=== PATIENT | male | born 1960 ===

== ENCOUNTER 2020-07-31 12:26 | Outpatient (REF) | payer OTHER, SELFPAY | END 2020-07-31 12:27 | disposition home or self-care (01) | LOC: HO.LAB 12:26 | PROVIDERS: PCP Internal Medicine Medical Oncology; Visit Provider Internal Medicine | DX: Z20.822 Contact with and (suspected) exposure to COVID-19 (principal) | CPT/HCPCS: 36415; C9803; U0003; U0005 ==

== ENCOUNTER 2020-08-27 09:26 | Outpatient (REF) | payer OTHER, SELFPAY | END 2020-08-27 09:27 | disposition home or self-care (01) | LOC: HO.LAB 09:26 | PROVIDERS: Visit Provider Internal Medicine | DX: Z20.822 Contact with and (suspected) exposure to COVID-19 (principal) | CPT/HCPCS: 36415; C9803; U0003; U0005 ==

== ENCOUNTER → 2021-04-02 12:52 | Outpatient (BNVA) | payer OTHER, SELFPAY | PROVIDERS: PCP Internal Medicine Medical Oncology; Visit Provider Hospitalist ==

== ENCOUNTER → 2021-07-03 10:39 | Outpatient (BNVA) | payer OTHER, SELFPAY | PROVIDERS: PCP Internal Medicine Medical Oncology; Visit Provider Hospitalist ==

== ENCOUNTER 2021-08-21 15:09 | Outpatient (REF) | payer OTHER, SELFPAY ==
--- NOTE | ~2021-08-21 | XR_ITS ---
EXAMINATION: XR CHEST XR RIBS, LEFT CLINICAL INFORMATION: Back pain. Acute pain. COMPARISON: 08/25/2014 TECHNIQUE: PA and lateral views of the chest. 3 views of the left ribs. FINDINGS: The lungs are well expanded. There is minimal opacity at the periphery of the left lower lung. This is not seen on prior. No pleural effusion or pneumothorax. The cardiomediastinal silhouette is within normal limits. Targeted left rib radiographs show no fracture or cortical disruption. Appropriate alignment. XR/XR ribs LT 2V IMPRESSION: No focal rib abnormality identified. There is minimal left peripheral lower lung opacity which is nonspecific. This could represent atelectasis or pneumonia. Suggest follow-up to resolution.
--- NOTE | ~2021-08-21 | XR_ITS ---
EXAMINATION: XR CHEST XR RIBS, LEFT CLINICAL INFORMATION: Back pain. Acute pain. COMPARISON: 08/25/2014 TECHNIQUE: PA and lateral views of the chest. 3 views of the left ribs. FINDINGS: The lungs are well expanded. There is minimal opacity at the periphery of the left lower lung. This is not seen on prior. No pleural effusion or pneumothorax. The cardiomediastinal silhouette is within normal limits. Targeted left rib radiographs show no fracture or cortical disruption. Appropriate alignment. XR/XR chest 2V IMPRESSION: No focal rib abnormality identified. There is minimal left peripheral lower lung opacity which is nonspecific. This could represent atelectasis or pneumonia. Suggest follow-up to resolution.
== END 2021-08-21 15:10 | disposition home or self-care (01) ==
LOC: HO.XRAY 15:09
PROVIDERS: Absent Provider Hospitalist; PCP Internal Medicine Medical Oncology; Visit Provider Internal Medicine Medical Oncology
DX: M54.9 Dorsalgia, unspecified (principal)
CPT/HCPCS: 71046; 71100

== ENCOUNTER → 2021-08-28 09:54 | Outpatient (BNVA) | payer OTHER, SELFPAY | PROVIDERS: PCP Internal Medicine Medical Oncology; Visit Provider Hospitalist | DX: I26.99 Other pulmonary embolism without acute cor pulmonale (principal); G47.33 Obstructive sleep apnea (adult) (pediatric); Z99.89 Dependence on other enabling machines and devices; Z87.891 Personal history of nicotine dependence | CPT/HCPCS: 99212 ==

== ENCOUNTER 2021-09-10 09:36 | Outpatient (REF) | payer OTHER, SELFPAY ==
[2021-09-10 10:38] LABS: INTERNATIONAL NORM RATIO 1.3 (0.9-1.1); Prothrombin Time 14.8 SEC (9.9-13.0)
[2021-09-10 10:40] LABS: Partial Thromboplastin Time 39.3 SEC (24.1-38.0)
[2021-09-11 14:31] LABS: PTT (LAC) Screen 32 sec (< OR = 40)
[2021-09-13 16:37] LABS: Homocysteine 9.8 umol/L (<11.4)
[2021-09-13 18:32] LABS: Anti-Thrombin III Antigen 88 % (80-120)
[2021-09-13 21:37] LABS: Protein C Activity 172 % (70-180); Protein S Activity rflx Tot&Fr 83 % (70-150)
[2021-09-15 21:36] LABS: Prothrombin 20210A NEGATIVE
[2021-09-16 20:10] LABS: Factor V Leiden NEGATIVE
== END 2021-09-10 09:37 | disposition home or self-care (01) ==
LOC: HO.LAB 09:36
PROVIDERS: PCP Internal Medicine Medical Oncology; Visit Provider Internal Medicine Medical Oncology
DX: I26.99 Other pulmonary embolism without acute cor pulmonale (principal)
CPT/HCPCS: 36415; 81240; 81241; 83090; 85301; 85302; 85303; 85305; 85306; 85597; 85610; 85613; 85730

== ENCOUNTER → 2021-10-23 10:00 | Outpatient (BNVA) | payer OTHER, SELFPAY | PROVIDERS: PCP Internal Medicine Medical Oncology; Visit Provider Hospitalist | DX: R06.00 Dyspnea, unspecified (principal) ==

== ENCOUNTER 2022-01-28 12:13 | Outpatient (REF) | payer MEDICAID, SELFPAY ==
[2022-01-29 04:49] LABS: HBc Num1 0.15 S/CO (0.00-0.79); Hepatitis B Core Antibody Nonreactive (Nonreactive)
[2022-01-30 01:07] LABS: Mumps Virus IgG Antibody >300.00 AU/mL; Rubella IgG Antibody 5.98 Index; Rubeola IgG (Measles) >300.00 AU/mL
[2022-01-30 16:01] LABS: TS Negative Control Passed; TS Panel A 0; TS Panel B 1; TS Positive Control Passed; TSpotTB Negative (Negative)
== END 2022-01-28 12:14 | disposition home or self-care (01) ==
LOC: HO.10HDL 12:13
PROVIDERS: Visit Provider Internal Medicine Medical Oncology
DX: Z92.29 Personal history of other drug therapy (principal); Z78.9 Other specified health status; Z11.1 Encounter for screening for respiratory tuberculosis; Z20.820 Contact with and (suspected) exposure to varicella
CPT/HCPCS: 36415; 86481; 86704; 86735; 86762; 86765; 86787

== ENCOUNTER 2022-02-10 09:37 | Outpatient (REF) | payer MEDICAID, SELFPAY ==
--- NOTE | ~2022-02-10 | FL_ITS ---
EXAMINATION: FL BARIUM SWALLOW CLINICAL INFORMATION: Esophageal dysphagia. COMPARISON: None TECHNIQUE: Barium swallow examination is performed using fluoroscopic evaluation in addition to multiple fluoroscopic spot views. The patient is imaged both upright and prone and using both thick and thin sulfate along with effervescent granules. Barium tablet was also administered. Fluoroscopy Time: 1.9 minutes. DAP: 18 Gycm2. Images: 77. FINDINGS: The swallowing mechanism is normal. No aspiration or penetration is seen. There is question of a filling defect or mass effect on the proximal cervical esophagus. There is mucosal irregularity of the esophagus suggestive of esophagitis. No mass, stricture, hernia or reflux is seen. Barium tablet passed freely into the stomach. FL/FL barium swallow IMPRESSION: Esophagitis. Question filling defect or mass effect on the proximal cervical esophagus.
== END 2022-02-10 09:38 | disposition home or self-care (01) ==
LOC: HO.XRAY 09:37
PROVIDERS: PCP Internal Medicine Medical Oncology; Visit Provider Internal Medicine Medical Oncology
DX: R13.19 Other dysphagia (principal)
CPT/HCPCS: 74220

== ENCOUNTER → 2022-04-24 10:32 | Outpatient (BNVA) | payer MEDICAID, SELFPAY | PROVIDERS: PCP Internal Medicine Medical Oncology; Visit Provider Nurse Practitioner Family | DX: R13.19 Other dysphagia (principal); K21.9 Gastro-esophageal reflux disease without esophagitis | CPT/HCPCS: 99202 ==

== ENCOUNTER 2022-04-24 16:07 | Outpatient (REF) | payer MEDICAID, SELFPAY ==
[2022-04-26 11:11] LABS: H Pylori Breath Test Negative (Negative)
== END 2022-04-24 16:08 | disposition home or self-care (01) ==
LOC: HO.LNP 16:07
PROVIDERS: Visit Provider Nurse Practitioner Family
DX: K20.90 Esophagitis, unspecified without bleeding (principal); Z11.2 Encounter for screening for other bacterial diseases
CPT/HCPCS: 83013; 99202

== ENCOUNTER 2022-05-20 12:43 | Day surgery (SDC) | payer MEDICAID, SELFPAY ==
[2022-05-15 11:50] VITALS: BMI 40.4
[2022-05-15 13:37] VITALS: BMI 40.4
--- NOTE | 2022-05-19 13:20 | HO.ANESPROP2 ---
Documented by User: Alycia Jim NP 05/19/22 13:21 HPI - Anesthesia Eval Consult details Narrative: 61yo M for Upper Endoscopy hx PE 08/2021 - no longer on eliquis [facility] Active Problems Active Problems: All Active Problems (Updated 05/15/22 @ 13:42 by Gabriella Olivares, LILIA) Dyspnea (Acute) MARLEE on CPAP (Acute) Past Medical History Medical History (Updated 05/15/22 @ 13:42 by Gabriella Olivares RN) Arthritis Dysphagia Dyspnea Esophagitis Hyperlipidemia Low back pain MARLEE on CPAP Pulmonary embolism and infarction Surgical History Surgical History (Updated 05/15/22 @ 13:37 by Gabriella Olivares RN) History of esophagogastroduodenoscopy (EGD) Hx of cystoscopy Social History Social History (Updated 05/15/22 @ 13:36 by Gabriella Olivares RN) Are you a primary district manager primary care sales to a significant other at home: No Do you presently have visiting nurse or other home services: No Patient Tobacco Use Status: Former Tobacco user Quit Date: years ago Tobacco use type: Cigarette Years Smoked: 30 Years Use of substances other than those prescribed or required for medical reasons: No Have you been hit, kicked, punched, or otherwise hurt by someone within the past year? If so, by whom?: No Are you DNR?: No Advance Directives: No Advance Directives Information Provided: Yes Advance Directives on File: No Recently lost weight without trying: No Nutrition Risks: Difficulty chewing and Difficulty swallowing Poor oral hygiene: Yes (many missing teeth) Meds Allergies Allergy/AdvReac Type Severity Reaction Status Date / Time No Known Allergies Allergy Verified 05/15/22 13:36 Home Medications Medication Instructions Recorded Confirmed Last Taken Type meloxicam 15 mg tablet 15 mg PO DAILY 05/15/22 05/15/22 Unknown History Exam Exam Date and Time: May 19, 2022 1320 Height,Weight and Vital Signs: Height 6 ft 2 in Weight 142.882 kg Assessment and Plan Assessment Anesthesia Assessment: Chart Reviewed Documented by User: Liane Muñiz MD 05/20/22 15:08 HPI - Anesthesia Eval Consult details Narrative: 61yo M for Upper Endoscopy hx PE 08/2021 - no longer on eliquis. Eliquis for 3 months [facility] Active Problems Active Problems: All Active Problems (Updated 05/15/22 @ 13:42 by Gabriella Olivares, RN) Dyspnea (Acute) MARLEE on CPAP (Acute) Increased BMI Past Medical History Medical History (Updated 05/15/22 @ 13:42 by Gabriella Olivares, RN) Arthritis Dysphagia Dyspnea Esophagitis Hyperlipidemia Low back pain MARLEE on CPAP Pulmonary embolism and infarction Family History Family history of problems with anesthesia: No Surgical History Surgical History (Updated 05/15/22 @ 13:37 by Gabriella Olivares RN) History of esophagogastroduodenoscopy (EGD) Hx of cystoscopy History of Problems with Anesthesia: No Social History Social History (Updated 05/15/22 @ 13:36 by Gabriella Olivares RN) Are you a primary district manager primary care sales to a significant other at home: No Do you presently have visiting nurse or other home services: No Patient Tobacco Use Status: Former Tobacco user Quit Date: years ago Tobacco use type: Cigarette Years Smoked: 30 Years Use of substances other than those prescribed or required for medical reasons: No Have you been hit, kicked, punched, or otherwise hurt by someone within the past year? If so, by whom?: No Are you DNR?: No Advance Directives: No Advance Directives Information Provided: Yes Advance Directives on File: No Recently lost weight without trying: No Nutrition Risks: Difficulty chewing and Difficulty swallowing Poor oral hygiene: Yes (many missing teeth) Meds Allergies Allergy/AdvReac Type Severity Reaction Status Date / Time No Known Allergies Allergy Verified 05/15/22 13:36 Home Medications Medication Instructions Recorded Confirmed Last Taken Type meloxicam 15 mg tablet 15 mg PO DAILY 05/15/22 05/15/22 Unknown History Exam Height,Weight and Vital Signs: Height 6 ft 2 in Weight 142.882 kg Vital Signs Temp Pulse Resp BP Pulse Ox O2 Del Method 05/20/22 13:25 97.6 F 63 16 136/80 98 Room Air Airway Mallampati Class: III TM Dist: >3cm Neck ROM: Full Loose/Missing/Broken Teeth: No (Denies broken or loose teeth ) Heart: RRR Lungs: CTAB Assessment and Plan Assessment Anesthesia Assessment: Anesthesia Plan Discussed Final Anesthetic Review Family History of Problems with Anesthesia: No History of Problems with Anesthesia: No NPO: Yes ASA Class: III Final Preanesthetic Review: No Changes in Pt Med Stat, Meds/Allgs Chart Reviewed, Consent Obtained/Reviewed and Anes Risks/Benef Reviewed Patient Risk: Intermediate Procedure Risk: Low Assessment/Block/Sedation in SS: Assess/Block/Sedation-SS Anesthetic Plan Anesthetic Plan: MAC: Disposition: Standard PACU
[2022-05-20 13:25] VITALS: BP 136/80; PULSE 63; RESP 16; TEMP 36.4; O2SAT 98
[2022-05-20] MEDS: Lactated Ringers 1,000 ML 100 ML IVCONT (13:27)
--- NOTE | 2022-05-20 14:05 | MHC.SHP ---
Pre-Procedural Eval Section A Date of Service: 05/20/22 Section B Chief Complaint: Esophagitis, unspecified without bleeding Details of Present Illness: dysphagia Relevant Family History (Specify if Yes): No Relevant Social History: None Present Medications: see Short Stay Collaborative assessment Medical History: Significant History (Arthritis Dysphagia Dyspnea Esophagitis Hyperlipidemia Low back pain MARLEE on CPAP Pulmonary embolism and infarction) History of Previous Operations: Relevant previous surgery/procedure and date(s) (egd, cystoscopy) Allergies: Allergies Allergy/AdvReac Type Severity Reaction Status Date / Time No Known Allergies Allergy Verified 05/15/22 13:36 Review of Systems Sugical H&P ROS: Negative: Constitution, Cardiovascular, Respiratory, Neurological, Psychiatric, Hem-Onc, Allergic/Immunologic, Gastrointestinal, Genitourinary, Musculoskeletal, Integumentary, Endocrine and Eyes/Ears/Nose/Throat Exam Surgical H&P Exam: Normal: HEENT, Normal: Heart, Normal: Lungs, Normal: Extremities, Normal: Abdomen, Normal: Skin and Normal: Neurological Plan Diagnosis/Plan: Unchanged I have reviewed the history and physical and performed a pertinent physical examination on my patient. No changes have occurred unless specified.
--- NOTE | 2022-05-20 14:06 | W.PM.OPN ---
Operative Note Operative Note Date of Service: 05/20/22 Narrative: Procedure Description: EGD Indication: dysphagia Anesthesia: MAC FLEXIBLE TRANSORAL UPPER GASTROINTESTINAL ENDOSCOPY UPPER ENDOSCOPY Consent: Indications for the procedure and potential complications of bleeding, perforation, reaction to medications and missed diagnosis were discussed with the patient and informed consent was obtained. Instrument: Olympus GIF H 190 J mid size upper endoscope Monitoring: Vital signs and clinical assessment, continuous EKG monitoring, Pulse oximetry, Carbon Dioxide monitoring and blood pressure monitoring were done throughout the procedure. Procedure: The patient was placed in the left lateral decubitis position and pre-procedure medications were administered and a bite block was placed. The endoscope was inserted into the mouth and advanced under direct vision to the third part of duodenum. A careful inspection was made as the upper endoscope was withdrawn including a retroflexed examination of the proximal stomach; Findings and interventions are described below. Findings: Larynx:normal Esophagus: GE junction at 45 cm, diaphragm hiatus at 45 cm, bogginess and erythema at GEJ consistent with esophagitis. 18 mm balloon dilation done with small tear noted at LES and 18 mm at UES with small tear noted. Bx taken from distal and proximal esophagus due to ridged mucosa. Stomach: Patchy gastric erythema. Biopsies were obtained. Grade 2 flap valve on retroflexed examination of the cardia. Duodenum: Normal bulb and descending duodenum, bx taken. Intervention: Biopsies as noted above Impression/Findings: gastritis esophagitis esophageal stricture PLAN: await bx results, if h pylori pos then treat check compliance with PPI and if taking correctly
[2022-05-20 15:38] VITALS: BP 121/82; PULSE 66; RESP 16; TEMP 36.2; O2SAT 95
[2022-05-20 15:53] VITALS: BP 118/78; PULSE 62; RESP 18; O2SAT 98
[2022-05-20 16:08] VITALS: BP 118/78; PULSE 62; RESP 18; TEMP 36.2; O2SAT 98
[2022-05-20] MEDS: Mag&Al/Sim/Diphenhyd/Lidocaine 10 ML ORAL.SUSP PO (16:32)
== END 2022-05-20 16:30 | disposition home or self-care (01) ==
PROVIDERS: PCP Internal Medicine Medical Oncology; Visit Provider Internal Medicine Gastroenterology
PROC: 0DJ08ZZ Inspection of Upper Intestinal Tract, Via Natural or Artificial Opening Endoscopic (ICD-10-PCS; CPT 43235; principal; 2022-05-20 14:10)
DX: K22.2 Esophageal obstruction (principal); K21.00 Gastro-esophageal reflux disease with esophagitis, without bleeding; K29.70 Gastritis, unspecified, without bleeding; K29.80 Duodenitis without bleeding; G47.33 Obstructive sleep apnea (adult) (pediatric); Z86.711 Personal history of pulmonary embolism; Z99.89 Dependence on other enabling machines and devices
CPT/HCPCS: 43249; 43239; 88305; 88342; C1726; J2250

== ENCOUNTER → 2022-06-06 08:21 | Outpatient (BNVA) | payer MEDICAID, SELFPAY | PROVIDERS: PCP Internal Medicine Medical Oncology; Visit Provider Nurse Practitioner Family | DX: Z13.89 Encounter for screening for other disorder (principal) ==

== ENCOUNTER → 2022-07-02 10:00 | Outpatient (BNVA) | payer MEDICAID, SELFPAY | PROVIDERS: PCP Internal Medicine Medical Oncology; Visit Provider Hospitalist | DX: G47.33 Obstructive sleep apnea (adult) (pediatric) (principal); R06.00 Dyspnea, unspecified; R41.3 Other amnesia; Z86.711 Personal history of pulmonary embolism; Z99.89 Dependence on other enabling machines and devices | CPT/HCPCS: 99212 ==

== ENCOUNTER → 2022-08-21 09:00 | Outpatient (BNVA) | payer MEDICAID, SELFPAY | PROVIDERS: PCP Internal Medicine Medical Oncology; Visit Provider Nurse Practitioner Family | DX: R13.10 Dysphagia, unspecified (principal); K21.00 Gastro-esophageal reflux disease with esophagitis, without bleeding | CPT/HCPCS: 99212 ==

== ENCOUNTER 2022-09-12 08:15 | Outpatient (REF) | payer MEDICAID, SELFPAY ==
[2022-09-12 09:15] LABS: Appearance Urine Clear; Color Urine Yellow; Glucose Urine UA Negative (Negative); Leukocyte Esterase Urine Negative (Negative); Nitrite Urine Negative (Negative); Specific Gravity - Urine 1.015 (1.005-1.025); Urine Blood Negative (Negative); Urine Ketones Negative (Negative); Urine Protein Negative (Neg-Trace)
== END 2022-09-12 08:16 | disposition home or self-care (01) ==
LOC: HO.LAB 08:15
PROVIDERS: PCP Internal Medicine Medical Oncology; Visit Provider Internal Medicine Medical Oncology
DX: R30.0 Dysuria (principal)
CPT/HCPCS: 81003

== ENCOUNTER → 2022-10-23 12:57 | Outpatient (BNVA) | payer MEDICAID, SELFPAY | PROVIDERS: PCP Internal Medicine Medical Oncology; Visit Provider Nurse Practitioner Family | DX: R30.0 Dysuria (principal); N40.0 Benign prostatic hyperplasia without lower urinary tract symptoms | CPT/HCPCS: 51798; 99202 ==

== ENCOUNTER 2022-10-29 09:18 | Outpatient (REF) | payer MEDICAID, SELFPAY ==
[2022-10-29 09:32] LABS: MANUAL DIFF FLAG NO
[2022-10-29 10:20] LABS: Basophils Percent Auto 0.7 % (0-2); Eosinophils Absolute Auto 0.2 X10*3/uL (0.0-0.4); Eosinophils Percent Auto 4.2 % (0-4); Hematocrit 42.2 % (42.0-52.0); Hemoglobin 14.3 g/dl (14.0-18.0); Imm Gran Abs Auto 0.02 X10*3/uL (0.00-0.03); Imm Gran Pct Auto 0.4 % (0.0-0.4); Lymphocytes Absolute Auto 2.4 X10*3/uL (1.2-4.9); Lymphocytes Percent Auto 43.1 % (20-40); Mean Corpuscular HGB Conc 33.9 g/dl (31.0-36.0); Mean Corpuscular Hemoglobin 28.1 pg (27.0-33.0); Mean Corpuscular Volume 83.1 fL (80.0-98.0); Mean Platelet Volume 8.9 fL (9.4-12.4); Monocytes Absolute Auto 0.4 X10*3/uL (0.1-1.2); Monocytes Percent Auto 7.8 % (2-11); Neutrophils Absolute Auto 2.5 x10*3/uL (2.0-8.3); Neutrophils Percent Auto 43.8 % (45-73); Platelet Count 184 X10*3/uL (160-400); Red Blood Count 5.08 X10*6/uL (4.60-5.80); Red Cell Distribution Width 14.3 % (11.0-16.0); White Blood Count 5.7 X10*3/uL (4.8-10.8)
[2022-10-29 11:40] LABS: Prostate Specific Antigen 0.19 ng/mL (<0.05-4.0)
[2022-10-29 11:49] LABS: Alanine Aminotransferase 26 U/L (0-40); Albumin Level 4.2 g/dL (3.5-5.0); Alkaline Phosphatase 78 U/L (39-117); Anion Gap 12 (12-20); Aspartate Amino Transferase 24 U/L (5-37); Blood Urea Nitrogen 16 mg/dL (9-16); Calcium 9.4 mg/dL (8.4-10.2); Carbon Dioxide 25 mmol/L (22-29); Chloride 107 mmol/L (96-108); Cholesterol 193 mg/dL; Estimated Glomerular Filt Rate > 60; Glucose Fasting 101 mg/dL (60-99); HDL Cholesterol 44 mg/dL; LDL Cholesterol Calculated 130 mg/dl; Potassium 4.1 mmol/L (3.3-5.1); Rheumatoid Factor < 13.0 IU/mL (<15.0); Sodium 140 mmol/L (135-145); Total Protein 7.4 g/dL (6.5-8.0); Triglycerides 95 mg/dL
== END 2022-10-29 09:19 | disposition home or self-care (01) ==
LOC: HO.LAB 09:18
PROVIDERS: Nurse Practitioner Family; PCP Internal Medicine Medical Oncology; Visit Provider Internal Medicine Medical Oncology
DX: Z00.00 Encounter for general adult medical examination without abnormal findings (principal); Z12.5 Encounter for screening for malignant neoplasm of prostate; N40.0 Benign prostatic hyperplasia without lower urinary tract symptoms; N52.9 Male erectile dysfunction, unspecified; E78.5 Hyperlipidemia, unspecified; I10 Essential (primary) hypertension; E66.9 Obesity, unspecified
CPT/HCPCS: 36415; 80053; 80061; 84153; 85025; 86431

== ENCOUNTER → 2022-11-20 08:35 | Outpatient (BNVA) | payer MEDICAID, SELFPAY | PROVIDERS: PCP Internal Medicine Medical Oncology; Visit Provider Nurse Practitioner Family | DX: R30.0 Dysuria (principal) | CPT/HCPCS: 99212 ==

== ENCOUNTER 2022-12-23 07:16 | Outpatient (AMB) | payer MEDICAID, SELFPAY ==
--- NOTE | 2022-12-23 07:38 | MHC.OFFVIS ---
Intake Vital Signs 12/23/22 07:40 Height 6 ft 2 in Weight 308 lb BMI 39.5 BP 130/70 Blood Pressure Location Rt brachial Position Sitting Pulse 68 Pulse Source Pulse Oximeter Pulse Oximetry (%) 96 Oxygen Delivery Method Room Air Intake Visit Reasons: [id number] Intake Note: NPV for Amnesia, states keeps a headache Allergies No Known Allergies Allergy (Verified 12/23/22 07:39) Medication List - Last Reconciled 12/23/22 by Pam Forrest MD CPAP (CPAP Machine/Device) As directed gabapentin 300 mg PO BEDTIME meloxicam 15 mg PO DAILY pantoprazole 40 mg PO DAILY HPI HPI Comments History of Present Illness Details 62y/o male comes for evaluation of memory issues for about 2 years. He frequently misplaces things, forgets conversations, has short term memory issues, needs reminders to take medications etc. He says his memory issue fluctuates. No issues with executive function. He is independent in all his ADLs. He has sleep apnea and is on CPAP f/u by Dr. Flowers. He also has frequent headaches for past 2 years. The headaches are occipital pressure. No nausea .No photophobia, no phonophobia and he usually wakes up with headache. He also has neck pain. His says he c/o headaches everyday . He treats with aleve or advil. He has trouble falling asleep and staying asleep and wakes up tired.He reports leg cramps at night. [facility] Medical History (Updated 12/23/22 @ 08:20 by Pam Forrest MD) Arthritis Chronic headaches Dysphagia Dyspnea Esophagitis Hyperlipidemia Low back pain Memory deficit Nocturnal leg cramps MARLEE on CPAP Pulmonary embolism and infarction Surgical History History of esophagogastroduodenoscopy (EGD) Hx of cystoscopy Social History Are you a primary skin care consultant to a significant other at home: No Do you presently have visiting nurse or other home services: No Alcohol intake: never Patient Tobacco Use Status: Former Tobacco user Quit Date: years ago Tobacco use type: Cigarette Years Smoked: 30 Years Review of Systems Const All systems reviewed & are unremarkable except as noted in HPI and below Reports as per HPI Eyes Reports no additional complaints ENT Reports no additional complaints Card Reports no additional complaints Resp Reports as per HPI GI Reports no additional complaints Reports as per HPI Musc Reports no additional complaints Neuro Reports no additional complaints Psych Reports as per HPI Endo Reports no additional complaints Physical Exam Vital Signs: Last Vital Signs Pulse 68 12/23/22 07:40 BP 130/70 12/23/22 07:40 Pulse Ox 96 12/23/22 07:40 Oxygen Delivery Method Room Air 12/23/22 07:40 BMI result Body Mass Index 39.5 Const Orientation/consciousness: patient oriented x3 Eyes Pupils: Equal, round and reactive pupils present Neuro General: patient oriented x3 Cranial nerves: Yes Facial sensation intact/muscles of mastication intact, Yes Equal, round and reactive pupils present, Yes Nystagmus not present, Yes Normal facial strength present and Yes Midline tongue present Cognition (Neuro): abnormal cognition Motor exam (neuro): 5/5 motor strength present throughout and Normal motor muscle tone present throughout Deep tendon reflexes (DTR's): Right triceps reflex intensity grade: 1+, Left triceps reflex intensity grade: 1+, Rt Biceps (C5, C6): 1+, Left biceps reflex intensity grade: 1+, Right brachioradialis reflex intensity grade: 1+, Left brachioradialis reflex intensity grade: 1+, Right patellar reflex intensity grade: 1+ and Left patellar reflex intensity grade: 1+ Coordination: [id number] test normal Orientation What is the (year) (season) (date) (day) (month)?: year, season, day and month Where are we (state) (county) (town or city) (hospital) (floor)?: state, town or city, hospital/clinic and floor Registration Name of 3 unrelated objects clearly and slowly, then ask patient to repeat all 3 of them. (1st repeat determines score. Make sure they can repeat all three): object 1, object 2 and object 3 Attention & Calculation (CHOOSE ONE) Spell WORLD backwards (DLROW): 5 letters Recall Ask patient to repeat the 3 items from question #3.: object 1 and object 2 Language Show patient a wristwatch & ask what it is. Repeat for pencil.: watch and pencil Ask the patient to repeat the phrase 'No ifs, ands, or buts' after you.: correct Ask the patient to 'take a piece of paper with their right hand' 'fold paper in half' 'place paper on floor': take paper in right hand, fold paper in half and place paper on floor Print the sentence 'CLOSE YOUR EYES' on a piece. If patient actually closes eyes then score.: followed written direction Ask patient to copy figure of intersecting pentagons exactly. Score if all 10 angles & 2 intersects are included.: all 10 angles present & 2 are intersected Score Score: 26 Assessment & Plan Assessment & Plan (1) Memory deficit: Code(s): R41.3 - Other amnesia (2) MARLEE on CPAP: Comment: with residual insomnia, hypersomnia Code(s): G47.33 - Obstructive sleep apnea (adult) (pediatric); Z99.89 - Dependence on other enabling machines and devices (3) Chronic headaches: Comment: cervicogenic Code(s): R51.9 - Headache, unspecified; G89.29 - Other chronic pain Plan Repeat sleep study for reevaluation. I will trial him on gabapentin 300mg qhs for leg cramps and insomnia MRI brain Orders: Orders Ferritin 12/23/22 G89.29 - Other chronic pain, R41.3 - Other amnesia, R51.9 - Headache, unspecified MR head/brain wo con 12/23/22 G89.29 - Other chronic pain, R41.3 - Other amnesia, R51.9 - Headache, unspecified RT PSG in-lab sleep study 12/23/22 G47.33 - Obstructive sleep apnea (adult) (pediatric), G47.62 - Sleep related leg cramps, Z99.89 - Dependence on other enabling machines and devices Medications: New gabapentin 300 mg PO BEDTIME 30 caps 6RF lorazepam (Ativan) 1 tab 30 prior to MRI repeat in 30 minutes orally daily; 2 tabs 0RF anxiety Coding Level of Care Code New Pt Level 4 (71660) Diagnoses Memory deficit R41.3 MARLEE on CPAP G47.33; Z99.89 Chronic headaches R51.9; G89.29
[2022-12-23 07:40] VITALS: BP 130/70; PULSE 68; O2SAT 96; BMI 39.5
== END 2022-12-23 08:24 | disposition home or self-care (01) ==
LOC: HO.HSMS 07:16
PROVIDERS: PCP Internal Medicine Medical Oncology; Visit Provider Psychiatry & Neurology Neurology
DX: R41.3 Other amnesia (principal); G47.33 Obstructive sleep apnea (adult) (pediatric); Z99.89 Dependence on other enabling machines and devices; R51.9 Headache, unspecified; G89.29 Other chronic pain
CPT/HCPCS: 99204

== ENCOUNTER → 2022-12-23 07:16 | Outpatient (BNVA) | payer MEDICAID, SELFPAY | PROVIDERS: PCP Internal Medicine Medical Oncology; Visit Provider Psychiatry & Neurology Neurology | DX: R41.3 Other amnesia (principal); R51.9 Headache, unspecified; G89.29 Other chronic pain; G47.33 Obstructive sleep apnea (adult) (pediatric); G47.62 Sleep related leg cramps; Z99.89 Dependence on other enabling machines and devices | CPT/HCPCS: 99202 ==

== ENCOUNTER → 2023-01-25 19:30 | Outpatient (BNV) | payer MEDICAID, SELFPAY | PROVIDERS: PCP Internal Medicine Medical Oncology; Visit Provider Psychiatry & Neurology Neurology | DX: G47.33 Obstructive sleep apnea (adult) (pediatric) (principal) | CPT/HCPCS: 95810 ==

== ENCOUNTER → 2023-01-25 19:30 | Outpatient (REF) | payer MEDICAID, SELFPAY | LOC: HO.SL 19:30 | PROVIDERS: PCP Internal Medicine Medical Oncology; Visit Provider Psychiatry & Neurology Neurology | DX: G47.33 Obstructive sleep apnea (adult) (pediatric) (principal); G47.62 Sleep related leg cramps; Z99.89 Dependence on other enabling machines and devices | CPT/HCPCS: 95810 ==

== ENCOUNTER 2023-03-06 09:38 | Outpatient (REF) | payer MEDICAID, SELFPAY ==
--- NOTE | ~2023-03-06 | XR_ITS ---
EXAMINATION: XR FOOT, RIGHT CLINICAL INFORMATION: Pain COMPARISON: None TECHNIQUE: 3 views of the foot FINDINGS: No acute fracture or dislocation. Abnormal morphology of the fifth distal phalanx and interphalangeal joint which may reflect a combination of congenital variant anatomy, prior trauma and degenerative change. Hallux valgus deformity with moderate degenerative changes of the first metatarsophalangeal joint with degenerative spurring and loss of joint space. Degenerative spurring of the dorsal midfoot. Plantar calcaneal spurring. Achilles tendon enthesopathy. No joint effusion. Atherosclerotic vascular calcification. XR/XR foot RT 2V IMPRESSION: 1. Abnormal morphology of the fifth distal phalanx and interphalangeal joint which may reflect a combination of congenital variant anatomy, prior trauma and degenerative change. 2. Hallux valgus deformity with moderate degenerative changes of the first metatarsophalangeal joint and degenerative changes of the foot as detailed above.
== END 2023-03-06 09:39 | disposition home or self-care (01) ==
LOC: HO.XRAY 09:38
PROVIDERS: PCP Internal Medicine Medical Oncology; Visit Provider Internal Medicine Medical Oncology
DX: M79.671 Pain in right foot (principal)
CPT/HCPCS: 73620

== ENCOUNTER 2023-03-11 07:45 | Outpatient (AMB) | payer OTHER, MEDICAID, SELFPAY ==
--- NOTE | 2023-03-11 07:50 | A.OFFVIS_ITS ---
Intake Vital Signs 03/11/23 07:51 Height 6 ft 2 in Weight 321 lb 8 oz BMI 41.3 BP 128/78 Blood Pressure Location Rt brachial Position Sitting Pulse 106 H Pulse Source Pulse Oximeter Pulse Oximetry (%) 96 Oxygen Delivery Method Room Air Intake Visit Reasons: 2m follow up Amnesia-confirmed Intake Note: Pt presents to the office today for a 2 month follow up for amnesia. Pt states he uses his CPAP every night. Pt states he thinks the CPAP might be helping because he isn't sure because he is still not getting a lot of sleep at night. Pt states he has issues with the CPAP being hot at night so its even harder for him to sleep. Pt states not getting enough sleep is his main concern. Allergies No Known Allergies Allergy (Verified 03/11/23 07:55) Medication List - Last Reconciled 03/11/23 by Pam Forrest MD CPAP (CPAP Machine/Device) As directed pantoprazole 40 mg PO DAILY HPI HPI Comments History of Present Illness Details 62y/o male comes for evaluation follow u p. He had a repeat sleep study c/w sleep apnea . He is on AUto CPAP 8-16 cm of water His compliance is 100% Usage hrs - 6 hrs Median pressure used 10 AHI 2 He denies leg cramps now He reports difficulty sleeping He says his headache shave decreased - 1/week He had a booster shot yesterday and has headaches now and did not respond to tylenol He frequently misplaces things, forgets conversations, has short term memory issues, needs reminders to take medications etc. He says his memory issue fluctuates. No issues with executive function. He is independent in all his ADLs. [facility] Medical History Nocturnal leg cramps Chronic headaches Memory deficit Arthritis Low back pain Esophagitis Dysphagia Hyperlipidemia Pulmonary embolism and infarction Dyspnea MARLEE on CPAP Surgical History Hx of cystoscopy History of esophagogastroduodenoscopy (EGD) Social History Are you a primary care transition mgr to a significant other at home: No Do you presently have visiting nurse or other home services: No Alcohol intake: never Patient Tobacco Use Status: Former Tobacco user Quit Date: years ago Tobacco use type: Cigarette Years Smoked: 30 Years Physical Exam Vital Signs: Last Vital Signs Pulse 106 H 03/11/23 07:51 BP 128/78 03/11/23 07:51 Pulse Ox 96 03/11/23 07:51 Oxygen Delivery Method Room Air 03/11/23 07:51 BMI result Body Mass Index 41.3 Const Orientation/consciousness: patient oriented x3 Eyes Pupils: Equal, round and reactive pupils present Neuro General: patient oriented x3 Cranial nerves: Yes Facial sensation intact/muscles of mastication intact, Yes Equal, round and reactive pupils present, Yes Nystagmus not present, Yes Normal facial strength present and Yes Midline tongue present Cognition (Neuro): abnormal cognition Motor exam (neuro): 5/5 motor strength present throughout and Normal motor muscle tone present throughout Deep tendon reflexes (DTR's): Right triceps reflex intensity grade: 1+, Left triceps reflex intensity grade: 1+, Rt Biceps (C5, C6): 1+, Left biceps reflex intensity grade: 1+, Right brachioradialis reflex intensity grade: 1+, Left brachioradialis reflex intensity grade: 1+, Right patellar reflex intensity grade: 1+ and Left patellar reflex intensity grade: 1+ Coordination: [id number] test normal Assessment & Plan Assessment & Plan (1) Memory deficit: Code(s): R41.3 - Other amnesia (2) MARLEE on CPAP: Comment: with residual insomnia, hypersomnia Code(s): G47.33 - Obstructive sleep apnea (adult) (pediatric); Z99.89 - Dependence on other enabling machines and devices (3) Chronic headaches: Comment: cervicogenic Code(s): R51.9 - Headache, unspecified; G89.29 - Other chronic pain Plan Decrease humidifier settings to 2 Change CPAP pressure to 8-11 I will trial him on gabapentin 300mg qhs insomnia MRI brain Coding Level of Care Code Est Pt Level 4 (39276) Diagnoses Memory deficit R41.3 MARLEE on CPAP G47.33; Z99.89 Chronic headaches R51.9; G89.29
[2023-03-11 07:51] VITALS: BP 128/78; PULSE 106; O2SAT 96; BMI 41.3
== END 2023-03-11 08:26 | disposition home or self-care (01) ==
PROVIDERS: PCP Internal Medicine Medical Oncology; Visit Provider Psychiatry & Neurology Neurology
DX: R41.3 Other amnesia (principal); G47.33 Obstructive sleep apnea (adult) (pediatric); Z99.89 Dependence on other enabling machines and devices; R51.9 Headache, unspecified; G89.29 Other chronic pain
CPT/HCPCS: 99214

== ENCOUNTER → 2023-03-11 07:45 | Outpatient (BNVA) | payer MEDICAID, SELFPAY | PROVIDERS: PCP Internal Medicine Medical Oncology; Visit Provider Psychiatry & Neurology Neurology | DX: R41.3 Other amnesia (principal); R51.9 Headache, unspecified; G47.33 Obstructive sleep apnea (adult) (pediatric); G89.29 Other chronic pain; Z99.89 Dependence on other enabling machines and devices | CPT/HCPCS: 99212 ==

== ENCOUNTER 2023-04-17 10:20 | Outpatient (REF) | payer OTHER, SELFPAY ==
[2023-04-17 10:35] LABS: MANUAL DIFF FLAG NO
[2023-04-17 10:53] LABS: Basophils Percent Auto 0.5 % (0-2); Eosinophils Absolute Auto 0.1 X10*3/uL (0.0-0.4); Hematocrit 44.8 % (42.0-52.0); Hemoglobin 14.8 g/dl (14.0-18.0); Imm Gran Abs Auto 0.06 X10*3/uL (0.00-0.03); Lymphocytes Absolute Auto 2.4 X10*3/uL (1.2-4.9); Lymphocytes Percent Auto 38.8 % (20-40); Mean Corpuscular Hemoglobin 27.7 pg (27.0-33.0); Mean Corpuscular Volume 83.7 fL (80.0-98.0); Mean Platelet Volume 8.4 fL (9.4-12.4); Monocytes Absolute Auto 0.4 X10*3/uL (0.1-1.2); Monocytes Percent Auto 6.8 % (2-11); Neutrophils Absolute Auto 3.2 x10*3/uL (2.0-8.3); Neutrophils Percent Auto 51.9 % (45-73); Platelet Count 198 X10*3/uL (160-400); Red Blood Count 5.35 X10*6/uL (4.60-5.80); Red Cell Distribution Width 14.6 % (11.0-16.0); White Blood Count 6.2 X10*3/uL (4.8-10.8)
[2023-04-17 11:24] LABS: Alanine Aminotransferase 23 U/L (0-40); Albumin Level 4.3 g/dL (3.5-5.0); Alkaline Phosphatase 75 U/L (39-117); Anion Gap 9 (12-20); Aspartate Amino Transferase 21 U/L (5-37); Bilirubin Total 0.6 mg/dL (0.0-1.0); Blood Urea Nitrogen 11 mg/dL (9-16); Calcium 9.4 mg/dL (8.4-10.2); Carbon Dioxide 27 mmol/L (22-29); Chloride 108 mmol/L (96-108); Estimated Glomerular Filt Rate > 60; Glucose Random 115 mg/dL (60-115); Potassium 4.1 mmol/L (3.3-5.1); Sodium 140 mmol/L (135-145); Total Protein 7.9 g/dL (6.5-8.0)
[2023-04-17 11:45] LABS: Prostate Specific Antigen 0.13 ng/mL (<0.05-4.0)
== END 2023-04-17 10:21 | disposition home or self-care (01) ==
LOC: HO.LAB 10:20
PROVIDERS: PCP Internal Medicine Medical Oncology; Visit Provider Internal Medicine Medical Oncology
DX: Z12.5 Encounter for screening for malignant neoplasm of prostate (principal); N40.0 Benign prostatic hyperplasia without lower urinary tract symptoms; E78.5 Hyperlipidemia, unspecified; E66.9 Obesity, unspecified
CPT/HCPCS: 36415; 80053; 84153; 85025

== ENCOUNTER 2023-04-29 08:43 | Outpatient (AMB) | payer OTHER, MEDICAID, SELFPAY ==
--- NOTE | 2023-04-29 09:05 | A.OFFVIS_ITS ---
Intake Vital Signs 04/29/23 09:07 Height 6 ft 2 in Weight 300 lb BMI 38.5 BP 128/70 Blood Pressure Location Lt brachial Position Sitting Pulse 64 Pulse Source Pulse Oximeter Pulse Oximetry (%) 96 Oxygen Delivery Method Room Air Intake Visit Reasons: sleep apnea Learning Strategist Required: No Allergies No Known Allergies Allergy (Verified 04/29/23 09:09) HPI HPI Comments History of Present Illness Details The patient is a 62-year-old gentleman with a known history of obstructive sleep apnea. the patient was having significant daytime drowsiness and snoring. He did have a sleep study and have been placed on CPAP. [facility] D[facility] is [facility] although he did have a CPAP prior with a different DME company. He currently has an AirSense 10 APAP which is set up 8-12 cm. Has a ramp of 4 cm. He has a fullface mask. The patient has been struggling with the pressures feels like there are too low. When he puts it on he does not feel like it is getting enough support. He is also concern if the pressures are too high that he may not be able to tolerate the therapy. He did bring his machine I was able to download the data. It appears that his AHI was down to 2.9 under current settings. His average pressure was 12 cm suggesting that he was in a maximum part of his range. Therefore, will got rid of the ramp as he does not needed. Patient was started with a pressure of 8 and will have a maximum pressure of 18 cm. In the meantime he is wondering about a different mask. I did recommend that he stay with a fullface mask based on the fact that he would have to make sure to keep his mouth closed to maintain the adequate mean airway pressure. I will request additional supplies from his DME company. However, it is not clear if he is still active with this current DME company. If the patient is not active will have to request a repeat sleep study in order to confirm the diagnosis of sleep apnea in get him reactivated with his DME company, [facility]. 07/03/2021 the patient is here for a pulmonary follow-up visit. He continues to have significant daytime drowsiness. He describes sometimes he falls asleep when he is waiting on a stoplight while driving. This is very concerning. His Thibodaux score is elevated 14/24. He states that he had been using CPAP. Although when I reviewed the data is only using it around 30-40% of the time. Explained to him that in order for him to see benefits from the CPAP he needs to use it most of the time. In a least every night for more than 4 hours. He will start using it regularly. I did download his data and his AHI is close to 2 when he uses it. Therefore we do not have to make any further arrangements were adjustments. He is tolerating his mask and he is not having any significant air leakage. The patient would like to start feeling better. I did encourage him to again uses machine. However, if he is not better by the next visit will consider stimulant therapy for refractory daytime drowsiness after effective t herapy with CPAP. In the meantime the patient describes episodes of shortness of breath. Sometimes it can happen suddenly and sometimes related to extraneous activity. He also has felt some chest pressure sensation. Usually gets better after he rest and drink school water. I will have him get a chest x-ray an EKG at this time in view of his concerns. 07/02/2022 the [facility]. Overall the patient is doing very well with CPAP. He is using the CPAP for about 6 hours a night. I did look at his download. His AHI is down to 2 and he seems to be doing very well with current mask. Therefore he is already noticing improvement on the machine. However, he still has daytime drowsiness. His Thibodaux score is elevated 8/24. We did talk about stimulant therapy such as using Provigil new visual but the patient would like to hold off at this time he is working a new job and is going to see how he does while he is working make sure that he has daytime drowsiness is not interfering with his ability to function. However, in addition to all this the patient has been noticing some memory lapse. Initially he was fired from his job previously because he was forgetful. Recently, he had an episode where he was in an office setting any forgot how he got there. His is also concerned about his memory. Therefore a neurology consultation will be important to further address the question of any neurological impairments and possibly to consider a multi latency sleep study. 04/29/2023 the patient is here for a [facility] follow-[facility]. He still struggling with daytime drowsiness. His Thibodaux score still elevated 9/24. He is using his CPAP more. We did look at the download. He is averaging 6-1/2 hours a night. His AHI is down to 2.4. Therefore the therapy is adequate and yet he continues to have persistent daytime drowsiness. Therefore, it is reasonable to treat him with stimulants at this time. We did talk about using no visual as a good option for his persistent symptoms. The patient is willing to try the small dose increase it accordingly titrating it to symptom relief. He understands he needs to continue using the CPAP the way he is using at this time. Respiratory villa the patient is doing well. Denies any wheezing shortness of breath or cough. The patient was start the new visual or will follow-up in a couple months. If he has any questions or concerns he can always call for an earlier assessment. Also to note, the patient did have an in lab study. The patient unfortunately could not sleep most of the night. When he finally slept he did have significant sleep apnea with an elevated AHI of 32. the patient needs to continue to use CPAP therapy Specially with the abnormal sleep study. [facility] Medical History Nocturnal leg cramps Chronic headaches Memory deficit Arthritis Low back pain Esophagitis Dysphagia Hyperlipidemia Pulmonary embolism and infarction Dyspnea MARLEE on CPAP Surgical History Hx of cystoscopy History of esophagogastroduodenoscopy (EGD) Social History Are you a primary care program resident to a significant other at home: No Do you presently have visiting nurse or other home services: No Alcohol intake: never Patient Tobacco Use Status: Former Tobacco user Quit Date: years ago Tobacco use type: Cigarette Years Smoked: 30 Years Review of Systems Const Reports daytime sleepiness, Reports headache(s), Denies night sweats, Reports snoring and Reports stops breathing during sleep ENT Denies change in voice, Reports headache(s), Denies lip swelling, Denies mouth pain, Reports nasal congestion, Reports nasal discharge and Denies tongue swelling Card Denies chest pain, Denies dyspnea and Reports dyspnea on exertion Resp Denies dyspnea, Reports dyspnea on exertion and Reports snoring GI Denies abdominal pain Musc Reports back pain Neuro Denies Neuro-related abnormal movements, Reports headache(s) and Reports memory loss Psych Denies no additional complaints and Reports memory loss Niles/Lymph Denies easy bleeding and Denies lymphadenopathy Aller/Immun Denies lip swelling and Denies tongue swelling Physical Exam Vital Signs: Last Vital Signs Pulse 64 04/29/23 09:07 BP 128/70 04/29/23 09:07 Pulse Ox 96 04/29/23 09:07 Oxygen Delivery Method Room Air 04/29/23 09:07 BMI result Body Mass Index 38.5 Const General: alert Neck Neck: Yes normal visual inspection, Yes full ROM and Yes no lymphadenopathy Chest Chest palpation & inspection: normal inspection of the chest Resp Auscultation: diminished lung sounds Cardio Rate: regular rate Rhythm: regular rhythm Heart sounds: S1 normal heart sound present and S2 normal heart sound present GI Palpation (GI): Soft to palpation and nontender Auscultation: normal bowel sounds Skin General skin exam: rashes and/or lesions noted Assessment & Plan Assessment & Plan (1) MARLEE on CPAP: Comment: with residual hypersomnia Code(s): G47.33 - Obstructive sleep apnea (adult) (pediatric); Z99.89 - Dependence on other enabling machines and devices (2) Chronic headaches: Code(s): R51.9 - Headache, unspecified; G89.29 - Other chronic pain Qualifiers: Headache type: unspecified Intractability: not intractable Qualified Code(s): R51.9 - Headache, unspecified; G89.29 - Other chronic pain (3) Pulmonary embolism and infarction: Comment: 08/2021, was on Eliquis-no longer taking Code(s): I26.99 - Other pulmonary embolism without acute cor pulmonale (4) Memory deficit: Code(s): R41.3 - Other amnesia Plan Continue APAP Start Nuvigil 100mg daily F/U 3 months Medications: New armodafinil (Nuvigil) 100 mg (2 x 50 mg) PO QAM 30 days 60 tabs 5RF Coding Level of Care Code Est Pt Level 4 (75766) Diagnoses MARLEE on CPAP G47.33; Z99.89 Chronic nonintractable headache, unspecified headache type R51.9; G89.29 Headache type: unspecified Intractability: not intractable Pulmonary embolism and infarction I26.99 Memory deficit R41.3 Time Spent (min) 16
[2023-04-29 09:07] VITALS: BP 128/70; PULSE 64; O2SAT 96; BMI 38.5
== END 2023-04-29 09:22 | disposition home or self-care (01) ==
PROVIDERS: PCP Internal Medicine Medical Oncology; Visit Provider Hospitalist
DX: G47.33 Obstructive sleep apnea (adult) (pediatric) (principal); Z99.89 Dependence on other enabling machines and devices; R51.9 Headache, unspecified; G89.29 Other chronic pain; I26.99 Other pulmonary embolism without acute cor pulmonale; R41.3 Other amnesia
CPT/HCPCS: 99214

== ENCOUNTER → 2023-04-29 08:43 | Outpatient (BNVA) | payer MEDICAID, SELFPAY | PROVIDERS: PCP Internal Medicine Medical Oncology; Visit Provider Hospitalist ==

== ENCOUNTER 2023-07-07 07:59 | Outpatient (AMB) | payer OTHER, SELFPAY ==
--- NOTE | 2023-07-07 08:21 | A.OFFVIS_ITS ---
Intake Vital Signs 07/07/23 08:22 Height 6 ft 2 in Weight 313 lb 4 oz BMI 40.2 BP 160/90 H Blood Pressure Location Rt brachial Position Sitting Respiration 16 Pulse 62 Pulse Source Pulse Oximeter Pulse Oximetry (%) 95 Oxygen Delivery Method Room Air Intake Visit Reasons: 3 mo f/u for Amnesia - LVM Intake Note: Pt presents to the office for a 3 month follow up for memory issues. 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 He had a repeat sleep study c/w sleep apnea . He is on AUto CPAP 8-16 cm of water His compliance is 100% Usage hrs - 6 hrs Median pressure used 10 AHI 2 He goes to bed at 1- 2am . He gets out of work and home at 12 midnight and take fausto some times to wind down .He wakes up at 9 am . He still is very tired and sleepy . He drinks 2 cups of coffee. No daytime naps. He denies leg cramps now He says his headaches have decreased - 1-2/month He frequently misplaces things, forgets conversations, has short term memory issues, needs reminders to take medications etc. He says his memory issue fluctuates. No issues with executive function. He is independent in all his ADLs. [facility] Medical History Nocturnal leg cramps Chronic headaches Memory deficit Arthritis Low back pain Esophagitis Dysphagia Hyperlipidemia Pulmonary embolism and infarction Dyspnea MARLEE on CPAP Surgical History Hx of cystoscopy History of esophagogastroduodenoscopy (EGD) Social History Are you a primary progressive care manager to a significant other at home: No Do you presently have visiting nurse or other home services: No Alcohol intake: never Patient Tobacco Use Status: Former Tobacco user Quit Date: years ago Tobacco use type: Cigarette Years Smoked: 30 Years Questionnaire Merino Sleepiness Scale Questions Sitting and reading: moderate chance of dozing Watching TV: high chance of dozing Sitting inactive in a theater, movie etc.: moderate chance of dozing As a passenger in a car for an hour without break: would never doze Lying down in the afternoon when circumstances permit: high chance of dozing Sitting and talking to someone: would never doze Sitting quietly after lunch without alcohol: moderate chance of dozing In a car, while stopped for a few minutes in the traffic: would never doze ESS < 10: normal, ESS > 12: pathologic: 12 Physical Exam Vital Signs: Last Vital Signs Pulse 62 07/07/23 08:22 Resp 16 07/07/23 08:22 BP 160/90 H 07/07/23 08:22 Pulse Ox 95 07/07/23 08:22 Oxygen Delivery Method Room Air 07/07/23 08:22 BMI result Body Mass Index 40.2 Const Orientation/consciousness: patient oriented x3 Eyes Pupils: Equal, round and reactive pupils present Neuro General: patient oriented x3 Cranial nerves: Yes Facial sensation intact/muscles of mastication intact, Yes Equal, round and reactive pupils present, Yes Nystagmus not present, Yes Normal facial strength present and Yes Midline tongue present Cognition (Neuro): abnormal cognition Motor exam (neuro): 5/5 motor strength present throughout and Normal motor muscle tone present throughout Coordination: [id number] test normal Assessment & Plan Assessment & Plan (1) Memory deficit: Code(s): R41.3 - Other amnesia (2) MARLEE on CPAP: Comment: with residual hypersomnia Code(s): G47.33 - Obstructive sleep apnea (adult) (pediatric); Z99.89 - Dependence on other enabling machines and devices (3) Chronic headaches: Code(s): R51.9 - Headache, unspecified; G89.29 - Other chronic pain Qualifiers: Headache type: unspecified Intractability: not intractable Qualified Code(s): R51.9 - Headache, unspecified; G89.29 - Other chronic pain Plan Change CPAP pressure to 8-11 MRI brain showed mild atrophy and white matter changes Trial nuvigil 250mg qam Medications: New armodafinil (Nuvigil) 250 mg PO QAM 30 tabs 5RF Coding Level of Care Code Est Pt Level 4 (33259) Diagnoses Memory deficit R41.3 MARLEE on CPAP G47.33; Z99.89 Chronic nonintractable headache, unspecified headache type R51.9; G89.29 Headache type: unspecified Intractability: not intractable
[2023-07-07 08:22] VITALS: BP 160/90; PULSE 62; RESP 16; O2SAT 95; BMI 40.2
== END 2023-07-07 09:03 | disposition home or self-care (01) ==
PROVIDERS: PCP Internal Medicine Medical Oncology; Visit Provider Psychiatry & Neurology Neurology
DX: R41.3 Other amnesia (principal); G47.33 Obstructive sleep apnea (adult) (pediatric); Z99.89 Dependence on other enabling machines and devices; R51.9 Headache, unspecified; G89.29 Other chronic pain
CPT/HCPCS: 99214

== ENCOUNTER → 2023-07-07 07:59 | Outpatient (BNVA) | payer OTHER, SELFPAY | PROVIDERS: PCP Internal Medicine Medical Oncology; Visit Provider Psychiatry & Neurology Neurology ==

== ENCOUNTER 2023-07-08 08:36 | Outpatient (AMB) | payer OTHER, MEDICAID, SELFPAY ==
--- NOTE | 2023-07-08 08:42 | A.OFFVIS_ITS ---
Intake Vital Signs 07/08/23 08:43 Height 6 ft 2 in Weight 300 lb BMI 38.5 Pulse 67 Pulse Source Pulse Oximeter Pulse Oximetry (%) 96 Oxygen Delivery Method Room Air Intake Visit Reasons: sleep apnea Sports Intern Required: No Allergies No Known Allergies Allergy (Verified 07/08/23 08:44) HPI HPI Comments History of Present Illness Details The patient is a 62-year-old gentleman with a known history of obstructive sleep apnea. the patient was having significant daytime drowsiness and snoring. He did have a sleep study and have been placed on CPAP. [facility] is [facility] although he did have a CPAP prior with a different DME company. He currently has an AirSense 10 APAP which is set up 8-12 cm. Has a ramp of 4 cm. He has a fullface mask. The patient has been struggling with the pressures feels like there are too low. When he puts it on he does not feel like it is getting enough support. He is also concern if the pressures are too high that he may not be able to tolerate the therapy. He did bring his machine I was able to download the data. It appears that his AHI was down to 2.9 under current settings. His average pressure was 12 cm suggesting that he was in a maximum part of his range. Therefore, will got rid of the ramp as he does not needed. Patient was started with a pressure of 8 and will have a maximum pressure of 18 cm. In the meantime he is wondering about a different mask. I did recommend that he stay with a fullface mask based on the fact that he would have to make sure to keep his mouth closed to maintain the adequate mean airway pressure. I will request additional supplies from his DME company. However, it is not clear if he is still active with this current DME company. If the patient is not active will have to request a repeat sleep study in order to confirm the diagnosis of sleep apnea in get him reactivated with his DME company, [facility]. 07/03/2021 the patient is here for a pulmonary follow-up visit. He continues to have significant daytime drowsiness. He describes sometimes he falls asleep when he is waiting on a stoplight while driving. This is very concerning. His Milbridge score is elevated 14/24. He states that he had been using CPAP. Although when I reviewed the data is only using it around 30-40% of the time. Explained to him that in order for him to see benefits from the CPAP he needs to use it most of the time. In a least every night for more than 4 hours. He will start using it regularly. I did download his data and his AHI is close to 2 when he uses it. Therefore we do not have to make any further arrangements were adjustments. He is tolerating his mask and he is not having any significant air leakage. The patient would like to start feeling better. I did encourage him to again uses machine. However, if he is not better by the next visit will consider stimulant therapy for refractory daytime drowsiness after effective therapy with CPAP. In the meantime the patient describes episodes of shortness of breath. Sometimes it can happen suddenly and sometimes related to extraneous activity. He also has felt some chest pressure sensation. Usually gets better after he rest and drink school water. I will have him get a chest x-ray an EKG at this time in view of his concerns. 07/02/2022 the patient is here for a [facility] follow-up visit. Overall the patient is doing very well with CPAP. He is using the CPAP for about 6 hours a night. I did look at his download. His AHI is down to 2 and he seems to be doing very well with current mask. Therefore he is already noticing improvement on the machine. However, he still has daytime drowsiness. His Milbridge score is elevated 8/24. We did talk about stimulant therapy such as using Provigil new visual but the patient would like to hold off at this time he is working a new job and is going to see how he does while he is working make sure that he has daytime drowsiness is not interfering with his ability to function. However, in addition to all this the patient has been noticing some memory lapse. Initially he was fired from his job previously because he was forgetful. Recently, he had an episode where he was in an office setting any forgot how he got there. His is also concerned about his memory. Therefore a neurology consultation will be important to further address the question of any neurological impairments and possibly to consider a multi latency sleep study. 04/29/2023 the patient is here for a pul [facility] follow-up visit. He still struggling with daytime drowsiness. His Milbridge score still elevated 9/24. He is using his CPAP more. We did look at the download. He is averaging 6-1/2 hours a night. His AHI is down to 2.4. Therefore the therapy is adequate and yet he continues to have persistent daytime drowsiness. Therefore, it is reasonable to treat him with stimulants at this time. We did talk about using no visual as a good option for his persistent symptoms. The patient is willing to try the small dose increase it accordingly titrating it to symptom relief. He understands he needs to continue using the CPAP the way he is using at this time. Respiratory villa the patient is doing well. Denies any wheezing shortness of breath or cough. The patient was start the new visual or will follow-up in a couple months. If he has any questions or concerns he can always call for an earlier assessment. Also to note, the patient did have an in lab study. The patient unfortunately could not sleep most of the night. When he finally slept he did have significant sleep apnea with an elevated AHI of 32. the patient needs to continue to use CPAP therapy Specially with the abnormal sleep study. 07/08/2023 the patient is here for a [facility]m [facility] follow-up visit. He continues to have significant daytime drowsiness. His Milbridge score is elevated 10/24. The patient did start individual. He started a small dose and did not see any significant improvement. He has been using CPAP every night. Averaging around 6-1/2 hours is AHI continues to be slightly elevated at 3.3. His average pressure is 11 and his maximum pressure is 11 so therefore I will increase his maximum pressure to 12. He recently had the machine pressures down so we do not want to go up too high. The patient will continue to use it. He also has an issue with memory. He is concerned that he is forgetful. We talked about memory exercises. He is also working closely with Neurology. His Nuvigil dose was increased to 250 mg. Hopefully that that works better for him for the persistent daytime drowsiness even after effective CPAP use. He will continue working closely with neurologist will follow-up less frequent. [facility] Medical History Nocturnal leg cramps Chronic headaches Memory deficit Arthritis Low back pain Esophagitis Dysphagia Hyperlipidemia Pulmonary embolism and infarction Dyspnea MARLEE on CPAP Surgical History Hx of cystoscopy History of esophagogastroduodenoscopy (EGD) Social History Are you a primary intensive care nurse to a significant other at home: No Do you presently have visiting nurse or other home services: No Alcohol intake: never Patient Tobacco Use Status: Former Tobacco user Quit Date: years ago Tobacco use type: Cigarette Years Smoked: 30 Years Review of Systems Const Reports daytime sleepiness, Reports headache(s), Denies night sweats, Reports snoring and Reports stops breathing during sleep ENT Denies change in voice, Reports headache(s), Denies lip swelling, Denies mouth pain, Reports nasal congestion, Reports nasal discharge and Denies tongue swelling Card Denies chest pain, Denies dyspnea and Reports dyspnea on exertion Resp Denies dyspnea, Reports dyspnea on exertion and Reports snoring GI Denies abdominal pain Musc Reports back pain Neuro Denies Neuro-related abnormal movements, Reports headache(s) and Reports memory loss Psych Denies no additional complaints and Reports memory loss Niles/Lymph Denies easy bleeding and Denies lymphadenopathy Aller/Immun Denies lip swelling and Denies tongue swelling Physical Exam Vital Signs: Last Vital Signs Pulse 67 07/08/23 08:43 Pulse Ox 96 07/08/23 08:43 Oxygen Delivery Method Room Air 07/08/23 08:43 BMI result Body Mass Index 38.5 Const General: alert Neck Neck: Yes normal visual inspection, Yes full ROM and Yes no lymphadenopathy Chest Chest palpation & inspection: normal inspection of the chest Resp Auscultation: diminished lung sounds Cardio Rate: regular rate Rhythm: regular rhythm Heart sounds: S1 normal heart sound present and S2 normal heart sound present GI Palpation (GI): Soft to palpation and nontender Auscultation: normal bowel sounds Skin General skin exam: rashes and/or lesions noted Assessment & Plan Assessment & Plan (1) MARLEE on CPAP: Comment: with residual hypersomnia Code(s): G47.33 - Obstructive sleep apnea (adult) (pediatric); Z99.89 - Dependence on other enabling machines and devices (2) Chronic headaches: Code(s): R51.9 - Headache, unspecified; G89.29 - Other chronic pain Qualifiers: Headache type: unspecified Intractability: not intractable Qualified Code(s): R51.9 - Headache, unspecified; G89.29 - Other chronic pain (3) Pulmonary embolism and infarction: Comment: 08/2021, was on Eliquis-no longer taking Code(s): I26.99 - Other pulmonary embolism without acute cor pulmonale (4) Memory deficit: Code(s): R41.3 - Other amnesia Plan Continue APAP, Adjusted 8-12 Increasing Nuvigil 100mg->250 daily F/U 4 months Coding Level of Care Code Est Pt Level 4 (46231) Diagnoses MARLEE on CPAP G47.33; Z99.89 Chronic nonintractable headache, unspecified headache type R51.9; G89.29 Headache type: unspecified Intractability: not intractable Pulmonary embolism and infarction I26.99 Memory deficit R41.3 Time Spent (min) 16
[2023-07-08 08:43] VITALS: PULSE 67; O2SAT 96; BMI 38.5
== END 2023-07-08 09:03 | disposition home or self-care (01) ==
PROVIDERS: PCP Internal Medicine Medical Oncology; Visit Provider Hospitalist
DX: G47.33 Obstructive sleep apnea (adult) (pediatric) (principal); Z99.89 Dependence on other enabling machines and devices; R51.9 Headache, unspecified; G89.29 Other chronic pain; I26.99 Other pulmonary embolism without acute cor pulmonale; R41.3 Other amnesia
CPT/HCPCS: 99214

== ENCOUNTER → 2023-07-08 08:36 | Outpatient (BNVA) | payer MEDICAID, SELFPAY | PROVIDERS: PCP Internal Medicine Medical Oncology; Visit Provider Hospitalist ==

== ENCOUNTER 2023-07-30 08:58 | Outpatient (REF) | payer OTHER, MEDICAID, SELFPAY ==
[2023-07-30 09:16] LABS: MANUAL DIFF FLAG NO
[2023-07-30 09:38] LABS: Basophils Percent Auto 0.5 % (0-2); Eosinophils Absolute Auto 0.2 X10*3/uL (0.0-0.4); Eosinophils Percent Auto 3.3 % (0-4); Hematocrit 43.8 % (42.0-52.0); Hemoglobin 14.9 g/dl (14.0-18.0); Imm Gran Abs Auto 0.03 X10*3/uL (0.00-0.03); Imm Gran Pct Auto 0.5 % (0.0-0.4); Lymphocytes Absolute Auto 2.2 X10*3/uL (1.2-4.9); Lymphocytes Percent Auto 40.4 % (20-40); Mean Corpuscular Hemoglobin 28.3 pg (27.0-33.0); Mean Corpuscular Volume 83.3 fL (80.0-98.0); Mean Platelet Volume 8.5 fL (9.4-12.4); Monocytes Absolute Auto 0.5 X10*3/uL (0.1-1.2); Monocytes Percent Auto 8.5 % (2-11); Neutrophils Absolute Auto 2.6 x10*3/uL (2.0-8.3); Neutrophils Percent Auto 46.8 % (45-73); Platelet Count 172 X10*3/uL (160-400); Red Blood Count 5.26 X10*6/uL (4.60-5.80); Red Cell Distribution Width 14.5 % (11.0-16.0); White Blood Count 5.5 X10*3/uL (4.8-10.8)
[2023-07-30 10:07] LABS: Alanine Aminotransferase 38 U/L (0-40); Albumin Level 4.4 g/dL (3.5-5.0); Alkaline Phosphatase 59 U/L (39-117); Anion Gap 12 (12-20); Aspartate Amino Transferase 43 U/L (5-37); Bilirubin Total 0.9 mg/dL (0.0-1.0); Blood Urea Nitrogen 13 mg/dL (9-16); Calcium 9.7 mg/dL (8.4-10.2); Carbon Dioxide 26 mmol/L (22-29); Chloride 106 mmol/L (96-108); Cholesterol 209 mg/dL (<200); Estimated Glomerular Filt Rate > 60; Glucose Fasting 104 mg/dL (60-99); HDL Cholesterol 49 mg/dL (>40); LDL Cholesterol Calculated 147 mg/dL (<100); Potassium 3.9 mmol/L (3.3-5.1); Sodium 140 mmol/L (135-145); Total Protein 7.8 g/dL (6.5-8.0); Triglycerides 66 mg/dL (<150)
[2023-08-03 13:23] LABS: Testosterone, Total 176 ng/dL (250-1100)
== END 2023-07-30 08:59 | disposition home or self-care (01) ==
LOC: HO.LAB 08:58
PROVIDERS: PCP Internal Medicine Medical Oncology; Visit Provider Internal Medicine Medical Oncology
DX: N40.0 Benign prostatic hyperplasia without lower urinary tract symptoms (principal); N52.9 Male erectile dysfunction, unspecified; E78.5 Hyperlipidemia, unspecified; E66.9 Obesity, unspecified
CPT/HCPCS: 36415; 80053; 80061; 84403; 85025

== ENCOUNTER 2023-08-04 09:48 | Outpatient (AMB) | payer OTHER, SELFPAY ==
--- NOTE | 2023-08-04 09:56 | A.OFFVIS_ITS ---
Intake Vital Signs 08/04/23 10:01 Height 6 ft 2 in Weight 311 lb 8 oz BMI 40.0 BP 142/90 H Blood Pressure Location Rt brachial Position Sitting Pulse 61 Pulse Source Pulse Oximeter Pulse Oximetry (%) 96 Oxygen Delivery Method Room Air Intake Visit Reasons: 1 mo f/u-lvm Intake Note: Patient presents for 1 month f/u. Allergies No Known Allergies Allergy (Verified 08/04/23 09:59) HPI HPI Comments History of Present Illness Details 62 y/o male comes for follow up of MARLEE o n CPAP. Pt had a repeat sleep study c/w sleep apnea. He is on Auto CPAP 8-12 cm of water. His compliance is 100% Usage hrs - 6 hrs 45 min. Median pressure used 9.6 and the AHI was 2.7/hr. Pt reports he has difficulty staying sleep, wakes up couple of times at night. He goes to bed at 1- 2am. He gets out of work and home at 12 midnight and takes him some times to wind down. He wakes up at 9 am, still tired and uses Nuvigil 250 mg qAM for daytime sleepiness. He says his headaches have decreased - 1-2/month He frequently misplaces things, forgets conversations, has short term memory issues, needs reminders to take medications etc. He says his memory issue fluctuates. No issues with executive function. He is independent in all his ADLs. [facility] Medical History Nocturnal leg cramps Chronic headaches Memory deficit Arthritis Low back pain Esophagitis Dysphagia Hyperlipidemia Pulmonary embolism and infarction Dyspnea MARLEE on CPAP Surgical History Hx of cystoscopy History of esophagogastroduodenoscopy (EGD) Social History Are you a primary field care manager to a significant other at home: No Do you presently have visiting nurse or other home services: No Alcohol intake: never Patient Tobacco Use Status: Former Tobacco user Quit Date: years ago Tobacco use type: Cigarette Years Smoked: 30 Years Review of Systems Const All systems reviewed & are unremarkable except as noted in HPI and below Physical Exam Vital Signs: Last Vital Signs Pulse 61 08/04/23 10:01 BP 142/90 H 08/04/23 10:01 Pulse Ox 96 08/04/23 10:01 Oxygen Delivery Method Room Air 08/04/23 10:01 BMI result Body Mass Index 40.0 Const Orientation/consciousness: patient oriented x3 Eyes Pupils: Equal, round and reactive pupils present Neuro General: patient oriented x3 Cranial nerves: Yes Facial sensation intact/muscles of mastication intact, Yes Equal, round and reactive pupils present, Yes Nystagmus not present, Yes Normal facial strength present and Yes Midline tongue present Cognition (Neuro): abnormal cognition Motor exam (neuro): 5/5 motor strength present throughout and Normal motor muscle tone present throughout Coordination: [id number] test normal Assessment & Plan Assessment & Plan (1) Memory deficit: Code(s): R41.3 - Other amnesia (2) MARLEE on CPAP: Comment: with residual hypersomnia Code(s): G47.33 - Obstructive sleep apnea (adult) (pediatric); Z99.89 - Dependence on other enabling machines and devices (3) Chronic headaches: Code(s): R51.9 - Headache, unspecified; G89.29 - Other chronic pain Qualifiers: Headache type: unspecified Intractability: not intractable Qualified Code(s): R51.9 - Headache, unspecified; G89.29 - Other chronic pain Plan Continue to use APAP pressure to [id number]. Stressed CPAP compliance, use nightly. Continue to take nuvigil 250mg qam. Sleep hygiene education provided, advised patient to do daily exercise, cognitive and social activities. Coding Level of Care Code Est Pt Level 4 (85641) Diagnoses Memory deficit R41.3 MARLEE on CPAP G47.33; Z99.89 Chronic nonintractable headache, unspecified headache type R51.9; G89.29 Headache type: unspecified Intractability: not intractable
[2023-08-04 10:01] VITALS: BP 142/90; PULSE 61; O2SAT 96; BMI 40.0
== END 2023-08-04 10:28 | disposition home or self-care (01) ==
PROVIDERS: PCP Internal Medicine Medical Oncology; Visit Provider Nurse Practitioner Family
DX: R41.3 Other amnesia (principal); G47.33 Obstructive sleep apnea (adult) (pediatric); Z99.89 Dependence on other enabling machines and devices; R51.9 Headache, unspecified; G89.29 Other chronic pain
CPT/HCPCS: 99214

== ENCOUNTER → 2023-08-04 09:48 | Outpatient (BNVA) | payer OTHER, SELFPAY | PROVIDERS: PCP Internal Medicine Medical Oncology; Visit Provider Nurse Practitioner Family ==

== ENCOUNTER 2023-08-21 08:28 | Outpatient (AMB) | payer OTHER, MEDICAID, SELFPAY ==
[2023-08-21 08:29] VITALS: BP 157/63; PULSE 70; BMI 39.5
--- NOTE | 2023-08-21 08:29 | A.OFFVIS_ITS ---
Intake Vital Signs 08/21/23 08:29 Height 6 ft 2 in Weight 307 lb 12.245 oz BMI 39.5 BP 157/63 H Blood Pressure Location Lt brachial Position Sitting Pulse 70 Pulse Source Pulse Oximeter Intake Visit Reasons: 1 year fu Intake Note: Patient here for 1 yr f/u GERD. Taking pantoprazole. Pt states he is feeling well and states his GERD is much better with the medication. He has no other concerns at this time. Allergies No Known Allergies Allergy (Verified 08/21/23 08:32) HPI 1 year fu HPI Details LAST VISIT GERD (gastroesophageal reflux disease) Continue pantoprazole daily. Discussed with patient the importance of avoiding dietary triggers in late night snacking. Staying upright for minimum 3 hours after meals discussed with patient. Patient was also encouraged to lose weight. I will see him in 1 year, sooner on as needed basis. Patient is agreeable to this plan and verbalizes understanding of instructions. He was given the opportunity to ask questions and all questions answered. ? Thank you for allowing me to participate in his care Plan Medications Refilled pantoprazole take one tablet half an hour before breakfast 40 mg PO DAILY 90 tabs 2RF K21.9 TODAY'S VISIT: Patient is here today for follow-up. Patient reports that since he started taking pantoprazole he has been feeling better. Patient reports that he takes pantoprazole every day. Patient reports that occasionally he takes naproxen for back pain, however he reports that he usually takes it with. Patient denies any dyspepsia, dysphagia or odynophagia. Patient denies any melena, hematochezia, unintentional weight loss or ribbon like stools. Patient reports that he had colonoscopy last year at [facility]. And was told to return in 10 years. Patient reports that he is doing well. After reviewing his blood work AST slightly elevated. Patient admits to be drinking beer occasionally. [facility] Medical History Nocturnal leg cramps Chronic headaches Memory deficit Arthritis Low back pain Esophagitis Dysphagia Hyperlipidemia Pulmonary embolism and infarction Dyspnea MARLEE on CPAP Surgical History Hx of cystoscopy History of esophagogastroduodenoscopy (EGD) Social History Are you a primary chronic care nurse to a significant other at home: No Do you presently have visiting nurse or other home services: No Alcohol intake: never Patient Tobacco Use Status: Former Tobacco user Quit Date: years ago Tobacco use type: Cigarette Years Smoked: 30 Years Review of Systems Const Denies weight gain and Denies weight loss ENT Reports no additional complaints, Denies dysphagia and Denies odynophagia Card Reports no additional complaints Resp Reports no additional complaints GI Denies abdominal pain, Denies belching, Denies melena, Denies bloating, Denies change in bowel habits, Denies dysphagia, Denies excessive flatus, Denies dyspepsia, Denies heartburn, Denies diarrhea, Denies loose stools, Denies nausea, Denies odynophagia and Denies vomiting Reports no additional complaints Musc Reports no additional complaints Neuro Reports no additional complaints Psych Reports no additional complaints Endo Reports no additional complaints Physical Exam Vital Signs: Last Vital Signs Pulse 70 08/21/23 08:29 BP 157/63 H 08/21/23 08:29 BMI result Body Mass Index 39.5 Const General: healthy appearing, no acute distress and well developed Nutritional Appearance: obese Orientation/consciousness: patient oriented x3 Resp Effort & Inspection: normal respiratory effort, able to speak in complete sentences, no tracheal deviation and symmetric chest movement Auscultation: clear to auscultation bilaterally Cardio Rate: regular rate GI Inspection: Yes normal to inspection, No distended and Yes obesity Palpation (GI): Soft to palpation, not firm, nontender and No hepatosplenomegaly present Auscultation: normal bowel sounds General: Yes no CVA tenderness Back/Spine/Pelvis Back: no CVA tenderness Skin General skin exam: elasticity normal, turgor normal and dry skin Neuro General: patient oriented x3 Psych Appearance: grossly normal Mental Status: mental status grossly normal Assessment & Plan Assessment & Plan (1) GERD (gastroesophageal reflux disease): Code(s): K21.9 - Gastro-esophageal reflux disease without esophagitis Qualifiers: Esophagitis presence: esophagitis presence not specified Qualified Code(s): K21.9 - Gastro-esophageal reflux disease without esophagitis (2) Transaminitis: Code(s): R74.01 - Elevation of levels of liver transaminase levels Plan Continue pantoprazole daily. Avoid dietary triggers and late night snacking. Staying upright for minimum 3 hours after meals discussed with patient. Patient will follow-up in our office on as needed basis. Will repeat blood work in 6 months. If patient will continue have elevated liver enzymes will need to do further workup. Patient is agreeable to this plan and verbalizes understanding of instructions. He was given the opportunity to ask questions and all questions answered. Thank you for allowing me to participate in his care Orders: Orders Liver Panel 6 Months R74.01 - Elevation of levels of liver transaminase levels Medications: Refilled pantoprazole take one tablet half an hour before breakfast 40 mg PO DAILY 90 tabs 3RF K21.9 - Gastro-esophageal reflux disease without esophagitis Coding Level of Care Code Est Pt Level 3 (38055) Diagnoses Gastroesophageal reflux disease, unspecified whether esophagitis present K21.9 Esophagitis presence: esophagitis presence not specified Transaminitis R74.01 Time Spent (min) 25 Comment 15 minutes spent with patient and additional 10 minutes spent reviewing his records
== END 2023-08-21 08:59 | disposition home or self-care (01) ==
PROVIDERS: PCP Internal Medicine Medical Oncology; Visit Provider Nurse Practitioner Family
DX: K21.9 Gastro-esophageal reflux disease without esophagitis (principal); R74.01 Elevation of levels of liver transaminase levels
CPT/HCPCS: 99213

== ENCOUNTER → 2023-08-21 08:28 | Outpatient (BNVA) | payer OTHER, SELFPAY | PROVIDERS: PCP Internal Medicine Medical Oncology; Visit Provider Nurse Practitioner Family ==

== ENCOUNTER 2023-11-04 08:01 | Outpatient (AMB) | payer OTHER, MEDICAID, SELFPAY ==
--- NOTE | 2023-11-04 08:21 | A.OFFVIS_ITS ---
Vital Signs 11/04/23 08:22 Height 6 ft 2 in Weight 306 lb 7.08 oz BMI 39.3 Pulse 57 Pulse Source Pulse Oximeter Pulse Oximetry (%) 96 Oxygen Delivery Method Room Air Intake Visit Reasons: sleep apnea [place] [employer] Professor Required: No Allergies No Known Allergies Allergy (Verified 11/04/23 08:23) HPI Comments Details: The patient is a 63-year-old gentleman with a known history of obstructive sleep apnea. the patient was having significant daytime drowsiness and snoring. He did have a sleep study and have been placed on CPAP. His current DME is [facility] although he did have a CPAP prior with a different DME company. He currently has an AirSense 10 APAP which is set up 8-12 cm. Has a ramp of 4 cm. He has a fullface mask. The patient has been struggling with the pressures f eels like there are too low. When he puts it on he does not feel like it is getting enough support. He is also concern if the pressures are too high that he may not be able to tolerate the therapy. He did bring his machine I was able to download the data. It appears that his AHI was down to 2.9 under current settings. His average pressure was 12 cm suggesting that he was in a maximum part of his range. Therefore, will got rid of the ramp as he does not needed. Patient was started with a pressure of 8 and will have a maximum pressure of 18 cm. In the meantime he is wondering about a different mask. I did recommend that he stay with a fullface mask based on the fact that he would have to make sure to keep his mouth closed to maintain the adequate mean airway pressure. I will request additional supplies from his DME company. However, it is not clear if he is still active with this current DME company. If the patient is not active will have to request a repeat sleep study in order to confirm the diagnosis of sleep apnea in get him reactivated with his DME company, [facility]. 07/08/2023 the patient is here for a pulmonary follow-up visit. He continues to have significant daytime drowsiness. His [place] score is elevated 10/24. The patient did start individual. He started a small dose and did not see any significant improvement. He has been using CPAP every night. Averaging around 6-1/2 hours is AHI continues to be slightly elevated at 3.3. His average pressure is 11 and his maximum pressure is 11 so therefore I will increase his maximum pressure to 12. He recently had the machine pressures down so we do not want to go up too high. The patient will continue to use it. He also has an issue with memory. He is concerned that he is forgetful. We talked about memory exercises. He is also working closely with Neurology. His Nuvigil dose was increased to 250 mg. Hopefully that that works better for him for the persistent daytime drowsiness even after effective CPAP use. He will continue working closely with neurologist will follow-up less frequent. 11/04/2023 the patient is here for a pulmonary follow-up visit. Overall he has doing a little better. The individual has been helping him at the higher dose. He is averaging around 6 hours a night with CPAP which is very reassuring. The CPAP therapy has been affecting beneficial. His AHI continues via 3.5. Will go ahead and increase his APAP slightly. He has had difficulties tolerating higher pressures before. Currently on APAP 8-12. Will increase to 9-13. He is going to also try a new mask because he has been getting some nasal bridge breakdown irritation. I did provide him with a medium F30 mask. He tried a in felt well and comfortable. He is going to try. Will go ahead and switch it at his [employer] company. The patient denies any respiratory complaints at this time. He will continue with the current therapy. I did encourage him to continue the Nuvigil as it is affecting beneficial for him. [facility] Medical History Nocturnal leg cramps Chronic headaches Memory deficit Arthritis Low back pain Esophagitis Dysphagia Hyperlipidemia Pulmonary embolism and infarction Dyspnea MARLEE on CPAP Surgical History Hx of cystoscopy History of esophagogastroduodenoscopy (EGD) Social History Are you a primary healthcare liaison to a significant other at home: No Do you presently have visiting nurse or other home services: No Alcohol intake: never Patient Tobacco Use Status: Former Tobacco user Quit Date: years ago Tobacco use type: Cigarette Years Smoked: 30 Years Review of Systems Const Denies daytime sleepiness, Denies headache(s), Denies night sweats, Denies snoring and Denies stops breathing during sleep ENT Denies change in voice, Denies headache(s), Denies lip swelling, Denies mouth pain, Reports nasal congestion, Reports nasal discharge and Denies tongue swelling Card Denies chest pain, Denies dyspnea and Reports dyspnea on exertion Resp Denies dyspnea, Reports dyspnea on exertion and Denies snoring GI Denies abdominal pain Musc Reports back pain Neuro Denies Neuro-related abnormal movements, Denies headache(s) and Reports memory loss Psych Denies no additional complaints and Reports memory loss [place]/Lymph Denies easy bleeding and Denies lymphadenopathy Aller/Immun Denies lip swelling and Denies tongue swelling Physical Exam Vital Signs: Last Vital Signs Pulse 57 11/04/23 08:22 Pulse Ox 96 11/04/23 08:22 Oxygen Delivery Method Room Air 11/04/23 08:22 BMI result Body Mass Index 39.3 Const General: alert Neck Neck: Yes normal visual inspection, Yes full ROM and Yes no lymphadenopathy Chest Chest palpation & inspection: normal inspection of the chest Resp Auscultation: diminished lung sounds Cardio Rate: regular rate Rhythm: regular rhythm Heart sounds: S1 normal heart sound present and S2 normal heart sound present GI Palpation (GI): Soft to palpation and nontender Auscultation: normal bowel sounds Skin General skin exam: rashes and/or lesions noted Assessment & Plan Assessment & Plan (1) MARLEE on CPAP: Comment: with residual hypersomnia on Nuvigil Code(s): G47.33 - Obstructive sleep apnea (adult) (pediatric); Z99.89 - Dependence on other enabling machines and devices Category: Medical (2) Chronic headaches: Code(s): R51.9 - Headache, unspecified; G89.29 - Other chronic pain Category: Medical Qualifiers: Headache type: unspecified Intractability: not intractable Qualified Code(s): R51.9 - Headache, unspecified; G89.29 - Other chronic pain (3) Pulmonary embolism and infarction: Comment: 08/2021, was on Eliquis-no longer taking Code(s): I26.99 - Other pulmonary embolism without acute cor pulmonale Category: Medical (4) Memory deficit: Code(s): R41.3 - Other amnesia Category: Medical Plan Continue APAP, Adjusted 01-24->13.Trial F30 Med mask continue Nuvigil 250 daily F/U 6 months Coding Level of Care Code Est Pt Level 4 (97652) Diagnoses MARLEE on CPAP G47.33; Z99.89 Chronic nonintractable headache, unspecified headache type R51.9; G89.29 Headache type: unspecified Intractability: not intractable Pulmonary embolism and infarction I26.99 Memory deficit R41.3 Time Spent (min) 17
[2023-11-04 08:22] VITALS: PULSE 57; O2SAT 96; BMI 39.3
== END 2023-11-04 08:43 | disposition home or self-care (01) ==
PROVIDERS: PCP Internal Medicine Medical Oncology; Visit Provider Hospitalist
DX: G47.33 Obstructive sleep apnea (adult) (pediatric) (principal); Z99.89 Dependence on other enabling machines and devices; R51.9 Headache, unspecified; G89.29 Other chronic pain; I26.99 Other pulmonary embolism without acute cor pulmonale; R41.3 Other amnesia
CPT/HCPCS: 99214

== ENCOUNTER → 2023-11-04 08:01 | Outpatient (BNVA) | payer OTHER, MEDICAID, SELFPAY | PROVIDERS: PCP Internal Medicine Medical Oncology; Visit Provider Hospitalist ==

== ENCOUNTER 2023-11-20 08:32 | Outpatient (REF) | payer OTHER, MEDICAID, SELFPAY ==
[2023-11-20 10:05] LABS: Prostate Specific Antigen < 0.10 ng/mL (<0.05-4.0)
== END 2023-11-20 08:33 | disposition home or self-care (01) ==
LOC: HO.LAB 08:32
PROVIDERS: PCP Internal Medicine Medical Oncology; Visit Provider Nurse Practitioner Family
DX: N40.0 Benign prostatic hyperplasia without lower urinary tract symptoms (principal); Z12.5 Encounter for screening for malignant neoplasm of prostate
CPT/HCPCS: 36415; 84153

== ENCOUNTER 2023-11-23 08:15 | Outpatient (AMB) | payer OTHER, MEDICAID, SELFPAY ==
--- NOTE | 2023-11-23 08:28 | A.OFFVIS_ITS ---
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 Mccabe. He has a past medical history of nocturnal leg cramps, memory deficit, arthritis of the right knee, low-back pain, hyperlipidemia, pulmonary embolism and infarction, and obstructive sleep apnea on CPAP. He presents to the office today for follow-up of his dysuria. In discussion with the patient today he reports to be doing and feeling well. He reports since his office visit here approximately one year ago he has not had any bothersome urinary issues or concerns. He discusses at length his frustration with his insurance plan and his high deductibles. He otherwise denies urinary urgency, urinary frequency, incontinence, nocturia, hematuria, dysuria, foul smelling urine, changes to urinary stream, flank pain, fever, and or chills. He is happy with his current voiding parameters. Unable to obtain urine for urinalysis however PVR 0 mL. PSAs are as follows: PSAs: 11/04 0.2, 12/06 <0.10 Testosterone: 08/08 176 Discussed hypogonadism given recent testosterone results. Discussed further workup to include hypogonadal labs as well as further treatment options such as low-dose Cialis verses testosterone replacement. Patient currently does not feel he has any bothersome issues and does not wish to undergo further investigation of hypogonadism at this time. He otherwise offers no other issues or concerns. [facility] Medical History Nocturnal leg cramps Chronic headaches Memory deficit Arthritis Low back pain Esophagitis Dysphagia Hyperlipidemia Pulmonary embolism and infarction Dyspnea MARLEE on CPAP Surgical History Hx of cystoscopy History of esophagogastroduodenoscopy (EGD) Social History Are you a primary healthcare representative to a significant other at home: No Do you presently have visiting nurse or other home services: No Alcohol intake: never Patient Tobacco Use Status: Former Tobacco user Tobacco use type: Cigarette Years Smoked: 30 Years Review of Systems Const All systems reviewed & are unremarkable except as noted in HPI and below Reports as per HPI Eyes Reports no additional complaints ENT Reports no additional complaints Card Reports no additional complaints Resp Reports as per HPI GI Reports no additional complaints Reports as per HPI Musc Reports no additional complaints Neuro Reports no additional complaints Psych Reports as per HPI Endo Reports no additional complaints Physical Exam Const General: cooperative, healthy appearing, comfortable, no acute distress, well developed, alert and awake Orientation/consciousness: patient oriented x3 Limitations: no limitations HEENT Head: Yes normal to inspection, Yes normocephalic and Yes atraumatic Ears: hearing grossly normal bilaterally Eyes General: appearance normal, both eyes and all related structures Neck Neck: Yes normal visual inspection and Yes trachea midline Chest Chest palpation & inspection: normal inspection of the chest Resp Effort & Inspection: normal respiratory effort and able to speak in complete sentences Cardio Rate: regular rate GI Inspection: Yes normal to inspection Rectal Exam - Male: Yes deferred General: Yes no CVA tenderness Back/Spine/Pelvis Back: no CVA tenderness Skin General skin exam: no rashes or lesions noted Neuro General: patient oriented x3 Extrem General: Yes normal to inspection Psych Appearance: grossly normal and well kempt Mental Status: mental status grossly normal Speech and movement: Normal speech and movement present and Clear speech present Affect: normal affect Attitude: cooperative Thought process: Normal thought process present Thought content: Normal thought content present Insight: Fair insight present (Psych) Judgement: Fair judgement present (Psych) Assessment & Plan Assessment & Plan (1) Dysuria: Code(s): R30.0 - Dysuria Category: Medical (2) Hypogonadism in male: Code(s): E29.1 - Testicular hypofunction Category: Medical Plan Unable to provide urine for urinalysis however PVR 0 mL. Patient currently denies any bothersome urinary issues or concerns. Recent PSA results reviewed with the patient today; as noted above. Discussed further treatment option and workup for hypogonadism; patient declines at this time. Patient reports be happy with current voiding parameters. Follow-up in 1 year with labs to be completed prior; or sooner with any issues, concerns, and or questions. Orders: Orders AMB Urinalysis Automated Today Z13.9 - Encounter for screening, unspecified Prostate Specific Antigen 1 Year N40.0 - Benign prostatic hyperplasia without lower urinary tract symptoms Testosterone, Free/Total 1 Year E29.1 - Testicular hypofunction Patient Instructions: The patient had an opportunity to ask questions regarding the treatment plan. All questions were answered. Physical exam, labs, and imaging were discussed and reviewed in detail. As well as risks, benefits, and discussion of treatment choices. No major barriers to understanding were identified. The patient expressed understanding and agreement with the above treatment plan. The patient was made aware they should contact our office by phone for worsening of their current condition, the appearance of new symptoms, or with any questions or concerns. Compliance is encouraged with any medications and follow up testing that is ordered. It is a privilege to be allowed the opportunity to participate in? your urological care.? Again, if you have any questions or concerns If you have any questions or concerns please do not hesitate to contact me. The office is [phone]. This note is constructed using voice recognition software. While every effort has been made to ensure accuracy motel operator errors may have been included. Yours sincerely, JUAQUIN Pedraza Coding Level of Care Code Est Pt Level 3 (66948) Diagnoses Dysuria R30.0 Hypogonadism in male E29.1
== END 2023-11-23 09:04 | disposition home or self-care (01) ==
PROVIDERS: PCP Internal Medicine Medical Oncology; Visit Provider Nurse Practitioner Family
DX: R30.0 Dysuria (principal); E29.1 Testicular hypofunction
CPT/HCPCS: 99213

== ENCOUNTER → 2023-11-23 08:15 | Outpatient (BNVA) | payer OTHER, MEDICAID, SELFPAY | PROVIDERS: PCP Internal Medicine Medical Oncology; Visit Provider Nurse Practitioner Family ==

== ENCOUNTER → 2024-05-10 13:41 | Outpatient (REF) | payer OTHER, MEDICAID, SELFPAY ==
--- NOTE | 2024-05-10 | ECG_ITS ---
Test Reason : preop Blood Pressure : / mmHG Vent. Rate : 060 BPM Atrial Rate : 060 BPM P-R Int : 178 ms QRS Dur : 098 ms QT Int : 398 ms P-R-T Axes : 068 016 037 degrees QTc Int : 398 ms Normal sinus rhythm Normal ECG No previous ECGs available Referred By: Genaro Mccabe Electronically Signed By:JEFFERSON ARCE
[2024-05-10 14:16] LABS: MANUAL DIFF FLAG NO
[2024-05-10 15:14] LABS: Basophils Percent Auto 0.4 % (0-2); Eosinophils Absolute Auto 0.1 X10*3/uL (0.0-0.4); Hematocrit 42.3 % (42.0-52.0); Hemoglobin 14.3 g/dl (14.0-18.0); Imm Gran Abs Auto 0.01 X10*3/uL (0.00-0.03); Imm Gran Pct Auto 0.2 % (0.0-0.4); Lymphocytes Absolute Auto 2.1 X10*3/uL (1.2-4.9); Lymphocytes Percent Auto 40.6 % (20-40); Mean Corpuscular HGB Conc 33.8 g/dl (31.0-36.0); Mean Corpuscular Hemoglobin 28.4 pg (27.0-33.0); Mean Corpuscular Volume 83.9 fL (80.0-98.0); Mean Platelet Volume 8.9 fL (9.4-12.4); Monocytes Absolute Auto 0.4 X10*3/uL (0.1-1.2); Neutrophils Absolute Auto 2.6 x10*3/uL (2.0-8.3); Neutrophils Percent Auto 49.8 % (45-73); Platelet Count 171 X10*3/uL (160-400); Red Blood Count 5.04 X10*6/uL (4.60-5.80); Red Cell Distribution Width 13.8 % (11.0-16.0); White Blood Count 5.1 X10*3/uL (4.8-10.8)
[2024-05-10 15:48] LABS: Alanine Aminotransferase 32 U/L (0-40); Albumin Level 4.1 g/dL (3.5-5.0); Alkaline Phosphatase 72 U/L (39-117); Anion Gap 10 (12-20); Aspartate Amino Transferase 25 U/L (5-37); Bilirubin Total 0.4 mg/dL (0.0-1.0); Blood Urea Nitrogen 10 mg/dL (9-16); Carbon Dioxide 25 mmol/L (22-29); Chloride 107 mmol/L (96-108); Estimated Glomerular Filt Rate > 60; Glucose Random 98 mg/dL (60-115); Potassium 3.7 mmol/L (3.3-5.1); Sodium 138 mmol/L (135-145); Total Protein 7.2 g/dL (6.5-8.0)
== END ==
LOC: HO.CARD 13:41
PROVIDERS: PCP Internal Medicine Medical Oncology; Visit Provider Internal Medicine Medical Oncology
DX: Z01.818 Encounter for other preprocedural examination (principal)
CPT/HCPCS: 36415; 80053; 85025; 93005

== ENCOUNTER → 2024-05-10 13:41 | Outpatient (BNV) | payer OTHER, MEDICAID, SELFPAY | PROVIDERS: PCP Internal Medicine Medical Oncology; Visit Provider Internal Medicine | DX: R06.09 Other forms of dyspnea (principal) | CPT/HCPCS: 93010 ==

== ENCOUNTER 2024-06-28 08:19 | Outpatient (AMB) | payer OTHER, MEDICAID, SELFPAY ==
--- NOTE | 2024-06-28 08:23 | MHC.OFFVIS ---
Vital Signs 06/28/24 08:24 Height 6 ft 2 in Weight 302 lb 0.533 oz BMI 38.8 BP 170/98 H Blood Pressure Location Rt brachial Position Sitting Pulse 75 Pulse Source Pulse Oximeter Pulse Oximetry (%) 97 Oxygen Delivery Method Room Air Intake Visit Reasons: Sleep apnea Allergies No Known Allergies Allergy (Verified 06/28/24 08:31) HPI Comments Details: The patient is a 63-year-old gentleman with a known history of obstructive sleep apnea. the patient was having significant daytime drowsiness and snoring. He did have a sleep study and have been placed on CPAP. His current DME is [facility] although he did have a CPAP prior with a different DME company. He currently has an AirSense 10 APAP which is set up 8-12 cm. Has a ramp of 4 cm. He has a fullface mask. The patient has been struggling with the pressures feels like there are too low. When he puts it on he does not feel like it is getting enough support. He is also concern if the pressures are too high that he may not be able to tolerate the therapy. He did bring his machine I was able to download the data. It appears that his AHI was down to 2.9 under current settings. His average pressure was 12 cm suggesting that he was in a maximum part of his range. Therefore, will got rid of the ramp as he does not needed. Patient was started with a pressure of 8 and will have a maximum pressure of 18 cm. In the meantime he is wondering about a different mask. I did recommend that he stay with a fullface mask based on the fact that he would have to make sure to keep his mouth closed to maintain the adequate mean airway pressure. I will request additional supplies from his DME company. However, it is not clear if he is still active with this current DME company. If the patient is not active will have to request a repeat sleep study in order to confirm the diagnosis of sleep apnea in get him reactivated with his DME company, [facility]. 07/08/2023 the patient is here for a pulmonary follow-up visit. He continues to have significant daytime drowsiness. His Holcomb score is elevated /24. The patient did start individual. He started a small dose and did not see any significant improvement. He has been using CPAP every night. Averaging around 6-1/2 hours is AHI continues to be slightly elevated at 3.3. His average pressure is 11 and his maximum pressure is 11 so therefore I will increase his maximum pressure to 12. He recently had the machine pressures down so we do not want to go up too high. The patient will continue to use it. He also has an issue with memory. He is concerned that he is forgetful. We talked about memory exercises. He is also working closely with Neurology. His Nuvigil dose was increased to 250 mg. Hopefully that that works better for him for the persistent daytime drowsiness even after effective CPAP use. He will continue working closely with neurologist will follow-up less frequent. 11/04/2023 the patient is here for a pulmonary follow-up visit. Overall he has doing a little better. The individual has been helping him at the higher dose. He is averaging around 6 hours a night with CPAP which is very reassuring. The CPAP therapy has been affecting beneficial. His AHI continues via 3.5. Will go ahead and increase his APAP slightly. He has had difficulties tolerating higher pressures before. Currently on APAP 8-12. Will increase to 9-13. He is going to also try a new mask because he has been getting some nasal bridge breakdown irritation. I did provide him with a medium F30 mask. He tried a in felt well and comfortable. He is going to try. Will go ahead and switch it at his [facility]. The patient denies any respiratory complaints at this time. He will continue with the current therapy. I did encourage him to continue the Nuvigil as it is affecting beneficial for him. 06/28/2024 the patient is here for pulmonary follow-up visit. He has been having difficulty sleeping. [id number] severity. He has been staying up watching TV. He does uses CPAP at nighttime the CPAP therapy has been affecting beneficial and he does use it for more than 4 hours a night. Still that would benefit from additional sleep. Therefore he can start melatonin again. He did tolerating past. He continues on the individual this has been very effective for him. I did download the CPAP and it looks like his AHI is 3.3 and his average pressure is 10 in his maximum pressure is 13 which is the maximum machine. Therefore I adjust the machine to 9-15. If he has any issues he can call. His blood pressure was elevated initially 177/98. However, I did recheck after the end of the visit on his left arm impression did decrease down to 155 over 88. The patient had a significant amount of salty food last night. To start making some dietary indiscretions maintain a low-sodium diet. [facility] Medical History Nocturnal leg cramps Chronic headaches Memory deficit Arthritis Low back pain Esophagitis Dysphagia Hyperlipidemia Pulmonary embolism and infarction Dyspnea MARLEE on CPAP Surgical History Hx of cystoscopy History of esophagogastroduodenoscopy (EGD) Social History (Reviewed 06/28/24 @ 08:31 by Zoie Clark [facility]) Are you a primary care advocate to a significant other at home: No Do you presently have visiting nurse or other home services: No Alcohol intake: never Patient Tobacco Use Status: Former Tobacco user Tobacco use type: Cigarette Years Smoked: 30 Years Review of Systems Const Denies daytime sleepiness, Denies headache(s), Denies night sweats, Denies snoring and Denies stops breathing during sleep ENT Denies change in voice, Denies headache(s), Denies lip swelling, Denies mouth pain, Reports nasal congestion, Reports nasal discharge and Denies tongue swelling Card Denies chest pain, Denies dyspnea and Reports dyspnea on exertion Resp Denies dyspnea, Reports dyspnea on exertion and Denies snoring GI Denies abdominal pain Musc Reports back pain Neuro Denies Neuro-related abnormal movements, Denies headache(s) and Reports memory loss Psych Denies no additional complaints and Reports memory loss Niles/Lymph Denies easy bleeding and Denies lymphadenopathy Aller/Immun Denies lip swelling and Denies tongue swelling Physical Exam Vital Signs: Last Vital Signs Pulse 75 06/28/24 08:24 BP 170/98 H 06/28/24 08:24 Pulse Ox 97 06/28/24 08:24 Oxygen Delivery Method Room Air 06/28/24 08:24 BMI result Body Mass Index 38.8 Const General: alert Neck Neck: Yes normal visual inspection, Yes full ROM and Yes no lymphadenopathy Chest Chest palpation & inspection: normal inspection of the chest Resp Auscultation: diminished lung sounds Cardio Rate: regular rate Rhythm: regular rhythm Heart sounds: S1 normal heart sound present and S2 normal heart sound present GI Palpation (GI): Soft to palpation and nontender Auscultation: normal bowel sounds Skin General skin exam: rashes and/or lesions noted Assessment & Plan Assessment & Plan (1) MARLEE on CPAP: Comment: with residual hypersomnia on Nuvigil Code(s): G47.33 - Obstructive sleep apnea (adult) (pediatric); Z99.89 - Dependence on other enabling machines and devices Category: Medical (2) Chronic headaches: Code(s): R51.9 - Headache, unspecified; G89.29 - Other chronic pain Category: Medical Qualifiers: Headache type: unspecified Intractability: not intractable Qualified Code(s): R51.9 - Headache, unspecified; G89.29 - Other chronic pain (3) Memory deficit: Code(s): R41.3 - Other amnesia Category: Medical Plan Continue APAP, Adjusted 01-24->02-25 ->02-27 Trial F30 Med mask continue Nuvigil 250 daily start Melatonin F/U 6 months Medications: New melatonin 5 mg PO BEDTIME PRN 30 tabs 6RF sleep 30 days Coding Level of Care Code Est Pt Level 4 (96535) Diagnoses MARLEE on CPAP G47.33; Z99.89 Chronic nonintractable headache, unspecified headache type R51.9; G89.29 Headache type: unspecified Intractability: not intractable Memory deficit R41.3 Time Spent (min) 16
[2024-06-28 08:24] VITALS: BP 170/98; PULSE 75; O2SAT 97; BMI 38.8
== END 2024-06-28 08:50 | disposition home or self-care (01) ==
PROVIDERS: PCP Internal Medicine Medical Oncology; Visit Provider Hospitalist
DX: G47.33 Obstructive sleep apnea (adult) (pediatric) (principal); Z99.89 Dependence on other enabling machines and devices; R51.9 Headache, unspecified; G89.29 Other chronic pain; R41.3 Other amnesia
CPT/HCPCS: 99214

== ENCOUNTER → 2024-06-28 08:19 | Outpatient (BNVA) | payer OTHER, MEDICAID, SELFPAY | PROVIDERS: PCP Internal Medicine Medical Oncology; Visit Provider Hospitalist ==

== ENCOUNTER 2024-08-03 09:21 | Outpatient (AMB) | payer OTHER, SELFPAY ==
[2024-08-03 09:23] VITALS: PULSE 78; O2SAT 98; BMI 38.5
--- NOTE | 2024-08-03 09:23 | MHC.OFFVIS ---
Vital Signs 08/03/24 09:23 Height 6 ft 2 in Weight 300 lb BMI 38.5 Pulse 78 Pulse Source Pulse Oximeter Pulse Oximetry (%) 98 Oxygen Delivery Method Room Air Intake Visit Reasons: 1yr follow up Intake Note: Patient presents follow up memory/MARLEE. Compliance in chart. Allergies No Known Allergies Allergy (Verified 08/03/24 09:27) Medication List - Last Reconciled 08/03/24 by ROCKY Eason armodafinil (Nuvigil) 250 mg PO QAM 30 days CPAP (CPAP Machine/Device) As directed melatonin 5 mg PO BEDTIME PRN 30 days pantoprazole 40 mg PO DAILY HPI Comments Details: 63-yr-old male presents for f/u visit for MARLEE w/ residual daytime sleepiness, Headaches and cognitive difficulties. Patient was last seen 1 year ago by our former colleague, Conchita Thomas NP. Pt recently underwent right foot bunion repair, which is healing well. Pt states that pulmonology is now managing his CPAP. Recent CPAP compliance shows overall good compliance, average usage on days used these just over 5 hours, and residual AHI is 3.1. However, despite using his CPAP, he does continue to have residual daytime tiredness and decreased energy. He feels the armodafinil 250 mg daily is helpful for this. Though, he is not taking it right now, as he is on postsurgical medical leave. He does have occasional leg cramps, which he treats by rubbing rubbing alcohol on his leg. He is no longer taking gabapentin. He states he can have some difficulty sleeping related to ruminating thoughts, especially about his financial status, and that he works 2nd shift. Review of labs show- low testosterone level, he is scheduled to repeat prior to seeing Urology in November. He states that the headaches he was having have resolved. He can still be forgetful. Forgets where he puts something. States he could not use a computer, states he never learned how to use it. He does not use applications on his phone. Has difficulty with the user names and passwords. Notes, that this is challenging, as at his workplace at [employer], all of his employer information and even new job post things are online. [facility] Medical History Nocturnal leg cramps Chronic headaches Memory deficit Arthritis Low back pain Esophagitis Dysphagia Hyperlipidemia Pulmonary embolism and infarction Dyspnea MARLEE on CPAP Surgical History S/P foot surgery, right Hx of cystoscopy History of esophagogastroduodenoscopy (EGD) Social History Are you a primary aged or disabled carer to a significant other at home: No Do you presently have visiting nurse or other home services: No Alcohol intake: never Patient Tobacco Use Status: Former Tobacco user Tobacco use type: Cigarette Years Smoked: 30 Years Physical Exam Vital Signs: Last Vital Signs Pulse 78 08/03/24 09:23 Pulse Ox 98 08/03/24 09:23 Oxygen Delivery Method Room Air 08/03/24 09:23 BMI result Body Mass Index 38.5 Const General: cooperative and no acute distress Orientation/consciousness: patient oriented x3 Resp Effort & Inspection: normal respiratory effort and able to speak in complete sentences Neuro Other: Right walking boot in place General: patient oriented x3 Cranial nerves: Yes CN's II-XII intact bilaterally Cognition (Neuro): normal cognition Psych Appearance: grossly normal Mental Status: mental status grossly normal Speech and movement: Normal speech and movement present Affect: normal affect Attitude: cooperative Assessment & Plan Assessment & Plan (1) Memory deficit: Code(s): R41.3 - Other amnesia Category: Medical (2) MARLEE on CPAP: Comment: with residual hypersomnia on Nuvigil Code(s): G47.33 - Obstructive sleep apnea (adult) (pediatric); Z99.89 - Dependence on other enabling machines and devices Category: Medical Plan For MARLEE with residual hypersomnia: Dr Flowers is currently managing his CPAP settings. Patient may continue armodafinil 250 mg p.o. daily in a.m. Check labs for common etiologies Information shared with patient on resources to optimize sleep hygiene. For cognitive difficulties: 01/21/2023 brain MRI w/o: Mild generalized cerebral volume loss and mild chronic white matter microangiopathy. Check labs for common etiologies. When able, increase regular physical activity. Encouraged patient to engage in regular cognitive and social stimulating activities. For headaches: Patient states these have resolved. Will follow-up upon review of above and patient to follow-up in clinic in 12 months or sooner prn. Orders: Orders TSH reflex Free T4 Today E66.9 - Obesity, unspecified, E78.5 - Hyperlipidemia, unspecified, K20.90 - Esophagitis, unspecified without bleeding, R41.3 - Other amnesia Vitamin B12 and Folate Today E66.9 - Obesity, unspecified, E78.5 - Hyperlipidemia, unspecified, K20.90 - Esophagitis, unspecified without bleeding, R41.3 - Other amnesia Comprehensive Met. Panel Today E66.9 - Obesity, unspecified, E78.5 - Hyperlipidemia, unspecified, K20.90 - Esophagitis, unspecified without bleeding, R41.3 - Other amnesia Complete Blood Count Auto Diff Today E66.9 - Obesity, unspecified, E78.5 - Hyperlipidemia, unspecified, K20.90 - Esophagitis, unspecified without bleeding, R41.3 - Other amnesia Hemoglobin A1c Today E66.9 - Obesity, unspecified, E78.5 - Hyperlipidemia, unspecified, K20.90 - Esophagitis, unspecified without bleeding, R41.3 - Other amnesia Erythrocyte Sedimentation Rate Today E66.9 - Obesity, unspecified, E78.5 - Hyperlipidemia, unspecified, K20.90 - Esophagitis, unspecified without bleeding, R41.3 - Other amnesia Syphilis Screen Today E66.9 - Obesity, unspecified, E78.5 - Hyperlipidemia, unspecified, K20.90 - Esophagitis, unspecified without bleeding, R41.3 - Other amnesia HIV Ab/Ag Today E66.9 - Obesity, unspecified, E78.5 - Hyperlipidemia, unspecified, K20.90 - Esophagitis, unspecified without bleeding, R41.3 - Other amnesia Vitamin D 25-OH (D2 and D3) Today E66.9 - Obesity, unspecified, E78.5 - Hyperlipidemia, unspecified, K20.90 - Esophagitis, unspecified without bleeding, R41.3 - Other amnesia CRP High Sensitivity Today E66.9 - Obesity, unspecified, E78.5 - Hyperlipidemia, unspecified, K20.90 - Esophagitis, unspecified without bleeding, R41.3 - Other amnesia Vitamin B1 Today R41.3 - Other amnesia Coding Level of Care Code Est Pt Level 4 (62976) Diagnoses Memory deficit R41.3 MARLEE on CPAP G47.33; Z99.89
--- OUTSIDE RECORDS SUMMARY | 2024-08-03 09:35 | XMS_ITS ---
Author Organization Genaro Mccabe III, MD Address [address] [place] [address] [place] [address] Care Team Providers Care Head Of History Name Role Phone Genaro Mccabe Primary Care Provider [phone] REASON FOR VISIT Follow Up Social History Sex Assigned At : Social History Observation Description Sex Assigned At Male Encounters Encounter Location Date Provider Diagnosis Genaro Mccabe III, MD [address] [place] [address] [place] [address] 06/02/2024 Genaro Mccabe Plan Of Treatment Next Appt Details Provider Name:Genaro Mccabe, 08/04/2024 10:15:00 AM, [address] [place] [address] [place], [address], Provider Name:Genaro Mccabe, 10/28/2024 11:00:00 AM, [address] [place] [address] [place], [address], Progress Notes * Genaro MAYNARD EDOB:1960 (63 yo M)Acc No.[id number]:06/02/2024 Progress Notes Patient:?Genaro MAYNARD Provider:?Genaro Mccabe MD :1960???Age:63 Y???Sex:Male Emmanuel e:06/02/2024 [address] Subjective: * Chief Complaints: * ???1. Follow Up. * Medical History:? Objective: * Vitals:? Assessment: Plan: * Treatment: * Images: * The named appointment provid er may or may not be the originator of this progress note, and it is not deemed complete until electronically signed by the appointment provider. Sign off status: Pending * Provider:?Genaro Mccabe MD Date:?05/15 Generated for Laura aldana/Cayetano/eTransmitting on:?08/03/2024 09:35 AM EST
--- OUTSIDE RECORDS SUMMARY | 2024-08-03 09:35 | XMS_ITS ---
Author Organization Genaro Mccabe III, MD Address [address] [place] [address] [place] [address] Care Team Providers Care Job Forwarder Name Role Phone Genaro Mccabe Primary Care Provider [phone] REASON FOR VISIT Follow Up Social History Sex Assigned At : Social History Observation Description Sex Assigned At Male Encounters Encounter Location Date Provider Diagnosis Genaro Mccabe III, MD [address] [place] [address] [place] [address] 08/03/2024 Genaro Mccabe Plan Of Treatment Next Appt Details Provider Name:Genaro Mccabe, 08/04/2024 10:15:00 AM, [address] [place] [address] [place], [address], Provider Name:Genaro Mccabe, 10/28/2024 11:00:00 AM, [address] [place] [address] [place], [address], Progress Notes * Genaro MAYNARD EDOB:1960 (63 yo M)Acc No.[id number]:08/03/2024 Progress Notes Patient:?Genaro MAYNARD Provider:?Genaro Mccabe MD :1960???Age:63 Y???Sex:Male Emmanuel e:08/03/2024 Address[facility] [id number] Subjective: * Chief Complaints: * ???1. Follow Up. * Medical History:? Objective: * Vitals:? Assessment: Plan: * Treatment: * Images: * The named appointment provid er may or may not be the originator of this progress note, and it is not deemed complete until electronically signed by the appointment provider. Sign off status: Pending * Provider:?Genaro Mccabe MD Date:?07/16 Generated for Laura aldana/Cayetano/eTransmitting on:?08/03/2024 09:35 AM EST
--- OUTSIDE RECORDS SUMMARY | 2024-08-03 09:35 | XMS_ITS | Encounter Summary ---
Author Organization [facility] Address [address] [place] [address] Care Team Providers Care Jet Dyeing Machine Operator Name Role Phone Genaro Mccabe MD Primary Care Provider [phone] Encounter Details Date Type Department Care Team (Late st Contact Info) Description 07/18/2024 Telephone Orthopedic Surgery - [place] [address] [place] [address] Triny Amor Social History Tobacco Use Types Packs/Day Years Used Date Smoking Tobacco: Former Cigarettes Q uit: 2004 Passive Smoke Exposure: Past Smokeless Tobacco: Never Alcohol Use Standard Drinks/Week Comments Never 0 (1 standard drink = 0.6 oz pur e alcohol) Interpersonal Safety Answer Date Record ed Physical Abuse 05/27/2024 Verbal Abuse 05/27/2024 Sex and Gender Information Value Date Recorded Sex Assigned at Male 05/27/2024 7:37 AM EST Legal Sex Male 11:44 AM EST Gender Identity Male 05/27/2024 7:37 AM EST Sexual Orientation Straight 05/27/2024 7: 37 AM EST documented as of this encounter Progress Notes * Triny Amor - 07/25/2024 10:07 AM EST 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 The order for the boot is still pending. Dr. Redding would you be willing to sign. -Triny * Nguyen Rivas - 07/21/2024 10:27 AM EST Pt calling again on status of RTW note He is going to lose his job w/out the note * Farzana Genna - 07/20/2024 10:38 AM EST Patient is calling inquiring on status of his return to work Letter. He states he needs GREGORIO, or heis going to lose his job. Please advise. Please call him back @ [phone] . Thanks. * Triny Amor - 07/18/2024 2:37 PM EST Patient stopped by the office this afternoon as he was in the area. 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 When speaking with the patient this morning, I was under the impression that he was just in need ofhis office note. The patient stated that there is a form that was left with Dr. Redding to outline hiswork restrictions. I did explain to the patient that this has not yet been completed. I will follow-up with the patient tomorrow. * Triny Amor - 07/18/2024 11:[address] EST [address]. Redding, Patient called the office this morning stating that in order for him to be cleared to return to work, his employer requires him to have a boot with an enclosed toe. I did explain to the patient that we do not carry those boots here in our office. However, I could request that you put in an order for that specific type of boot and he could take the order to a local medical supply store to have that order fulfilled. Patient would like to do that, can you please sign the pended order should you be in agreement withthis plan. documented in this encounter Plan of Treatment Upcoming Encounters Date Type Department Care Team (Late st Contact Info) Description 08/17/2024 9:30 AM EST Office Visit Orthopedic Surgery - [place] [address] [facility] [address] [place] [id number] Ashutosh Redding, DPM [address] [facility] [address] [place] [address] documented as of this encounter Visit Diagnoses Diagnosis Post-operative state- Primary Other postprocedural status Acquired hallux valgus of right foot documented in this encounter Care Teams Jet Dyeing Machine Operator Relationship Specialty Start Date End Date Genaro Mccabe MD [address] [address] PCP - General 09/18/20 documented as of this encounter
--- OUTSIDE RECORDS SUMMARY | 2024-08-03 09:35 | XMS_ITS ---
Author Organization Genaro Mccabe III, MD Address [address] [place] [address] DR SCHAEFFER Arabella [facility] [place] [address] Care Team Providers Care Director Strategic Account Management Name Role Phone Genaro Mccabe Primary Care Provider [phone] Allergies Allergen (clinical drug ingredient) Drug/Non Drug Allergy documented on EMR Reaction Allergy Type Onset Date Status No Known Drug Allergy Unknown Drug Allergy Active REASON FOR VISIT Clearance for right great toe surgery on 05/27/2024 by Ashutosh Hernandez, DPM, ACFAS, Needs EKG, CBC, Profile, 05/27 hernandez surg [place] Medications Medication SIG (Take, Route, Frequency, Duration) Notes Start Date End Date Status Meloxicam 15 MG 1 tablet Orally Once a day Active Acetaminophen 325 MG 1 tablet as needed Orally every 4 hrs as needed Active Naproxen 500 MG one tablet Orally every 12 hrs prn pain 06/29/2023 Active Pantoprazole Sodium 40 MG Oral Active Armodafinil 250 MG Oral A ctive Social History Sex Assigned At : Social History Observation Description Sex Assigned At Male Vital Signs Temperature 98.6 degrees Fahrenheit 05/10/20 24 Blood pressure systolic 120 mm Hg 05/10/20 24 Blood pressure diastolic 80 mm Hg 024 Heart Rate 62 /min 05/10/2024 Height 74 in 05/10/2024 Weight 288 lbs 05/10/2024 BMI 36.97 kg/m2 05/10/2024 Encounters Encounter Location Date Provider Diagnosis Genaro Mccabe III, MD [address] [place] [address] LA[address] Arabella [place], [place] [address] 05/10/2024 Genaro Mccabe Pre-op exam Z01.818 ; Cardiomyopathy I42.9 ; Benign prostatic hyperplasia, unspecified whether lower urinary tract symptoms present N40.0 ; Obesity (BMI 30-39.9) E66.9 ; Former smoker Z87.891 ; Sleep apnea G47.30 ; Primary osteoarthritis of left knee M17.12 ; Hypogonadism in male E29.1 ; HTN (hypertension) I10 and History of pulmonary embolism Z86.711 Assessments Encounter Date Diagnosis (ICD Code) Assessment Notes T reatment Notes Treatment Clinical Notes 05/10/2024 Pre-op exam (ICD-10 - Z01.818) His blood work is stable and within normal limits. His EKG is unremarkable. No contraindication to surgery is present. He is given medical clearance for corrective surgery on his right first toe. 05/10/2024 Cardiomyopathy (ICD-10 - I42.9) His recent echocardiogram is normal. The cardiomyopathy has resolved and this problem will be removed from the problem list. Because of his dyspnea is likely pulmonary.There was no sign of congestive heart failure or fluid overload on today's examination. 05/10/2024 Benign prostatic hyperplasia, unspecified whether lower urinary tract symptoms present (ICD-10 - N40.0) He has been rising from sleep once or twice a night to urinate. He does not wish to take more medication. We discussed modifications in his lifestyle that would reduce nocturia. 05/10/2024 Obesity (BMI 30-39.9) (ICD-10 - E66.9) He has lost 1 pound. His body mass index is 36.97. We reviewed his weight loss strategy. We made a plan to lose weight at a rate of one half of a pound per week through a diet restricted in fat calories and sodium. 05/10/2024 Former smoker (ICD-10 - Z87.891) We discussed a plan to prevent relapse by controlling behavior during illness and periods of stress. 05/10/2024 Sleep apnea (ICD-10 - G47.30) He has been compliant with his pulmonary visits. His CPAP was adjusted recently and is now more comfortable. He is using it every night. He reports his daytime somnolence has improved. 05/10/2024 Primary osteoarthritis of left knee (ICD-10 - M17.12) The right knee pain has improved and left knee pain is worse. He is going to return to the orthopedic surgeon for further injections. I urged him to discuss all of the options. 05/10/2024 Hypogonadism in male (ICD-10 - E29.1) He is under the care of a urologist for this and has medication. 05/10/2024 HTN (hypertension) (ICD-10 - I10) His blood pressure today is stable at 120/80. No change in his regimen was made. 05/10/2024 History of pulmonary embolism (ICD-10 - Z86.711) He is no longer anticoagulated and has no pulmonary symptoms or chest pain. He was instructed to notify me immediately if any symptoms related to blood clots occur. Plan Of Treatment Medication Medication Name Sig Start Date Stop Date Notes Meloxicam 15 MG 1 tablet Orally Once a day Acetaminophen 325 MG 1 tablet as needed Orally every 4 hrs as needed Naproxen 500 MG one tablet Orally ev karl 12 hrs prn pain 06/29/2023 Pantoprazole Sodium 40 MG Oral Armodafinil 250 MG Oral Pending Test Test Name Order Date ECG 12 lead EKG 05/10/2024 Next Appt Details Follow Up: Mid-July, [place] son: Post-surgery check-up Provider Name:Genaro Mccabe, 08/04/2024 10:15:00 AM, [address] [place] [address] [address] [place], [place], [address], Provider Name:Genaor Mccabe, 10/28/2024 11:00:00 AM, [address] [place] [address] [place], [place], [address], Progress Notes * Genaro MAYNARD EDOB:1960 (63 yo M)Acc No.[id number]:05/10/2024 Patient:?ALEYDAGenaro MORALES Provider:?Genaro Mccabe MD :1960???Age:63 Y???Sex:Male Emmanuel e:05/10/2024 Address:[address] [place] [address], [id number] Subjective: * Chief Complaints: * ???Clearance for right great toe surgery on 05/27/2024 by Ashutosh Hernandez, DPMilton, ACFASNeeds EKG, CBC, Tmasqss66/13 hernandez surg [place] * HPI: ???COVID-19 Screening:?Questions?Have you experienced fever, chills, cough, sore throat, shortness of breath, difficulty breathing, muscle aches, loss of taste or smell??No ?Have you been exposed to the virus within the last 10 days??No ?Have you travelled internationally in the last 10 days??No ?Have you been exposed to COVID-19 in the past??Yes ???:?The patient, Genaro, a 63-year-old male, presented with a history of a foot problem that is causing him significant discomfort. He reported feeling a lot of aching pains in his legs. He also mentioned that he has been feeling tired a lot recently. The patient is scheduled for surgery on May 27 at . This will be done by Dr. Boykin for [facility].The patient also reported a minor burn on his finger.He is here for medical clearance.? His EKG is unremarkable.? His blood work is available and was reviewed wwith him. * ROS:?General/Constitutional:?pain?Feet and shoulders.?Chills?denies.?Fatigue?admits.?Fever?denies.?ENT:?Decreased hearing?denies.?Respiratory:?Cough?denies.?Cardiovascular:?Chest pain with exertion?denies.?Dyspnea on exertion?denies.?Shortness of breath?denies.?Gastrointestinal:?Constipation?occasional.?Decreased appetite?denies.?Diarrhea?denies.?Heartburn?denies.?Nausea?denies.?Rectal bleeding?denies.?Vomiting?denies.?Hematology:?bruising?denies.?petechiae?denies.?Swollen glands?none have been noted.?Genitourinary:?Frequent urination?once a night.?Musculoskeletal:?Muscle aches?denies.?Painful joints?denies.?Sciatica?denies.?Weakness?denies.?Skin:?Itching?denies.?Rash?denies.?Skin lesion(s)?denies.?Neurologic:?Difficulty speaking?denies.?Dizziness?denies.?Headache?denies.?Low back pain?denies.?Psychiatric:?Depressed mood?denies.? * Medical History:? * Surgical History:?No history * Hospitalization/Major Diagno stic Procedure:?No history * Family History:?Father: dece ased, unknown.?Mother: alive 70 yrs, hypertension, hyperlipidemia, diabetes mellitus, arthritis, diagnosed with HTN, DM.?3 brother(s) , 5 sister(s) - healthy. .? He has no children and is unmarried. He is not aware of any family history of mental illness or addiction or substance abuse. * Social History:?He is working a [employer] company and is engaged to be . He was born in [place]. Smoking: No. Physical Activity: Walks at work. * Medications:?TakingMeloxicam 15 MG Tablet 1 tablet Orally Once a day Acetaminophen 325 MG Tablet 1 tablet as needed Orally every 4 hrs , Notes to Pharmacist: as neededPantoprazole Sodium 40 MG Tablet Delayed Release Oral Armodafinil 250 MG Tablet Oral Taking Meloxicam 15 MG Tablet 1 tablet Orally Once a day Taking Acetaminophen 325 MG Tablet 1 tablet as needed Orally every 4 hrs , Notes to Pharmacist: as neededTaking Pantoprazole Sodium 40 MG Tablet Delayed Release Oral Taking Armodafinil 250 MG Tablet Oral Not-Taking/PRNNaproxen 500 MG Tablet one tablet Orally every 12 hrs prn pain Not-Taking/PRN Naproxen 500 MG Tablet one tablet Orally every 12 hrs prn pain DiscontinuedAzithromycin 250 MG Tablet as directed Orally 2 Tablets on the first day, one tablet the rest of the days Medication List reviewed and reconciled with the patientDiscontinued Azithromycin 250 MG Tablet as directed Orally 2 Tablets on the first day, one tablet the rest of the days Medication List reviewed and reconciled with the patient * Allergies:?No Known Drug All ergyno[Allergies Verified] Objective: * Vitals:?Ht: 74, Wt: 288, BMI :36.97, BP: 120/80, HR: 62, Temp: 98.6, Wt-k.63. * ???Past Orders: Lab:Comprehensive Met. Panel * Collection Date 05/10/2024 04/17/2023 Collection Time 02:14 PM 10:33 AM Order Date 05/10/2024 04/17/2023 Sodium 138 (Ref Range: 135-145 mmol/L) 140 (Ref Range: 135-145 mmol/L) Bilirubin Total 0.4 (Ref Range: 0.0-1.0 mg/dL) 0.6 (Ref Range: 0.0-1.0 mg/dL) Aspartate Amino Transferase 25 (Ref Range: 5-37 U/L) 21 (Ref Range: 5-37 U/L) Alanine Aminotransferase 32 (Ref Range: 0-40 U/L) 23 (Ref Range: 0-40 U/L) Total Protein 7.2 (Ref Range: 6.5-8.0 g/dL) 7.9 (Ref Range: 6.5-8.0 g/dL) Albumin Level 4.1 (Ref Range: 3.5-5.0 g/dL) 4.3 (Ref Range: 3.5-5.0 g/dL) Alkaline Phosphatase 72 (Ref Range: 39-117 U/L) 75 (Ref Range: 39-117 U/L) Potassium 3.7 (Ref Range: 3.3-5.1 mmol/L) 4.1 (Ref Range: 3.3-5.1 mmol/L) Chloride 107 (Ref Range: 96-108 mmol/L) 108 (Ref Range: 96-108 mmol/L) Carbon Dioxide 25 (Ref Range: 22-29 mmol/L) 27 (Ref Range: 22-29 mmol/L) Anion Gap 10?L (Ref Range: 12-20) 9?L (Ref Range: 12-20) Blood Urea Nitrogen 10 (Ref Range: 9-16 mg/dL) 11 (Ref Range: 9-16 mg/dL) Creatinine 1.00 (Ref Range: 0.5-1.4 mg/dL) 1.02 (Ref Range: 0.5-1.4 mg/dL) Estimated Glomerular Filt Rate > 60 > 60 Glucose Random 98 (Ref Range: 60-115 mg/dL) 115 (Ref Range: 60-115 mg/dL) Calcium 9.0 (Ref Range: 8.4-10.2 mg/dL) 9.4 (Ref Range: 8.4-10.2 mg/dL) * Lab:Complete Blood Count Aut o Diff * Collection Date 05/10/2024 07/30/2023 04/17/2023 Collection Time 02:14 PM 09:14 AM 10:33 AM Order Date 05/10/2024 07/30/2023 04/17/2023 White Blood Count 5.1 (Ref Range: 4.8-10.8 X10*3/uL) 5.5 (Ref Range: 4.8-10.8 X10*3/uL) 6.2 (Ref Range: 4.8-10.8 X10*3/uL) Red Blood Count 5.04 (Ref Range: 4.60-5.80 X10*6/uL) 5.26 (Ref Range: 4.60-5.80 X10*6/uL) 5.35 (Ref Range: 4.60-5.80 X10*6/uL) Hemoglobin 14.3 (Ref Range: 14.0-18.0 g/dl) 14.9 (Ref Range: 14.0-18.0 g/dl) 14.8 (Ref Range: 14.0-18.0 g/dl) Hematocrit 42.3 (Ref Range: 42.0-52.0 %) 43.8 (Ref Range: 42.0-52.0 %) 44.8 (Ref Range: 42.0-52.0 %) Mean Corpuscular Volume 83.9 (Ref Range: 80.0-98.0 fL) 83.3 (Ref Range: 80.0-98.0 fL) 83.7 (Ref Range: 80.0-98.0 fL) Mean Corpuscular Hemoglobin 28.4 (Ref Range: 27.0-33.0 pg) 28.3 (Ref Range: 27.0-33.0 pg) 27.7 (Ref Range: 27.0-33.0 pg) Mean Corpuscular HGB Conc 33.8 (Ref Range: 31.0-36.0 g/dl) 34.0 (Ref Range: 31.0-36.0 g/dl) 33.0 (Ref Range: 31.0-36.0 g/dl) Red Cell Distribution Width 13.8 (Ref Range: 11.0-16.0 %) 14.5 (Ref Range: 11.0-16.0 %) 14.6 (Ref Range: 11.0-16.0 %) Platelet Count 171 (Ref Range: 160-400 X10*3/uL) 172 (Ref Range: 160-400 X10*3/uL) 198 (Ref Range: 160-400 X10*3/uL) Mean Platelet Volume 8.9?L (Ref Range: 9.4-12.4 fL) 8.5?L (Ref Range: 9.4-12.4 fL) 8.4?L (Ref Range: 9.4-12.4 fL) Neutrophils Percent Auto 49.8 (Ref Range: 45-73 %) 46.8 (Ref Range: 45-73 %) 51.9 (Ref Range: 45-73 %) Imm Gran Pct Auto 0.2 (Ref Range: 0.0-0.4 %) 0.5?H (Ref Range: 0.0-0.4 %) 1.0?H (Ref Range: 0.0-0.4 %) Lymphocytes Percent Auto 40.6?H (Ref Range: 20-40 %) 40.4?H (Ref Range: 20-40 %) 38.8 (Ref Range: 20-40 %) Monocytes Percent Auto 7.0 (Ref Range: 2-11 %) 8.5 (Ref Range: 2-11 %) 6.8 (Ref Range: 2-11 %) Eosinophils Percent Auto 2.0 (Ref Range: 0-4 %) 3.3 (Ref Range: 0-4 %) 1.0 (Ref Range: 0-4 %) Basophils Percent Auto 0.4 (Ref Range: 0-2 %) 0.5 (Ref Range: 0-2 %) 0.5 (Ref Range: 0-2 %) NRBC Pct Auto 0.0 (Ref Range: 0.0-0.2 /100WBC) 0.0 (Ref Range: 0.0-0.2 /100WBC) 0.0 (Ref Range: 0.0-0.2 /100WBC) Neutrophils Absolute Auto 2.6 (Ref Range: 2.0-8.3 x10*3/uL) 2.6 (Ref Range: 2.0-8.3 x10*3/uL) 3.2 (Ref Range: 2.0-8.3 x10*3/uL) Imm Gran Abs Auto 0.01 (Ref Range: 0.00-0.03 X10*3/uL) 0.03 (Ref Range: 0.00-0.03 X10*3/uL) 0.06?H (Ref Range: 0.00-0.03 X10*3/uL) Lymphocytes Absolute Auto 2.1 (Ref Range: 1.2-4.9 X10*3/uL) 2.2 (Ref Range: 1.2-4.9 X10*3/uL) 2.4 (Ref Range: 1.2-4.9 X10*3/uL) Monocytes Absolute Auto 0.4 (Ref Range: 0.1-1.2 X10*3/uL) 0.5 (Ref Range: 0.1-1.2 X10*3/uL) 0.4 (Ref Range: 0.1-1.2 X10*3/uL) Eosinophils Absolute Auto 0.1 (Ref Range: 0.0-0.4 X10*3/uL) 0.2 (Ref Range: 0.0-0.4 X10*3/uL) 0.1 (Ref Range: 0.0-0.4 X10*3/uL) Basophils Absolute Auto 0.0 (Ref Range: 0.0-0.2 X10*3/uL) 0.0 (Ref Range: 0.0-0.2 X10*3/uL) 0.0 (Ref Range: 0.0-0.2 X10*3/uL) NRBC Abs Auto 0.000 (Ref Range: 0.0-0.012 X10*3/uL) 0.000 (Ref Range: 0.0-0.012 X10*3/uL) 0.000 (Ref Range: 0.0-0.012 X10*3/uL) * Examination: ???General Examination: ?GENERAL APPEARANCE:?pleasant, well nourished, well developed, in no acute distress, calm and relaxed, obese, man.?HEAD:?atraumatic, normocephalic.?EYES:?eomi, perrla, anicteric, conjugate.?EARS:?normal.?NOSE:?septum intact.?ORAL CAVITY:?normal, unremarkable.?NECK/THYROID:?no jugular venous distention, no carotid bruit, thyroid normal.?LYMPH NODES:?no enlarged lymph nodes,spleen normal.?SKIN:?no suspicious lesions, anicteric.?HEART:?no clicks, gallops, murmurs, or rubs, regular rhythm, S1, S2 normal, no s3, or vascular bruits.?LUNGS:?clear to auscultation .?BREASTS:??no masses palpable bilaterally.?ABDOMEN:?bowel sounds normal, no ascites, no organomegaly, no mass, centripital obesity.?RECTAL EXAM:?not examined.?MUSCULOSKELETAL:?Large bunion right first toe, no clubbing, cyanosis or edema.?PERIPHERAL PULSES:?normal.?NEUROLOGIC:?alert and oriented, cranial nerves 2-12 grossly intact, deep tendon reflexes 2+ symmetrical, motor strength normal upper and lower extremities, sensory exam intact.?PSYCH:?alert, oriented.? : ???Blood Pressure Check - 120/80, Weight Check - Patient lost a pound. ??? Assessment: * Assessment: 1.?Cardiomyopathy - I42.9 (P rimary)???Notes :His recent echocardiogram is normal. The cardiomyopathy has resolved and this problem will be removed from the problem list. Because of his dyspnea is likely pulmonary.There was no sign of congestive heart failure or fluid overload on today's examination.???2.?Pre-op exam - Z01.818???Notes :His blood work is stable and within normal limits.? His EKG is unremarkable.? No contraindication to surgery is present.? He is given medical clearance for corrective surgery on his right first toe.???3.?Benign prostatic hyperplasia, unspecified whether lower urinary tract symptoms present - N40.0???Notes :He has been rising from sleep once or twice a night to urinate. He does not wish to take more medication. We discussed modifications in his lifestyle that would reduce nocturia.???4.?Obesity (BMI 30-39.9) - E66.9???Notes :He has lost 1 pound.? His body mass index is 36.97.? We reviewed his weight loss strategy.? We made a plan to lose weight at a rate of one half of a pound per week through a diet restricted in fat calories and sodium.???5.?Former smoker - Z87.891???Notes :We discussed a plan to prevent relapse by controlling behavior during illness and periods of stress.???6.?Sleep apnea - G47.30???Notes :He has been compliant with his pulmonary visits. His CPAP was adjusted recently and is now more comfortable. He is using it every night. He reports his daytime somnolence has improved.???7.?Primary osteoarthritis of left knee - M17.12???Notes :The right knee pain has improved and left knee pain is worse. He is going to return to the orthopedic surgeon for further injections. I urged him to discuss all of the options.???8.?Hypogonadism in male - E29.1???Notes :He is under the care of a urologist for this and has medication.???9.?HTN (hypertension) - I10???Notes :His blood pressure today is stable at 120/80.? No change in his regimen was made.???10.?History of pulmonary embolism - Z86.711???Notes :He is no longer anticoagulated and has no pulmonary symptoms or chest pain. He was instructed to notify me immediately if any symptoms related to blood clots occur.??? Plan: * Treatment: 2.?Benign prostatic hyperpla andra, unspecified whether lower urinary tract symptoms present? Continue Meloxicam Tablet, 15 MG, 1 tablet, Orally, Once a day;?Continue Acetaminophen Tablet, 325 MG, 1 tablet as needed, Orally, every 4 hrs, Notes to Pharmacist: as needed;?Continue Pantoprazole Sodium Tablet Delayed Release, 40 MG, Oral;?Continue Armodafinil Tablet, 250 MG, Oral.?? * Procedure Codes:? * Preventive Medicine:? ??Counseling:?Care goal follow-up plan:?Counseling for abnormal BMI given?Yes ?Above Normal BMI Follow-up?Dietary management education, guidance, and counseling, Dietary needs education, Exercise promotion: strength training, Exercise promotion: stretching, Feeding regime, Giving encouragement to exercise, Lifestyle education regarding diet, Nutrition / feeding management, Nutrition therapy, Prescribed activity/exercise education, Prescribed diet education, Prescribed dietary intake, Special diet education, Weight monitoring , Intervention, Order not done: Medical or Other reason not done * Follow Up:?Mid-July ([place] son: Post-surgery check-up) * Images: * Sign off status: Completed true * Provider:?Genaro Mccabe MD Date:?04/16 Generated for Laura aldana/Cayetano/Danieitting on:?08/03/2024 09:35 AM EST History and Physical Notes * HPI (History of Present Illness) Category Sub-Category Detail Notes COVID-19 Screening Questions Have you had any new onset fever, chills, cough, congestion, sore throat, shortness of breath, muscle aches?: No Have you been exposed to the virus with n the last 10 days?: No Have you travelled internationally in [facility] last 10 days?: No Have you been exposed to COVID-19 in the past?: Yes Examination Category Sub-Category Detail Notes General Examination GENERAL APPEARANCE: pleasant , well nourished, well developed, in no acute distress, calm and relaxed, obese, man HEAD: atraumatic, normocep halic EYES: eomi, perrla, anicte lui, conjugate EARS: normal NOSE: septum intact NECK/THYROID: no jugular venous di stention, no carotid bruit, thyroid normal HEART: no clicks, gallops, murmurs, or rubs, regular rhythm, S1, S2 normal, no s3, or vascular bruits LUNGS: clear to auscultatio n ABDOMEN: bowel sounds normal, no ascites, no organomegaly, no mass, centripital obesity NEUROLOGIC: alert and oriented, cranial nerves 2-12 grossly intact, deep tendon reflexes 2+ symmetrical, motor strength normal upper and lower extremities, sensory exam intact SKIN: no suspicious lesion s, anicteric PERIPHERAL PULSES: normal BREASTS: no masses palpable b ilaterally MUSCULOSKELETAL: Large bunion right f irst toe, no clubbing, cyanosis or edema LYMPH NODES: no enlarged lymph no isacc,spleen normal RECTAL EXAM: not examined PSYCH: alert, oriented ORAL CAVITY: normal, unremarkable
--- OUTSIDE RECORDS SUMMARY | 2024-08-03 09:35 | XMS_ITS | Encounter Summary ---
Author Organization [facility] Address [id number] [place] [id number] Care Team Providers Care Landscape Designer Name Role Phone Genaro Mccabe MD Primary Care Provider [phone] Reason for Visit * Reason Onset Date Comments Med Refill 07/05/2024 Encounter Details Date Type Department Care Team ([facility] st Contact Info) Description 07/05/2024 Telephone Orthopedic Surgery - [place] [address] [address] Ashutosh Redding, DPM [address] [address] Med Refill Social History Tobacco Use Types Packs/Day Years [...] AM EST documented as of this encounter Ordered Prescriptions Prescription Sig Dispense Quantity Refills Last Filled Start Date End Date ibuprofen (ADVIL,MOTRIN) 800 mg tablet Take 1 tablet (800 mg total) by mouth 3 (three) times a day. 90 each 07/07/2024 08/06/2024 ibuprofen (ADVIL,MOTRIN) 800 mg tablet Take 1 tablet (800 mg total) by mouth 3 (three) times a day. 90 each 07/05/2024 08/04/2024 documented in this encounter Progress Notes * Ashutosh Redding DPM - 07/07/2024 2:14 PM ESTAddended by: ASHUTOSH REDDING on: 07/07/2024 02:14 PM Modules accepted: Orders * Farzana Vail - 07/05/2024 2:58 PM EST Patient is calling requesting a refill on his script for the Ibuprofen 800 mg, take 1 tab PO, TID prn disp 90, His Surgery was on 05/27/24. His Pharmacy is [facility] . His next PO is on 07/14 Please advise. Thanks. documented in this encounter Plan of Treatment Upcoming Encounters Date Type Department Care Team (Late st Contact Info) Description 08/17/2024 9:30 AM EST Office Visit Orthopedic Surgery - [facility] [address] [phone] Ashutosh Redding DPM [address] [address] documented as of this encounter Visit Diagnoses Not on filedocumented in this encounter Care Teams Landscape Designer Relationship Specialty Start Date End Date Genaro Mccabe MD [address] [address] PCP - General 09/18/20 documented as of this encounter
--- OUTSIDE RECORDS SUMMARY | 2024-08-03 09:35 | XMS_ITS | Clinical Summary ---
Author Organization [facility] Address [address] [place] [address] Phone Care Team Providers Care Wrister Name Role Phone Genaro Mccabe MD Primary Care Provider [phone] Allergies No known active allergies Medications armodafiniL (NUVIGIL) 250 mg tablet Take 1 tablet (250 mg total) by mouth 1 (one) time each day. Active pantoprazole (PROTONIX) 40 mg EC tablet Take 1 tablet (40 mg total) by mouth 1 (one) time each day before breakfast. Do not crush, chew, or split. Active ibuprofen (ADVIL,MOTRIN) 800 mg tablet Take 1 tablet (800 mg total) by mouth 3 (three) times a day. 90 each 07/05/2024 5 Active ibuprofen (ADVIL,MOTRIN) 800 mg tablet Take 1 tablet (800 mg total) by mouth 3 (three) times a day. 90 each 07/07/2024 5 Active Active Problems Problem Noted Date Diagnosed Date Acquired hallux valgus of right foot 05/09/2024 BPH (benign prostatic hyperplasia) 10/20/2019 Hypertension 10/20/2019 Osteoarthritis of left knee 10/20/2019 Sleep apnea 10/20/2019 Overview (03/28/2024): Home sleep study by [facility] Sleep medicine on 03/10/2019 Indications: Snoring, Witnessed apnea, exessive daytimesleepiess. Interpretation: The oxygen saturations appear to be 94%. Similar breathing. During the periods of stable breathing, it was at times as low as 90 to 91% with snoring and flow limitations. There was a couple lung.'s with significant and recurrent apneas and hypopneas occurred with SPO2 dips commonly to mid 80s and as low as 80%. Overall AHI was 26.9e/h. The oxygen signal felt for a time in the middle of the study limiting scoring apneas, so overall HINA is likely to be underestimated, some of this time had most stable airflow and mid flow limitation and snoring but other. Had frequency for changes. Limited channel studies none monitor sleep staging or arousals, so the degree of sleep disordered breathing may be underestimated. Recommendation patient should be started on auto CPAP 8 to 20 cm of H2O with compliance data followed. Encounters Date Type Department Care Team Description 07/18/2024 Telephone Orthopedic Surgery [address] [phone] Triny Amor 07/14/2024 10:00 AM EST Office Visit Orthopedic [address] [phone] Ashutosh Redding DPM Post-operative state (Primary Dx) 07/05/2024 Telephone Orthopedic [place] [address] [phone] Ashutosh Redding DPM Med Refill 06/16/2024 Telephone Orthopedic [address] [phone] Ashutosh Redding DPM has question 06/13/2024 9:00 AM EST Office Visit Orthopedic [place] [address] [phone] Ashutosh Redding DPM Acquired hallux valgus of right foot (Primary Dx); Post-operative state 05/27/2024 9:30 AM EST Anesthesia Event [facility] [place] [address] [place] [phone] Mark Arthur DO Dasilva, John E, MD 05/27/2024 9:30 AM EST - 05/27/2024 10:[address] [facility] OR [address] [place] [phone] Ashutosh Redding DPM BUNIONECTOMY BILATERAL [[id number] (CPT??)] 05/27/2024 7:39 AM EST - 05/27/2024 12:20 PM EST Hospital Encounter [facility] Main OR [address] [place] [address] Ashutosh Redding DPM Discharge Disposition: Home or Self Care 05/24/2024 8:00 AM EST Consult Orthopedic Surgery [place] [address] [phone] Ashutosh Redding DPM Acquired hallux valgus of right foot (Primary Dx); Right foot pain 05/09/2024 9:15 AM EST Office Visit Orthopedic [place] [address] [phone] Ashutosh Redding DPM Acquired hallux valgus of right foot (Primary Dx) from Last 3 Months Surgical History Surgery Date Site/Laterality Comments OTHER SURGICAL HISTORY Medical History Medical History Date Comments Gynecomastia DX:Gynecomastia Hypogonadism male DX:Hypogonadis m male Erectile dysfunction DX:Erectile dysfunction Chronic right shoulder pain DX:C hronic right shoulder pain Chronic back pain DX:Chronic carlene k pain Sleep apnea 03/10/2019 DX:Sleep apnea; COMMENT: Home sleep study([facility]) GERD (gastroesophageal reflux disease) Arthritis Joint pain Family History Medical History Relation Name Comments No Known Problems Brother 1 No Known Problems Brother 2 No Known Problems Brother 3 Arthritis Mother Diabetes Mother Hyperlipidemia Mother Hypertension Mother No Known Problems Sister 1 No Known Problems Sister 2 No Known Problems Sister 3 No Known Problems Sister 4 No Known Problems Sister 5 Relation Name Status Comments Brother 1 Alive Brother 2 Alive Brother 3 Alive Father Maternal Grandfather Maternal Grandmother Mother Alive Paternal Grandfather Paternal Grandmother Sister 1 Alive Sister 2 Alive Sister 3 Alive Sister 4 Alive Sister 5 Alive Social History Tobacco Use Types Packs/Day Years [...] Orientation Straight 05/27/2024 7: 37 AM EST Obstetrics History Last Filed Vital Signs Vital Sign Reading Time Taken Comments Blood Pressure 119/84 05/27/2024 11:24 AM EST Pulse 56 05/27/2024 11:24 AM EST Temperature 36.4 ??C (97.5 ??F) 05/27/2024 11:[address] Respiratory Rate 14 05/27/2024 11:09 AM EST Oxygen Saturation 97% 05/27/2024 11:24 AM EST Inhaled Oxygen Concentration - - Weight 136 kg (300 lb) 07/14/2024 9:49 AM EST Height 188 cm (6' 2.02 ) 07/14/2024 9:49 AM EST Body Mass Index 38.5 07/14/2024 9:49 AM EST Plan of Treatment Upcoming Encounters Date Type Department Care Team (Late st Contact Info) Description 08/17/2024 9:30 AM EST Office Visit Orthopedic Surgery - [place] [address] [phone] Ashutosh Redding, DPM [address] [phone] Health Maintenance Due Date Last Done Comments Pneumococcal Vaccine: 50+ Years (2 of 2 - PCV) 04/18/2017 04/18/2016 Zoster Vaccines (2 of 2) 03/30/2022 02/02/2022 Cholesterol Screening (Lipid Panel) 05/13/2022 Colorectal Cancer Screening: Colonoscopy 05/13/2022 Depression Screening 05/13/2022 HIV Screening 05/13/2022 Hepatitis C Screening 05/13/2022 Social Influencers of Health Screening 05/13/2022 Hypertension/CHF/CAD Annual BMP Blood Test 05/21/2022 COVID-19 Vaccine ( season) 2024 03/10/2023, 04/16/2022, 05/15/2021, Additional history exists DTaP,Tdap,and Td Vaccines (3 - Td or Tdap) 02/04/2032 02/03/2022, 12/14/2019 RSV Immunization Patients 60+ Years Old (1 - 1-dose 75+ series) 2036 Pneumococcal Vaccine: Pediatrics (0 to 5 Years) and At-Risk Patients (6 to 64 Years) Aged Out 04/18/2016 No longer eligible based on patient's age to complete this topic MMR Vaccines Aged Out 02/13/2022 No longer eligi ble based on patient's age to complete this topic Hepatitis B Vaccines Completed 04/02/2022, 02/01/20 Influenza Vaccine Completed 03/18/2024, , 03/27/2022 HIB Vaccines Aged Out No longer eligi ble based on patient's age to complete this topic HPV Vaccines Aged Out No longer eligi ble based on patient's age to complete this topic Hepatitis A Vaccines Aged Out No long er eligible based on patient's age to complete this topic IPV Vaccines Aged Out No longer eligi ble based on patient's age to complete this topic Meningococcal ACWY Vaccine Aged Out N o longer eligible based on patient's age to complete this topic Meningococcal B Vacine Aged Out No lo nger eligible based on patient's age to complete this topic RSV Immunization Patients Under 20 months Aged Out No longer eligible based on patient's age to complete this topic Varicella Vaccines Aged Out No longer eligible based on patient's age to complete this topic Medical Devices Implanted Type Area Boiling Off Winder Device Identifier Shelf Expiration Date Model / Serial / Lot [employer] Shrtthrfiorella 3.0x18mm Mini-Mnstr [facility] - [id number] Implanted:Qty: 2 on 05/27/2024 by Ashutosh Redding DPM at [facility] Internal and External Fixation Right: First Toe [employer] [id number] / NA / NA [employer] Shrtthrd 3.0x36mm Mini-[facility] - [id number] Implanted:Qty: 1 on 05/27/2024 by Ashutosh Redding DPM at [facility] Internal and External Fixation Right: First Toe [employer] [id number] / NA / NA Procedures Procedure Name Priority Date/Time Associated Diagnosis Comments XR FOOT 3+ VIEWS RIGHT Routine 07/14/2024 10:03 AM EST Post-operative state XR FOOT 3+ VIEWS RIGHT Routine 06/13/2024 8:47 AM EST Post-operative state XR FOOT 3+ VIEWS RIGHT Routine 05/27/2024 12:11 PM EST SD CORRECTION HALLUX VALGUS W SESAMOIDECTOMY W DOUBLE OSTEOTOMY 05/27/2024 9:35 AM EST Hallux valgus (acquired), right foot Case Notes MINI C-ARM, PARAGON 28 3-0 HEADLESS SCREWS,3 GM ANCEF Special Needs MINI C-ARM XR FOOT 3+ VIEWS RIGHT Routine 05/24/2024 7:59 AM EST Right foot pain from Last 3 Months Results * XR Foot 3+ Views Right (07/14/2024 10:03 AM EST) Only the most recent of4 resultswithin the time period is included. Anatomical Region Laterality Modality Lower Extremities, Foot Right Computed Radiography Narrative 07/14/2024 12:13 PM EST Right foot 3 views Reduction of deformity maintained Hardware migration of the capital fragment with hard callus formation consistent with noncompliance us Ashutosh Redding DPMilton IMG XR PROCEDURES Final R esult from Last 3 Months Insurance [facility] [employer] [employer]AGE [address] [place] [address] Care Teams Wrister Relationship Specialty Start Date End Date Genaro Mccabe MD [address] [place] [address] PCP - General 09/18/20
--- OUTSIDE RECORDS SUMMARY | 2024-08-03 09:35 | XMS_ITS | Encounter Summary ---
Author Organization Address [address] [place] [address] Care Team Providers Care Associate Store Manager Name Role Phone Genaro Mccabe MD Primary Care Provider [phone] Reason for Visit * Reason Comments Post-op 2nd post op right gr eat toe Encounter Details Date Type Department Care Team ([facility] st Contact Info) Description 07/14/2024 10:00 AM EST Office Visit Orthopedic Surgery - [place] [address] [phone] Ashutosh Redding, DPM [address] [address] Post-operative state (Primary Dx) Social History Tobacco Use Types Packs/Day Years [...] AM EST documented as of this encounter Last Filed Vital Signs Vital Sign Reading Time Taken Comments Blood Pressure - - Pulse - - Temperature - - Respiratory Rate - - Oxygen Saturation - - Inhaled Oxygen Concentration - - Weight 136 kg (300 lb) 07/14/2024 9:49 AM EST Height 188 cm (6' 2.02 ) 07/14/2024 9:49 AM EST Body Mass Index 38.5 07/14/2024 9:49 AM EST documented in this encounter Progress Notes * Ashutosh Redding DPM - 07/14/2024 10:00 AM EST S Patient status post surgery on 05/27/2024 patient reports and to continue to be heavily active AGAINST MEDICAL ADVICE states he has been walking around his apartment at home without his protective boot he states he knows is not supposed to but he does not really like wearing it around the house andhad continues to be active AGAINST MEDICAL ADVICE at home does note that his had some increased swelling of his right foot he states he is wondering what is causing that he states he did have some numbness that has come down he states that he noticed it when he got more active and he had swelling he did call our office which was told that he is increasing his activity past what is recommended andhe needs to wear his fracture boot at all times patient does acknowledge that he was told this but continues to be active and states he has not would like staying off his foot ROS: GENERAL: Pt denies nausea, fever, vomiting, chills, or shortness of breath. Pt in NAD. CARDIOLOGY: pt denies chest pain, palpitations LUNGS: pt denies shortness of breath MUSCULOSKELETAL: See HPI, otherwise no joint pain or swelling, back pain, or muscle pain. SKIN: see HPI, otherwise no lesions, rash or itching NEURO: No persistent headache, weakness or numbness The remainder of the review of systems is noncontributory PAST MEDICAL HISTORY: Patient Active Problem List Diagnosis BPH (benign prostatic hyperplasia) Hypertension Osteoarthritis of left knee Sleep apnea Acquired hallux valgus of right foot SOCIAL HISTORY: Social History Tobacco Use Smoking status: Former Current packs/day: 0.00 Types: Cigarettes Quit date: 2003 Years since quittin.0 Passive exposure: Past Smokeless tobacco: Never Substance Use Topics Alcohol use: Never ACTIVE MEDICATIONS: Outpatient Medications Marked as Taking for the 07/14/24 encounter (Office Visit) with Ashutosh Isaacs DPM Medication Sig Dispense Refill armodafiniL (NUVIGIL) 250 mg tablet Take 1 tablet (250 mg total) by mouth 1 (one) time each day. ibuprofen (ADVIL,MOTRIN) 800 mg tablet Take 1 tablet (800 mg total) by mouth 3 (three) times a day.90 each 0 ibuprofen (ADVIL,MOTRIN) 800 mg tablet Take 1 tablet (800 mg total) by mouth 3 (three) times a day.90 each 0 pantoprazole (PROTONIX) 40 mg EC tablet Take 1 tablet (40 mg total) by mouth 1 (one) time each day before breakfast. Do not crush, chew, or split. ALLERGIES: No Known Allergies PHYSICAL EXAM: Visit Vitals Ht 1.88 m (74.02 ) Wt 136 kg (300 lb) BMI 38.50 kg/m?? Smoking Status Former BSA 2.58 m?? PODIATRIC EXAMINATION: GENERAL: Patient appears well nourished, with NAD. VASCULAR: Dorsalis pedis pulses are 2/4 bilaterally and Posterior tibial pulses are 2/4 bilaterally. Capillary filling time within normal limits the digits. No pallor on elevation or rubor on dependency. Positive hair growth. No varicosities. Denies rest pain or claudication pain. NEUROLOGICAL: Sharp/dull sensation intact, protective sensation intact 10/10 with 5.07 semmes jaya bilaterally, vibratory sensation with tuning fork intact to the tibial tuberosity. ORTHOPEDIC: Good muscle strength 5/5 of all flexors and extensors. Dorsi flexion of ankle ,5 degrees, plantar flexion WNL. No muscle atrophy. DERMATOLOGICAL: Scab tissue noted of the incision point without open wound swelling noted to the forefoot BIOMECHANICS: STJ ROM wnl, MTJ ROM wnl, 1st MPJ ROM due to deformity maintained noted IMAGING: Radiographs reviewed reduction deformity is maintained with appropriate alignment and correction significant hard callus formation noted hardware is displaced with some migration of both screws secondary to heavy activity and noncompliance IMPRESSION: 1. Post-operative state PLAN: Pt was seen and examined, history reviewed. Strongly recommend patient is not fracture boot at all times even at home I reinforced this patientthe importance of wearing the boot at all times how he is a big man and at this point his bone is not strong enough to maintain its own position without being compliant with the postoperative protocols patient states he would like to go to work I did discussed with patient that as long as in his fracture boot at all times that is my major restriction for him if he has to go back to work from an income standpoint and is can be adherent to the fracture boot protocol we can accommodate this request Documentation filled per patient's request to return to work with the understanding that he has to wear the fracture boot to his right foot at all times Continue to keep skin dry and clean with scab tissue formation unfortunately secondary to extensiveswelling due to heavy activity and noncompliance and bony ingrowth and callus formation hard callusbone Follow-up in 1 month Ashutosh Redding DPM documented in this encounter Plan of Treatment Upcoming Encounters Date Type Department Care Team (Late st Contact Info) Description 08/17/2024 9:30 AM EST Office Visit Orthopedic Surgery - [place] [address] [phone] Ashutosh Redding DPM [address] [phone] documented as of this encounter Results * XR Foot 3+ Views Right (07/14/2024 10:03 AM EST) Anatomical Region Laterality Modality Lower Extremities, Foot Right Computed Radiography Narrative 07/14/2024 12:13 PM EST Right foot 3 views Reduction of deformity maintained Hardware migration of the capital fragment with hard callus formation consistent with noncompliance us Ashutosh Redding DPM IMG XR PROCEDURES Final R esult documented in this encounter Visit Diagnoses Diagnosis Post-operative state- Primary Other postprocedural status documented in this encounter Care Teams Associate Store Manager Relationship Specialty Start Date End Date Genaro Mccabe MD [address] [facility] [address] [place] [address] PCP - General 09/18/20 documented as of this encounter
== END 2024-08-03 10:19 | disposition home or self-care (01) ==
PROVIDERS: PCP Internal Medicine Medical Oncology; Visit Provider Nurse Practitioner Family
DX: R41.3 Other amnesia (principal); G47.33 Obstructive sleep apnea (adult) (pediatric); Z99.89 Dependence on other enabling machines and devices
CPT/HCPCS: 99214

== ENCOUNTER → 2024-08-03 09:21 | Outpatient (BNVA) | payer OTHER, SELFPAY | PROVIDERS: PCP Internal Medicine Medical Oncology; Visit Provider Nurse Practitioner Family ==

== ENCOUNTER 2024-08-04 11:11 | Outpatient (REF) | payer OTHER, SELFPAY ==
[2024-08-04 11:41] LABS: MANUAL DIFF FLAG NO
[2024-08-04 12:30] LABS: Basophils Percent Auto 0.4 % (0-2); Eosinophils Absolute Auto 0.1 X10*3/uL (0.0-0.4); Eosinophils Percent Auto 1.8 % (0-4); Estimated Average Glucose 111 mg/dL; Hematocrit 41.1 % (42.0-52.0); Hemoglobin A1C 133.6977 umol/L; Hemoglobin A1c % 5.5 % (<6.0); Imm Gran Abs Auto 0.03 X10*3/uL (0.00-0.03); Imm Gran Pct Auto 0.6 % (0.0-0.4); Lymphocytes Percent Auto 38.3 % (20-40); Mean Corpuscular HGB Conc 34.1 g/dl (31.0-36.0); Mean Corpuscular Hemoglobin 28.4 pg (27.0-33.0); Mean Corpuscular Volume 83.4 fL (80.0-98.0); Mean Platelet Volume 8.6 fL (9.4-12.4); Monocytes Absolute Auto 0.4 X10*3/uL (0.1-1.2); Monocytes Percent Auto 7.7 % (2-11); Neutrophils Absolute Auto 2.6 x10*3/uL (2.0-8.3); Neutrophils Percent Auto 51.2 % (45-73); Platelet Count 179 X10*3/uL (160-400); Red Blood Count 4.93 X10*6/uL (4.60-5.80); Red Cell Distribution Width 14.5 % (11.0-16.0); Total Hemoglobin (HGBA1C) 3691.6295 umol/L; White Blood Count 5.1 X10*3/uL (4.8-10.8)
--- OUTSIDE RECORDS SUMMARY | 2024-08-04 12:34 | XMS_ITS ---
Author Organization Genaro Mccabe III, MD Address [address] [place] [address] [place] [address] Care Team Providers Care Lead Generation Representative Name Role Phone Genaro Mccabe Primary Care Provider Allergies Allergen (clinical drug ingredient) Drug/Non Drug Allergy documented on EMR Reaction Allergy Type Onset Date Status No Known Drug Allergy Unknown Drug Allergy Active REASON FOR VISIT Follow Up HTN, r shoulder pain, confused between rodriguezed and athreya Medications Medication SIG (Take, Route, Frequency, Duration) [...] Sex Assigned At Male Vital Signs Temperature 99.0 degrees Fahrenheit 08/04/19 25 Blood pressure systolic 133 mm Hg 08/04/19 25 Blood pressure diastolic 80 mm Hg 025 Heart Rate 68 /min 08/04/2024 Height 74 in 08/04/2024 Weight 300 lbs 08/04/2024 BMI 38.51 kg/m2 08/04/2024 Encounters Encounter Location Date Provider Diagnosis Genaro Mccabe III, MD [address] [place] [address] [place] [address] 08/04/2024 Genaro Mccabe Benign prostatic hyperplasia, unspecified whether lower urinary tract symptoms present N40.0 and Pre-op exam Z01.818 Assessments Encounter Date Diagnosis (ICD Code) Assessment Notes Treatment Notes Treatment Clinical Notes 08/04/2024 Benign prostatic hyperplasia, unspecified whether lower urinary tract symptoms present (ICD-10 - N40.0) He has been rising from sleep once or twice a night to urinate. He does not wish to take more medication. We discussed modifications in his lifestyle that would reduce nocturia. 08/04/2024 Pre-op exam (ICD-10 - Z01.818) His blood work is stable and within normal limits. His EKG is unremarkable. No contraindication to surgery is present. He is given medical clearance for corrective surgery on his right first toe. Plan Of Treatment Medication Medication Name Sig Start Date Stop Date Notes Meloxicam 15 MG 1 tablet Orally Once a day Acetaminophen 325 MG 1 tablet as needed Orally every 4 hrs as needed Naproxen 500 MG one tablet Orally ev karl 12 hrs prn pain 06/29/2023 Pantoprazole Sodium 40 MG Oral Armodafinil 250 MG Oral Next Appt Details Provider Name:Genaro Manjarrezne, 10/28/2024 11:00:00 AM, [address] [place] [address] [address], [place], [address], Progress Notes * ALEYDAGenaro EDOB:1960 (63 yo M)Acc No.[id number]:08/04/2024 Progress Notes Patient:?Genaro MAYNARD Provider:?Genaro Mccabe MD :1960???Age:63 Y???Sex:Male Emmanuel e:08/04/2024 Address:[address] [place] [phone] Subjective: * Chief Complaints: * ???1. Follow Up HTN. 2. R sh oulder pain. 3. Confused between rodriguezed and athreya. * HPI: ???COVID-19 Screening:? agrawhalo. ?Questions?Have you had any new onset fever, chills, cough, congestion, sore throat, shortness of breath, muscle aches??No * ROS:?General/Constitutional:?pain?only normal aches and pains.?Chills?denies.?Fatigue?admits.?Fever?denies.?ENT:?Decreased hearing?denies.?Respiratory:?Cough?denies.?Cardiovascular:?Chest pain with exertion?denies.?Dyspnea on exertion?denies.?Shortness of breath?denies.?Gastrointestinal:?Constipation?denies.?Decreased appetite?denies.?Diarrhea?denies.?Heartburn?denies.?Nausea?denies.?Rectal bleeding?denies.?Vomiting?denies.?Hematology:?bruising?denies.?petechiae?denies.?Swollen glands?none have been noted.?Genitourinary:?Frequent urination?denies.?Musculoskeletal:?Muscle aches?denies.?Painful joints?denies.?Sciatica?denies.?Weakness?denies.?Skin:?Itching?denies.?Rash?denies.?Skin lesion(s)?denies.?Neurologic:?Difficulty speaking?denies.?Dizziness?denies.?Headache?denies.?Low back pain?denies.?Psychiatric:?Depressed mood?denies.? * Medical History:?Right shoul adam pain, Laceration right bicep (childhood), Hyperlipidemia, Chronic intermitten lower back pain, Sprain left ankle, Sleep apnea, Gynecomastia, Erectile dysfunction, Hypogonadism, Former smoker, Pulmonary embolism August 2021. * Surgical History:?No history . * Hospitalization/Major Diagno stic Procedure:?No history . * Family History:?Father: dece ased, unknown.?Mother: alive 70 yrs, hypertension, hyperlipidemia, diabetes mellitus, arthritis, diagnosed with DM, HTN.?3 brother(s) , 5 sister(s) - healthy. .? He has no children and is unmarried. He is not aware of any family history of mental illness or addiction or substance abuse. 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 He was born in [place]. Smoking: No. Physical Activity: Walks at work. * Medications:?Taking Meloxica m 15 MG Tablet 1 tablet Orally Once a day , Taking Acetaminophen 325 MG Tablet 1 tablet as needed Orally every 4 hrs , Notes to Pharmacist: as needed, Taking Pantoprazole Sodium 40 MG Tablet Delayed Release Oral , Taking Armodafinil 250 MG Tablet Oral , Taking Naproxen 500 MG Tablet one tablet Orally every 12 hrs prn pain , Medication List reviewed and reconciled with the patient * Allergies:?No Known Drug All ergy. Objective: * Vitals:?Ht: 74, Wt: 300, BMI :38.51, BP: 133/80, HR: 68, Temp: 99.0, Wt-k.08. * Examination: ???General Examination: ?GENERAL APPEARANCE:?pleasant, well nourished, well developed, in no acute distress, calm and relaxed.?HEAD:?atraumatic, normocephalic.?EYES:?eomi, perrla, anicteric, conjugate.?EARS:?normal.?NOSE:?septum intact.?ORAL CAVITY:?normal, unremarkable.?NECK/THYROID:?no jugular venous distention, no carotid bruit, thyroid normal.?LYMPH NODES:?no enlarged lymph nodes,spleen normal.?SKIN:?no suspicious lesions, anicteric.?HEART:?no clicks, gallops, murmurs, or rubs, regular rhythm, S1, S2 normal, no s3, or vascular bruits.?LUNGS:?clear to auscultation .?BREASTS:??no masses palpable bilaterally.?ABDOMEN:?bowel sounds normal, no ascites, no organomegaly, no mass.?RECTAL EXAM:?not examined.?MUSCULOSKELETAL:?extremities unremarkable, no clubbing, cyanosis or edema.?PERIPHERAL PULSES:?normal.?NEUROLOGIC:?alert and oriented, cranial nerves 2-12 grossly intact, deep tendon reflexes 2+ symmetrical, motor strength normal upper and lower extremities, sensory exam intact.?PSYCH:?alert, oriented.? Assessment: * Assessment: 1.?Benign prostatic hyperpla andra, unspecified whether lower urinary tract symptoms present - N40.0???Notes :He has been rising from sleep once or twice a night to urinate. He does not wish to take more medication. We discussed modifications in his lifestyle that would reduce nocturia.???2.?Pre-op exam - Z01.818???Notes :His blood work is stable and within normal limits. His EKG is unremarkable. No contraindication to surgery is present. He is given medical clearance for corrective surgery on his right first toe.??? Plan: * Treatment: 2.?Pre-op exam? Continue Naproxen Tablet, 500 MG, one tablet, Orally, every 12 hrs prn pain.?? * Preventive Medicine:? ??Counseling:?Care goal follow-up plan:?Counseling [...] Medical or Other reason not done * Images: * The named appointment provid er may or may not be the originator of this progress note, and it is not deemed complete until electronically signed by the appointment provider. Sign off status: Pending * Provider:?Genaro Mccabe MD Date:?07/17 Generated for Laura aldana/Cayetano/Yordan on:?08/04/2024 12:34 PM EST History and Physical Notes * HPI (History of Present Illness) Category Sub-Category Detail Notes COVID-19 Screening Questions Have you had any new onset fever, chills, cough, congestion, sore throat, shortness of breath, muscle aches?: No Examination Category Sub-Category Detail Notes General Examination GENERAL APPEARANCE: pleasant , well nourished, well developed, in no acute distress, calm and relaxed HEAD: atraumatic, normocep halic EYES: eomi, perrla, anicte lui, conjugate EARS: normal NOSE: septum intact NECK/THYROID: no jugular venous di stention, no carotid bruit, thyroid normal HEART: no clicks, gallops, murmurs, or rubs, regular rhythm, S1, S2 normal, no s3, or vascular bruits LUNGS: clear to auscultatio n ABDOMEN: bowel sounds normal, no ascites, no organomegaly, no mass NEUROLOGIC: alert and oriented, cranial nerves 2-12 grossly intact, deep tendon reflexes 2+ symmetrical, motor strength normal upper and lower extremities, sensory exam intact SKIN: no suspicious lesion s, anicteric PERIPHERAL PULSES: normal BREASTS: no masses palpable b ilaterally MUSCULOSKELETAL: extremities unremark able, no clubbing, cyanosis or edema LYMPH NODES: no enlarged lymph no isacc,spleen normal RECTAL EXAM: not examined PSYCH: alert, oriented ORAL CAVITY: normal, unremarkable
--- OUTSIDE RECORDS SUMMARY | 2024-08-04 12:34 | XMS_ITS | Encounter Summary ---
Author Organization [facility] Address [address] [place] [address] Care Team Providers Care Real Estate Paralegal Name Role Phone Genaro Mccabe MD Primary Care Provider [phone] Reason for Visit * Reason Onset Date Comments Med Refill 07/05/2024 Encounter Details Date Type Department Care Team ([facility] st Contact Info) Description 07/05/2024 Telephone Orthopedic Surgery - [place] [address] [address] Ashutosh Redding, DPM [address] [address] Med Refill Social History Tobacco Use Types [...] Surgery was on 05/27/24. His Pharmacy is [facility] . His next PO is on 07/14 Please advise. Thanks. documented in this encounter Plan of Treatment Upcoming Encounters Date Type Department Care Team (Late st Contact Info) Description 08/17/2024 9:30 AM EST Office Visit Orthopedic Surgery - [place] [address] [address] Ashutosh Redding DPM [address] [address] documented as of this encounter Visit Diagnoses Not on filedocumented in this encounter Care Teams Real Estate Paralegal Relationship Specialty Start Date End Date Genaro Mccabe MD [address] [address] PCP - General 09/18/20 documented as of this encounter
--- OUTSIDE RECORDS SUMMARY | 2024-08-04 12:34 | XMS_ITS | Encounter Summary ---
Author Organization [facility] Address [address] [place] [address] Care Team Providers Care Topographical Field Assistant Name Role Phone Genaro Mccabe MD Primary Care Provider [phone] Reason for Visit * Reason Comments Post-op 2nd post op right gr eat toe Encounter Details Date Type Department Care Team ([facility] st Contact Info) Description 07/14/2024 10:00 AM EST Office Visit Orthopedic Surgery - [place] [address] [phone] Ashutosh Redding, DPM [address] [address] Post-operative state (Primary Dx) Social History Tobacco [...] in this encounter Progress Notes * Ashutosh Redidng DPM - 07/14/2024 10:00 AM EST S [...] AM EST Office Visit Orthopedic Surgery - [place] [address] [phone] Ashutosh Redding DPM [address] [address] documented as of this encounter Results * [...] status documented in this encounter Care Teams Topographical Field Assistant Relationship Specialty Start Date End Date Genaro Mccabe MD 1221 [facility] [address] [place] [address] PCP - General 09/18/20 documented as of this encounter
--- OUTSIDE RECORDS SUMMARY | 2024-08-04 12:34 | XMS_ITS | Encounter Summary ---
Author Organization [facility] Address [address] [place] [address] Care Team Providers Care Grade Foreman Name Role Phone Genaro Mccabe MD Primary Care Provider [phone] Encounter Details Date Type Department Care Team (Late st Contact Info) Description 07/18/2024 Telephone Orthopedic Surgery - [place] [address] [facility] [place] [address] Triny Amor Social History Tobacco [...] EST Patient stopped by the office to bead picker the form that was needed for his [...] Please advise. Please call him back @ [phone] . Thanks. * Triny Amor - 07/18/2024 2:37 PM EST Patient stopped by the office this afternoon as he was in the area. He wanted to see if the letter was ready for bead picker. When speaking with the patient this morning, I was under the impression that he was just in need ofhis office note. The patient stated that there is a form that was left with Dr. Redidng to outline hiswork restrictions. I did explain [...] AM EST Office Visit Orthopedic Surgery - [place] 250 175 [facility] 250 [place] [phone] Ashutosh Redding, DPM 175 [facility] 250 [place] [address] documented as of this encounter Visit Diagnoses Diagnosis Post-operative state- Primary Other postprocedural status Acquired hallux valgus of right foot documented in this encounter Care Teams Grade Foreman Relationship Specialty Start Date End Date Genaro Mccabe MD [address] [address] PCP - General 09/18/20 documented as of this encounter
--- OUTSIDE RECORDS SUMMARY | 2024-08-04 12:34 | XMS_ITS | Clinical Summary ---
Author Organization [facility] Address [address] [place] [address] Phone Care Team Providers Care Pot Builder Name Role Phone Genaro Mccabe MD Primary Care Provider [phone] Allergies No known active allergies Medications armodafiniL [...] 10/20/2019 Overview (03/28/2024): Home sleep study by [facility] Sleep medicine on 03/10/2019 Indications: Snoring, [...] Care Team Description 07/18/2024 Telephone Orthopedic Surgery [address] [phone] Triny Amor 07/14/2024 10:00 AM EST Office Visit Orthopedic [address] [phone] Ashutosh Redding DPM Post-operative state (Primary Dx) 07/05/2024 Telephone Orthopedic [place] [address] [phone] Ashutosh Redding DPM Med Refill 06/16/[address] [address] Ashutosh Redding DPM has question 06/13/2024 9:00 AM EST Office Visit Orthopedic [place] [address] [phone] Ashutosh Redding DPM Acquired hallux valgus of right foot (Primary Dx); Post-operative state 05/27/2024 9:30 AM EST Anesthesia Event [facility] OR [address] [place] [phone] Mark Arthur DO Dasilva, John E, MD 05/27/2024 9:30 AM EST - 05/27/2024 10:45 AM EST Surgery [facility] OR [address] [place] [phone] Ashutosh Redding DPM BUNIONECTOMY BILATERAL [[id number] (CPT??)] 05/27/2024 7:39 AM EST - 05/27/2024 12:20 PM EST Hospital Encounter [facility] Main OR [address] [place] [address] Ashutosh Redding DPM Discharge Disposition: Home or Self Care 05/24/2024 8:00 AM EST Consult Orthopedic Surgery [place] [address] [address] Ashutosh Redding DPM Acquired hallux valgus of right foot (Primary Dx); Right foot pain 05/09/2024 9:15 AM EST Office Visit Orthopedic [place] [address] [phone] Ashutosh Redding DPM Acquired hallux valgus of [...] apnea 03/10/2019 DX:Sleep apnea; COMMENT: Home sleep study([facility]) GERD (gastroesophageal reflux disease) Arthritis Joint [...] AM EST Office Visit Orthopedic Surgery - [place] [address] [phone] Ashutosh Redding, DPM [address] [address] Health Maintenance Due Date Last Done Comments [...] this topic Medical Devices Implanted Type Area Manager Quality Systems Device Identifier Shelf Expiration Date Model / Serial / Lot Matthew [employer] Shrtthrfiorella 3.0x18mm Mini-Mnstr [facility] - [id number] Implanted:Qty: 2 on 05/27/2024 by Ashutosh Redding DPM at [facility] Internal and External Fixation Right: First Toe [employer] [id number] / NA / NA Matthew [employer] Shrtthrd 3.0x36mm Mini-[facility] - [id number] Implanted:Qty: 1 on 05/27/2024 by Ashutosh Redding DPM at [facility] Internal and External Fixation Right: First Toe [employer] [id number] / NA / NA Procedures Procedure Name Priority Date/Time Associated Diagnosis Comments XR FOOT 3+ VIEWS RIGHT Routine 07/14/2024 10:03 AM EST Post-operative state XR FOOT 3+ VIEWS RIGHT Routine 06/13/2024 8:47 AM EST Post-operative state XR FOOT 3+ VIEWS RIGHT Routine 05/27/2024 12:11 PM EST [place] CORRECTION HALLUX VALGUS W SESAMOIDECTOMY W DOUBLE [...] with hard callus formation consistent with noncompliance Ashutosh Redding DPMilton IMG XR PROCEDURES Final R esult from Last 3 Months Insurance [facility] MEDICAID ADVANTAGE [address] [place] [address] [facility] Care Teams Pot Builder Relationship Specialty Start Date End Date Genaro Mccabe MD [address] [address] PCP - General 09/18/20
--- OUTSIDE RECORDS SUMMARY | 2024-08-04 12:35 | XMS_ITS ---
Author Organization Genaro Mccabe III, MD Address [address] [place] [address] [place] [address] Care Team Providers Care Production Engineer Name Role Phone Genaro Mccabe Primary Care Provider [phone] REASON FOR VISIT Follow Up Social History Sex Assigned At : Social History Observation Description Sex Assigned At Male Encounters Encounter Location Date Provider Diagnosis Genaro Mccabe III, MD [address] [place] [address] [place] [address] 08/03/2024 Genaro Mccabe Plan Of Treatment Next Appt Details Provider Name:Genaro Mccabe, 10/28/2024 11:00:00 AM, [address] [place] [address] [place], [address], Progress Notes * Genaro MAYNARD EDOB:1960 (63 yo M)Acc No.[id number]:08/03/2024 Progress Notes Patient:?Genaro MAYNARD Provider:?Genaro Mccabe MD :1960???Age:63 Y???Sex:Male Emmanuel e:08/03/2024 Address:[address] [place], [place] [phone] Subjective: * Chief Complaints: * ???1. Follow Up. * Medical History:? Objective: * Vitals:? Assessment: Plan: * Treatment: * Images: * The named appointment provid er may or may not be the originator of this progress note, and it is not deemed complete until electronically signed by the appointment provider. Sign off status: Pending * Provider:?Genaro Mccabe MD Date:?07/16 Generated for Laura aldana/Cayetano/Yordan on:?08/04/2024 12:34 PM EST
--- OUTSIDE RECORDS SUMMARY | 2024-08-04 12:35 | XMS_ITS ---
Author Organization Genaro Mccabe III, MD Address [address] [place] [address] [place] [address] Care Team Providers Care Regional Sales Coordinator Name Role Phone Genaro Mccabe Primary Care Provider [phone] REASON FOR VISIT Follow Up Social History Sex Assigned At : Social History Observation Description Sex Assigned At Male Encounters Encounter Location Date Provider Diagnosis Genaro Mccabe III, MD [address] [place] [address] [place] [address] 06/02/2024 Genaro Mccabe Plan Of Treatment Next Appt Details Provider Name:Genaro Mccabe, 10/28/2024 11:00:00 AM, [address] [place] [address] [place], [phone], Progress Notes * Genaro MAYNARD EDOB:1960 (63 yo M)Acc No.[id number]:06/02/2024 Progress Notes Patient:?Genaro MAYNARD Provider:?Genaro Mccabe MD :1960???Age:63 Y???Sex:Male Emmanuel e:06/02/2024 Address:[address] [place], [place] [phone] Subjective: * Chief Complaints: * ???1. Follow Up. * Medical History:? Objective: * Vitals:? Assessment: Plan: * Treatment: * Images: * The named appointment provid er may or may not be the originator of this progress note, and it is not deemed complete until electronically signed by the appointment provider. Sign off status: Pending * Provider:?Genaro Mccabe MD Date:?05/15 Generated for Laura aldana/Cayetano/Yordan on:?08/04/2024 12:34 PM EST
[2024-08-04 12:55] LABS: Alanine Aminotransferase 39 U/L (0-40); Albumin Level 4.2 g/dL (3.5-5.0); Alkaline Phosphatase 73 U/L (39-117); Anion Gap 11 (12-20); Aspartate Amino Transferase 28 U/L (5-37); Bilirubin Total 0.7 mg/dL (0.0-1.0); Blood Urea Nitrogen 16 mg/dL (9-16); Calcium 9.5 mg/dL (8.4-10.2); Carbon Dioxide 25 mmol/L (22-29); Chloride 108 mmol/L (96-108); Estimated Glomerular Filt Rate > 60; Glucose Random 112 mg/dL (60-115); Potassium 3.9 mmol/L (3.3-5.1); Sodium 140 mmol/L (135-145); Total Protein 8.1 g/dL (6.5-8.0)
[2024-08-04 13:07] LABS: Syphilis Screen Nonreactive (Nonreactive)
[2024-08-04 13:08] LABS: HIV AB/AG Nonreactive (Nonreactive); HIV Num 1 0.07 S/CO (0.00-0.99)
[2024-08-04 13:10] LABS: Erythrocyte Sedimentation Rate 5 MM/HR (0-15)
[2024-08-04 13:11] LABS: TSH reflex Free T4 1.39 uIU/mL (0.32-4.0)
[2024-08-04 13:22] LABS: Folate 9.3 ng/mL (> or = 4.0); Vitamin B12 558 pg/mL (200-900)
[2024-08-08 07:08] LABS: CRP High Sensitivity 1.1 mg/L
[2024-08-08 13:34] LABS: Vitamin D 25-OH, D2 <4 ng/mL; Vitamin D 25-OH, D3 20 ng/mL; Vitamin D 25-OH, Total 20 ng/mL (30-100)
[2024-08-09 01:33] LABS: Vitamin B1 10 nmol/L (8-30)
== END 2024-08-04 11:12 | disposition home or self-care (01) ==
LOC: HO.LAB 11:11
PROVIDERS: PCP Internal Medicine Medical Oncology; Visit Provider Nurse Practitioner Family
DX: R41.3 Other amnesia (principal); E78.5 Hyperlipidemia, unspecified; K20.90 Esophagitis, unspecified without bleeding; E66.9 Obesity, unspecified; Z13.1 Encounter for screening for diabetes mellitus
CPT/HCPCS: 36415; 80053; 82306; 82607; 82746; 83036; 84425; 84443; 85025; 85652; 86141; 86780; 87389

== ENCOUNTER 2025-01-05 08:04 | Outpatient (REF) | payer OTHER, SELFPAY ==
--- OUTSIDE RECORDS SUMMARY | 2024-11-01 10:23 | XMS_ITS ---
Author Organization Genaro Mccabe III, MD Address [address] [place] [address] [place] [address] Care Team Providers Care Art Editor Name Role Phone Genaro Mccabe Primary Care Provider REASON FOR VISIT Rx [...] Date Provider Diagnosis Genaro Mccabe III, MD [address] [place] [address] [place] [address] 11/01/2024 Genaro Mccabe Benign prostatic hyperplasia, unspecified [...] 06/29/2023 10/27/2025 Next Appt Details Provider Name:Genaro Mccabe, 01/31/2025 10:00:00 AM, [address] [place] [address] [address], [place], [address], Provider Name:Genaro Mccabe, 10/31/2025 10:30:00 AM, [address] [place] [address] [address], [place], [address], Progress Notes * Genaro MAYNARD EDOB:1960 (64 yo M)Acc No.[id number]:11/01/2024 Patient: Genaro CELAYA :1960 A ge:64 Y S ex:Male Address:[address] [place] [address] * Refills Refill Naproxen Tablet, 500 MG, Orally, 60, 1 tablet with food or milk, every 12 hrs prn pain, 30 days, Refills=11 * true * Date: Generated for Laura aldana/Cayetano/eTermasmitting on: 0 01/05/2025 08:08 AM EDT
--- OUTSIDE RECORDS SUMMARY | 2025-01-05 08:09 | XMS_ITS | Clinical Summary ---
Author Organization [facility] Address [address] [place] [address] Phone Care Team Providers Care Blueprint Tracer Name Role Phone Louise Mccabe MD Primary Care Provider [phone] Allergies No known active allergies Medications armodafiniL (NUVIGIL) 250 mg tablet Take 1 tablet (250 mg total) by mouth 1 (one) time each day. Active pantoprazole (PROTONIX) 40 mg EC tablet Take 1 tablet (40 mg total) by mouth 1 (one) time each day before breakfast. Do not crush, chew, or split. Active Active Problems Problem Noted Date Diagnosed Date Acquired hallux valgus of right foot 05/09/2024 BPH (benign prostatic hyperplasia) 10/20/2019 Hypertension 10/20/2019 Osteoarthritis of left knee 10/20/2019 Sleep apnea 10/20/2019 Overview (03/28/2024): Home sleep study by [facility] Sleep medicine on 03/10/2019 Indications: Snoring, [...] Encounters Date Type Department Care Team Description 12/27/2024 8:30 AM EDT Office Visit Orthopedic Surgery [place] [id number] [address] Ashutosh Redding DPM Acquired hallux valgus of left foot (Primary Dx); Dermatophytosis of nail 10/28/2024 Telephone Orthopedic Surgery [place] [address] [address] Ashutosh Redding DPM 10/27/2024 8:30 AM EDT Office Visit Orthopedic Surgery [facility] [address] [address] Ashutosh Redding DPM Acquired hallux valgus of left foot (Primary Dx); Post-operative state; Acquired hallux valgus of right foot; Dermatophytosis of nail; Pain in toe of right foot; Pain in toe of left foot; Difficulty walking from Last 3 Months Surgical History Surgery Date Site/Laterality Comments OTHER SURGICAL HISTORY Medical History Medical History Date Comments Gynecomastia DX:Gynecomastia Hypogonadism male DX:Hypogonadis m male Erectile dysfunction DX:Erectile dysfunction Chronic right shoulder pain DX:C hronic right shoulder pain Chronic back pain DX:Chronic carlene k pain Sleep apnea 03/10/2019 DX:Sleep apnea; COMMENT: Home sleep study([facility]) GERD (gastroesophageal reflux disease) Arthritis Joint [...] 56 05/27/2024 11:24 AM EST Temperature 36.4 C (97.5 F) 05/27/2024 11:09 AM EST Respiratory Rate 14 05/27/2024 11:09 AM EST Oxygen Saturation 97% 05/27/2024 11:24 AM EST Inhaled Oxygen Concentration - - Weight 136 kg (300 lb) 10/27/2024 8:15 AM EDT Height 188 cm (6' 2.02 ) 10/27/2024 8:15 AM EDT Body Mass Index 38.5 10/27/2024 8:15 AM EDT Plan of Treatment Health Maintenance Due Date Last Done Comments Pneumococcal Vaccine: 50+ Years (2 of 2 - PCV) 04/18/2017 04/18/2016 Zoster Vaccines (2 of 2) 03/30/2022 02/02/2022 Cholesterol Screening (Lipid Panel) 05/13/2022 Colorectal Cancer Screening: Colonoscopy 05/13/2022 HIV Screening 05/13/2022 Hepatitis C Screening 05/13/2022 Social Influencers of Health Screening 05/13/2022 Hypertension/CHF/CAD Annual BMP Blood Test 05/21/2022 COVID-19 Vaccine ( season) 2024 03/10/2023, 04/16/2022, 05/15/2021, Additional history exists Depression Screening 06/15/2024 Influenza Vaccine (#1) 2025 , 03/17/2023, 03/27/2022 DTaP,Tdap,and Td Vaccines (3 - Td or Tdap) 02/04/2032 02/03/2022, 12/14/2019 RSV Immunization Adult Patients (1 - 1-dose 75+ series) 2036 MMR Vaccines Aged Out 02/13/2022 No longer eligi ble based on patient's age to complete this topic Hepatitis B Vaccines Completed 04/02/2022, 02/01/20 HIB Vaccines Aged Out No longer eligi [...] age to complete this topic Meningococcal B Vaccine Aged Out No l onger eligible based on patient's age to complete this topic RSV Immunization Patients Under 20 months Aged Out No longer eligible based on patient's age to complete this topic Varicella Vaccines Aged Out No longer eligible based on patient's age to complete this topic Medical Devices Implanted Type Area Chief Cardiopulmonary Technologist Device Identifier Shelf Expiration Date Model / Serial / Lot Screw German Shrtthrd 3.0x18mm [facility] [id number] Implanted:Qty: 2 on 05/27/2024 by Ashutosh Redding DPM at [facility] Internal and External Fixation Right: First Toe [employer] [id number] / NA / NA Screw German Shrtthrd 3.0x36mm Mini-[facility] - [id number] Implanted:Qty: 1 on 05/27/2024 by Ashutosh Redding DPM at [facility] Internal and External Fixation Right: First Toe [employer] [id number] / NA / NA Procedures Procedure Name Priority Date/Time Associated Diagnosis Comments XR FOOT 3+ VIEWS RIGHT Routine 10/27/2024 8:19 AM EDT Post-operative state from Last 3 Months Results * XR Foot 3+ Views Right (10/27/2024 8:19 AM EDT) Anatomical Region Laterality Modality Lower Extremities, Foot Right Computed Radiography Narrative 10/27/2024 5:52 PM EDT Right foot 3 views Healed bunion deformity right foot stable postoperative changes reduction fully maintained us Kelewa Rose Vahid DPM IMG XR PROCEDURES Final R esult from Last 3 Months Insurance [employer] [address] [place] [address] [facility] Care Teams Blueprint Tracer Relationship Specialty Start Date End Date Louise Mccabe MD [address] [facility] [address] [place] [address] PCP - General 09/18/20
[2025-01-05 08:22] LABS: MANUAL DIFF FLAG NO
[2025-01-05 09:01] LABS: Hematocrit 42.7 % (42.0-52.0); Hemoglobin 14.6 g/dl (14.0-18.0); Imm Gran Abs Auto 0.03 X10*3/uL (0.00-0.03); Imm Gran Pct Auto 0.4 % (0.0-0.4); Lymphocytes Absolute Auto 2.5 X10*3/uL (1.2-4.9); Mean Corpuscular HGB Conc 34.2 g/dl (31.0-36.0); Mean Corpuscular Hemoglobin 28.3 pg (27.0-33.0); Mean Corpuscular Volume 82.8 fL (80.0-98.0); NRBC Abs Auto 0.000 X10*3/uL (0.0-0.012); NRBC Pct Auto 0.0 /100WBC (0.0-0.2); Platelet Count 194 X10*3/uL (160-400); Red Blood Count 5.16 X10*6/uL (4.60-5.80); White Blood Count 6.7 X10*3/uL (4.8-10.8)
[2025-01-05 09:35] LABS: Alanine Aminotransferase 31 U/L (0-40); Albumin Level 4.6 g/dL (3.5-5.0); Alkaline Phosphatase 82 U/L (39-117); Anion Gap 9 (12-20); Aspartate Amino Transferase 32 U/L (5-37); Blood Urea Nitrogen 14 mg/dL (9-16); Calcium 9.3 mg/dL (8.4-10.2); Carbon Dioxide 27 mmol/L (22-29); Chloride 107 mmol/L (96-108); Cholesterol 205 mg/dL (<200); Estimated Glomerular Filt Rate > 60; HDL Cholesterol 54 mg/dL (>40); Potassium 3.9 mmol/L (3.3-5.1); Sodium 139 mmol/L (135-145); Total Protein 8.0 g/dL (6.5-8.0); Triglycerides 82 mg/dL (<150)
[2025-01-05 09:54] LABS: Prostate Specific Antigen < 0.10 ng/mL (<0.05-4.0)
== END 2025-01-05 08:05 | disposition home or self-care (01) ==
LOC: HO.LAB 08:04
PROVIDERS: Visit Provider Internal Medicine Medical Oncology
DX: N40.0 Benign prostatic hyperplasia without lower urinary tract symptoms (principal); E66.9 Obesity, unspecified; N52.9 Male erectile dysfunction, unspecified
CPT/HCPCS: 36415; 80053; 80061; 84153; 84403; 85025

== ENCOUNTER 2025-02-28 10:08 | Outpatient (REF) | payer OTHER, SELFPAY ==
--- OUTSIDE RECORDS SUMMARY | 2024-08-26 06:37 | XMS_ITS ---
Author Organization Genaro Mccabe III, MD Address [address] [place] [address] [place] [address] Care Team Providers Care Gelatin Plant Supervisor Name Role Phone Genaro Mccabe Primary Care Provider REASON FOR VISIT ? Rx Social History Sex Assigned At : Social History Observation Description Sex Assigned At Male Encounters Encounter Location Date Provider Diagnosis Genaro Mccabe III, MD [address] [place] [address] [place] [address] 08/26/2024 Genaro Mccabe Plan Of Treatment Next Appt Details Provider Name:Genaro Mccabe, 03/07/2025 09:15:00 AM, [address] [place] [address] [place], [address], Provider Name:Genaro Mccabe, 10/31/2025 10:30:00 AM, [address] [place] [address] [place], [address], Progress Notes * Genaro MAYNARD EDOB:1960 (63 yo M)Acc No.[id number]:08/26/2024 Patient: Jackie CARLOS ENRIQUECARMENGenaro :1960 A ge:63 Y S ex:Male Address:[address] [place] [address] * true * Date: Generated for Laura aldana/Cayetano/Yordan on: 0 02/28/2025 01:12 PM EDT
--- OUTSIDE RECORDS SUMMARY | 2024-10-28 07:00 | XMS_ITS ---
Author Organization Genaro Mccabe III, MD Address [address] [place] [address] [place] [address] Care Team Providers Care Baggage Smasher Name Role Phone Genaro Mccabe Primary Care Provider [phone] Allergies Allergen (clinical drug ingredient) Drug/Non Drug [...] Speciality Internal M edicine Referred Provider Leighton Morrison [facility] ([place]) Referred Provider Specialty Orthopedic S urgery General Notes Patsy Evans 11/02/2024 09:00:29 AM > Faxed referral with progress noteNathan Amber 11/14/2024 04:24:01 PM > called patient questioning if he was able to schedule an appointment with [facility]. Message left on [employer] Referral Priority Routine Referral Appointment Date 12/28/2024 [...] Date Provider Diagnosis Genaro Mccabe III, MD [address] [place] [address] [place] [address] 10/28/2024 Genaro Mccabe Benign prostatic hyperplasia, unspecified [...] as needed Pantoprazole Sodium 40 MG Oral Pending Test Test Name Order Date PROFILE, FASTING (COMPREHENSIVE METABOLI C) 10/28/2024 PSA, TOTAL 10/28/2024 CBC w DIFF 10/28/2024 Lipid Panel 10/28/2024 Testosterone, Total 10/28/2024 Referrals Referral Date Details 10/28/2024 10/28/2024, Evaluate and Treat Right Shoulder Pain, [facility] ([facility] Next Appt Details Follow Up: 3 Months, Reason: OV Provider Name:Genaro Mccabe, 03/07/2025 09:15:00 AM, [address] [place] [address] [address], [place], [address], Provider Name:Genaro Mccabe, 10/31/2025 10:30:00 AM, [address] [place] [address] [address], [place], [address], Progress Notes * Genaro MAYNARD EDOB:1960 (64 yo M)Acc No.[id number]:10/28/2024 Progress Notes Patient: Genaro CELAYA Provider: Roseanna Mccabe MD :1960 A ge:64 Y S ex:Male Date:10/28/2024 Address:[address] [place] [phone] Subjective: * Chief Complaints: * A nnual [...] was really needed? Check all that apply: Nathan gonzalez to answer * ROS: G eneral/Constitutional: pain [...] N egative H e is working a [employer] company and is engaged to be . He was born in [place]. Smoking: No. Physical Activity: Walks at work. [...] Date & Time - 08/04/2024 11:39AM)?ValueReference Range?Vitamin [id number] - pg/mL?Folate9.3> or = 4.0 - ng/mL [...] AM)?ValueReference Range?Hemoglobin A1c %5.5<6.0 - %?Estimated Average Sfqnaag463- mg/dL * Lab:URINE DIP STICK * Collection [...] 4. O thers Referral To:[facility] Orthopedic Surgery Reason:Evaluate and Treat Right Shoulder [...] Mccabe MD Date: 0 10/28/2024 Generated for Laura aldana/Cayetano/Danieitting on: 0 02/28/2025 01:13 PM EDT History and Physical Notes * HPI (History [...] Notes Referral Date Referring Provider Referred Provider Valentina pressley 10/28/2024 Genaro Mccabe Ort [facility] ([place]) Evaluate and Treat Right Shoulder Pain
--- OUTSIDE RECORDS SUMMARY | 2024-11-01 10:23 | XMS_ITS ---
Author Organization Genaro Mccabe III, MD Address [address] [place] [address] [place] [address] Care Team Providers Care Professor Of German Name Role Phone Genaro Mccabe Primary Care Provider [phone] REASON FOR VISIT Rx requst Medications Medication [...] Date Provider Diagnosis Genaro Mccabe III, MD [address] [place] [address] [place] [address] 11/01/2024 Genaro Mccabe Benign prostatic hyperplasia, unspecified [...] 10/27/2025 Next Appt Details Provider Name:Genaro Mccabe, 03/07/2025 09:15:00 AM, [address] [place] [address] [address], [place], [address], Provider Name:Genaro Mccabe, 10/31/2025 10:30:00 AM, [address] [place] [address] [address], [place], [address], Progress Notes * Genaro MAYNARD EDOB:1960 (64 yo M)Acc No.[id number]:11/01/2024 Patient: Genaro CELAYA :1960 A ge:64 Y S ex:Male Address:[address] [place] [address] * Refills Refill Naproxen Tablet, 500 MG, Orally, 60, 1 tablet with food or milk, every 12 hrs prn pain, 30 days, Refills=11 * true * Date: Generated for Laura aldana/Cayetano/eTransmitting on: 0 02/28/2025 01:12 PM EDT
--- OUTSIDE RECORDS SUMMARY | 2025-01-20 10:00 | XMS_ITS ---
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 The pain is likely musculature. He will use a heating pad and rest and follow-up. If it does not resolve an x-ray of the hip joint will be done. Vital Signs Temperature 98.1 degrees Fahrenheit 01/21/20 25 Blood pressure systolic 135 mm Hg 01/21/20 25 Blood pressure diastolic 80 mm Hg 025 Heart Rate 63 /min 01/20/2025 Height 74 in 01/20/2025 Weight 297 lbs 01/20/2025 BMI 38.13 kg/m2 01/20/2025 Encounters Encounter Location Date Provider Diagnosis Genaro Mccabe III, MD [address] [place] [address] [place] [address] 01/20/2025 Genaro Mccabe Benign prostatic hyperplasia, unspecified [...] Up: 2 Weeks, Reason: ov Provider Name:Genaro Mccabe, 03/07/2025 09:15:00 AM, [address] [place] [address] [address], [place], [address], Provider Name:Genaro Mccabe, 10/31/2025 10:30:00 AM, [address] [place] [address] [address], [place], [address], Progress Notes * Genaro MAYNARD EDOB:1960 (64 yo M)Acc No.[id number]:01/20/2025 Progress Notes Patient: Genaro CELAYA Provider: Roseanna Mccabe MD :1960 A ge:64 Y S ex:Male Date:01/20/2025 Address:[address] [place] [id number] Subjective: * Chief Complaints: * E rectile [...] x-cigarette smoker H e is working a [employer] company and is engaged to be . He was born in [place]. Smoking: No. Physical Activity: Walks at work. [...] mg/dL) 44 (Ref Range: mg/dL) * Lab:Comprehensive [place]. Pane l Fast * Collection Date 01/05/2025 [...] X10*3/uL) 0.000 (Ref Range: 0.0-0.012 X10*3/uL) * Lab:[facility], Total * Collection Date 01/05/2025 07/30/2023 Collection [...] Mccabe MD Date: 0 01/20/2025 Generated for Printi ng/Lacieg/eTransmitting on: 0 02/28/2025 01:12 PM EDT History and Physical Notes * [...]
--- OUTSIDE RECORDS SUMMARY | 2025-01-31 12:45 | XMS_ITS ---
Author Organization Genaro Mccabe III, MD Address [address] [place] [address] [place] [address] Care Team Providers Care Certified Juvenile Probation Officer Name Role Phone Genaro Mccabe Primary Care Provider [phone] REASON FOR VISIT Follow up Social History Sex Assigned At : Social History Observation Description Sex Assigned At Male Encounters Encounter Location Date Provider Diagnosis Genaro Mccabe III, MD [address] [place] [address] [place] [address] 01/31/2025 Genaro Mccabe Plan Of Treatment Next Appt Details Provider Name:Genaro Mccabe, 03/07/2025 09:15:00 AM, [address] [place] [address] [place], [address], Provider Name:Genaro Mccabe, 10/31/2025 10:30:00 AM, [address] [place] [address] [place], [address], Progress Notes * Genaro MAYNARD EDOB:1960 (64 yo M)Acc No.[id number]:01/31/2025 Progress Notes Patient: Jackie MCKINNEYGeanro Provider: Roseanna Mccabe MD :1960 A ge:64 Y S ex:Male Date:01/31/2025 Address:[address] [place], [place] [id number] Subjective: * Chief Complaints: * 1 . [...] 01/31/2025 Generated for Laura aldana/Cayetano/Osminsmitting on: 0 02/28/2025 01:12 PM EDT
[2025-02-28 11:58] LABS: Prostate Specific Antigen 0.16 ng/mL (<0.05-4.0)
--- OUTSIDE RECORDS SUMMARY | 2025-02-28 13:12 | XMS_ITS | Clinical Summary ---
Author Organization [facility] Address [address] [place] [address] Phone Care Team Providers Care Restaurant Bartender Name Role Phone Louise Mccabe MD Primary Care Provider Allergies No known active allergies Medications armodafiniL [...] 10/20/2019 Overview (03/28/2024): Home sleep study by [facility] Sleep medicine on 03/10/2019 Indications: Snoring, Witnessed [...] 8:30 AM EDT Office Visit Orthopedic Surgery - [address] [address] Ashutosh Redding, DPM Acquired hallux valgus of left foot (Primary Dx); Dermatophytosis of nail from Last 3 Months Surgical History Surgery Date Site/Laterality Comments OTHER SURGICAL HISTORY Medical History Medical History Date Comments Gynecomastia DX:Gynecomastia Hypogonadism male DX:Hypogonadis m male Erectile dysfunction DX:Erectile dysfunction Chronic right shoulder pain DX:C hronic right shoulder pain Chronic back pain DX:Chronic carlene k pain Sleep apnea 03/10/2019 DX:Sleep apnea; COMMENT: Home sleep study([facility]) GERD (gastroesophageal reflux disease) Arthritis Joint pain [...] 05/13/2022 Hypertension/CHF/CAD Annual BMP Blood Test 05/21/2022 Depression Screening 06/15/2024 COVID-19 Vaccine ( season) 2025 03/10/2023, 04/16/2022, 05/15/2021, Additional history exists Influenza Vaccine (#1) 2025 , 03/17/2023, 03/27/2022 [...] this topic Medical Devices Implanted Type Area Regional Training Manager Device Identifier Shelf Expiration Date Model / Serial / Lot Screw German Shrtthrd 3.0x18mm [facility] - [id number] Implanted:Qty: 2 on 05/27/2024 by Ashutosh Redding DPM at [facility] Internal and External Fixation Right: First Toe [employer] [id number] / NA / NA Screw German Shrtthrd 3.0x36mm Mini-Monster - Sna - [id number] Implanted:Qty: 1 on 05/27/2024 by Ashutosh Redding DPM at [facility] Internal and External Fixation Right: [employer] [id number] / NA / NA Insurance [employer] [place] [employer] [address] [place] [address] [facility] Care Teams Restaurant Bartender Relationship Specialty Start Date End Date Louise Mccabe MD [address] [address] PCP - General 09/18/20
--- OUTSIDE RECORDS SUMMARY | 2025-02-28 13:13 | XMS_ITS | Patient Health Record ---
Author Organization Genaro Mccabe III, MD Address [address] [place] [address] [place] [address] Care Team Providers Care Jack Frame Tender Name Role Phone Genaro Mccabe Primary Care Provider [phone] Allergies Allergen (clinical drug ingredient) Drug/Non Drug [...] 0.2 - 1.3 BLD Negative Negative - Complete Blood Count Auto Di ff Reviewed date:05/13/2024 08:08:59 PM Interpretation: Performing Lab:[facility], [address] [place] [phone] Notes/Report: White Blood Count 5.1 4.8-10.8 X10*3/uL Red Blood Count 5.04 4.60-5.80 X10*6/uL Hemoglobin 14.3 14.0-18.0 g/dl Hematocrit 42.3 42.0-52.0 % Mean Corpuscular Volume 83.9 80.0-98.0 fL Mean Corpuscular Hemoglobin 28.4 27.0-33.0 pg Mean Corpuscular HGB Conc 33.8 31.0-36.0 g/dl Red Cell Distribution Width 13.8 11.0-16.0 % Platelet Count 171 160-400 X10*3/uL Mean Platelet Volume 8.9 9.4-12.4 fL Neutrophils Percent Auto 49.8 45-73 % Imm Gran Pct Auto 0.2 0.0-0.4 % Lymphocytes Percent Auto 40.6 20-40 % Monocytes Percent Auto 7.0 2-11 % Eosinophils Percent Auto 2.0 0-4 % Basophils Percent Auto 0.4 0-2 % NRBC Pct Auto 0.0 0.0-0.2 /100WBC Neutrophils Absolute Auto 2.6 2.0-8.3 x10*3/u L Imm Gran Abs Auto 0.01 0.00-0.03 X10*3/uL Lymphocytes Absolute Auto 2.1 1.2-4.9 X10*3/u L Monocytes Absolute Auto 0.4 0.1-1.2 X10*3/uL Eosinophils Absolute Auto 0.1 0.0-0.4 X10*3/u L Basophils Absolute Auto 0.0 0.0-0.2 X10*3/uL NRBC Abs Auto 0.000 0.0-0.012 X10*3/uL Comprehensive Met. Panel Reviewed date:05/13/2024 08:08:59 PM Interpretation: Performing Lab:[facility], [address] [place] [phone] Notes/Report: Sodium 138 135-145 mmol/L Potassium 3.7 3.3-5.1 mmol/L Chloride 107 96-108 mmol/L Carbon Dioxide 25 22-29 mmol/L Anion Gap 10 12-20 Blood Urea Nitrogen 10 9-16 mg/dL Creatinine 1.00 0.5-1.4 mg/dL Estimated Glomerular Filt Rate > 60 Chronic Kidney Disease: Estimated GFR < 60 mL/min/1.73m2 Severe Kidney Disease: Estimated GFR < 15 mL/min/1.73m2 Glucose Random 98 60-115 mg/dL Calcium 9.0 8.4-10.2 mg/dL Bilirubin Total 0.4 0.0-1.0 mg/dL Aspartate Amino Transferase 25 5-37 U/L Alanine Aminotransferase 32 0-40 U/L Total Protein 7.2 6.5-8.0 g/dL Albumin Level 4.1 3.5-5.0 g/dL Alkaline Phosphatase 72 39-117 U/L Complete Blood Count Auto Di ff Reviewed date:08/07/2024 09:04:48 AM Interpretation: Performing Lab:[facility], [address] [place] [phone] Notes/Report: White Blood Count 5.1 4.8-10.8 X10*3/uL Red Blood Count 4.93 4.60-5.80 X10*6/uL Hemoglobin 14.0 14.0-18.0 g/dl Hematocrit 41.1 42.0-52.0 % Mean Corpuscular Volume 83.4 80.0-98.0 fL Mean Corpuscular Hemoglobin 28.4 27.0-33.0 pg Mean Corpuscular HGB Conc 34.1 31.0-36.0 g/dl Red Cell Distribution Width 14.5 11.0-16.0 % Platelet Count 179 160-400 X10*3/uL Mean Platelet Volume 8.6 9.4-12.4 fL Neutrophils Percent Auto 51.2 45-73 % Imm Gran Pct Auto 0.6 0.0-0.4 % Lymphocytes Percent Auto 38.3 20-40 % Monocytes Percent Auto 7.7 2-11 % Eosinophils Percent Auto 1.8 0-4 % Basophils Percent Auto 0.4 0-2 % NRBC Pct Auto 0.0 0.0-0.2 /100WBC Neutrophils Absolute Auto 2.6 2.0-8.3 x10*3/u L Imm Gran Abs Auto 0.03 0.00-0.03 X10*3/uL Lymphocytes Absolute Auto 2.0 1.2-4.9 X10*3/u L Monocytes Absolute Auto 0.4 0.1-1.2 X10*3/uL Eosinophils Absolute Auto 0.1 0.0-0.4 X10*3/u L Basophils Absolute Auto 0.0 0.0-0.2 X10*3/uL NRBC Abs Auto 0.000 0.0-0.012 X10*3/uL Erythrocyte Sedimentation Ra te Reviewed date:08/07/2024 09:04:49 AM Interpretation: Performing Lab:[address] [phone] Notes/Report: Erythrocyte Sedimentation Rate 5 0-15 MM/HR Patients with polycythemia and many hemoglobin abnormalities may have depressed sed rates whereas patients with anemia may have elevated sed rates. Comprehensive Met. Panel Reviewed date:08/07/2024 09:04:49 AM Interpretation: Performing Lab:[facility], [address] [place] [phone] Notes/Report: Sodium 140 135-145 mmol/L Potassium 3.9 3.3-5.1 mmol/L Chloride 108 96-108 mmol/L Carbon Dioxide 25 22-29 mmol/L Anion Gap 11 12-20 Blood Urea Nitrogen 16 9-16 mg/dL Creatinine 1.06 0.5-1.4 mg/dL Estimated Glomerular Filt Rate > 60 Chronic Kidney Disease: Estimated GFR < 60 mL/min/1.73m2 Severe Kidney Disease: Estimated GFR < 15 mL/min/1.73m2 Glucose Random 112 60-115 mg/dL Calcium 9.5 8.4-10.2 mg/dL Bilirubin Total 0.7 0.0-1.0 mg/dL Aspartate Amino Transferase 28 5-37 U/L Alanine Aminotransferase 39 0-40 U/L Total Protein 8.1 6.5-8.0 g/dL Albumin Level 4.2 3.5-5.0 g/dL Alkaline Phosphatase 73 39-117 U/L CRP High Sensitivity Reviewed date:11/13/2024 08:18:32 PM Interpretation: Performing Lab:[facility], [address] [place] [phone] Notes/Report: CRP High Sensitivity 1.1 Reference Range Optimal <1.0 Jelldeshawn PS et al. Endocr Pract.2017;23(Suppl 2):1-87. For ages >17 Years: hs-CRP mg/L Risk According to AHA/CDC Guidelines <1.0 Lower relative cardiovascular risk. 1.0-3.0 Average relative cardiovascular risk. 3.1-10.0 Higher relative cardiovascular risk. Consider retesting in 1 to 2 weeks to exclude a benign transient elevation in the baseline CRP value secondary to infection or inflammation. >10.0 Persistent elevation, upon retesting, may be associated with infection and inflammation. Raad TA, Juany GA, Lexx RW, et al. Markers of inflammation and cardiovascular disease: application to clinical and public health practice: A statement for healthcare professionals from the Centers for Disease Control and Prevention and the [place] [employer]. Circulation 2003; 107(3): 499-511. THIS TEST WAS PERFORMED AT: [facility] [address] [address] JIM HOWARD MD Vitamin B12 and Folate Reviewed date:08/07/2024 09:04:49 AM Interpretation: Performing Lab:[address] [address] Notes/Report: Vitamin B12 558 200-900 pg/mL NORMAL 200-900 PG/ML INDETERMINATE 160-199 PG/ML DEFICIENT < 160 PG/ML Folate 9.3 > or = 4.0 ng/mL Reference Values: > or = 4.0 ng/mL < 4.0 ng/mL suggests folate deficiency Methotrexate, aminopterin and folinic acid (leucovorin) are chemotherapeutic agents whose molecular structures are similar to folate; therefore, the [facility] [facility] folate assay cannot be used for patients using these drugs. Vitamin B1 Reviewed date:11/13/2024 08:18:31 PM Interpretation: Performing Lab:[address] [phone] Notes/Report: Vitamin B1 10 8-30 nmol/L Vitamin supplementation within 24 hours prior to blood draw may affect the accuracy of the results. This test was developed and its analytical performance characteristics have been determined by [facility] [place], [place]. It has not been cleared or approved by the U.S. Food and Drug Administration. This assay has been validated pursuant to the CLIA regulations and is used for clinical purposes. THIS TEST WAS PERFORMED AT: [facility]/[place] [address] [address] ARUN RAHMAN MD,PHD Vitamin D 25-OH (D2 and D3) Reviewed date:11/13/2024 08:18:32 PM Interpretation: Performing Lab:[address] [phone] Notes/Report: Vitamin D 25-OH, D2 <4 This test was developed and its analytical performance characteristics have been determined by [facility] [place], [place]. It has not been cleared or approved by the U.S. Food and Drug Administration. This assay has been validated pursuant to the CLIA regulations and is used for clinical purposes. THIS TEST WAS PERFORMED AT: [email or web address]/[address] ARUN RAHMAN MD,PHD Vitamin D 25-OH, D3 20 This test was developed and its analytical performance characteristics have been determined by [facility] [place], [place]. It has not been cleared or approved by the U.S. Food and Drug Administration. This assay has been validated pursuant to the CLIA regulations and is used for clinical purposes. Vitamin D 25-OH, Total 20 30-100 ng/mL Vitamin D, 25-Hydroxy reports concentrations of two common forms, 25-OHD2 and 25-OHD3. 25-OHD3 indicates both endogenous production and supplementation. 25-OHD2 is an indicator of exogenous sources such as diet or supplementation. Therapy is based on measurement of Total 25-OHD, with levels <20 ng/mL indicative of Vitamin D deficiency, while levels between 20 ng/mL and 30 ng/mL suggest insufficiency. Optimal levels are > or = 30 ng/mL. For additional information, please refer to http://education.Reframe It/faq/MVK400 (This link is being provided for informational/ educational purposes only.) TSH reflex Free T4 Reviewed date:08/07/2024 09:04:49 AM Interpretation: Performing Lab:[facility], [address] [place] [phone] Notes/Report: TSH reflex Free T4 1.39 0.32-4.0 uIU/mL Syphilis Screen Reviewed date:08/07/2024 09:04:49 AM Interpretation: Performing Lab:[address] [phone] Notes/Report: Syphilis Screen Nonreactive Nonreactive Hemoglobin A1c Reviewed date:08/07/2024 09:04:48 AM Interpretation: Performing Lab:[facility], [address] [place] [phone] Notes/Report: Hemoglobin A1c % 5.5 <6.0 % Hemoglobin A1C Reference Range Adults: 4.8 - 6.0 % Non diabetic: < 6.0 % Goal: < 7.0 % Additional Action Suggested: > 8.0 % Note: Hemoglobin A1c results are invalid for patients with abnormal amounts of HbF. Blood transfusions may impact the HbA1c concentration in the patient sample. Estimated Average Glucose 111 eAG = Estimated average glucose which is %A1C expressed as average glucose, using the formula of the [id number] Average Glucose study (ADAG), Diabetes Care, Vol.31,#8, Jan. 2007 HIV Ab/Ag Reviewed date:08/07/2024 09:04:49 AM Interpretation: Performing Lab:[address] [phone] Notes/Report: HIV AB/AG Nonreactive Nonreactive HIV-1 p24 Ag and/or HIV-1/HIV-2 Ab not detected. A test result that is nonreactive does not exclude the possibility of exposure to or infection with HIV-1 and/or HIV-2. Nonreactive results in this assay for individuals with prior exposure to HIV-1 and/or HIV-2 may be due to antigen and antibody levels that are below the limit of detection of this assay. The [employer] HIV Ag/Ab Combo assay result and supplemental assay results should be interpreted in conjunction with the patient's clinical presentation, history and other laboratory results. If the results are inconsistent with clinical evidence, additional testing is suggested to confirm the result. Complete Blood Count Auto Di ff Reviewed date:01/14/2025 07:13:47 PM Interpretation: Performing Lab:[address] [address] Notes/Report: White Blood Count 6.7 4.8-10.8 X10*3/uL Red Blood Count 5.16 4.60-5.80 X10*6/uL Hemoglobin 14.6 14.0-18.0 g/dl Hematocrit 42.7 42.0-52.0 % Mean Corpuscular Volume 82.8 80.0-98.0 fL Mean Corpuscular Hemoglobin 28.3 27.0-33.0 pg Mean Corpuscular HGB Conc 34.2 31.0-36.0 g/dl Red Cell Distribution Width 14.4 11.0-16.0 % Platelet Count 194 160-400 X10*3/uL Mean Platelet Volume 8.5 9.4-12.4 fL Neutrophils Percent Auto 53.4 45-73 % Imm Gran Pct Auto 0.4 0.0-0.4 % Lymphocytes Percent Auto 37.3 20-40 % Monocytes Percent Auto 7.0 2-11 % Eosinophils Percent Auto 1.6 0-4 % Basophils Percent Auto 0.3 0-2 % NRBC Pct Auto 0.0 0.0-0.2 /100WBC Neutrophils Absolute Auto 3.6 2.0-8.3 x10*3/u L Imm Gran Abs Auto 0.03 0.00-0.03 X10*3/uL Lymphocytes Absolute Auto 2.5 1.2-4.9 X10*3/u L Monocytes Absolute Auto 0.5 0.1-1.2 X10*3/uL Eosinophils Absolute Auto 0.1 0.0-0.4 X10*3/u L Basophils Absolute Auto 0.0 0.0-0.2 X10*3/uL NRBC Abs Auto 0.000 0.0-0.012 X10*3/uL Comprehensive [place]. Panel Fa st Reviewed date:01/14/2025 07:13:47 PM Interpretation: Performing Lab:[facility], [address] [place] [phone] Notes/Report: Sodium 139 135-145 mmol/L Potassium 3.9 3.3-5.1 mmol/L Chloride 107 96-108 mmol/L Carbon Dioxide 27 22-29 mmol/L Anion Gap 9 12-20 Blood Urea Nitrogen 14 9-16 mg/dL Creatinine 1.16 0.5-1.4 mg/dL Estimated Glomerular Filt Rate > 60 Chronic Kidney Disease: Estimated GFR < 60 mL/min/1.73m2 Severe Kidney Disease: Estimated GFR < 15 mL/min/1.73m2 Glucose Fasting 109 60-99 mg/dL A fasting glucose from 100-125 mg/dl is considered impaired (pre-diabetes). Calcium 9.3 8.4-10.2 mg/dL Bilirubin Total 0.8 0.0-1.0 mg/dL Aspartate Amino Transferase 32 5-37 U/L Alanine Aminotransferase 31 0-40 U/L Total Protein 8.0 6.5-8.0 g/dL Albumin Level 4.6 3.5-5.0 g/dL Alkaline Phosphatase 82 39-117 U/L Lipid Panel Reviewed date:01/14/2025 07:13:47 PM Interpretation: Performing Lab:[address] [phone] Notes/Report: Triglycerides 82 <150 mg/dL Desirable Triglyceride: less than 150 mg/dL Borderline High Triglyceride 150-199 mg/dL High Triglyceride: 200-499 mg/dL Very High Triglyceride: greater than or equal to 5OO mg/dL Cholesterol 205 <200 mg/dL Desirable Cholesterol: less than 200 mg/dL Borderline High Cholesterol: 200-239 mg/dL High Cholesterol: greater than 239 mg/dL LDL Cholesterol Calculated 135 <100 mg/dL Desirable LDL: less than 100 mg/dL Near Optimal/Above Optimal LDL: 110-129 mg/dL Borderline High LDL: 130-159 mg/dL High LDL: 160-189 mg/dL Very High LDL: greater than or equal to 190 mg/dL HDL Cholesterol 54 >40 mg/dL Desirable HDL: greater than 40 mg/dL Note: This HDL assay may give artificially low results in patients with liver disease. Prostate Specific Antigen Reviewed date:01/14/2025 07:13:47 PM Interpretation: Performing Lab:[address] [address] Notes/Report: Prostate Specific Antigen < 0.10 <0.05-4.0 ng/mL PSA methodology: Coon Alinity i Chemiluminescent Microparticle Immunoassay (CMIA) Testosterone, Total Reviewed date:01/14/2025 07:13:47 PM Interpretation: Performing Lab:[address] [phone] Notes/Report: Testosterone, Total 303 665-3104 ng/dL Men with clinically significant hypogonadal symptoms and testosterone values repeatedly in the range of the 200-300 ng/dL or less, may benefit from testosterone treatment after adequate risk and benefits counseling. For additional information, please refer to http://education.Think Global.LinkCloud/faq/ TotalTestosteroneLCMSMSFAQ1 65 (This link is being provided for informational/ educational purposes only.) This test was developed and its analytical performance characteristics have been determined by [facility] [place], [place]. It has not been cleared or approved by the U.S. Food and Drug Administration. This assay has been validated pursuant to the CLIA regulations and is used for clinical purposes. THIS TEST WAS PERFORMED AT: [facility]/[address] ARUN RAHMAN MD,PHD Prostate Specific Antigen (N ot yet reviewed by provider) Interpretation: Performing Lab:[facility], [address] [place] [phone] Notes/Report: Prostate Specific Antigen 0.16 <0.05-4.0 ng/mL PSA methodology: Coon Alinity i Chemiluminescent Microparticle Immunoassay (CMIA) Reason For Referral Reason Evaluate and Treat Right Shoulder Pain Diagnosis 1 Right shoulder pain (M25.511) Referral Organization Genaro Mccabe III, MD Referring Provider First Name Genaro Referring Provider Last Name Estelle Referring Provider Speciality Internal M edicine Referred Provider Leighton Morrison [facility], [facility] Referred Provider Specialty Orthopedic S urgery General Notes DPatsy 11/02/2024 09:00:29 AM > Faxed referral with progress note, DPatsy 11/14/2024 04:24:01 PM > called patient questioning if he was able to schedule an appointment with [facility]. Message left on [employer]. Referral Priority Routine Referral Appointment Date 12/28/2024 Medications Medication SIG (Take, Route, Frequency, Duration) Notes Start Date End Date Status Naproxen 500 MG 1 tablet with food o r milk Orally every 12 hrs prn pain 06/29/2023 Active Pantoprazole Sodium 40 MG Oral Active Acetaminophen 325 MG 1 tablet as needed Orally every 4 hrs as needed Active Sildenafil Citrate 50 MG 1 tablet as nee ded Orally Once a day 01/22/2025 Active Sildenafil Citrate 50 MG 1 tablet Orally if beeded for 6 days 01/20/2025 04/02/2025 Active Armodafinil 250 MG Oral A ctive Immunizations Vaccine Route Administration Date Status Comme nts Pneumococcal Unknown 04/18/2016 Administered COVID- 19 Vaccine Unknown 10/09/2020 Administered 2nd d ose Pfizer Tdap Unknown 12/14/2019 Administered COVID PFIZER Unknown 05/15/2021 Administered COVID PFIZER Unknown 09/18/2020 Administered SHINGRIX Unknown 02/02/2022 Administered Tdap Unknown 02/03/2022 Administered Hepatitis B Unknown 01/31/2022 Administered MMR Unknown 02/13/2022 Administered Influenza, quad Unknown 03/27/2022 Administered Hepatitis B Unknown 04/02/2022 Administered Influenza Vaccine Afluria IM Intramuscular 03/18/2024 Administered COVID PFIZER Unknown 10/09/2020 Administered Social History Tobacco Use: Social History Observation [...] ast year? No Points 0 Interpretation Negative Problems Problem Type SNOMED Code ICD Code Onset Dates Problem Status W/U Status Risk Notes Problem 4295152 Former smoker (Z87.891) Active confirmed We discussed a plan to prevent relapse by controlling behavior during illness and periods of stress. Problem Acquired hallux valgus (92877248) Hallux valgus (acquired), right foot (M20.11) Active confirmed He has an appointment with podiatry March 21, 2024. Problem Hypertension (91933930) HTN (hypertension) (I10) Active confirmed His blood pressure today is stable. No change in his regimen was made. Problem 333167901 Obesity (BMI 30-39.9) (E66.9) Active confirmed His body mass index is 39. We have discussed his diet and nutrition. We made a plan to lose weight at a rate of one half of a pound per week through a diet restricted in fat calories and sodium combined with regular physical activity. Problem Cardiomyopathy (56710669) Cardiomyopathy (I42.9) Active confirmed His recent echocardiogram is normal. The cardiomyopathy has resolved and this problem will be removed from the problem list. Because of his dyspnea is likely pulmonary.There was no sign of congestive heart failure or fluid overload on today's examination. Problem Sleep apnea (75343600) Sleep apnea (G47.30) Active confirmed He has been compliant with his pulmonary visits. His CPAP was adjusted recently and is now more comfortable. He is using it every night. He reports his daytime somnolence has improved. Problem 766320306 History of pulmonary embolism (Z86.711) Active confirmed He is no longer anticoagulated and has no pulmonary symptoms or chest pain. He was instructed to notify me immediately if any symptoms related to blood clots occur. Problem 0476693 Gynecomastia (N62) Active confirmed He no longer has any breast tenderness. He checks frequently and has had negative findings. Problem 72553303 Hyperlipidemia, unspecified hyperlipidemia type (E78.5) Active confirmed His lipids have been stable. No change in his regimmen was needed today. Problem 57238283 Hypogonadism in male (E29.1) Active confirmed He is under the care of a urologist for this and has medication. Problem [id number] Right groin pain (R10.31) Active confirmed Examination di d not give the diagnosis. The pain is likely musculature. He will use a heating pad and rest and follow-up. If it does not resolve an x-ray of the hip joint will be done. Problem Benign prostatic hypertrophy without outflow obstruction (748511954) Benign prostatic hyperplasia, unspecified whether lower urinary tract symptoms present (N40.0) Active confirmed He has been rising from sleep once or twice a night to urinate. He does not wish to take more medication. We discussed modifications in his lifestyle that would reduce nocturia. Problem 896651535 Back pain, unspecified back location, unspecified back pain laterality, unspecified chronicity (M54.9) Active confirmed The back pain is at baseline. It is mild and chronic. He is able to work and accomplish all of the activities of daily life. No change in his therapy was made. Problem 384814234 ED (erectile dysfunction) of organic origin (N52.9) Active confirmed This problem was successfully resolved with medication.A Viagra prescription was refilled Problem [id number] Primary osteoarthritis of left knee (M17.12) Active confirmed The right knee pain has improved and left knee pain is worse. He is going to return to the orthopedic surgeon for further injections. I urged him to discuss all of the options. Problem 720675314 Bunion, right foot (M21.611) Active confirmed Her wound is healing well and the pain is receding. The leg but is using only a cane. He will follow-up with a company secretary in the near future. Vital Signs Heart Rate 63 /min 01/20/2025 Temperature 98.1 degrees Fahrenheit 01/20/2025 Blood pressure diastolic 80 mm Hg 01/20/2025 Height 74 in 01/20/2025 Blood pressure systolic 135 mm Hg 01/20/2025 Weight 297 lbs 01/20/2025 BMI 38.13 kg/m2 01/20/2025 Encounters Encounter Location Date Provider Diagnosis Genaro Mccabe III, MD [address] [place] [address] [place] [address] 03/18/2024 Genaro Mccabe Benign prostatic hyperplasia, unspecified whether lower urinary tract symptoms present N40.0 ; Encounter for immunization Z23 ; Former smoker Z87.891 ; Sleep apnea G47.30 ; Primary osteoarthritis of left knee M17.12 ; Cardiomyopathy I42.9 ; Hypogonadism in male E29.1 ; Gynecomastia N62 ; History of pulmonary embolism Z86.711 ; Hyperlipidemia, unspecified hyperlipidemia type E78.5 ; Obesity (BMI 30-39.9) E66.9 ; Acute bronchitis due to other specified organisms J20.8 and HTN (hypertension) I10 Genaro Mccabe III, MD [address] [place] [address] [place] [address] 05/10/2024 Genaro Mccabe Pre-op exam Z01.818 ; Cardiomyopathy I42.9 ; Benign prostatic hyperplasia, unspecified whether lower urinary tract symptoms present N40.0 ; Obesity (BMI 30-39.9) E66.9 ; Former smoker Z87.891 ; Sleep apnea G47.30 ; Primary osteoarthritis of left knee M17.12 ; Hypogonadism in male E29.1 ; HTN (hypertension) I10 and History of pulmonary embolism Z86.711 Genaro Mccabe III, MD [address] [place] [address] [place] [address] 08/04/2024 Genaro Mccabe Benign prostatic hyperplasia, unspecified whether lower urinary tract symptoms present N40.0 ; Sleep apnea G47.30 ; Former smoker Z87.891 ; Primary osteoarthritis of left knee M17.12 ; Cardiomyopathy I42.9 ; History of pulmonary embolism Z86.711 ; Hyperlipidemia, unspecified hyperlipidemia type E78.5 and Bunion, right foot M21.611 Genaro Mccabe III, MD [address] [place] [address] [place] [address] 10/28/2024 Genaro Mccabe Benign prostatic hyperplasia, unspecified whether lower urinary tract symptoms present N40.0 ; Obesity (BMI 30-39.9) E66.9 ; ED (erectile dysfunction) of organic origin N52.9 ; Primary osteoarthritis of left knee M17.12 ; Cardiomyopathy I42.9 ; Former smoker Z87.891 ; Sleep apnea G47.30 and History of pulmonary embolism Z86.711 Genaro Mccabe III, MD [address] [place] [address] [place] [address] 01/20/2025 Genaro Mccabe Benign prostatic hyperplasia, unspecified whether lower urinary tract symptoms present N40.0 ; Right groin pain R10.31 ; Sleep apnea G47.30 ; Former smoker Z87.891 ; Cardiomyopathy I42.9 ; Primary osteoarthritis of left knee M17.12 ; Obesity (BMI 30-39.9) E66.9 ; Hyperlipidemia, unspecified hyperlipidemia type E78.5 ; HTN (hypertension) I10 and ED (erectile dysfunction) of organic origin N52.9 Genaro Mccabe III, MD [address] [place] [address] [place] [address] 08/26/2024 Genaro Mccabe III, MD [address] [place] [address] [place] [address] 11/01/2024 Genaro Mccabe Benign prostatic hyperplasia, unspecified whether lower urinary tract symptoms present N40.0 Assessments Encounter Date Diagnosis (ICD Code) Assessment Notes T reatment Notes Treatment Clinical Notes 03/18/2024 Encounter for immunization (ICD-10 - Z23) He received the influenza vaccine today without difficulty. 03/18/2024 Benign prostatic hyperplasia, unspecified whether lower urinary tract symptoms present (ICD-10 - N40.0) He has been rising from sleep once or twice a night to urinate. He does not wish to take more medication. We discussed modifications in his lifestyle that would reduce nocturia. 05/10/2024 Cardiomyopathy (ICD-10 - I42.9) His recent echocardiogram is normal. The cardiomyopathy has resolved and this problem will be removed from the problem list. Because of his dyspnea is likely pulmonary.There was no sign of congestive heart failure or fluid overload on today's examination. 05/10/2024 Pre-op exam (ICD-10 - Z01.818) His blood work is stable and within normal limits. His EKG is unremarkable. No contraindication to surgery is present. He is given medical clearance for corrective surgery on his right first toe. 08/04/2024 Sleep apnea (ICD-10 - G47.30) He has been compliant with his pulmonary visits. His CPAP was adjusted recently and is now more comfortable. He is using it every night. He reports his daytime somnolence has improved. 08/04/2024 Benign prostatic hyperplasia, unspecified whether lower [...] sodium combined with regular physical activity. 10/28/2024 Benign prostatic hyperplasia, unspecified whether lower [...] the hip joint will be done. 01/20/2025 Benign prostatic hyperplasia, unspecified whether lower urinary tract symptoms present (ICD-10 - N40.0) He has been rising from sleep once or twice a night to urinate. He does not wish to take more medication. We discussed modifications in his lifestyle that would reduce nocturia. 11/01/2024 Benign prostatic hyperplasia, unspecified whether lower urinary tract symptoms present (ICD-10 - N40.0) He has been rising from sleep once or twice a night to urinate. He does not wish to take more medication. We discussed modifications in his lifestyle that would reduce nocturia. 03/18/2024 Former smoker (ICD-10 - Z87.891) We discussed a plan to prevent relapse by controlling behavior during illness and periods of stress. 05/10/2024 Benign prostatic hyperplasia, unspecified whether lower urinary tract symptoms present (ICD-10 - N40.0) He has been rising from sleep once or twice a night to urinate. He does not wish to take more medication. We discussed modifications in his lifestyle that would reduce nocturia. 08/04/2024 Former smoker (ICD-10 - Z87.891) We discussed a plan to prevent relapse by controlling behavior during illness and periods of stress. 10/28/2024 ED (erectile dysfunction) of organic origin (ICD-10 - N52.9) This problem was successfully resolved with medication. 01/20/2025 Sleep apnea (ICD-10 - G47.30) He has been compliant with his pulmonary visits. His CPAP was adjusted recently and is now more comfortable. He is using it every night. He reports his daytime somnolence has improved. 03/18/2024 Sleep apnea (ICD-10 - G47.30) He has been compliant with his pulmonary visits. His CPAP was adjusted recently and is now more comfortable. He is using it every night. He reports his daytime somnolence has improved. 05/10/2024 Obesity (BMI 30-39.9) (ICD-10 - E66.9) He has lost 1 pound. His body mass index is 36.97. We reviewed his weight loss strategy. We made a plan to lose weight at a rate of one half of a pound per week through a diet restricted in fat calories and sodium. 08/04/2024 Primary osteoarthritis of left knee (ICD-10 - M17.12) The right knee pain has improved and left knee pain is worse. He is going to return to the orthopedic surgeon for further injections. I urged him to discuss all of the options. 10/28/2024 Primary osteoarthritis of left knee (ICD-10 - M17.12) The right knee pain has improved and left knee pain is worse. He is going to return to the orthopedic surgeon for further injections. I urged him to discuss all of the options. 01/20/2025 Former smoker (ICD-10 - Z87.891) We discussed a plan to prevent relapse by controlling behavior during illness and periods of stress. 03/18/2024 Primary osteoarthritis of left knee (ICD-10 - M17.12) The right knee pain has improved and left knee pain is worse. He is going to return to the orthopedic surgeon for further injections. I urged him to discuss all of the options. 05/10/2024 Former smoker (ICD-10 - Z87.891) We discussed a plan to prevent relapse by controlling behavior during illness and periods of stress. 08/04/2024 Cardiomyopathy (ICD-10 - I42.9) His recent echocardiogram is normal. The cardiomyopathy has resolved and this problem will be removed from the problem list. Because of his dyspnea is likely pulmonary.There was no sign of congestive heart failure or fluid overload on today's examination. 10/28/2024 Cardiomyopathy (ICD-10 - I42.9) His recent echocardiogram is normal. The cardiomyopathy has resolved and this problem will be removed from the problem list. Because of his dyspnea is likely pulmonary.There was no sign of congestive heart failure or fluid overload on today's examination. 01/20/2025 Cardiomyopathy (ICD-10 - I42.9) His recent echocardiogram is normal. The cardiomyopathy has resolved and this problem will be removed from the problem list. Because of his dyspnea is likely pulmonary.There was no sign of congestive heart failure or fluid overload on today's examination. 03/18/2024 Cardiomyopathy (ICD-10 - I42.9) His recent echocardiogram is normal. The cardiomyopathy has resolved and this problem will be removed from the problem list. Because of his dyspnea is likely pulmonary. 05/10/2024 Sleep apnea (ICD-10 - G47.30) He has been compliant with his pulmonary visits. His CPAP was adjusted recently and is now more comfortable. He is using it every night. He reports his daytime somnolence has improved. 08/04/2024 History of pulmonary embolism (ICD-10 - Z86.711) He is no longer anticoagulated and has no pulmonary symptoms or chest pain. He was instructed to notify me immediately if any symptoms related to blood clots occur. 10/28/2024 Former smoker (ICD-10 - Z87.891) We discussed a plan to prevent relapse by controlling behavior during illness and periods of stress. 01/20/2025 Primary osteoarthritis of left knee (ICD-10 - M17.12) The right knee pain has improved and left knee pain is worse. He is going to return to the orthopedic surgeon for further injections. I urged him to discuss all of the options. 03/18/2024 Hypogonadism in male (ICD-10 - E29.1) He is under the care of a urologist for this and has medication. 05/10/2024 Primary osteoarthritis of left knee (ICD-10 - M17.12) The right knee pain has improved and left knee pain is worse. He is going to return to the orthopedic surgeon for further injections. I urged him to discuss all of the options. 08/04/2024 Hyperlipidemia, unspecified hyperlipidemia type (ICD-10 - E78.5) His lipids have been stable. No change in his regimmen was needed today. 10/28/2024 Sleep apnea (ICD-10 - G47.30) He has been compliant with his pulmonary visits. His CPAP was adjusted recently and is now more comfortable. He is using it every night. He reports his daytime somnolence has improved. 01/20/2025 Obesity (BMI 30-39.9) (ICD-10 - E66.9) His body mass index is 39. We have discussed his diet and nutrition. We made a plan to lose weight at a rate of one half of a pound per week through a diet restricted in fat calories and sodium combined with regular physical activity. 03/18/2024 Gynecomastia (ICD-10 - N62) He no longer has any breast tenderness. He checks frequently and has had negative findings. 05/10/2024 Hypogonadism in male (ICD-10 - E29.1) He is under the care of a urologist for this and has medication. 08/04/2024 Bunion, right foot (ICD-10 - M21.611) Her wound is healing well and the pain is receding. The leg but is using only a cane. He will follow-up with a company secretary in the near future. 10/28/2024 History of pulmonary embolism (ICD-10 - Z86.711) He is no longer anticoagulated and has no pulmonary symptoms or chest pain. He was instructed to notify me immediately if any symptoms related to blood clots occur. 01/20/2025 Hyperlipidemia, unspecified hyperlipidemia type (ICD-10 - E78.5) His lipids have been stable. No change in his regimmen was needed today. 03/18/2024 History of pulmonary embolism (ICD-10 - Z86.711) He is no longer anticoagulated and has no pulmonary symptoms or chest pain. He was instructed to notify me immediately if any symptoms related to blood clots occur. 05/10/2024 HTN (hypertension) (ICD-10 - I10) His blood pressure today is stable at 120/80. No change in his regimen was made. 01/20/2025 HTN (hypertension) (ICD-10 - I10) His blood pressure today is stable. No change in his regimen was made. 03/18/2024 Hyperlipidemia, unspecified hyperlipidemia type (ICD-10 - E78.5) His lipids have been stable. No change in his regimmen was needed today. 05/10/2024 History of pulmonary embolism (ICD-10 - Z86.711) He is no longer anticoagulated and has no pulmonary symptoms or chest pain. He was instructed to notify me immediately if any symptoms related to blood clots occur. 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 We have discussed his weight loss strategy and reviewed his diet and nutrition. I reinforced his plan to lose weight at a rate of one half of a pound per week. 03/18/2024 Acute bronchitis due to other specified organisms (ICD-10 - J20.8) He was treated with azithromycin for 5 days out of work. Return to the office for reevaluation after the course of antibiotics. 03/18/2024 HTN (hypertension) (ICD-10 - I10) He was given an appointment to come to the office in the near future to check his vital signs. Plan Of Treatment Pending Test Test Name Order Date EKG 03/16/2012 PROFILE, FASTING (COMPREHENSIVE METABOLI C) 10/28/2024 PSA, TOTAL 10/28/2024 CBC w DIFF 10/28/2024 Lipid Panel 10/28/2024 Prostate Specific Antigen 02/28/2025 Testosterone, Total 10/28/2024 ECG 12 lead EKG 05/10/2024 Next Appt Details Provider Name:Genaro Manjarrezne, 03/07/2025 09:15:00 AM, [address] [facility] [address], [place], [address], Provider Name:Genaro Manjarrezne, 10/31/2025 10:30:00 AM, [address] [facility] [address], [place], [address], Insurance Providers Payer Name Payer Address Payer Phone Subscriber Number Group Number Insured Name Patient Relationship to Insured Coverage Start Date Coverage End Date [facility] [address] [facility] [address] [facility] [place] [phone] [id number] Genaro Mcfadden Self - patient is the insured Medical (General) History Medical History History ICD Code right shoulder pain laceration right bicep (childhood) hyperlipidemia chronic intermitten lower back pain sprain left ankle sleep apnea gynecomastia erectile dysfunction hypogonadism former smoker Pulmonary embolism August 2021 Surgical History Surgery Date(Month/Year) Foot surgery for bunion removal and a br oken big toe Hospitalization History Reason Date(Month/Year) No history
[2025-03-06 20:48] LABS: Vitamin D 25-OH, D2 <4 ng/mL; Vitamin D 25-OH, D3 30 ng/mL; Vitamin D 25-OH, Total 30 ng/mL (30-100)
[2025-03-06 23:48] LABS: Testosterone, Free 39.9 pg/mL (35.0-155.0)
== END 2025-02-28 10:09 | disposition home or self-care (01) ==
LOC: HO.LAB 10:08
PROVIDERS: Absent Provider Nurse Practitioner Family; PCP Internal Medicine Medical Oncology; Visit Provider Nurse Practitioner Family
DX: N40.0 Benign prostatic hyperplasia without lower urinary tract symptoms (principal); E29.1 Testicular hypofunction; E55.9 Vitamin D deficiency, unspecified; Z12.5 Encounter for screening for malignant neoplasm of prostate
CPT/HCPCS: 36415; 82306; 84153; 84402; 84403

== ENCOUNTER 2025-03-07 08:04 | Outpatient (AMB) | payer OTHER, SELFPAY ==
--- OUTSIDE RECORDS SUMMARY | 2024-10-28 07:00 | XMS_ITS ---
Author Organization Genaro Mccabe III, MD Address [address] [place] [address] [place] [address] Care Team Providers Care Colorer Machine Name Role Phone Dr. Genaro Mccabe III Primary Care Provider [phone] Allergies Allergen (clinical drug ingredient) Drug/Non Drug [...] Provider Leighton Morrison, [facility] ([place]) Referred Provider Specialty Orthopedic S urgery General Notes Patsy Evans 11/02/2024 09:00:29 AM > Faxed referral with progress Nathan sherwood Amber 11/14/2024 04:24:01 PM > called patient questioning if he was able to schedule an appointment with [facility]. Message left on [employer]. Referral Priority Routine Referral Appointment Date 12/28/2024 [...] Date Provider Diagnosis Genaro Mccabe III, MD [address] [place] [address] [place] [address] 10/28/2024 Genaro Mccabe Benign prostatic hyperplasia, unspecified [...] Treat Right Shoulder Pain, [facility] ([facility] Next Appt Details Follow Up: 3 Months, Reason: OV Provider Name:Genaro Mccabe , 03/08/2025 10:00:00 AM, [address] [facility] [address], [place], [address], Provider Name:Genaro Rowell Estelle , 10/31/2025 10:30:00 AM, [address] [facility] [place], [place], [address], Progress Notes * Genaro MAYNARD EDOB:1960 (64 yo M)Acc No.[id number]:10/28/2024 Progress Notes Patient: Genaro CELAYA Provider: Roseanna Mccabe MD :1960 A ge:64 Y S ex:Male Date:10/28/2024 Address:[address] [place] [phone] Subjective: * Chief Complaints: * A nnual [...] N egative H e is working a [employer] company and is engaged to be . He was born in [place]. Smoking: No. Physical Activity: Walks at work. [...] Date & Time - 08/04/2024 11:39AM)?ValueReference Range?Vitamin [id number] - pg/mL?Folate9.3> or = 4.0 - ng/mL [...] AM)?ValueReference Range?Hemoglobin A1c %5.5<6.0 - %?Estimated Average Lnqtjhv015- mg/dL * Lab:URINE DIP STICK * Collection [...] 4. O thers Referral To:[facility] Orthopedic Surgery Reason:Evaluate and Treat Right [...] MD Date: 0 10/28/2024 Generated for Laura aldana/Cayetano/eTransmitting on: 0 03/07/2025 08:48 AM EDT History and Physical Notes * HPI [...] Provider Not wendie 10/28/[address] [facility] ([place]) Evaluate and Treat Right Shoulder Pain
--- OUTSIDE RECORDS SUMMARY | 2024-11-01 10:23 | XMS_ITS ---
Author Organization Genaro Mccabe III, MD Address [address] [place] [address] [place] [address] Care Team Providers Care Group Managing Director Name Role Phone Dr. Genaro Mccabe III [...] Provider Diagnosis Genaro Mccabe III, MD [address] [place] [address] [place] [address] 11/01/2024 Genaro Mccabe Benign prostatic hyperplasia, unspecified [...] Next Appt Details Provider Name:Genaro Mccabe , 03/08/2025 10:00:00 AM, [address] [facility] [address], [place], [address], Provider Name:Genaro Mccabe , 10/31/2025 10:30:00 AM, [address] [facility] [address], [place], [address], Progress Notes * Genaro MAYNARD EDOB:1960 (64 yo M)Acc No.[id number]:11/01/2024 Patient: Genaro CELAYA Sorin :1960 A ge:64 Y S ex:Male Address:[address] [place] [address] * Refills Refill Naproxen Tablet, 500 MG, Orally, 60, 1 tablet with food or milk, every 12 hrs prn pain, 30 days, Refills=11 * true * Date: Generated for Laura aldana/Cayetano/Osminsmitting on: 0 03/07/2025 08:47 AM EDT
--- OUTSIDE RECORDS SUMMARY | 2025-01-20 10:00 | XMS_ITS ---
Author Organization Genaro Mccabe III, MD Address [address] [place] [address] [place] [address] Care Team Providers Care Network Firewall Engineer Name Role Phone Dr. Genaro Mccabe III Primary Care Provider [phone] Allergies Allergen (clinical drug ingredient) Drug/Non Drug [...] Problem Status W/U Status Risk Notes Problem [id number] Right groin pain (R10.31) Active confirmed Examination [...] Date Provider Diagnosis Genaro Mccabe III, MD [address] [place] [address] [place] [address] 01/20/2025 Genaro Mccabe Benign prostatic hyperplasia, unspecified [...] Weeks, Reason: ov Provider Name:Genaro Mccabe , 03/08/2025 10:00:00 AM, [address] [place] [address] [address], [place], [address], Provider Name:Genaro Mccabe , 10/31/2025 10:30:00 AM, [address] [place] [address] [address], [place], [address], Progress Notes * Genaro MAYNARD EDOB:1960 (64 yo M)Acc No.[id number]:01/20/2025 Progress Notes Patient: Genaro CELAYA Provider: Roseanna Mccabe MD :1960 A ge:64 Y S ex:Male Date:01/20/2025 Address:[address] [place] [id number] Subjective: * Chief Complaints: * E rectile [...] x-cigarette smoker H e is working a [employer] company and is engaged to be . He was born in [place]. Smoking: No. Physical Activity: Walks at work. [...] mg/dL) 44 (Ref Range: mg/dL) * Lab:[facility] Pane l Fast * Collection Date 01/05/2025 [...] X10*3/uL) 0.000 (Ref Range: 0.0-0.012 X10*3/uL) * Lab:[facility], Total * Collection Date 01/05/2025 07/30/2023 Collection [...] Mccabe MD Date: 0 01/20/2025 Generated for Nellyi ng/Lacieg/eTransmitting on: 0 03/07/2025 08:47 AM EDT History and Physical Notes * [...]
--- OUTSIDE RECORDS SUMMARY | 2025-01-31 12:45 | XMS_ITS ---
Author Organization Genaro Mccabe III, MD Address [address] [place] [address] [place] [address] Care Team Providers Care Book Cutter Name Role Phone Dr. Genaro Mccabe III Primary Care Provider [phone] REASON FOR VISIT Follow up Social History Sex Assigned At : Social History Observation Description Sex Assigned At Male Encounters Encounter Location Date Provider Diagnosis Genaro Mccabe III, MD [address] [place] [address] [place] [address] 01/31/2025 Genaro Mccabe Plan Of Treatment Next Appt Details Provider Name:Genaro Mccabe , 03/08/2025 10:00:00 AM, [address] [place] [address] [place], [address], Provider Name:Genaro Mccabe , 10/31/2025 10:30:00 AM, [address] [place] [address] [address] [facility] [place], [address], Progress Notes * Genaro MAYNARD EDOB:1960 (64 yo M)Acc No.[id number]:01/31/2025 Progress Notes Patient: Genaro CELAYA Sorin Provider: Roseanna Mccabe MD :1960 A ge:64 Y S ex:Male Date:01/31/2025 Address:[address] [place] [id number] Subjective: * Chief Complaints: * 1 . [...] 01/31/2025 Generated for Laura aldana/Cayetano/Osminsmitting on: 0 03/07/2025 08:47 AM EDT
--- NOTE | 2025-03-07 08:27 | MHC.OFFVIS ---
Intake Visit Reasons: 1Y/PSA Intake Note: Patient is present for 1Y/PSA Urology Medication:NONE Antibiotic Allergy:NONE Blood Thinner:NONE Hide Handler Required: No Allergies No Known Allergies Allergy (Verified 03/07/25 09:03) Medication List - Last Reconciled 03/07/25 by JUAQUIN Pedraza armodafinil (Nuvigil) 250 mg PO QAM 30 days CPAP (CPAP Machine/Device) As directed melatonin 5 mg PO BEDTIME PRN 30 days pantoprazole 40 mg PO QAM HPI Comments Details: Genaro is a 63-year-old male patient of Dr. Mccabe. He has a past medical history of nocturnal leg cramps, memory deficit, arthritis of the right knee, low-back pain, hyperlipidemia, pulmonary embolism and infarction, and obstructive sleep apnea on CPAP. He presents to the office today for follow-up of his dysuria. In discussion with the patient today reports to be doing and feeling well. He denies having had any bothersome urinary issues or concerns since his last office visit here. Recent PSA and testosterone results were reviewed with the patient today as noted and trended below. We did discuss increase in testosterone. He reports he has been following up with sleep medicine and feels compliance in CPAP has been helpful in his overall health and well-being. He reports he had been experiencing increase in headaches and feels this has also improved. In office urinalysis results reviewed with the patient today. When asked he denies urinary urgency, urinary frequency, incontinence, nocturia, hematuria, dysuria, foul smelling urine, changes to urinary stream, flank pain, fever, and or chills. He is happy with his current voiding parameters. Labs are as follows: PSAs: 11/04 0.2, 12/06 <0.10, 03/09 0.2 Testosterone: 08/08 176, 03/09 307 We did discuss trial of low-dose Cialis to increased borderline low testosterone levels versus surveillance monitoring. He would like to continue with surveillance monitoring at this time as he does feel his health is improving. All questions were answered. He otherwise offers no other issues or concerns. [facility] Medical History Nocturnal leg cramps Chronic headaches Memory deficit Arthritis Low back pain Esophagitis Dysphagia Hyperlipidemia Pulmonary embolism and infarction Dyspnea MARLEE on CPAP Surgical History S/P foot surgery, right Hx of cystoscopy History of esophagogastroduodenoscopy (EGD) Social History Are you a primary careers adviser to a significant other at home: No Do you presently have visiting nurse or other home services: No Alcohol intake: never Patient Tobacco Use Status: Former Tobacco user Tobacco use type: Cigarette Years Smoked: 30 Years Review of Systems Const All systems reviewed & are unremarkable except as noted in HPI and below Reports as per HPI Eyes Reports no additional complaints ENT Reports no additional complaints Card Reports no additional complaints Resp Reports as per HPI GI Reports no additional complaints Reports as per HPI Musc Reports no additional complaints Neuro Reports no additional complaints Psych Reports as per HPI Endo Reports no additional complaints Physical Exam Const General: cooperative, healthy appearing, comfortable, no acute distress, well developed, alert and awake Orientation/consciousness: patient oriented x3 Limitations: no limitations HEENT Head: Yes normal to inspection, Yes normocephalic and Yes atraumatic Ears: hearing grossly normal bilaterally Eyes General: appearance normal, both eyes and all related structures Neck Neck: Yes normal visual inspection and Yes trachea midline Chest Chest palpation & inspection: normal inspection of the chest Resp Effort & Inspection: normal respiratory effort and able to speak in complete sentences Cardio Rate: regular rate GI Inspection: Yes normal to inspection Rectal Exam - Male: Yes deferred General: Yes no CVA tenderness Back/Spine/Pelvis Back: no CVA tenderness Skin General skin exam: no rashes or lesions noted Neuro General: patient oriented x3 Extrem General: Yes normal to inspection Psych Appearance: grossly normal and well kempt Mental Status: mental status grossly normal Speech and movement: Normal speech and movement present and Clear speech present Affect: normal affect Attitude: cooperative Thought process: Normal thought process present Thought content: Normal thought content present Insight: Fair insight present (Psych) Judgement: Fair judgement present (Psych) Assessment & Plan Assessment & Plan (1) Hypogonadism in male: Code(s): E29.1 - Testicular hypofunction Category: Medical (2) Dysuria: Code(s): R30.0 - Dysuria Category: Medical Plan In office urinalysis results with the patient today; as noted above. Recent labs were reviewed with the patient today; as noted above. He currently denies any bothersome urinary issues or concerns. He reports be happy with current voiding parameters. We did discuss trial of low-dose Cialis. All questions were answered. Will continue with surveillance monitoring. Follow-up in 1 year with labs and PVR; or sooner with any issues, concerns, and or questions. Orders: Orders Prostate Specific Antigen 1 Year N40.0 - Benign prostatic hyperplasia without lower urinary tract symptoms Testosterone, Total 1 Year E29.1 - Testicular hypofunction Patient Instructions: The patient had an opportunity to ask questions regarding the treatment plan. All questions were answered. Physical exam, labs, and imaging were discussed and reviewed in detail. As well as risks, benefits, and discussion of treatment choices. No major barriers to understanding were identified. The patient expressed understanding and agreement with the above treatment plan. The patient was made aware they should contact our office by phone for worsening of their current condition, the appearance of new symptoms, or with any questions or concerns. Compliance is encouraged with any medications and follow up testing that is ordered. It is a privilege to be allowed the opportunity to participate in? your urological care.? Again, if you have any questions or concerns If you have any questions or concerns please do not hesitate to contact me. The office is [phone]. This note is constructed using voice recognition software. While every effort has been made to ensure accuracy screen printing machine operator helper errors may have been included. Yours sincerely, JUAQUIN Pedraza Coding Level of Care Code Est Pt Level 3 (83404) Complex EM visit Add On G2211 Diagnoses Hypogonadism in male E29.1 Dysuria R30.0
--- OUTSIDE RECORDS SUMMARY | 2025-03-07 08:47 | XMS_ITS | Clinical Summary ---
Author Organization [facility] Address [address] [place] [address] Phone Care Team Providers Care Budget Controller Name Role Phone Louise Mccabe MD Primary [...] 10/20/2019 Overview (03/28/2024): Home sleep study by [facility] Sleep medicine on 03/10/2019 Indications: Snoring, [...] AM EDT Office Visit Orthopedic Surgery - [address] [address] Ashutosh Redding, DPM Acquired hallux valgus of left foot (Primary Dx); Dermatophytosis of nail from Last 3 Months Surgical History Surgery Date Site/Laterality Comments OTHER SURGICAL HISTORY Medical History Medical History Date Comments Gynecomastia DX:Gynecomastia Hypogonadism male DX:Hypogonadis m male Erectile dysfunction DX:Erectile dysfunction Chronic right shoulder pain DX:C hronic right shoulder pain Chronic back pain DX:Chronic carelne k pain Sleep apnea 03/10/2019 DX:Sleep apnea; COMMENT: Home sleep study([facility]) GERD (gastroesophageal reflux disease) Arthritis Joint [...] this topic Medical Devices Implanted Type Area Machine Operator General Device Identifier Shelf Expiration Date Model / Serial / Lot Screw German Shrtthrd 3.0x18mm [facility] - [id number] Implanted:Qty: 2 on 05/27/2024 by Ashutosh Redding DPM at [facility] Internal and External Fixation Right: First Toe [employer] [id number] / NA / NA Screw German Shrtthrd 3.0x36mm Mini-Monster - Sna - [id number] Implanted:Qty: 1 on 05/27/2024 by Ashutosh Redding DPM at [facility] Internal and External Fixation Right: First Toe [employer] [id number] / NA / NA Insurance [employer] [employer] [address] [place] [address] [facility] Care Teams Budget Controller Relationship Specialty Start Date End Date Louise Mccabe MD [address] [address] PCP - General 09/18/20
--- OUTSIDE RECORDS SUMMARY | 2025-03-07 08:48 | XMS_ITS | Patient Health Record ---
Author Organization Genaro Mccabe III, MD Address [address] [place] [address] [place] [address] Care Team Providers Care Stone Grader Name Role Phone Dr. Genaro Mccabe III [...] ff Reviewed date:05/13/2024 08:08:59 PM Interpretation: Performing Lab:[facility], [address] [place] [address] Notes/Report: White Blood Count 5.1 4.8-10.8 X10*3/uL [...] Panel Reviewed date:05/13/2024 08:08:59 PM Interpretation: Performing Lab:[facility], [address] [place] [address] Notes/Report: Sodium 138 135-145 mmol/L Potassium 3.7 [...] ff Reviewed date:08/07/2024 09:04:48 AM Interpretation: Performing Lab:[facility], [address] [place] [address] Notes/Report: White Blood Count 5.1 4.8-10.8 X10*3/uL [...] te Reviewed date:08/07/2024 09:04:49 AM Interpretation: Performing Lab:[address] [address] Notes/Report: Erythrocyte Sedimentation Rate 5 0-15 MM/HR Patients with polycythemia and many hemoglobin abnormalities may have depressed sed rates whereas patients with anemia may have elevated sed rates. Comprehensive Met. Panel Reviewed date:08/07/2024 09:04:49 AM Interpretation: Performing Lab:[address] [address] Notes/Report: Sodium 140 135-145 mmol/L Potassium 3.9 [...] Sensitivity Reviewed date:11/13/2024 08:18:32 PM Interpretation: Performing Lab:[address] [address] Notes/Report: CRP High Sensitivity 1.1 Reference Range Optimal <1.0 Jemandy PS et al. Endocr Pract.2017;23(Suppl 2):1-87. For [...] may be associated with infection and inflammation. Shankar TA, Juany GA, Lexx RW, et al. Markers of inflammation and cardiovascular disease: application to clinical and public health practice: A statement for healthcare professionals from the Centers for Disease Control and Prevention and the [place] [employer]. Circulation 2003; 107(3): 499-511. THIS TEST WAS PERFORMED AT: [facility] [address] [place] [address] JIM HOWARD MD Vitamin B12 and Folate Reviewed date:08/07/2024 09:04:49 AM Interpretation: Performing Lab:[address] [address] Notes/Report: Vitamin B12 558 200-900 pg/mL NORMAL 200-900 PG/ML INDETERMINATE 160-199 PG/ML DEFICIENT < 160 PG/ML Folate 9.3 > or = 4.0 ng/mL Reference Values: > or = 4.0 ng/mL < 4.0 ng/mL suggests folate deficiency Methotrexate, aminopterin and folinic acid (leucovorin) are chemotherapeutic agents whose molecular structures are similar to folate; therefore, the Pilot Plant Supervisor folate assay cannot be used for patients using these drugs. Vitamin B1 Reviewed date:11/13/2024 08:18:31 PM Interpretation: Performing Lab:[address] [address] Notes/Report: Vitamin B1 10 8-30 nmol/L Vitamin supplementation within 24 hours prior to blood draw may affect the accuracy of the results. This test was developed and its analytical performance characteristics have been determined by [facility] [place] [place]. It has not been cleared or approved by the U.S. Food and Drug Administration. This assay has been validated pursuant to the CLIA regulations and is used for clinical purposes. THIS TEST WAS PERFORMED AT: [facility]/[address] ARUN RAHMAN MD,PHD Vitamin D 25-OH (D2 and D3) Reviewed date:11/13/2024 08:18:32 PM Interpretation: Performing Lab:[address] [address] Notes/Report: Vitamin D 25-OH, D2 <4 This test was developed and its analytical performance characteristics have been determined by [facility] [place] [place]. It has not been cleared or approved by the U.S. Food and Drug Administration. This assay has been validated pursuant to the CLIA regulations and is used for clinical purposes. THIS TEST WAS PERFORMED AT: [facility] ARUN RAHMAN MD,PHD Vitamin D 25-OH, D3 20 This test was developed and its analytical performance characteristics have been determined by [facility] [place] [place]. It has not been cleared or [...] ng/mL. For additional information, please refer to http://education.Prevedere/faq/DZI170 (This link is being provided for informational/ educational purposes only.) TSH reflex Free T4 Reviewed date:08/07/2024 09:04:49 AM Interpretation: Performing Lab:[facility], [address] [place] [phone] Notes/Report: TSH reflex Free T4 1.39 0.32-4.0 uIU/mL Syphilis Screen Reviewed date:08/07/2024 09:04:49 AM Interpretation: Performing Lab:[address] [address] Notes/Report: Syphilis Screen Nonreactive Nonreactive Hemoglobin A1c Reviewed date:08/07/2024 09:04:48 AM Interpretation: Performing Lab:[facility], [address] [place] [phone] Notes/Report: Hemoglobin A1c % 5.5 <6.0 % [...] average glucose, using the formula of the L8R-Gyvpbuv Average Glucose study (ADAG), Diabetes Care, Vol.31,#8, Jan. 2007 HIV Ab/Ag Reviewed date:08/07/2024 09:04:49 AM Interpretation: Performing Lab:[address] [address] Notes/Report: HIV AB/AG Nonreactive Nonreactive HIV-1 p24 [...] limit of detection of this assay. The logtrust HIV Ag/Ab Combo assay result and supplemental assay results should be interpreted in conjunction with the patient's clinical presentation, history and other laboratory results. If the results are inconsistent with clinical evidence, additional testing is suggested to confirm the result. Complete Blood Count Auto Di ff Reviewed date:01/14/2025 07:13:47 PM Interpretation: Performing Lab:[facility], [address] [place] [address] Notes/Report: White Blood Count 6.7 4.8-10.8 X10*3/uL [...] NRBC Abs Auto 0.000 0.0-0.012 X10*3/uL Comprehensive [place]. Panel Fa st Reviewed date:01/14/2025 07:13:47 PM Interpretation: Performing Lab:[facility], [address] [place] [phone] Notes/Report: Sodium 139 135-145 mmol/L Potassium 3.9 [...] Panel Reviewed date:01/14/2025 07:13:47 PM Interpretation: Performing Lab:[address] [address] Notes/Report: Triglycerides 82 <150 mg/dL Desirable Triglyceride: [...] Antigen Reviewed date:01/14/2025 07:13:47 PM Interpretation: Performing Lab:[address] [address] Notes/Report: Prostate Specific Antigen < 0.10 <0.05-4.0 ng/mL PSA methodology: Coon Alinity i Chemiluminescent Microparticle Immunoassay (CMIA) Testosterone, Total Reviewed date:01/14/2025 07:13:47 PM Interpretation: Performing Lab:[address] [address] Notes/Report: Testosterone, Total 349 156-6240 ng/dL Men with clinically significant hypogonadal symptoms and testosterone values repeatedly in the range of the 200-300 ng/dL or less, may benefit from testosterone treatment after adequate risk and benefits counseling. For additional information, please refer to http://education.[employer]af [employer].Allegorithmic/faq/ TotalTestosteroneLCMSMSFAQ1 65 (This link is being provided for informational/ educational purposes only.) This test was developed and its analytical performance characteristics have been determined by [facility] [place]. It has not been cleared or approved by the U.S. Food and Drug Administration. This assay has been validated pursuant to the CLIA regulations and is used for clinical purposes. THIS TEST WAS PERFORMED AT: [facility]/[address] ARUN RAHMAN MD,PHD Vitamin D 25-OH (D2 and D3) (Not yet reviewed by provider) Interpretation: Performing Lab:[address] [address] Notes/Report: Vitamin D 25-OH, D2 <4 This test was developed and its analytical performance characteristics have been determined by [facility] [place]. It has not been cleared or approved by the U.S. Food and Drug Administration. This assay has been validated pursuant to the CLIA regulations and is used for clinical purposes. THIS TEST WAS PERFORMED AT: [facility] [address] ARUN RAHMAN MD,PHD Vitamin D 25-OH, D3 30 This test was developed and its analytical performance characteristics have been determined by [facility] [place] [place]. It has not been cleared or approved by the U.S. Food and Drug Administration. This assay has been validated pursuant to the CLIA regulations and is used for clinical purposes. Vitamin D 25-OH, Total 30 30-100 ng/mL Vitamin D, 25-Hydroxy reports concentrations [...] ng/mL. For additional information, please refer to http://education.ETC Education.Allegorithmic/faq/MUF508 (This link is being provided for informational/ educational purposes only.) Testosterone, Free/Total (No t yet reviewed by provider) Interpretation: Performing Lab:[facility], [address] [place] [phone] Notes/Report: Testosterone, Total 709 394-0309 ng/dL Men with clinically significant hypogonadal symptoms and testosterone values repeatedly in the range of the 200-300 ng/dL or less, may benefit from testosterone treatment after adequate risk and benefits counseling. For additional information, please refer to http://education.Webymaster/faq/ TotalTestosteroneLCMSMSFAQ1 65 (This link is being provided for informational/ educational purposes only.) This test was developed and its analytical performance characteristics have been determined by [facility] [place]. It has not been cleared or approved by the U.S. Food and Drug Administration. This assay has been validated pursuant to the CLIA regulations and is used for clinical purposes. Testosterone, Free 39.9 35.0-155.0 pg/mL This test was developed and its analytical performance characteristics have been determined by [facility] [place] [place]. It has not been cleared or approved by the U.S. Food and Drug Administration. This assay has been validated pursuant to the CLIA regulations and is used for clinical purposes. THIS TEST WAS PERFORMED AT: [facility] [address] [address] ARUN RAHMAN MD,PHD Prostate Specific Antigen Reviewed date:03/06/2025 05:42:28 AM Interpretation: Performing Lab:[facility], [address] [place] [phone] Notes/Report: Prostate Specific Antigen 0.16 <0.05-4.0 ng/mL PSA methodology: Coon Alinity i Chemiluminescent Microparticle Immunoassay (CMIA) Reason For Referral Reason Evaluate and Treat Right Shoulder Pain Diagnosis 1 Right shoulder pain (M25.511) Referral Organization Genaro Mccabe III, MD Referring Provider First Name Genaro Referring Provider Last Name Estelle Referring Provider Speciality Internal M edicine Referred Provider Leighton Morrison, [facility] Referred Provider Specialty Orthopedic S urgery General Notes Patsy Evans 11/02/2024 09:00:29 AM > Faxed referral with progress noteNathan Amber 11/14/2024 04:24:01 PM > called patient questioning if he was able to schedule an appointment with [facility]. Message left on [employer]. Referral Priority Routine Referral Appointment Date 12/28/2024 [...] Problem Status W/U Status Risk Notes Problem 0172524 Former smoker (Z87.891) Active confirmed We discussed a plan to prevent relapse by controlling behavior during illness and periods of stress. Problem Acquired hallux valgus (26156747) Hallux valgus (acquired), right foot (M20.11) Active confirmed He has an appointment with podiatry March 21, 2024. Problem Hypertension (40184131) HTN (hypertension) (I10) Active confirmed His blood pressure today is stable. No change in his regimen was made. Problem 816127069 Obesity (BMI 30-39.9) (E66.9) Active confirmed His body mass index is 39. We have discussed his diet and nutrition. We made a plan to lose weight at a rate of one half of a pound per week through a diet restricted in fat calories and sodium combined with regular physical activity. Problem Cardiomyopathy (66478324) Cardiomyopathy (I42.9) Active confirmed His recent echocardiogram is normal. The cardiomyopathy has resolved and this problem will be removed from the problem list. Because of his dyspnea is likely pulmonary.There was no sign of congestive heart failure or fluid overload on today's examination. Problem Sleep apnea (38319566) Sleep apnea (G47.30) Active confirmed He has been compliant with his pulmonary visits. His CPAP was adjusted recently and is now more comfortable. He is using it every night. He reports his daytime somnolence has improved. Problem 294034215 History of pulmonary embolism (Z86.711) Active confirmed He is no longer anticoagulated and has no pulmonary symptoms or chest pain. He was instructed to notify me immediately if any symptoms related to blood clots occur. Problem 4624007 Gynecomastia (N62) Active confirmed He no longer has any breast tenderness. He checks frequently and has had negative findings. Problem 60682819 Hyperlipidemia, unspecified hyperlipidemia type (E78.5) Active confirmed His lipids have been stable. No change in his regimmen was needed today. Problem 51667591 Hypogonadism in male (E29.1) Active confirmed He is under the care of a urologist for this and has medication. Problem 14817358596843820 Right groin pain (R10.31) Active confirmed Examination di d not give the diagnosis. The pain is likely musculature. He will use a heating pad and rest and follow-up. If it does not resolve an x-ray of the hip joint will be done. Problem Benign prostatic hypertrophy without outflow obstruction (456886524) Benign prostatic hyperplasia, unspecified whether lower urinary tract symptoms present (N40.0) Active confirmed He has been rising from sleep once or twice a night to urinate. He does not wish to take more medication. We discussed modifications in his lifestyle that would reduce nocturia. Problem 652126119 Back pain, unspecified back location, unspecified back pain laterality, unspecified chronicity (M54.9) Active confirmed The back pain is at baseline. It is mild and chronic. He is able to work and accomplish all of the activities of daily life. No change in his therapy was made. 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 He is going to return to the orthopedic surgeon for further injections. I urged him to discuss all of the options. Problem 889845177 Bunion, right foot (M21.611) Active confirmed Her wound is healing well and the pain is receding. The leg but is using only a cane. He will follow-up with a therapist phys in the near future. Vital Signs Heart Rate 63 /min 01/20/2025 Temperature 98.1 degrees Fahrenheit 01/20/2025 Blood pressure diastolic 80 mm Hg 01/20/2025 Height 74 in 01/20/2025 Blood pressure systolic 135 mm Hg 01/20/2025 Weight 297 lbs 01/20/2025 BMI 38.13 kg/m2 01/20/2025 Encounters Encounter Location Date Provider Diagnosis Genaro Mccabe III, MD [address] [place] [address] [place] [address] 03/18/2024 Genaro Mccabe Benign prostatic hyperplasia, unspecified [...] HTN (hypertension) I10 Genaro Mccabe III, MD [address] [place] [address] [place] [address] 05/10/2024 Genaro Mccabe Pre-op exam Z01.818 ; Cardiomyopathy I42.9 ; Benign prostatic hyperplasia, unspecified whether lower urinary tract symptoms present N40.0 ; Obesity (BMI 30-39.9) E66.9 ; Former smoker Z87.891 ; Sleep apnea G47.30 ; Primary osteoarthritis of left knee M17.12 ; Hypogonadism in male E29.1 ; HTN (hypertension) I10 and History of pulmonary embolism Z86.711 Genaro Mccabe III, MD [address] [place] [address] [place] [address] 08/04/2024 Genaro Mccabe Benign prostatic hyperplasia, unspecified whether lower urinary tract symptoms present N40.0 ; Sleep apnea G47.30 ; Former smoker Z87.891 ; Primary osteoarthritis of left knee M17.12 ; Cardiomyopathy I42.9 ; History of pulmonary embolism Z86.711 ; Hyperlipidemia, unspecified hyperlipidemia type E78.5 and Bunion, right foot M21.611 Genaro Mccabe III, MD [address] [place] [address] [place] [address] 10/28/2024 Genaro Mccabe Benign prostatic hyperplasia, unspecified whether lower urinary tract symptoms present N40.0 ; Obesity (BMI 30-39.9) E66.9 ; ED (erectile dysfunction) of organic origin N52.9 ; Primary osteoarthritis of left knee M17.12 ; Cardiomyopathy I42.9 ; Former smoker Z87.891 ; Sleep apnea G47.30 and History of pulmonary embolism Z86.711 Genaro Mccabe III, MD [address] [place] [address] [place] [address] 01/20/2025 Genaro Mccabe Benign prostatic hyperplasia, unspecified [...] organic origin N52.9 Genaro Mccabe III, MD [address] [place] [address] [place] [address] 08/26/2024 Genaro Mccabe III, MD [address] [place] [address] [place] [address] 11/01/2024 Genaro Olivarezrne Benign prostatic hyperplasia, unspecified whether lower urinary [...] a cane. He will follow-up with a therapist phys in the near future. 10/28/2024 History of [...] CBC w DIFF 10/28/2024 Lipid Panel 10/28/2024 Vitamin D 25-OH (D2 and D3) 02/28/2025 Testosterone, Free/Total 02/28/2025 Testosterone, Total 10/28/2024 ECG 12 lead EKG 05/10/2024 Next Appt Details Provider Name:Genaro Rowell Estelle , 03/08/2025 10:00:00 AM, [address] [place] [address] [place], [place], [address], Provider Name:Genaro Rowell Estelle , 10/31/2025 10:30:00 AM, [address] [place] [address] [place], [place], [address], Insurance Providers Payer Name Payer Address Payer Phone Subscriber Number Group Number Insured Name Patient Relationship to Insured Coverage Start Date Coverage End Date [facility] [address] [facility] [address] [facility] [place] [phone] [id number] Genaro Mcfadden Self - patient is [...]
--- OUTSIDE RECORDS SUMMARY | 2025-03-07 13:00 | XMS_ITS ---
Author Organization Genaro Mccabe III, MD Address [address] [place] [address] [place] [address] Care Team Providers Care Public Relations Writer Name Role Phone Dr. Genaro Mccabe III Primary Care Provider REASON FOR VISIT Follow up Social History Sex Assigned At : Social History Observation Description Sex Assigned At Male Encounters Encounter Location Date Provider Diagnosis Genaro Mccabe III, MD [address] [place] [address] [place] [address] 03/07/2025 Genaro Mccabe Plan Of Treatment Next Appt Details Provider Name:Genaro Mccabe , 03/08/2025 10:00:00 AM, [address] [place] [address] [place], [address], Provider Name:Genaro Mccabe , 10/31/2025 10:30:00 AM, [address] [place] [address] [place] [facility] [address], Progress Notes * Genaro MAYNARD EDOB:1960 (64 yo M)Acc No.[id number]:03/07/2025 Progress Notes Patient: Genaro CELAYA Sorin Provider: Roseanna Mccabe MD :1960 A ge:64 Y S ex:Male Date:03/07/2025 Address:[place]-[address] Subjective: * Chief Complaints: * 1 . Follow up. * Medical History: Objective: * Vitals: Assessment: Plan: * Treatment: * Images: * The named appointment provid er may or may not be the originator of this progress note, and it is not deemed complete until electronically signed by the appointment provider. Sign off status: Pending * Provider: Roseanna Mccabe MD Date: 03/07/2025 Generated for Laura aldana/Cayetano/Danieitting on: 03/07/2025 08:47 AM EDT
== END 2025-03-07 09:05 | disposition home or self-care (01) ==
LOC: HO.HUSH 08:04
PROVIDERS: PCP Internal Medicine Medical Oncology; Visit Provider Nurse Practitioner Family
DX: E29.1 Testicular hypofunction (principal); R30.0 Dysuria; Z13.9 Encounter for screening, unspecified
CPT/HCPCS: 99213; G2211

== ENCOUNTER → 2025-03-07 08:04 | Outpatient (BNVA) | payer OTHER, SELFPAY | PROVIDERS: PCP Internal Medicine Medical Oncology; Visit Provider Nurse Practitioner Family | DX: E29.1 Testicular hypofunction (principal); R30.0 Dysuria | CPT/HCPCS: 81003 ==

== ENCOUNTER 2025-03-14 10:35 | Outpatient (AMB) | payer OTHER, SELFPAY ==
--- OUTSIDE RECORDS SUMMARY | 2025-01-20 10:00 | XMS_ITS ---
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 Genaro Mccabe III Primary Care Provider Allergies Allergen (clinical drug [...] Problem Status W/U Status Risk Notes Problem [id number] Right groin pain (R10.31) Active confirmed The right groin pain has resolved Vital Signs Temperature 98.1 degrees Fahrenheit 01/21/20 25 Blood pressure systolic 135 mm Hg 01/21/20 25 Blood pressure diastolic 80 mm Hg 025 Heart Rate 63 /min 01/20/2025 Height 74 in 01/20/2025 Weight 297 lbs 01/20/2025 BMI 38.13 kg/m2 01/20/2025 Encounters Encounter Location Date Provider Diagnosis Genaro Mccabe III, MD [address] [place] [address] [address], [place] [address] 01/20/2025 Genaro Mccabe Benign prostatic hyperplasia, unspecified [...] Weeks, Reason: ov Provider Name:Genaro Mccabe , 06/06/2025 09:00:00 AM, [address] [place] [address] DR [facility] Arabella, [place], [address], Provider Name:Genaro Mccabe , 10/31/2025 10:30:00 AM, [address] [place] [address] [address], [place], [address], Progress Notes * Genaro MAYNARD EDOB:1960 (64 yo M)Acc No.[id number]:01/20/2025 Progress Notes Patient: Genaro CELAYA Provider: Roseanna Mccabe MD :1960 A ge:64 Y S ex:Male Date:01/20/2025 Address:[address] [place], [place] [phone] Subjective: * Chief Complaints: * E rectile [...] x-cigarette smoker H e is working a [employer] company and is engaged to be . He was born in [place]. Smoking: No. Physical Activity: Walks at work. [...] mg/dL) 44 (Ref Range: mg/dL) * Lab:Comprehensive [place]. Pane l Fast * Collection Date 01/05/2025 [...] true * Provider: Roseanna Mccabe MD Date: 01/20/2025 Generated for Laura aldana/Cayetano/Danieitting on: 03/14/2025 11:50 AM EDT History and Physical Notes * [...]
--- OUTSIDE RECORDS SUMMARY | 2025-01-31 12:45 | XMS_ITS ---
Author Organization Genaor Mccabe III, MD Address [address] [place] [address] [place] [address] Care Team Providers Care Computer Systems Software Engineer Name Role Phone Dr. Genaro Mccabe III Primary Care Provider REASON FOR VISIT Follow up Social History Sex Assigned At : Social History Observation Description Sex Assigned At Male Encounters Encounter Location Date Provider Diagnosis Genaro Mccabe III, MD [address] [place] [address] [place] [address] 01/31/2025 Genaro Mccabe Plan Of Treatment Next Appt Details Provider Name:Genaro Mccabe , 06/06/2025 09:00:00 AM, [address] [place] [address] [place], [address], Provider Name:Genaro Mccabe , 10/31/2025 10:30:00 AM, [address] [place] [address] [address] [place] [place], [address], Progress Notes * Genaro MAYNARD EDOB:1960 (64 yo M)Acc No.[id number]:01/31/2025 Progress Notes Patient: Genaro CELAYA Sorin Provider: Roseanna Mccabe MD :1960 A ge:64 Y S ex:Male Date:01/31/2025 [facility] Subjective: * Chief Complaints: * 1 [...] MD Date: 0 01/31/2025 Generated for Laura aldana/Cayetano/Osminsmitting on: 0 03/14/2025 11:51 AM EDT
--- OUTSIDE RECORDS SUMMARY | 2025-03-07 05:15 | XMS_ITS ---
Author Organization Genaro Mccabe III, MD Address [address] [place] [address] [place] [address] Care Team Providers Care Fire Hydrant Mechanic Name Role Phone Dr. Genaro Mccabe III Primary Care Provider [phone] Allergies Allergen (clinical drug ingredient) Drug/Non Drug [...] Date Provider Diagnosis Genaro Mccabe III, MD [address] [place] [address] [place] [address] 03/07/2025 Genaro Mccabe Benign prostatic hyperplasia, unspecified [...] Months, Reason: OV Provider Name:Genaro Mccabe , 06/06/2025 09:00:00 AM, [address] [place] [address] [address], [place], [address], Provider Name:Genaro Mccabe , 10/31/2025 10:30:00 AM, [address] [place] [address] [address], [facility], [address], Progress Notes * ALEYDAGenaro EDOB:1960 (64 yo M)Acc No.[id number]:03/07/2025 Progress Notes Patient: Genaro CELAYA Provider: Roseanna Mccabe MD :1960 A ge:64 Y S ex:Male Date:03/07/2025 Address:[address] [place], [place] [phone] Subjective: * Chief Complaints: * R esult [...] x-cigarette smoker H e is working a [employer] company and is engaged to be . He was born in [place]. Smoking: No. Physical Activity: Walks at work. [...] 0 03/07/2025 Generated for Nellyi katya/Cayetano/Danieitting on: 0 03/14/2025 11:50 AM EDT History and Physical [...]
--- OUTSIDE RECORDS SUMMARY | 2025-03-07 13:00 | XMS_ITS ---
Author Organization Genaro Mccabe III, MD Address [address] [place] [address] [place] [address] Care Team Providers Care Chha Name Role Phone Dr. Genaro Mccabe III Primary Care Provider REASON FOR VISIT Follow up Social History Sex Assigned At : Social History Observation Description Sex Assigned At Male Encounters Encounter Location Date Provider Diagnosis Genaro Mccabe III, MD [address] [place] [address] [place] [address] 03/07/2025 Genaro Mccabe Plan Of Treatment Next Appt Details Provider Name:Genaro Mccabe , 06/06/2025 09:00:00 AM, [address] [place] [address] [place], [address], Provider Name:Genaro Mccabe , 10/31/2025 10:30:00 AM, [address] [place] [address] [place], [address], Progress Notes * Genaro MAYNARD EDOB:1960 (64 yo M)Acc No.[id number]:03/07/2025 Progress Notes Patient: Genaro CELAYA Sorin Provider: Roseanna Mccabe MD :1960 A ge:64 Y S ex:Male Date:03/07/2025 Address:[facility] [id number] Subjective: * Chief Complaints: * 1 [...] Mccabe MD Date: 03/07/2025 Generated for Laura aldana/Cayetano/Osminsmitting on: 03/14/2025 11:51 AM EDT
--- OUTSIDE RECORDS SUMMARY | 2025-03-08 13:00 | XMS_ITS ---
Author Organization Genaro Mccabe III, MD Address [address] [place] [address] [place] [address] Care Team Providers Care Senior Quality Assurance Analyst Name Role Phone Dr. Genaro Mccabe III Primary Care Provider [phone] REASON FOR VISIT Follow up Social History Sex Assigned At : Social History Observation Description Sex Assigned At Male Encounters Encounter Location Date Provider Diagnosis Genaro Mccabe III, MD [address] [place] [address] [address] [place] [address] 03/08/2025 Genaro Mccabe Plan Of Treatment Next Appt Details Provider Name:Genaro Mccabe , 06/06/2025 09:00:00 AM, [address] [place] [address] [place], [address], Provider Name:Genaro Mccabe , 10/31/2025 10:30:00 AM, [address] [place] [address] [place], [phone], Progress Notes * Genaro MAYNARD EDOB:1960 (64 yo M)Acc No.[id number]:03/08/2025 Progress Notes Patient: Genaro CELAYA Sorin Provider: Roseanna Mccabe MD :1960 A ge:64 Y S ex:Male Date:03/08/2025 Address:[id number] Subjective: * Chief Complaints: * 1 . Follow up. * Medical History: Objective: * Vitals: Assessment: Plan: * Treatment: * Images: * The named appointment provid er may or may not be the originator of this progress note, and it is not deemed complete until electronically signed by the appointment provider. Sign off status: Pending * Provider: Roseanna Mccabe MD Date: 03/08/2025 Generated for Laura aldana/Cayetano/Osminsmitting on: 03/14/2025 11:50 AM EDT
--- NOTE | 2025-03-14 10:52 | A.OFFVIS_ITS ---
Vital Signs 03/14/25 10:53 Height 6 ft 2 in Weight 297 lb BMI 38.1 BP 140/72 H Blood Pressure Location Rt brachial Position Sitting Pulse 64 Pulse Source Pulse Oximeter Pulse Oximetry (%) 98 Oxygen Delivery Method Room Air Intake Visit Reasons: 6 month blood work Intake Note: Est pt for mgmt of GERD + Dysphagia. CC: Pt denies any new GI sx or concerns at this time. Pt requests refill of PPI but confirms that it is effective. Director Of Maternity Services Required: No Accompanied by: Self / Same As Patient Allergies No Known Allergies Allergy (Verified 03/14/25 10:52) HPI HPI 6 month blood work: Details: LAST VISIT GERD (gastroesophageal reflux disease) Transaminitis Plan Continue pantoprazole daily. Avoid dietary triggers and late night snacking. Staying upright for minimum 3 hours after meals discussed with patient. Patient will follow-up in our office on as needed basis. Will repeat blood work in 6 months. If patient will continue have elevated liver enzymes will need to do further workup. Patient is agreeable to this plan and verbalizes understanding of instructions. He was given the opportunity to ask questions and all questions answered. ? Thank you for allowing me to participate in his care Orders Liver Panel 6 Months R74.01 Refilled pantoprazole take one tablet half an hour before breakfast 40 mg PO DAILY 90 tabs 3RF K21.9 TODAY'S VISIT Patient here for follow up for GERD and transaminitis.?NATE 08/2023. GERD: Patient has been taking pantoprazole 40mg daily with complete resolve of symptoms. Patient reports he is able to tailor his diet and lifestyle mo difications and is having no current issues. Transaminitis: Hx transaminitis (July 2023 - AST 43, ALT? 38), have been monitoring labs. Patient recently had blood work for PCP with normal levels in December of 2024 (AST 32, ALT 31). It was undetermined what caused the elevation but it was reported that he drank beer occasionally. Has since modified frequency and quantity of alcohol consumption.? Today denies dysphagia, dyspepsia, odynophagia, heartburn, early satiety, epigastric pain, lower abdominal pain, belching, change in bowel habits, diarrhea, loose stools, constipation, bloating, melena, hematochezia, excessive flatus, ribbon like stools, nausea, vomiting, unintentional weight loss.? Last colonoscopy at [facility] in 2022, records are not available today. Patient reports it was a recommended 10 year follow up. EGD 2021 here showed reflux/esophagitis.? [facility] Medical History (Updated 03/14/25 @ 20:43 by Mel Shin, [facility]) Transaminitis Nocturnal leg cramps Chronic headaches Memory deficit Arthritis Low back pain Esophagitis Dysphagia Hyperlipidemia Pulmonary embolism and infarction Dyspnea MARLEE on CPAP Surgical History S/P foot surgery, right Hx of cystoscopy History of esophagogastroduodenoscopy (EGD) Social History Are you a primary clinical manager home care to a significant other at home: No Do you presently have visiting nurse or other home services: No Alcohol intake: never Patient Tobacco Use Status: Former Tobacco user Tobacco use type: Cigarette Years Smoked: 30 Years Review of Systems Const Denies weight gain and Denies weight loss ENT Reports no additional complaints, Denies dysphagia and Denies odynophagia Card Reports no additional complaints Resp Reports no additional complaints GI Denies abdominal pain, Denies belching, Denies melena, Denies bloating, Denies change in bowel habits, Denies dysphagia, Denies excessive flatus, Denies dyspepsia, Denies heartburn, Denies diarrhea, Denies loose stools, Denies nausea, Denies odynophagia and Denies vomiting Reports no additional complaints Musc Reports no additional complaints Neuro Reports no additional complaints Psych Reports no additional complaints Endo Reports no additional complaints Physical Exam Vital Signs: Last Vital Signs Pulse 64 03/14/25 10:53 BP 140/72 H 03/14/25 10:53 Pulse Ox 98 03/14/25 10:53 Oxygen Delivery Method Room Air 03/14/25 10:53 BMI result Body Mass Index 38.1 Const General: healthy appearing, no acute distress and well developed Nutritional Appearance: obese Orientation/consciousness: patient oriented x3 Resp Effort & Inspection: normal respiratory effort, able to speak in complete sentences, no tracheal deviation and symmetric chest movement Auscultation: clear to auscultation bilaterally Cardio Rate: regular rate GI Inspection: Yes normal to inspection, No distended and Yes obesity Palpation (GI): Soft to palpation, not firm, nontender and No hepatosplenomegaly present Auscultation: normal bowel sounds General: Yes no CVA tenderness Back/Spine/Pelvis Back: no CVA tenderness Skin General skin exam: elasticity normal, turgor normal and dry skin Neuro General: patient oriented x3 Psych Appearance: grossly normal Mental Status: mental status grossly normal Assessment & Plan Assessment & Plan (1) Esophagitis: Code(s): K20.90 - Esophagitis, unspecified without bleeding Category: Medical (2) GERD (gastroesophageal reflux disease): Code(s): K21.9 - Gastro-esophageal reflux disease without esophagitis Qualifiers: Esophagitis presence: esophagitis presence not specified Qualified Code(s): K21.9 - Gastro-esophageal reflux disease without esophagitis (3) Transaminitis: Code(s): R74.01 - Elevation of levels of liver transaminase levels Category: Medical Plan Will continue with pantoprazole, refills sent today. Continue avoiding dietary triggers in late night snacking. Staying upright for minimum 3 hours after meals discussed with patient. Given recent reassuring blood work will not order additional blood work today. However we will obtain abdominal ultrasound with liver elastography. Will work on obtaining previous colonoscopy records. Patient will follow up in 1 year or sooner if needed.? Patient is agreeable to current plan of care and verbalizes understanding of instructions. He was given the opportunity to ask questions and all questions answered. Thank you for allowing me to participate in his care Orders: Orders US abdomen comp w elastography Today R79.89 - Other specified abnormal findings of blood chemistry Medications: Refilled pantoprazole 40 mg PO QAM 90 tabs 3RF K21.9 - Gastro-esophageal reflux disease without esophagitis Coding Level of Care Code Est Pt Level 3 (96711) Diagnoses Esophagitis K20.90 Gastroesophageal reflux disease, unspecified whether esophagitis present K21.9 Esophagitis presence: esophagitis presence not specified Transaminitis R74.01 Time Spent (min) 25 Comment 15 minutes spent with patient and additional 10 minutes spent reviewing her records
[2025-03-14 10:53] VITALS: BP 140/72; PULSE 64; O2SAT 98; BMI 38.1
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
--- OUTSIDE RECORDS SUMMARY | 2025-03-14 11:52 | XMS_ITS | Patient Health Record ---
Author Organization Genaro Mccabe III, MD Address [address] [place] [address] [place] [address] Care Team Providers Care Keyboard Instrument Tuner Name Role Phone Dr. Genaro Mccabe III [...] ff Reviewed date:05/13/2024 08:08:59 PM Interpretation: Performing Lab:[facility], [address] [place] [phone] Notes/Report: White Blood Count 5.1 4.8-10.8 X10*3/uL [...] Panel Reviewed date:05/13/2024 08:08:59 PM Interpretation: Performing Lab:[facility], [address] [place] [phone] Notes/Report: Sodium 138 135-145 mmol/L Potassium 3.7 [...] ff Reviewed date:08/07/2024 09:04:48 AM Interpretation: Performing Lab:[facility], [address] [place] [phone] Notes/Report: White Blood Count 5.1 4.8-10.8 X10*3/uL [...] te Reviewed date:08/07/2024 09:04:49 AM Interpretation: Performing Lab:[address] [address] Notes/Report: Erythrocyte Sedimentation Rate 5 0-15 MM/HR Patients with polycythemia and many hemoglobin abnormalities may have depressed sed rates whereas patients with anemia may have elevated sed rates. Comprehensive Met. Panel Reviewed date:08/07/2024 09:04:49 AM Interpretation: Performing Lab:[address] [address] Notes/Report: Sodium 140 135-145 mmol/L Potassium 3.9 [...] Sensitivity Reviewed date:11/13/2024 08:18:32 PM Interpretation: Performing Lab:[address] [address] Notes/Report: CRP High Sensitivity 1.1 Reference Range [...] for Disease Control and Prevention and the [place] [employer]. Circulation 2003; 107(3): 499-511. THIS TEST WAS PERFORMED AT: [facility] [address] [place] [phone] JIM HOWARD MD Vitamin B12 and Folate Reviewed date:08/07/2024 09:04:49 AM Interpretation: Performing Lab:[address] [address] Notes/Report: Vitamin B12 558 200-900 pg/mL NORMAL 200-900 PG/ML INDETERMINATE 160-199 PG/ML DEFICIENT < 160 PG/ML Folate 9.3 > or = 4.0 ng/mL Reference Values: > or = 4.0 ng/mL < 4.0 ng/mL suggests folate deficiency Methotrexate, aminopterin and folinic acid (leucovorin) are chemotherapeutic agents whose molecular structures are similar to folate; therefore, the Outpatient Therapist folate assay cannot be used for patients using these drugs. Vitamin B1 Reviewed date:11/13/2024 08:18:31 PM Interpretation: Performing Lab:[address] [address] Notes/Report: Vitamin B1 10 8-30 nmol/L Vitamin supplementation within 24 hours prior to blood draw may affect the accuracy of the results. This test was developed and its analytical performance characteristics have been determined by [facility] [place], [place]. It has not been cleared or approved by the U.S. Food and Drug Administration. This assay has been validated pursuant to the CLIA regulations and is used for clinical purposes. THIS TEST WAS PERFORMED AT: [facility] ARUN RAHMAN MD,PHD Vitamin D 25-OH (D2 and D3) Reviewed date:11/13/2024 08:18:32 PM Interpretation: Performing Lab:[address] [address] Notes/Report: Vitamin D 25-OH, D2 <4 This test was developed and its analytical performance characteristics have been determined by [facility] [place]. It has not been cleared or approved by the U.S. Food and Drug Administration. This assay has been validated pursuant to the CLIA regulations and is used for clinical purposes. THIS TEST WAS PERFORMED AT: [facility] ARUN RAHMAN MD,PHD Vitamin D 25-OH, D3 20 This test was developed and its analytical performance characteristics have been determined by [facility] [place], [place]. It has not been cleared or [...] ng/mL. For additional information, please refer to http://education.[employer]J Mobile/faq/FZX755 (This link is being provided for informational/ educational purposes only.) TSH reflex Free T4 Reviewed date:08/07/2024 09:04:49 AM Interpretation: Performing Lab:[facility], [address] [place] [phone] Notes/Report: TSH reflex Free T4 1.39 0.32-4.0 uIU/mL Syphilis Screen Reviewed date:08/07/2024 09:04:49 AM Interpretation: Performing Lab:[address] [phone] Notes/Report: Syphilis Screen Nonreactive Nonreactive Hemoglobin A1c Reviewed date:08/07/2024 09:04:48 AM Interpretation: Performing Lab:[facility], [address] [place] [phone] Notes/Report: Hemoglobin A1c % 5.5 <6.0 % [...] average glucose, using the formula of the [id number] Average Glucose study (ADAG), Diabetes Care, Vol.31,#8, Jan. 2007 HIV Ab/Ag Reviewed date:08/07/2024 09:04:49 AM Interpretation: Performing Lab:[address] [address] Notes/Report: HIV AB/AG Nonreactive Nonreactive HIV-1 p24 [...] limit of detection of this assay. The [employer] HIV Ag/Ab Combo assay result and supplemental assay results should be interpreted in conjunction with the patient's clinical presentation, history and other laboratory results. If the results are inconsistent with clinical evidence, additional testing is suggested to confirm the result. Complete Blood Count Auto Di ff Reviewed date:01/14/2025 07:13:47 PM Interpretation: Performing Lab:[facility], [address] [place] [phone] Notes/Report: White Blood Count 6.7 4.8-10.8 X10*3/uL [...] NRBC Abs Auto 0.000 0.0-0.012 X10*3/uL Comprehensive [place]. Panel Fa st Reviewed date:01/14/2025 07:13:47 PM Interpretation: Performing Lab:[facility], [address] [place] [phone] Notes/Report: Sodium 139 135-145 mmol/L Potassium 3.9 [...] Panel Reviewed date:01/14/2025 07:13:47 PM Interpretation: Performing Lab:[address] [phone] Notes/Report: Triglycerides 82 <150 mg/dL Desirable Triglyceride: [...] Antigen Reviewed date:01/14/2025 07:13:47 PM Interpretation: Performing Lab:[address] [address] Notes/Report: Prostate Specific Antigen < 0.10 <0.05-4.0 ng/mL PSA methodology: Coon Alinity i Chemiluminescent Microparticle Immunoassay (CMIA) Testosterone, Total Reviewed date:01/14/2025 07:13:47 PM Interpretation: Performing Lab:[address] [address] Notes/Report: Testosterone, Total 332 346-6098 ng/dL Men with clinically significant hypogonadal symptoms and testosterone values repeatedly in the range of the 200-300 ng/dL or less, may benefit from testosterone treatment after adequate risk and benefits counseling. For additional information, please refer to http://education.N4MD.Possibility Space/faq/ TotalTestosteroneLCMSMSFAQ1 65 (This link is being provided for informational/ educational purposes only.) This test was developed and its analytical performance characteristics have been determined by [facility] [place], [place]. It has not been cleared or approved by the U.S. Food and Drug Administration. This assay has been validated pursuant to the CLIA regulations and is used for clinical purposes. THIS TEST WAS PERFORMED AT: [facility] ARUN RAHMAN MD,PHD Vitamin D 25-OH (D2 and D3) (Not yet reviewed by provider) Interpretation: Performing Lab:[address] [address] Notes/Report: Vitamin D 25-OH, D2 <4 This test was developed and its analytical performance characteristics have been determined by [facility] [place], [place]. It has not been cleared or approved by the U.S. Food and Drug Administration. This assay has been validated pursuant to the CLIA regulations and is used for clinical purposes. THIS TEST WAS PERFORMED AT: [facility] [address] ARUN RAHMAN MD,PHD Vitamin D 25-OH, D3 30 This test was developed and its analytical performance characteristics have been determined by [facility] [place], [place]. It has not been cleared or [...] ng/mL. For additional information, please refer to http://education.[employer].Possibility Space/faq/WYP897 (This link is being provided for informational/ educational purposes only.) Testosterone, Free/Total (No t yet reviewed by provider) Interpretation: Performing Lab:[facility], [address] [place] [phone] Notes/Report: Testosterone, Total 709 706-3715 ng/dL Men with clinically significant hypogonadal symptoms and testosterone values repeatedly in the range of the 200-300 ng/dL or less, may benefit from testosterone treatment after adequate risk and benefits counseling. For additional information, please refer to http://education.[employer]/faq/ TotalTestosteroneLCMSMSFAQ1 65 (This link is being provided for informational/ educational purposes only.) This test was developed and its analytical performance characteristics have been determined by [facility] [place], [place]. It has not been cleared or approved by the U.S. Food and Drug Administration. This assay has been validated pursuant to the CLIA regulations and is used for clinical purposes. Testosterone, Free 39.9 35.0-155.0 pg/mL This test was developed and its analytical performance characteristics have been determined by [facility] [place], [place]. It has not been cleared or approved by the U.S. Food and Drug Administration. This assay has been validated pursuant to the CLIA regulations and is used for clinical purposes. THIS TEST WAS PERFORMED AT: [facility] [address] [address] ARUN RAHMAN MD,PHD Prostate Specific Antigen Reviewed date:03/06/2025 05:42:28 AM Interpretation: Performing Lab:[facility], [address] [place] [phone] Notes/Report: Prostate Specific Antigen 0.16 <0.05-4.0 ng/mL PSA methodology: Coon Alinity i Chemiluminescent Microparticle Immunoassay (CMIA) Reason For Referral Reason Evaluate and Treat Right Shoulder Pain Diagnosis 1 Right shoulder pain (M25.511) Referral Organization Genaro Mccabe III, MD Referring Provider First Name Genaro Referring Provider Last Name Estelle Referring Provider Speciality Internal M edicine Referred Provider Leighton Morrison, [facility] Referred Provider Specialty Orthopedic S urgery General Notes Patsy Evans 11/02/2024 09:00:29 AM > Faxed referral with progress noteNathan Amber 11/14/2024 04:24:01 PM > called patient questioning if he was able to schedule an appointment with [facility]. Message left on [employer]. Referral Priority Routine Referral Appointment Date 12/28/2024 Medications Medication SIG (Take, Route, Frequency, Duration) Notes Start Date End Date Status Pantoprazole Sodium 40 MG Oral Active Acetaminophen 325 MG 1 tablet as needed Orally every 4 hrs as needed Active Naproxen 500 MG 1 tablet with food o r milk Orally every 12 hrs prn pain 06/29/2023 Active Armodafinil 250 MG Oral A ctive Sildenafil Citrate 50 MG 1 tablet as nee ded Orally Once a day 01/22/2025 Active Immunizations Vaccine Route Administration Date Status Comme [...] Problem Status W/U Status Risk Notes Problem 4770885 Former smoker (Z87.891) Active confirmed We discussed a plan to prevent relapse by controlling behavior during illness and periods of stress. Problem Acquired hallux valgus (99371883) Hallux valgus (acquired), right foot (M20.11) Active confirmed He has an appointment with podiatry March 21, 2024. Problem Hypertension (71690826) HTN (hypertension) (I10) Active confirmed His blood pressure today is stable. No change in his regimen was made. Problem 588662744 Obesity (BMI 30-39.9) (E66.9) Active confirmed His body mass index is 39. We have discussed his diet and nutrition. We made a plan to lose weight at a rate of one half of a pound per week through a diet restricted in fat calories and sodium combined with regular physical activity. Problem Cardiomyopathy (32547139) Cardiomyopathy (I42.9) Active confirmed His recent echocardiogram is normal. The cardiomyopathy has resolved and this problem will be removed from the problem list. Because of his dyspnea is likely pulmonary.There was no sign of congestive heart failure or fluid overload on today's examination. Problem Sleep apnea (64200336) Sleep apnea (G47.30) Active confirmed He has been compliant with his pulmonary visits. His CPAP was adjusted recently and is now more comfortable. He is using it every night. He reports his daytime somnolence has improved. Problem 776933416 History of pulmonary embolism (Z86.711) Active confirmed He is no longer anticoagulated and has no pulmonary symptoms or chest pain. He was instructed to notify me immediately if any symptoms related to blood clots occur. Problem 6517308 Gynecomastia (N62) Active confirmed He no longer has any breast tenderness. He checks frequently and has had negative findings. Problem 15731655 Hyperlipidemia, unspecified hyperlipidemia type (E78.5) Active confirmed His lipids have been stable. No change in his regimmen was needed today. Problem 95005892 Hypogonadism in male (E29.1) Active confirmed He is under the care of a urologist for this and has medication. Problem [id number] Right groin pain (R10.31) Active confirmed The right groi n pain has resolved Problem Benign prostatic hypertrophy without outflow obstruction (478257224) Benign prostatic hyperplasia, unspecified whether lower urinary tract symptoms present (N40.0) Active confirmed He has been rising from sleep once or twice a night to urinate. He does not wish to take more medication. We discussed modifications in his lifestyle that would reduce nocturia. Problem 080792141 Back pain, unspecified back location, unspecified back pain laterality, unspecified chronicity (M54.9) Active confirmed The back pain is at baseline. It is mild and chronic. He is able to work and accomplish all of the activities of daily life. No change in his therapy was made. Problem 433112595 ED (erectile dysfunction) of organic origin (N52.9) Active confirmed This problem was successfully resolved with medication.A Viagra prescription was refilled Problem 327807934417083 Primary osteoarthritis of left knee (M17.12) Active confirmed The right knee pain has improved and left knee pain is worse. He is going to return to the orthopedic surgeon for further injections. I urged him to discuss all of the options. Problem 183849323 Bunion, right foot (M21.611) Active confirmed Her wound is healing well and the pain is receding. The leg but is using only a cane. He will follow-up with a edge banding off bearer in the near future. Vital Signs Heart Rate 67 /min 03/07/2025 Temperature 98.4 degrees Fahrenheit 03/07/2025 Blood pressure diastolic 83 mm Hg 03/07/2025 Height 74 in 03/07/2025 Blood pressure systolic 138 mm Hg 03/07/2025 Weight 297 lbs 03/07/2025 BMI 38.13 kg/m2 03/07/2025 Encounters Encounter Location Date Provider Diagnosis Genaro Mccabe III, MD [address] [place] [address] [place] [address] 03/18/2024 Genaro Mccabe Benign prostatic hyperplasia, unspecified [...] (hypertension) I10 Genaro Mccabe III, MD [address] [place] [address] [place] [address] 05/10/2024 Genaro Mccabe Pre-op exam Z01.818 ; Cardiomyopathy I42.9 ; Benign prostatic hyperplasia, unspecified whether lower urinary tract symptoms present N40.0 ; Obesity (BMI 30-39.9) E66.9 ; Former smoker Z87.891 ; Sleep apnea G47.30 ; Primary osteoarthritis of left knee M17.12 ; Hypogonadism in male E29.1 ; HTN (hypertension) I10 and History of pulmonary embolism Z86.711 Genaro Mccabe III, MD [address] [place] [address] [place] [phone] 08/04/2024 Genaro Mccabe Benign prostatic hyperplasia, unspecified whether lower urinary tract symptoms present N40.0 ; Sleep apnea G47.30 ; Former smoker Z87.891 ; Primary osteoarthritis of left knee M17.12 ; Cardiomyopathy I42.9 ; History of pulmonary embolism Z86.711 ; Hyperlipidemia, unspecified hyperlipidemia type E78.5 and Bunion, right foot M21.611 Genrao Mccabe III, MD [address] [place] [address] [place] [address] 10/28/2024 Genaro Mccabe Benign prostatic hyperplasia, unspecified whether lower urinary tract symptoms present N40.0 ; Obesity (BMI 30-39.9) E66.9 ; ED (erectile dysfunction) of organic origin N52.9 ; Primary osteoarthritis of left knee M17.12 ; Cardiomyopathy I42.9 ; Former smoker Z87.891 ; Sleep apnea G47.30 and History of pulmonary embolism Z86.711 Genaro Mccabe III, MD [address] [place] [address] [place] [address] 01/20/2025 Genaro Mccabe Benign prostatic hyperplasia, unspecified [...] origin N52.9 Genaro Mccabe III, MD [address] [place] [address] [place] [address] 03/07/2025 Genaro Mccabe Benign prostatic hyperplasia, unspecified whether lower urinary tract symptoms present N40.0 ; Obesity (BMI 30-39.9) E66.9 ; Right groin pain R10.31 ; Former smoker Z87.891 ; Sleep apnea G47.30 ; Primary osteoarthritis of left knee M17.12 ; Cardiomyopathy I42.9 ; History of pulmonary embolism Z86.711 and Hallux valgus (acquired), right foot M20.11 Genaro Mccabe III, MD [address] [place] [address] [address] [place], [place] [address] 08/26/2024 Genaro Mccabe III, MD [address] [place] [address] [address] [place] [address] 11/01/2024 Genaro Mccabe Benign prostatic hyperplasia, unspecified [...] sodium combined with regular physical activity. 03/07/2025 Benign prostatic hyperplasia, unspecified whether lower [...] reports his daytime somnolence has improved. 03/07/2025 Right groin pain (ICD-10 - R10.31) The right groin pain has resolved 03/18/2024 Sleep apnea (ICD-10 - G47.30) He [...] during illness and periods of stress. 03/07/2025 Former smoker (ICD-10 - Z87.891) We [...] or fluid overload on today's examination. 03/07/2025 Sleep apnea (ICD-10 - G47.30) He has been compliant with his pulmonary visits. His CPAP was adjusted recently and is now more comfortable. He is using it every night. He reports his daytime somnolence has improved. 03/18/2024 Cardiomyopathy (ICD-10 - I42.9) His recent [...] to discuss all of the options. 03/07/2025 Primary osteoarthritis of left knee (ICD-10 [...] sodium combined with regular physical activity. 03/07/2025 Cardiomyopathy (ICD-10 - I42.9) His recent echocardiogram is normal. The cardiomyopathy has resolved and this problem will be removed from the problem list. Because of his dyspnea is likely pulmonary.There was no sign of congestive heart failure or fluid overload on today's examination. 03/18/2024 Gynecomastia (ICD-10 - N62) He no [...] a cane. He will follow-up with a edge banding off bearer in the near future. 10/28/2024 History of pulmonary embolism (ICD-10 - Z86.711) He is no longer anticoagulated and has no pulmonary symptoms or chest pain. He was instructed to notify me immediately if any symptoms related to blood clots occur. 01/20/2025 Hyperlipidemia, unspecified hyperlipidemia type (ICD-10 - E78.5) His lipids have been stable. No change in his regimmen was needed today. 03/07/2025 History of pulmonary embolism (ICD-10 - Z86.711) He is no longer anticoagulated and has no pulmonary symptoms or chest pain. He was instructed to notify me immediately if any symptoms related to blood clots occur. 03/18/2024 History of pulmonary embolism (ICD-10 - [...] No change in his regimen was made. 03/07/2025 Hallux valgus (acquired), right foot (ICD-10 - M20.11) He has an appointment with podiatry March 21, 2024. 03/18/2024 Hyperlipidemia, unspecified hyperlipidemia type (ICD-10 - [...] EKG 05/10/2024 Next Appt Details Provider Name:Genaro Mccabe , 06/06/2025 09:00:00 AM, [address] [place] [address] [address], [place], [address], Provider Name:Genaro Mccabe , 10/31/2025 10:30:00 AM, [address] [place] [address] [address], [place], [address], Insurance Providers Payer Name Payer Address Payer Phone Subscriber Number Group Number Insured Name Patient Relationship to Insured Coverage Start Date Coverage End Date [facility] [address] [place] [phone] [id number] Genaro Mcfadden Self - patient is the insured Medical (General) History Medical History History ICD Code right shoulder pain laceration right bicep (childhood) hyperlipidemia chronic intermitten lower back pain sprain left ankle sleep apnea gynecomastia erectile dysfunction hypogonadism former smoker Pulmonary embolism August 2021 Surgical History Surgery Date(Month/Year) Foot surgery for bunion removal and a br jean claudeen big toe Hospitalization History Reason Date(Month/Year) No history
== END 2025-03-14 11:36 | disposition home or self-care (01) ==
LOC: HO.HGI 10:36
PROVIDERS: PCP Internal Medicine Medical Oncology; Visit Provider Nurse Practitioner Family
DX: K20.90 Esophagitis, unspecified without bleeding (principal); K21.9 Gastro-esophageal reflux disease without esophagitis; R74.01 Elevation of levels of liver transaminase levels
CPT/HCPCS: 99213

== ENCOUNTER 2025-03-23 08:44 | Outpatient (AMB) | payer OTHER, SELFPAY ==
[2025-03-23 08:46] VITALS: BP 168/82; PULSE 63; O2SAT 96; BMI 38.1
--- NOTE | 2025-03-23 08:46 | A.OFFVIS_ITS ---
Vital Signs 03/23/25 08:46 Height 6 ft 2 in Weight 296 lb 8.348 oz BMI 38.1 BP 168/82 H Blood Pressure Location Lt brachial Position Sitting Pulse 63 Pulse Source Pulse Oximeter Pulse Oximetry (%) 96 Oxygen Delivery Method Room Air Intake Visit Reasons: marlee Disaster Recovery Coordinator Required: No Accompanied by: Self / Same As Patient Allergies No Known Allergies Allergy (Verified 03/23/25 08:49) HPI Comments Details: The patient is a 64-year-old gentleman with a known history of obstructive sleep apnea. the patient was having significant daytime drowsiness and snoring. He did have a sleep study and have been placed on CPAP. His current D[facility] is [facility] although he did have a CPAP prior with a different DME company. He currently has an AirSense 10 APAP which is set up 8-12 cm. Has a ramp of 4 cm. He has a fullface mask. The patient has been struggling with the pressures feels like there are too low. When he puts it on he does not feel like it is getting enough support. He is also concern if the pressures are too high that he may not be able to tolerate the therapy. He did bring his machine I was able to download the data. It appears that his AHI was down to 2.9 under current settings. His average pressure was 12 cm suggesting that he was in a maximum part of his range. Therefore, will got rid of the ramp as he does not needed. Patient was started with a pressure of 8 and will have a maximum pressure of 18 cm. In the meantime he is wondering about a different mask. I did recommend that he stay with a fullface mask based on the fact that he would have to make sure to keep his mouth closed to maintain the adequate mean airway pressure. I will request additional supplies from his DME company. However, it is not clear if he is still active with this current DME company. If the patient is not active will have to request a repeat sleep study in order to confirm the diagnosis of sleep apnea in get him reactivated with his DME company, [facility]. 07/08/2023 the patient is here for a pulmonary follow-up visit. He continues to have significant daytime drowsiness. His Edison score is elevated 04/07. The patient did start individual. He started a small dose and did not see any significant improvement. He has been using CPAP every night. Averaging around 6-1/2 hours is AHI continues to be slightly elevated at 3.3. His average pressure is 11 and his maximum pressure is 11 so therefore I will increase his maximum pressure to 12. He recently had the machine pressures down so we do not want to go up too high. The patient will continue to use it. He also has an issue with memory. He is concerned that he is forgetful. We talked about memory exercises. He is also working closely with Neurology. His Nuvigil dose was increased to 250 mg. Hopefully that that works better for him for the persistent daytime drowsiness even after effective CPAP use. He will continue working closely with neurologist will follow-up less frequent. 11/04/2023 the patient is here for a pulmonary follow-up visit. Overall he has doing a little better. The individual has been helping him at the higher dose. He is averaging around 6 hours a night with CPAP which is very reassuring. The CPAP therapy has been affecting beneficial. His AHI continues via 3.5. Will go ahead and increase his APAP slightly. He has had difficulties tolerating higher pressures before. Currently on APAP 8-12. Will increase to 9-13. He is going to also try a new mask because he has been getting some nasal bridge breakdown irritation. I did provide him with a medium F30 mask. He tried a in felt well and comfortable. He is going to try. Will go ahead and switch it at his [employer]. The patient denies any respiratory complaints at this time. He will continue with the current therapy. I did encourage him to continue the Nuvigil as it is affecting beneficial for him. 06/28/2024 the patient is here for pulmonary follow-up visit. He has been having difficulty sleeping. Fyxj-no-uzqlliup severity. He has been staying up watching TV. He does uses CPAP at nighttime the CPAP therapy has been affecting beneficial and he does use it for more than 4 hours a night. Still that would benefit from additional sleep. Therefore he can start melatonin again. He did tolerating past. He continues on the individual this has been very effective for him. I did download the CPAP and it looks like his AHI is 3.3 and his average pressure is 10 in his maximum pressure is 13 which is the maximum machine. Therefore I adjust the machine to 9-15. If he has any issues he can call. His blood pressure was elevated initially 177/98. However, I did recheck after the end of the visit on his left arm impression did decrease down to 155 over 88. The patient had a significant amount of salty food last night. To start making some dietary indiscretions maintain a low-sodium diet. 03/23/2025 the patient is here for pulmonary follow-up visit. The patient overall has been doing okay. He has been tolerating the CPAP therapy has been affecting beneficial. He does use it for more than 4 hours a night. He is using a fullface mask. He is working well. He is still though is wondering if he needs to be on CPAP. He is wondering if he can lose the weight if his CPAP issues will improve. Explained to him that even if he loses the weight he still may have some degree of sleep apnea although it make it better. He is going to work on weight management. The patient does have an AHI of 2.2 on the current settings. I will increase the maximum pressure from 15-16 just for little additional support. If he has any issues with the he can always call. He continues on then visual for his daytime drowsiness. Also is affecting beneficial. He is concerned about his memory. Sometimes he has a little bit more forgetful. We did talk about some techniques that he can use in the meantime. He is wondering if he needs a new replacement PAP therapy. He will bring his machine in the next time in 6-8 months so we can address the question. For now he will keep his current machine and current supplies. He has any issues prior to the next visit he can always call for an earlier assessment. [facility] Medical History (Updated 03/14/25 @ 20:43 by Mel Shin [facility]) Transaminitis Nocturnal leg cramps Chronic headaches Memory deficit Arthritis Low back pain Esophagitis Dysphagia Hyperlipidemia Pulmonary embolism and infarction Dyspnea MARLEE on CPAP Surgical History S/P foot surgery, right Hx of cystoscopy History of esophagogastroduodenoscopy (EGD) Social History Are you a primary human services care specialist to a significant other at home: No Do you presently have visiting nurse or other home services: No Alcohol intake: never Patient Tobacco Use Status: Former Tobacco user Tobacco use type: Cigarette Years Smoked: 30 Years Review of Systems Const Denies daytime sleepiness, Denies headache(s), Denies night sweats, Denies snor ing and Denies stops breathing during sleep ENT Denies change in voice, Denies headache(s), Denies lip swelling, Denies mouth pain, Reports nasal congestion, Reports nasal discharge and Denies tongue swelling Card Denies chest pain, Denies dyspnea and Reports dyspnea on exertion Resp Denies dyspnea, Reports dyspnea on exertion and Denies snoring GI Denies abdominal pain Musc Reports back pain Neuro Denies Neuro-related abnormal movements, Denies headache(s) and Reports memory loss Psych Denies no additional complaints and Reports memory loss Niles/Lymph Denies easy bleeding and Denies lymphadenopathy Aller/Immun Denies lip swelling and Denies tongue swelling Physical Exam Vital Signs: Last Vital Signs Pulse 63 03/23/25 08:46 BP 168/82 H 03/23/25 08:46 Pulse Ox 96 03/23/25 08:46 Oxygen Delivery Method Room Air 03/23/25 08:46 BMI result Body Mass Index 38.1 Const General: alert Neck Neck: Yes normal visual inspection, Yes full ROM and Yes no lymphadenopathy Chest Chest palpation & inspection: normal inspection of the chest Resp Auscultation: diminished lung sounds Cardio Rate: regular rate Rhythm: regular rhythm Heart sounds: S1 normal heart sound present and S2 normal heart sound present GI Palpation (GI): Soft to palpation and nontender Auscultation: normal bowel sounds Skin General skin exam: rashes and/or lesions noted Assessment & Plan Assessment & Plan (1) MARLEE on CPAP: Comment: with residual hypersomnia on Nuvigil Code(s): G47.33 - Obstructive sleep apnea (adult) (pediatric); Z99.89 - Dependence on other enabling machines and devices Category: Medical (2) Chronic headaches: Code(s): R51.9 - Headache, unspecified; G89.29 - Other chronic pain Category: Medical Qualifiers: Headache type: unspecified Intractability: not intractable Qualified Code(s): R51.9 - Headache, unspecified; G89.29 - Other chronic pain (3) Memory deficit: Code(s): R41.3 - Other amnesia Category: Medical Plan Continue APAP, Adjusted 12->9-13 ->02-28-> Trial F30 Med mask continue Nuvigil 250 daily Melatonin F/U 6-8 months Coding Level of Care Code Est Pt Level 4 (71623) Complex EM visit Add On G2211 Diagnoses MARLEE on CPAP G47.33; Z99.89 Chronic nonintractable headache, unspecified headache type R51.9; G89.29 Headache type: unspecified Intractability: not intractable Memory deficit R41.3 Time Spent (min) 16
== END 2025-03-23 09:06 | disposition home or self-care (01) ==
PROVIDERS: PCP Internal Medicine Medical Oncology; Visit Provider Hospitalist
DX: G47.33 Obstructive sleep apnea (adult) (pediatric) (principal); Z99.89 Dependence on other enabling machines and devices; R51.9 Headache, unspecified; G89.29 Other chronic pain; R41.3 Other amnesia
CPT/HCPCS: 99214; G2211

== ENCOUNTER 2025-06-07 08:42 | Outpatient (REF) | payer OTHER, SELFPAY ==
--- OUTSIDE RECORDS SUMMARY | 2024-10-28 06:00 | XMS_ITS ---
Author Organization Genaro Mccabe III, MD Address [address] [place] [address] [place] [address] Care Team Providers Care Amortization Clerk Name Role Phone Dr. Genaro Mccabe III Primary Care Provider [phone] Allergies Allergen (clinical drug ingredient) Drug/Non Drug Allergy documented on EMR Reaction Allergy Type Onset Date Status No Known Drug Allergy Unknown Drug Allergy Active No Known Food Allergy Unknown Drug Allergy Active Results Component Value Reference Range Notes URINE DIP STICK Reviewed date:10/28/2024 10:57:51 AM Interpretation: Performing Lab: Notes/Report: SG 1.010 1.005 - 1.025 pH 6.0 5.0 - 9.0 ANGIE Negative Negative - NIT Negative Negative - PRO 15 Negative - Trace GLU Negative Negative - KET Negative Negative - UBG 0.2 0.1 - 1.8 CARLENE Negative 0.2 - 1.3 BLD Negative Negative - Reason For Referral Reason Evaluate and Treat Right Shoulder Pain Diagnosis 1 Right shoulder pain (M25.511) Referral Organization Genaro Mccabe III, MD Referring Provider First Name Genaro Referring Provider Last Name Estelle Referring Provider Speciality Internal M edicine Referred Provider Leighton Morrison, [facility] Referred Provider Specialty Orthopedic S urgery General Notes Patsy Evans 11/02/2024 09:00:29 AM > Faxed referral with progress Nathan sherwood Amber 11/14/2024 04:24:01 PM > called patient questioning if he was able to schedule an appointment with [facility]. Message left on Jiaheil. Referral Priority Routine Referral Appointment Date 12/28/2024 REASON FOR VISIT annual exam Medications Medication SIG (Take, Route, Frequency, Duration) Notes Start Date End Date Status Armodafinil 250 MG Oral A ctive Naproxen 500 MG one tablet Orally every 12 hrs prn pain 06/29/2023 Active Acetaminophen 325 MG 1 tablet as needed Orally every 4 hrs as needed Active Pantoprazole Sodium 40 MG Oral Active Social History Tobacco Use: Social History Observation Description Date Details (start date - stop date) Former Smoker NA - NA Sex Assigned At : Social History Observation Description Sex Assigned At Male Tobacco Control (Standard) Question Answer Notes Tobacco use: Former smoker How long has it been since you last smoked? 5-10 years Additional Findings: Tobacco non-user Ex-cigaret te smoker AUDIT-C (Standard) Question Answer Notes Did you have a drink containing alcohol in the p ast year? No Points 0 Interpretation Negative Vital Signs Temperature 97.4 degrees Fahrenheit 10/29/19 25 Blood pressure systolic 135 mm Hg 10/29/19 25 Blood pressure diastolic 78 mm Hg 025 Heart Rate 70 /min 10/28/2024 Height 74 in 10/28/2024 Weight 305 lbs 10/28/2024 BMI 39.16 kg/m2 10/28/2024 Encounters Encounter Location Date Provider Diagnosis Genaro Mccabe III, MD [address] [place] [address] [place] [address] 10/28/2024 Genaro Mccabe Benign prostatic hyperplasia, unspecified whether lower urinary tract symptoms present N40.0 ; Obesity (BMI 30-39.9) E66.9 ; ED (erectile dysfunction) of organic origin N52.9 ; Primary osteoarthritis of left knee M17.12 ; Cardiomyopathy I42.9 ; Former smoker Z87.891 ; Sleep apnea G47.30 and History of pulmonary embolism Z86.711 Assessments Encounter Date Diagnosis (ICD Code) Assessment Notes Treat ment Notes Treatment Clinical Notes 10/28/2024 Benign prostatic hyperplasia, unspecified whether lower urinary tract symptoms present (ICD-10 - N40.0) He has been rising from sleep once or twice a night to urinate. He does not wish to take more medication. We discussed modifications in his lifestyle that would reduce nocturia. 10/28/2024 Obesity (BMI 30-39.9) (ICD-10 - E66.9) His body mass index is 39. We have discussed his diet and nutrition. We made a plan to lose weight at a rate of one half of a pound per week through a diet restricted in fat calories and sodium combined with regular physical activity. 10/28/2024 ED (erectile dysfunction) of organic origin (ICD-10 - N52.9) This problem was successfully resolved with medication. 10/28/2024 Primary osteoarthritis of left knee (ICD-10 - M17.12) The right knee pain has improved and left knee pain is worse. He is going to return to the orthopedic surgeon for further injections. I urged him to discuss all of the options. 10/28/2024 Cardiomyopathy (ICD-10 - I42.9) His recent echocardiogram is normal. The cardiomyopathy has resolved and this problem will be removed from the problem list. Because of his dyspnea is likely pulmonary.There was no sign of congestive heart failure or fluid overload on today's examination. 10/28/2024 Former smoker (ICD-10 - Z87.891) We discussed a plan to prevent relapse by controlling behavior during illness and periods of stress. 10/28/2024 Sleep apnea (ICD-10 - G47.30) He has been compliant with his pulmonary visits. His CPAP was adjusted recently and is now more comfortable. He is using it every night. He reports his daytime somnolence has improved. 10/28/2024 History of pulmonary embolism (ICD-10 - Z86.711) He is no longer anticoagulated and has no pulmonary symptoms or chest pain. He was instructed to notify me immediately if any symptoms related to blood clots occur. Plan Of Treatment Medication Medication Name Sig Start Date Stop Date Notes Armodafinil 250 MG Oral Naproxen 500 MG one tablet Orally ev karl 12 hrs prn pain 06/29/2023 Acetaminophen 325 MG 1 tablet as needed Orally every 4 hrs as needed Pantoprazole Sodium 40 MG Oral Referrals Referral Date Details 10/28/2024 10/28/2024, Evaluate and Treat Right Shoulder Pain, [facility] Appt Details Follow Up: 3 Months, Reason: OV Provider Name:Genaro Mccabe , 07/06/2025 09:00:00 AM, [address] [place] [address] [address], [place], [phone], Provider Name:Genaro Mccabe , 10/31/2025 10:30:00 AM, [address] [place] [address] [address], [place], [id number], Progress Notes * Genaro MAYNARD EDOB:1960 (64 yo M)Acc No.[id number]:10/28/2024 Progress Notes Patient: Genaro CELAYA Provider: Roseanna Mccabe MD :1960 A ge:64 Y S ex:Male Date:10/28/2024 Address:[address] [place] [id number] Subjective: * Chief Complaints: * A nnual exam * HPI: D epression Screening: He returns to the office at the age of 64 for his annual physical examination. He is currently working and has no new complaints. He has sleep apnea but does not use his CPAP as itt is not comfortable. The arthritis in the left knee is present and moderate. His back pain is minimal lately. He rises from sleep twice a night to urinate. We discussed lifestyle modification he could make to reduce nocturia. His blood pressure was stable today. He has had no further blood clots. Comprehensive blood work has been ordered. PHQ-9 L ittle interest or pleasure in doing things?Several days F eeling down, depressed, or hopeless N ot at all T rouble falling or staying asleep, or sleeping too much S everal days F eeling tired or having little energy S everal days P oor appetite or overeating N early every day F eeling bad about yourself or that you are a failure, or have let yourself or your family down N early every day T rouble concentrating on things, such as reading the newspaper or watching television M ore than half the days M oving or speaking so slowly that other people could have noticed; or the opposite, being so fidgety or restless that you have been moving around a lot more than usual N ot at all T houghts that you would be better off or of hurting yourself in some way N ot at all T otal Score 1 1 I nterpretation M oderate Depression C OVID-19 Screening: Questions H ave you had any new onset fever, chills, cough, congestion, sore throat, shortness of breath, muscle aches? N o S BONI Questions: SDOH Questions I n the past year have you or any family members you live with been unable to get any of the following when it was really needed? Check all that apply: D ecline to answer * ROS: G eneral/Constitutional: pain L eft knee. C hills d enies. F atigue a dmits. F ever d enies. E NT: Decreased hearing d enies. R espiratory: Cough d enies. C ardiovascular: Chest pain with exertion d enies. D yspnea on exertion?denies. S hortness of breath d enies. G astrointestinal: Constipation d enies. D ecreased appetite d enies.?Diarrhea d enies. H e[place]burn o ccasional. N ausea d enies. R ectal bleeding d enies. V omiting d enies. H ematology: bruising d enies. p etechiae d enies. S wollen glands n one have been noted. G enitourinary: Frequent urination t wice a night. M usculoskeletal: Muscle aches d enies. P ainful joints K nees. S ciatica d enies. W eakness d enies. S kin: Itching d enies. R selene d enies. S kin lesion(s)?denies. N eurologic: Difficulty speaking d enies. D izziness d enies.?Headache d enies. L ow back pain t hat is chronic. P sychiatric: Depressed mood d enies. * Medical History: * Surgical History: F oot surgery for bunion removal and a broken big toe * Hospitalization/Major Diagno stic Procedure: N o history * Family History: F ather: , unknown. M other: alive 70 yrs, hypertension, hyperlipidemia, diabetes mellitus, arthritis, diagnosed with HTN, DM. 3 brother(s) , 5 sister(s) - healthy. . He has no children and is unmarried. He is not aware of any family history of mental illness or addiction or substance abuse. * Social History: T obacco Use: T obacco Control (Standard) T obacco use: F ormer smoker H ow long has it been since you last smoked??5-10 years A dditional Findings: Tobacco non-user E x-cigarette smoker D rugs/Alcohol: D rugs H ave you used drugs other than those for medical reasons in the past 12 months? N o D rug/Alcohol: A ERMIAS-C (Standard) D id you have a drink containing alcohol in the past year? N o P oints 0 I nterpretation N egative H e is working a [employer] company and is engaged to be . He was born in [place]. Smoking: No. Physical Activity: Walks at work. * Medications: T akingAcetaminophen 325 MG Tablet 1 tablet as needed Orally every 4 hrs , Notes to Pharmacist: as neededPantoprazole Sodium 40 MG Tablet Delayed Release Oral Armodafinil 250 MG Tablet Oral Naproxen 500 MG Tablet one tablet Orally every 12 hrs prn pain Taking Acetaminophen 325 MG Tablet 1 tablet as needed Orally every 4 hrs , Notes to Pharmacist: as neededTaking Pantoprazole Sodium 40 MG Tablet Delayed Release Oral Taking Armodafinil 250 MG Tablet Oral Taking Naproxen 500 MG Tablet one tablet Orally every 12 hrs prn pain DiscontinuedMeloxicam 15 MG Tablet 1 tablet Orally Once a day Medication List reviewed and reconciled with the patientDiscontinued Meloxicam 15 MG Tablet 1 tablet Orally Once a day Medication List reviewed and reconciled with the patient * Allergies: N o Known Drug AllergyNo Known Food Allergyno[Allergies Verified] Objective: * Vitals: H t: 74, Wt: 305, BMI:39.16, BP: 135/78, HR: 70, Temp: 97.4, Wt-k.35. * P ast Orders: L ab:Erythrocyte Sedimentation Rate (Order Date - 08/04/2024) (Collection Date & Time - 08/04/2024 11:39 AM) Value Reference Range Erythrocyte Sedimentation Rate 5 0-15 - MM /HR L ab:HIV Ab/Ag (Order Date - 08/04/2024) (Collection Date & Time - 08/04/2024 11:39 AM) Value Reference Range HIV AB/AG Nonreactive Nonreactive - Lab:Comprehensive Met. Panel * Collection Date 08/04/2024 05/10/2024 04/17/2023 Collection Time 11:39 AM 02:14 PM 10:33 AM Order Date 08/04/2024 05/10/2024 04/17/2023 Sodium 140 (Ref Range: 135-145 mmol/L) 138 (Ref Range: 135-145 mmol/L) 140 (Ref Range: 135-145 mmol/L) Bilirubin Total 0.7 (Ref Range: 0.0-1.0 mg/dL) 0.4 (Ref Range: 0.0-1.0 mg/dL) 0.6 (Ref Range: 0.0-1.0 mg/dL) Aspartate Amino Transferase 28 (Ref Range: 5-37 U/L) 25 (Ref Range: 5-37 U/L) 21 (Ref Range: 5-37 U/L) Alanine Aminotransferase 39 (Ref Range: 0-40 U/L) 32 (Ref Range: 0-40 U/L) 23 (Ref Range: 0-40 U/L) Total Protein 8.1 H (Ref Range: 6.5-8.0 g/dL) 7.2 (Ref Range: 6.5-8.0 g/dL) 7.9 (Ref Range: 6.5-8.0 g/dL) Albumin Level 4.2 (Ref Range: 3.5-5.0 g/dL) 4.1 (Ref Range: 3.5-5.0 g/dL) 4.3 (Ref Range: 3.5-5.0 g/dL) Alkaline Phosphatase 73 (Ref Range: 39-117 U/L) 72 (Ref Range: 39-117 U/L) 75 (Ref Range: 39-117 U/L) Potassium 3.9 (Ref Range: 3.3-5.1 mmol/L) 3.7 (Ref Range: 3.3-5.1 mmol/L) 4.1 (Ref Range: 3.3-5.1 mmol/L) Chloride 108 (Ref Range: 96-108 mmol/L) 107 (Ref Range: 96-108 mmol/L) 108 (Ref Range: 96-108 mmol/L) Carbon Dioxide 25 (Ref Range: 22-29 mmol/L) 25 (Ref Range: 22-29 mmol/L) 27 (Ref Range: 22-29 mmol/L) Anion Gap 11 L (Ref Range: 12-20) 10 L (Ref Range: 12-20) 9 L (Ref Range: 12-20) Blood Urea Nitrogen 16 (Ref Range: 9-16 mg/dL) 10 (Ref Range: 9-16 mg/dL) 11 (Ref Range: 9-16 mg/dL) Creatinine 1.06 (Ref Range: 0.5-1.4 mg/dL) 1.00 (Ref Range: 0.5-1.4 mg/dL) 1.02 (Ref Range: 0.5-1.4 mg/dL) Estimated Glomerular Filt Rate > 60 > 60 > 60 Glucose Random 112 (Ref Range: 60-115 mg/dL) 98 (Ref Range: 60-115 mg/dL) 115 (Ref Range: 60-115 mg/dL) Calcium 9.5 (Ref Range: 8.4-10.2 mg/dL) 9.0 (Ref Range: 8.4-10.2 mg/dL) 9.4 (Ref Range: 8.4-10.2 mg/dL) ???Lab:Vitamin B12 and Folate (Order Date - 08/04/2024) (Collection Date & Time - 08/04/2024 11:39AM)?ValueReference Range?Vitamin [id number] - pg/mL?Folate9.3> or = 4.0 - ng/mL ???Lab:TSH reflex Free T4 (Order Date - 08/04/2024) (Collection Date & Time - 08/04/2024 11:39 AM)?ValueReference Range?TSH reflex Free T41.39 0.32-4.0 - uIU/mL ???Lab:Syphilis Screen (Order Date - 08/04/2024) (Collection Date & Time - 08/04/2024 11:39 AM)?ValueReference Range?Syphilis Screen NonreactiveNonreactive - * Lab:Complete Blood Count Aut o Diff * Collection Date 08/04/2024 05/10/2024 07/30/2023 Collection Time 11:39 AM 02:14 PM 09:14 AM Order Date 08/04/2024 05/10/2024 07/30/2023 White Blood Count 5.1 (Ref Range: 4.8-10.8 X10*3/uL) 5.1 (Ref Range: 4.8-10.8 X10*3/uL) 5.5 (Ref Range: 4.8-10.8 X10*3/uL) Red Blood Count 4.93 (Ref Range: 4.60-5.80 X10*6/uL) 5.04 (Ref Range: 4.60-5.80 X10*6/uL) 5.26 (Ref Range: 4.60-5.80 X10*6/uL) Hemoglobin 14.0 (Ref Range: 14.0-18.0 g/dl) 14.3 (Ref Range: 14.0-18.0 g/dl) 14.9 (Ref Range: 14.0-18.0 g/dl) Hematocrit 41.1 L (Ref Range: 42.0-52.0 %) 42.3 (Ref Range: 42.0-52.0 %) 43.8 (Ref Range: 42.0-52.0 %) Mean Corpuscular Volume 83.4 (Ref Range: 80.0-98.0 fL) 83.9 (Ref Range: 80.0-98.0 fL) 83.3 (Ref Range: 80.0-98.0 fL) Mean Corpuscular Hemoglobin 28.4 (Ref Range: 27.0-33.0 pg) 28.4 (Ref Range: 27.0-33.0 pg) 28.3 (Ref Range: 27.0-33.0 pg) Mean Corpuscular HGB Conc 34.1 (Ref Range: 31.0-36.0 g/dl) 33.8 (Ref Range: 31.0-36.0 g/dl) 34.0 (Ref Range: 31.0-36.0 g/dl) Red Cell Distribution Width 14.5 (Ref Range: 11.0-16.0 %) 13.8 (Ref Range: 11.0-16.0 %) 14.5 (Ref Range: 11.0-16.0 %) Platelet Count 179 (Ref Range: 160-400 X10*3/uL) 171 (Ref Range: 160-400 X10*3/uL) 172 (Ref Range: 160-400 X10*3/uL) Mean Platelet Volume 8.6 L (Ref Range: 9.4-12.4 fL) 8.9 L (Ref Range: 9.4-12.4 fL) 8.5 L (Ref Range: 9.4-12.4 fL) Neutrophils Percent Auto 51.2 (Ref Range: 45-73 %) 49.8 (Ref Range: 45-73 %) 46.8 (Ref Range: 45-73 %) Imm Gran Pct Auto 0.6 H (Ref Range: 0.0-0.4 %) 0.2 (Ref Range: 0.0-0.4 %) 0.5 H (Ref Range: 0.0-0.4 %) Lymphocytes Percent Auto 38.3 (Ref Range: 20-40 %) 40.6 H (Ref Range: 20-40 %) 40.4 H (Ref Range: 20-40 %) Monocytes Percent Auto 7.7 (Ref Range: 2-11 %) 7.0 (Ref Range: 2-11 %) 8.5 (Ref Range: 2-11 %) Eosinophils Percent Auto 1.8 (Ref Range: 0-4 %) 2.0 (Ref Range: 0-4 %) 3.3 (Ref Range: 0-4 %) Basophils Percent Auto 0.4 (Ref Range: 0-2 %) 0.4 (Ref Range: 0-2 %) 0.5 (Ref Range: 0-2 %) NRBC Pct Auto 0.0 (Ref Range: 0.0-0.2 /100WBC) 0.0 (Ref Range: 0.0-0.2 /100WBC) 0.0 (Ref Range: 0.0-0.2 /100WBC) Neutrophils Absolute Auto 2.6 (Ref Range: 2.0-8.3 x10*3/uL) 2.6 (Ref Range: 2.0-8.3 x10*3/uL) 2.6 (Ref Range: 2.0-8.3 x10*3/uL) Imm Gran Abs Auto 0.03 (Ref Range: 0.00-0.03 X10*3/uL) 0.01 (Ref Range: 0.00-0.03 X10*3/uL) 0.03 (Ref Range: 0.00-0.03 X10*3/uL) Lymphocytes Absolute Auto 2.0 (Ref Range: 1.2-4.9 X10*3/uL) 2.1 (Ref Range: 1.2-4.9 X10*3/uL) 2.2 (Ref Range: 1.2-4.9 X10*3/uL) Monocytes Absolute Auto 0.4 (Ref Range: 0.1-1.2 X10*3/uL) 0.4 (Ref Range: 0.1-1.2 X10*3/uL) 0.5 (Ref Range: 0.1-1.2 X10*3/uL) Eosinophils Absolute Auto 0.1 (Ref Range: 0.0-0.4 X10*3/uL) 0.1 (Ref Range: 0.0-0.4 X10*3/uL) 0.2 (Ref Range: 0.0-0.4 X10*3/uL) Basophils Absolute Auto 0.0 (Ref Range: 0.0-0.2 X10*3/uL) 0.0 (Ref Range: 0.0-0.2 X10*3/uL) 0.0 (Ref Range: 0.0-0.2 X10*3/uL) NRBC Abs Auto 0.000 (Ref Range: 0.0-0.012 X10*3/uL) 0.000 (Ref Range: 0.0-0.012 X10*3/uL) 0.000 (Ref Range: 0.0-0.012 X10*3/uL) ???Lab:Hemoglobin A1c (Order Date - 08/04/2024) (Collection Date & Time - 08/04/2024 11:39 AM)?ValueReference Range?Hemoglobin A1c %5.5<6.0 - %?Estimated Average Sxtzyyh720- mg/dL * Lab:URINE DIP STICK * Collection Date 10/28/2024 10/27/2023 10/15/2022 Order Date 10/28/2024 10/27/2023 10/15/2022 SG 1.010 (Ref Range: 1.005 - 1.025) 1.015 (Ref Range: 1.005 - 1.025) 1.015 (Ref Range: 1.005 - 1.025) pH 6.0 (Ref Range: 5.0 - 9.0) 6.0 (Ref Range: 5.0 - 9.0) 5.0 (Ref Range: 5.0 - 9.0) ANGIE Negative (Ref Range: Negative -) Negative (Ref Range: Negative -) Negative (Ref Range: Negative -) NIT Negative (Ref Range: Negative -) Negative (Ref Range: Negative -) Negative (Ref Range: Negative -) PRO 15 (Ref Range: Negative - Trace) 15 (Ref Range: Negative - Trace) 15 (Ref Range: Negative - Trace) GLU Negative (Ref Range: Negative -) Negative (Ref Range: Negative -) Negative (Ref Range: Negative -) KET Negative (Ref Range: Negative -) Negative (Ref Range: Negative -) Negative (Ref Range: Negative -) UBG 0.2 (Ref Range: 0.1 - 1.8) 0.2 (Ref Range: 0.1 - 1.8) 0.2 (Ref Range: 0.1 - 1.8) CARLENE Negative (Ref Range: 0.2 - 1.3) Negative (Ref Range: 0.2 - 1.3) Negative (Ref Range: 0.2 - 1.3) BLD Negative (Ref Range: Negative -) Negative (Ref Range: Negative -) Negative (Ref Range: Negative -) Menstrating NR NR N/A * Examination: G eneral Examination: GENERAL APPEARANCE: p leasant, well nourished, well developed, in no acute distress, calm and relaxed, obese, man. HEAD: a traumatic, normocephalic. EYES: e latesha, perrla, anicteric, conjugate. EARS: n ormal. NOSE: s eptum intact. ORAL CAVITY: n ormal, unremarkable. NECK/THYROID: n o jugular venous distention, no carotid bruit, thyroid normal. LYMPH NODES: n o enlarged lymph nodes,spleen normal. SKIN: n o suspicious lesions, anicteric. HEART: n o clicks, gallops, murmurs, or rubs, regular rhythm, S1, S2 normal, no s3, or vascular bruits. LUNGS: , diminished breath sounds throughout, no wheezes, rales, rhonchi, good air movement. BREASTS: no masses palpable bilaterally, Gynecomastia resolved. ABDOMEN: b owel sounds normal, no ascites, no organomegaly, no mass. RECTAL EXAM: n ot examined. MUSCULOSKELETAL: e xtremities unremarkable, no clubbing, cyanosis or edema, Mild pain to range of motion right. PERIPHERAL PULSES: n ormal. NEUROLOGIC: a lert and oriented, cranial nerves 2-12 grossly intact, deep tendon reflexes 2+ symmetrical, motor strength normal upper and lower extremities, sensory exam intact. PSYCH: a lert, oriented, thought process logical, goal directed, speech clear, cognitive function intact. Assessment: * Assessment: 1. O besity (BMI 30-39.9) - E66.9 (Primary) N otes :His body mass index is 39. We have discussed his diet and nutrition. We made a plan to lose weight at a rate of one half of a pound per week through a diet restricted in fat calories and sodium combined with regular physical activity. 2 . B enign prostatic hyperplasia, unspecified whether lower urinary tract symptoms present - N40.0 N otes :He has been rising from sleep once or twice a night to urinate. He does not wish to take more medication. We discussed modifications in his lifestyle that would reduce nocturia. 3 . E D (erectile dysfunction) of organic origin - N52.9 N otes :This problem was successfully resolved with medication. 4 . P rimary osteoarthritis of left knee - M17.12 N otes :The right knee pain has improved and left knee pain is worse. He is going to return to the orthopedic surgeon for further injections. I urged him to discuss all of the options. 5 . C ardiomyopathy - I42.9 N otes :His recent echocardiogram is normal. The cardiomyopathy has resolved and this problem will be removed from the problem list. Because of his dyspnea is likely pulmonary.There was no sign of congestive heart failure or fluid overload on today's examination. 6 . F ormer smoker - Z87.891 N otes :We discussed a plan to prevent relapse by controlling behavior during illness and periods of stress. 7 . S leep apnea - G47.30 N otes :He has been compliant with his pulmonary visits. His CPAP was adjusted recently and is now more comfortable. He is using it every night. He reports his daytime somnolence has improved. 8 . H istory of pulmonary embolism - Z86.711 N otes :He is no longer anticoagulated and has no pulmonary symptoms or chest pain. He was instructed to notify me immediately if any symptoms related to blood clots occur. Plan: * Treatment: 2. B enign prostatic hyperplasia, unspecified whether lower urinary tract symptoms present Continue Acetaminophen Tablet, 325 MG, 1 tablet as needed, Orally, every 4 hrs, Notes to Pharmacist: as needed; C ontinue Pantoprazole Sodium Tablet Delayed Release, 40 MG, Oral; C ontinue Armodafinil Tablet, 250 MG, Oral; C ontinue Naproxen Tablet, 500 MG, one tablet, Orally, every 12 hrs prn pain. L AB: PROFILE, FASTING (COMPREHENSIVE METABOLIC) L AB: PSA, TOTAL L AB: CBC w DIFF L AB: Lipid Panel L AB: Testosterone, Total 3. E D (erectile dysfunction) of organic origin L AB: PROFILE, FASTING (COMPREHENSIVE METABOLIC) L AB: PSA, TOTAL L AB: CBC w DIFF L AB: Lipid Panel L AB: Testosterone, Total 4. O thers Referral To:[facility] Reason:Evaluate and Treat Right Shoulder Pain * Labs: * L ab: URINE DIP STICK (Collection Date & Time - 10/28/2024) Value Reference Range S G 1.010 1.005 - 1.025 * p H 6.0 5.0 - 9.0 * L EU Negative Negative - * N IT Negative Negative - * P RO 15 Negative - Trace * G ROXY Negative Negative - * K ET Negative Negative - * U BG 0.2 0.1 - 1.8 * B IL Negative 0.2 - 1.3 * B LD Negative Negative - * Procedure Codes: 8 1002 URINE-NO MICRO * Preventive Medicine: Counseling: C are goal follow-up plan: Counseling for abnormal BMI given Y es Above Normal BMI Follow-up D ietary management education, guidance, and counseling, Dietary needs education, Exercise promotion: strength training, Exercise promotion: stretching, Feeding regime, Giving encouragement to exercise, Lifestyle education regarding diet, Nutrition / feeding management, Nutrition therapy, Prescribed activity/exercise education, Prescribed diet education, Prescribed dietary intake, Special diet education, Weight monitoring , Intervention, Order not done: Medical or Other reason not done S moking/Tobacco Use Patient counseled on the dangers of tobacco use and urged to quit. 0 10/28/2024 * Follow Up: 3 Months (Reason: OV) * Images: * Sign off status: Completed true * Provider: Roseanna Mccabe MD Date: 0 10/28/2024 [facility] katya/Cayetano/eTransmitting on: 1 08/08/2024 08:46 AM EST History and Physical Notes * HPI (History of Present Illness) Category Sub-Category Detail Notes Depression Screening PHQ-9 Little inte rest or pleasure in doing things: Several days Feeling down, depressed, or hopeless: No t at all Trouble falling or staying asleep, or sl eeping too much: Several days Feeling tired or having little energy: S everal days Poor appetite or overeating: Nearly ever y day Feeling bad about yourself o r that you are a failure, or have let yourself or your family down: Nearly every day Trouble concentrating on thi ngs, such as reading the newspaper or watching television: More than half the days Moving or speaking so slowly that other people could have noticed; or the opposite, being so fidgety or restless that you have been moving around a lot more than usual: Not at all Thoughts that you would be b hardik off or of hurting yourself in some way: Not at all Total Score: 11 Interpretation: Moderate Depression COVID-19 Screening Questions Have you had any new onset fever, chills, cough, congestion, sore throat, shortness of breath, muscle aches?: No SDOH Questions SDOH Questions In the past year have you or any family members you live with been unable to get any of the following when it was really needed? Check all that apply:: Decline to answer Examination Category Sub-Category Detail Notes General Examination [...] normal, no s3, or vascular bruits LUNGS: , diminished breath sounds throughout, no wheezes, rales, rhonchi, good air movement ABDOMEN: bowel sounds normal, no ascites, no organomegaly, no mass NEUROLOGIC: alert and oriented, cranial nerves 2-12 grossly intact, deep tendon reflexes 2+ symmetrical, motor strength normal upper and lower extremities, sensory exam intact SKIN: no suspicious lesion s, anicteric PERIPHERAL PULSES: normal BREASTS: no masses palpable b ilaterally, Gynecomastia resolved MUSCULOSKELETAL: extremities unremark able, no clubbing, cyanosis or edema, Mild pain to range of motion right LYMPH NODES: no enlarged lymph no isacc,spleen normal RECTAL EXAM: not examined PSYCH: alert, oriented, tho ught process logical, goal directed, speech clear, cognitive function intact ORAL CAVITY: normal, unremarkable Consultation Request Notes Referral Date Referring Provider Referred Provider Not wendie 10/28/20[address] [facility] ([place]) Evaluate and Treat Right Shoulder Pain
--- OUTSIDE RECORDS SUMMARY | 2024-11-01 09:23 | XMS_ITS ---
Author Organization Genaro Mccabe III, MD Address [address] [place] [address] [place] [address] Care Team Providers Care Supervisor Compressed Yeast Name Role Phone Dr. Genaro Mccabe III Primary Care Provider REASON FOR VISIT Rx requst Medications Medication SIG (Take, Route, Fr equency, Duration) Notes Start Date End Date Status Naproxen 500 MG 1 tablet with food o r milk Orally every 12 hrs prn pain for 30 days 06/29/2023 10/27/2025 Active Social History Sex Assigned At : Social History Observation Description Sex Assigned At Male Encounters Encounter Location Date Provider Diagnosis Genaro Mccabe III, MD [address] [place] [address] [place] [address] 11/01/2024 Genaro Mccabe Benign prostatic hyperplasia, unspecified whether lower urinary tract symptoms present N40.0 Assessments Encounter Date Diagnosis (ICD Code) Assessment Notes Treatment Notes Treatment Clinical Notes 11/01/2024 Benign prostatic hyperplasia, unspecified whether lower urinary tract symptoms present (ICD-10 - N40.0) He has been rising from sleep once or twice a night to urinate. He does not wish to take more medication. We discussed modifications in his lifestyle that would reduce nocturia. Plan Of Treatment Medication Medication Name Sig Start Date Stop Date Notes Naproxen 500 MG 1 tablet with food o r milk Orally every 12 hrs prn pain for 30 days 06/29/2023 10/27/2025 Next Appt Details Provider Name:Genaro Mccabe , 07/06/2025 09:00:00 AM, [facility] [address], [place], [address], Provider Name:Genaro Mccabe , 10/31/2025 10:30:00 AM, [facility] [address], [place], [address], Progress Notes * Genaro MAYNARD EDOB:1960 (64 yo M)Acc No.[id number]:11/01/2024 Patient: Genaro CELAYA Sorin :1960 A ge:64 Y S ex:Male Address:[address] [place] [address] * Refills Refill Naproxen Tablet, 500 MG, Orally, 60, 1 tablet with food or milk, every 12 hrs prn pain, 30 days, Refills=11 * true * Date: Generated for Laura aldana/Cayetano/Osminsmitting on: 08/08/2024 08:45 AM EST
--- OUTSIDE RECORDS SUMMARY | 2025-01-20 09:00 | XMS_ITS ---
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 Genaro Mccabe III Primary Care Provider [phone] Allergies Allergen (clinical drug ingredient) Drug/Non Drug Allergy documented on EMR Reaction Allergy Type Onset Date Status No Known Drug Allergy Unknown Drug Allergy Active No Known Food Allergy Unknown Drug Allergy Active REASON FOR VISIT Erectile dysfunction, Right groin pain, Sleep apnea, Benign prostatic hypertrophy, Arthritis left knee, Low back pain, Hypogonadism, Hypertension Medications Medication SIG (Take, Route, Frequency, Duration) Notes Start Date End Date Status Naproxen 500 MG 1 tablet with food o r milk Orally every 12 hrs prn pain 06/29/2023 Active Pantoprazole Sodium 40 MG Oral Active Acetaminophen 325 MG 1 tablet as needed Orally every 4 hrs as needed Active Sildenafil Citrate 50 MG 1 tablet Orally if beeded for 6 days 01/20/2025 04/02/2025 Active Armodafinil 250 MG Oral A ctive Sildenafil Citrate 50 MG 1 tablet as nee ded Orally Once a day 01/22/2025 Active Social History Tobacco Use: Social History Observation Description Date Details (start date - stop date) Former Smoker NA - NA Sex Assigned At : Social History Observation Description Sex Assigned At Male Tobacco Control (Standard) Question Answer Notes Tobacco use: Former smoker How long has it been since you last smoked? 5-10 years Additional Findings: Tobacco non-user Ex-cigaret te smoker Problems Problem Type SNOMED Code ICD Code Onset Dates Problem Status W/U Status Risk Notes Problem [id number] Right groin pain (R10.31) Active confirmed The right groin pain has resolved Vital Signs Temperature 98.1 degrees Fahrenheit 01/21/20 25 Blood pressure systolic 135 mm Hg 01/21/20 25 Blood pressure diastolic 80 mm Hg 025 Heart Rate 63 /min 01/20/2025 Height 74 in 01/20/2025 Weight 297 lbs 01/20/2025 BMI 38.13 kg/m2 01/20/2025 Encounters Encounter Location Date Provider Diagnosis Genaro Mccabe III, MD [address] [place] [address] [address], [place] [address] 01/20/2025 Genaro Mccabe Benign prostatic hyperplasia, unspecified whether lower urinary tract symptoms present N40.0 ; Right groin pain R10.31 ; Sleep apnea G47.30 ; Former smoker Z87.891 ; Cardiomyopathy I42.9 ; Primary osteoarthritis of left knee M17.12 ; Obesity (BMI 30-39.9) E66.9 ; Hyperlipidemia, unspecified hyperlipidemia type E78.5 ; HTN (hypertension) I10 and ED (erectile dysfunction) of organic origin N52.9 Assessments Encounter Date Diagnosis (ICD Code) Assessment Notes Treat ment Notes Treatment Clinical Notes 01/20/2025 Benign prostatic hyperplasia, unspecified whether lower urinary tract symptoms present (ICD-10 - N40.0) He has been rising from sleep once or twice a night to urinate. He does not wish to take more medication. We discussed modifications in his lifestyle that would reduce nocturia. 01/20/2025 Right groin pain (ICD-10 - R10.31) Examination did not give the diagnosis. The pain is likely musculature. He will use a heating pad and rest and follow-up. If it does not resolve an x-ray of the hip joint will be done. 01/20/2025 Sleep apnea (ICD-10 - G47.30) He has been compliant with his pulmonary visits. His CPAP was adjusted recently and is now more comfortable. He is using it every night. He reports his daytime somnolence has improved. 01/20/2025 Former smoker (ICD-10 - Z87.891) We discussed a plan to prevent relapse by controlling behavior during illness and periods of stress. 01/20/2025 Cardiomyopathy (ICD-10 - I42.9) His recent echocardiogram is normal. The cardiomyopathy has resolved and this problem will be removed from the problem list. Because of his dyspnea is likely pulmonary.There was no sign of congestive heart failure or fluid overload on today's examination. 01/20/2025 Primary osteoarthritis of left knee (ICD-10 - M17.12) The right knee pain has improved and left knee pain is worse. He is going to return to the orthopedic surgeon for further injections. I urged him to discuss all of the options. 01/20/2025 Obesity (BMI 30-39.9) (ICD-10 - E66.9) His body mass index is 39. We have discussed his diet and nutrition. We made a plan to lose weight at a rate of one half of a pound per week through a diet restricted in fat calories and sodium combined with regular physical activity. 01/20/2025 Hyperlipidemia, unspecified hyperlipidemia type (ICD-10 - E78.5) His lipids have been stable. No change in his regimmen was needed today. 01/20/2025 HTN (hypertension) (ICD-10 - I10) His blood pressure today is stable. No change in his regimen was made. 01/20/2025 ED (erectile dysfunction) of organic origin (ICD-10 - N52.9) This problem was successfully resolved with medication.A Viagra prescription was refilled Plan Of Treatment Medication Medication Name Sig Start Date Stop Date Notes Naproxen 500 MG 1 tablet with food o r milk Orally every 12 hrs prn pain 06/29/2023 Pantoprazole Sodium 40 MG Oral Acetaminophen 325 MG 1 tablet as needed Orally every 4 hrs as needed Sildenafil Citrate 50 MG 1 tablet Orally if beeded for 6 days 01/20/2025 04/02/2025 Armodafinil 250 MG Oral Sildenafil Citrate 50 MG 1 tablet as nee ded Orally Once a day 01/22/2025 Next Appt Details Follow Up: 2 Weeks, Reason: ov Provider Name:Genaro Mccabe , 07/06/2025 09:00:00 AM, [address] [place] [address] DR LAURY Arabella, [facility] [place], [address], Provider Name:Genaro Mccabe , 10/31/2025 10:30:00 AM, [address] [place] [address] [address], [place], [address], Progress Notes * Genaro MAYNARD EDOB:1960 (64 yo M)Acc No.[id number]:01/20/2025 Progress Notes Patient: Genaro CELAYA Provider: Roseanna Mccabe MD :1960 A ge:64 Y S ex:Male Date:01/20/2025 Address:[address] [place], [place] [id number] Subjective: * Chief Complaints: * E rectile dysfunctionRight groin painSleep apneaBenign prostatic hypertrophyArthritis left kneeLow back painHypogonadismHypertension * HPI: C OVID-19 Screening: Gayle brownlee comes to the office today with several issues. He has lost 8 pounds sugar diet and exercise. He has developed a pain in his inner right groin that radiates to the back of his leg. He experiences this only when lying down or sitting but not with walking. Examination today failed to show a hernia of any abnormality of the hip joint. Evaluation was begun. He has noted difficulty maintaining an erection and was given a trial of Viagra. He will report back on the success of that prescription. His other medical problems are stable. Questions H ave you had any new onset fever, chills, cough, congestion, sore throat, shortness of breath, muscle aches? N o * ROS: G eneral/Constitutional: pain R ight groin. C hills d enies. F atigue?admits. F ever d enies. E NT: Decreased hearing d enies. R espiratory: Cough d enies. C ardiovascular: Chest pain with exertion d enies. D yspnea on exertion?denies. S hortness of breath d enies. G astrointestinal: Constipation o ccasional. D ecreased appetite d enies. D iarrhea d enies. H eartburn d enies. N ausea d enies. R ectal bleeding d enies. V omiting d enies. H ematology: bruising d enies. p etechiae d enies. S wollen glands n one have been noted. G enitourinary: Frequent urination o nce a night. M usculoskeletal: Muscle aches d enies. P ainful joints d enies. S ciatica d enies. W eakness d [...] dditional Findings: Tobacco non-user E x-cigarette smoker H e is working a [employer] company and is engaged to be . He was born in [place]. Smoking: No. Physical Activity: Walks at work. * Medications: T akingSildenafil Citrate 50 MG Tablet 1 tablet as needed Orally Once a day Acetaminophen 325 MG Tablet 1 tablet as needed Orally every 4 hrs , Notes to Pharmacist: as neededPantoprazole Sodium 40 MG Tablet Delayed Release Oral Armodafinil 250 MG Tablet Oral Naproxen 500 MG Tablet 1 tablet with food or milk Orally every 12 hrs prn pain , stop date 10/27/2025Medication List reviewed and reconciled with the patientTaking Sildenafil Citrate 50 MG Tablet 1 tablet as needed Orally Once a day Taking Acetaminophen 325 MG Tablet 1 tablet as needed Orally every 4 hrs , Notes to Pharmacist: as neededTaking Pantoprazole Sodium 40 MG Tablet Delayed Release Oral Taking Armodafinil 250 MG Tablet Oral Taking Naproxen 500 MG Tablet 1 tablet with food or milk Orally every 12 hrs prn pain , stop date 10/27/2025Medication List reviewed and reconciled with the patient * Allergies: N o Known Drug AllergyNo Known Food Allergyno[Allergies Verified] Objective: * Vitals: H t: 74, Wt: 297, BMI:38.13, BP: 135/80, HR: 63, Temp: 98.1, Wt-k.72. * P ast Orders: Lab:Lipid Panel * Collection Date 01/05/2025 07/30/2023 10/29/2022 Collection Time 08:20 AM 09:14 AM 09:29 AM Order Date 01/05/2025 07/30/2023 10/29/2022 Triglycerides 82 (Ref Range: <150 mg/dL) 66 (Ref Range: <150 mg/dL) 95 (Ref Range: mg/dL) Cholesterol 205 H (Ref Range: <200 mg/dL) 209 H (Ref Range: <200 mg/dL) 193 (Ref Range: mg/dL) LDL Cholesterol Calculated 135 H (Ref Range: <100 mg/dL) 147 H (Ref Range: <100 mg/dL) 130 (Ref Range: mg/dl) HDL Cholesterol 54 (Ref Range: >40 mg/dL) 49 (Ref Range: >40 mg/dL) 44 (Ref Range: mg/dL) * Lab:Comprehensive [place]. Pane l Fast * Collection Date 01/05/2025 07/30/2023 10/29/2022 Collection Time 08:20 AM 09:14 AM 09:29 AM Order Date 01/05/2025 07/30/2023 10/29/2022 Sodium 139 (Ref Range: 135-145 mmol/L) 140 (Ref Range: 135-145 mmol/L) 140 (Ref Range: 135-145 mmol/L) Bilirubin Total 0.8 (Ref Range: 0.0-1.0 mg/dL) 0.9 (Ref Range: 0.0-1.0 mg/dL) 1.0 (Ref Range: 0.0-1.0 mg/dL) Aspartate Amino Transferase 32 (Ref Range: 5-37 U/L) 43 H (Ref Range: 5-37 U/L) 24 (Ref Range: 5-37 U/L) Alanine Aminotransferase 31 (Ref Range: 0-40 U/L) 38 (Ref Range: 0-40 U/L) 26 (Ref Range: 0-40 U/L) Total Protein 8.0 (Ref Range: 6.5-8.0 g/dL) 7.8 (Ref Range: 6.5-8.0 g/dL) 7.4 (Ref Range: 6.5-8.0 g/dL) Albumin Level 4.6 (Ref Range: 3.5-5.0 g/dL) 4.4 (Ref Range: 3.5-5.0 g/dL) 4.2 (Ref Range: 3.5-5.0 g/dL) Alkaline Phosphatase 82 (Ref Range: 39-117 U/L) 59 (Ref Range: 39-117 U/L) 78 (Ref Range: 39-117 U/L) Potassium 3.9 (Ref Range: 3.3-5.1 mmol/L) 3.9 (Ref Range: 3.3-5.1 mmol/L) 4.1 (Ref Range: 3.3-5.1 mmol/L) Chloride 107 (Ref Range: 96-108 mmol/L) 106 (Ref Range: 96-108 mmol/L) 107 (Ref Range: 96-108 mmol/L) Carbon Dioxide 27 (Ref Range: 22-29 mmol/L) 26 (Ref Range: 22-29 mmol/L) 25 (Ref Range: 22-29 mmol/L) Anion Gap 9 L (Ref Range: 12-20) 12 (Ref Range: 12-20) 12 (Ref Range: 12-20) Blood Urea Nitrogen 14 (Ref Range: 9-16 mg/dL) 13 (Ref Range: 9-16 mg/dL) 16 (Ref Range: 9-16 mg/dL) Creatinine 1.16 (Ref Range: 0.5-1.4 mg/dL) 1.11 (Ref Range: 0.5-1.4 mg/dL) 1.12 (Ref Range: 0.5-1.4 mg/dL) Estimated Glomerular Filt Rate > 60 > 60 > 60 Glucose Fasting 109 H (Ref Range: 60-99 mg/dL) 104 H (Ref Range: 60-99 mg/dL) 101 H (Ref Range: 60-99 mg/dL) Calcium 9.3 (Ref Range: 8.4-10.2 mg/dL) 9.7 (Ref Range: 8.4-10.2 mg/dL) 9.4 (Ref Range: 8.4-10.2 mg/dL) * Lab:Complete Blood Count Aut o Diff * Collection Date 01/05/2025 08/04/2024 05/10/2024 Collection Time 08:20 AM 11:39 AM 02:14 PM Order Date 01/05/2025 08/04/2024 05/10/2024 White Blood Count 6.7 (Ref Range: 4.8-10.8 X10*3/uL) 5.1 (Ref Range: 4.8-10.8 X10*3/uL) 5.1 (Ref Range: 4.8-10.8 X10*3/uL) Red Blood Count 5.16 (Ref Range: 4.60-5.80 X10*6/uL) 4.93 (Ref Range: 4.60-5.80 X10*6/uL) 5.04 (Ref Range: 4.60-5.80 X10*6/uL) Hemoglobin 14.6 (Ref Range: 14.0-18.0 g/dl) 14.0 (Ref Range: 14.0-18.0 g/dl) 14.3 (Ref Range: 14.0-18.0 g/dl) Hematocrit 42.7 (Ref Range: 42.0-52.0 %) 41.1 L (Ref Range: 42.0-52.0 %) 42.3 (Ref Range: 42.0-52.0 %) Mean Corpuscular Volume 82.8 (Ref Range: 80.0-98.0 fL) 83.4 (Ref Range: 80.0-98.0 fL) 83.9 (Ref Range: 80.0-98.0 fL) Mean Corpuscular Hemoglobin 28.3 (Ref Range: 27.0-33.0 pg) 28.4 (Ref Range: 27.0-33.0 pg) 28.4 (Ref Range: 27.0-33.0 pg) Mean Corpuscular HGB Conc 34.2 (Ref Range: 31.0-36.0 g/dl) 34.1 (Ref Range: 31.0-36.0 g/dl) 33.8 (Ref Range: 31.0-36.0 g/dl) Red Cell Distribution Width 14.4 (Ref Range: 11.0-16.0 %) 14.5 (Ref Range: 11.0-16.0 %) 13.8 (Ref Range: 11.0-16.0 %) Platelet Count 194 (Ref Range: 160-400 X10*3/uL) 179 (Ref Range: 160-400 X10*3/uL) 171 (Ref Range: 160-400 X10*3/uL) Mean Platelet Volume 8.5 L (Ref Range: 9.4-12.4 fL) 8.6 L (Ref Range: 9.4-12.4 fL) 8.9 L (Ref Range: 9.4-12.4 fL) Neutrophils Percent Auto 53.4 (Ref Range: 45-73 %) 51.2 (Ref Range: 45-73 %) 49.8 (Ref Range: 45-73 %) Imm Gran Pct Auto 0.4 (Ref Range: 0.0-0.4 %) 0.6 H (Ref Range: 0.0-0.4 %) 0.2 (Ref Range: 0.0-0.4 %) Lymphocytes Percent Auto 37.3 (Ref Range: 20-40 %) 38.3 (Ref Range: 20-40 %) 40.6 H (Ref Range: 20-40 %) Monocytes Percent Auto 7.0 (Ref Range: 2-11 %) 7.7 (Ref Range: 2-11 %) 7.0 (Ref Range: 2-11 %) Eosinophils Percent Auto 1.6 (Ref Range: 0-4 %) 1.8 (Ref Range: 0-4 %) 2.0 (Ref Range: 0-4 %) Basophils Percent Auto 0.3 (Ref Range: 0-2 %) 0.4 (Ref Range: 0-2 %) 0.4 (Ref Range: 0-2 %) NRBC Pct Auto 0.0 (Ref Range: 0.0-0.2 /100WBC) 0.0 (Ref Range: 0.0-0.2 /100WBC) 0.0 (Ref Range: 0.0-0.2 /100WBC) Neutrophils Absolute Auto 3.6 (Ref Range: 2.0-8.3 x10*3/uL) 2.6 (Ref Range: 2.0-8.3 x10*3/uL) 2.6 (Ref Range: 2.0-8.3 x10*3/uL) Imm Gran Abs Auto 0.03 (Ref Range: 0.00-0.03 X10*3/uL) 0.03 (Ref Range: 0.00-0.03 X10*3/uL) 0.01 (Ref Range: 0.00-0.03 X10*3/uL) Lymphocytes Absolute Auto 2.5 (Ref Range: 1.2-4.9 X10*3/uL) 2.0 (Ref Range: 1.2-4.9 X10*3/uL) 2.1 (Ref Range: 1.2-4.9 X10*3/uL) Monocytes Absolute Auto 0.5 (Ref Range: 0.1-1.2 X10*3/uL) 0.4 (Ref Range: 0.1-1.2 X10*3/uL) 0.4 (Ref Range: 0.1-1.2 X10*3/uL) Eosinophils Absolute Auto 0.1 (Ref Range: 0.0-0.4 X10*3/uL) 0.1 (Ref Range: 0.0-0.4 X10*3/uL) 0.1 (Ref Range: 0.0-0.4 X10*3/uL) Basophils Absolute Auto 0.0 (Ref Range: 0.0-0.2 X10*3/uL) 0.0 (Ref Range: 0.0-0.2 X10*3/uL) 0.0 (Ref Range: 0.0-0.2 X10*3/uL) NRBC Abs Auto 0.000 (Ref Range: 0.0-0.012 X10*3/uL) 0.000 (Ref Range: 0.0-0.012 X10*3/uL) 0.000 (Ref Range: 0.0-0.012 X10*3/uL) * Lab:Testosterone, Total * Collection Date 01/05/2025 07/30/2023 Collection Time 08:20 AM 09:14 AM Order Date 01/05/2025 07/30/2023 Testosterone, Total 153 A (Ref Range: 250-1100 ng/dL) 176 A (Ref Range: 250-1100 ng/dL) * Lab:Prostate Specific Antige n * Collection Date 01/05/2025 11/20/2023 04/17/2023 Collection Time 08:20 AM 08:42 AM 10:33 AM Order Date 01/05/2025 11/20/2023 04/17/2023 Prostate Specific Antigen < 0.10 (Ref Range: <0.05-4.0 ng/mL) < 0.10 (Ref Range: <0.05-4.0 ng/mL) 0.13 (Ref Range: <0.05-4.0 ng/mL) * Lab:URINE DIP STICK * Collection Date [...] developed, in no acute distress, calm and relaxed: obese: : man. HEAD: a traumatic, normocephalic. EYES: e [...] normal, no s3, or vascular bruits. LUNGS: c lear to auscultation . BREASTS: no masses palpable bilaterally. ABDOMEN: b owel sounds normal, no ascites, no organomegaly, no mass:: centripital obesity. RECTAL EXAM: n ot examined. MUSCULOSKELETAL: e xtremities unremarkable, no clubbing, cyanosis or edema. PERIPHERAL PULSES: n ormal. NEUROLOGIC: a lert and oriented, cranial nerves 2-12 grossly intact, deep tendon reflexes 2+ symmetrical, motor strength normal upper and lower extremities, sensory exam intact. PSYCH: a lert, oriented. Assessment: * Assessment: 1. R ight groin pain - R10.31 (Primary) N otes :Examination did not give the diagnosis. The pain is likely musculature. He will use a heating pad and rest and follow-up. If it does not resolve an x-ray of the hip joint will be done. 2 . B enign prostatic hyperplasia, unspecified whether lower urinary tract symptoms present - N40.0 N otes :He has been rising from sleep once or twice a night to urinate. He does not wish to take more medication. We discussed modifications in his lifestyle that would reduce nocturia. 3 . S leep apnea - G47.30 N otes :He has been compliant with his pulmonary visits. His CPAP was adjusted recently and is now more comfortable. He is using it every night. He reports his daytime somnolence has improved. 4 . F ormer smoker - Z87.891 N otes :We discussed a plan to prevent relapse by controlling behavior during illness and periods of stress. 5 . C ardiomyopathy - I42.9 N otes :His recent echocardiogram is normal. The cardiomyopathy has resolved and this problem will be removed from the problem list. Because of his dyspnea is likely pulmonary.There was no sign of congestive heart failure or fluid overload on today's examination. 6 . P rimary osteoarthritis of left knee - M17.12 N otes :The right knee pain has improved and left knee pain is worse. He is going to return to the orthopedic surgeon for further injections. I urged him to discuss all of the options. 7 . O besity (BMI 30-39.9) - E66.9 N otes :His body mass index is 39. We have discussed his diet and nutrition. We made a plan to lose weight at a rate of one half of a pound per week through a diet restricted in fat calories and sodium combined with regular physical activity. 8 . H yperlipidemia, unspecified hyperlipidemia type - E78.5 N otes :His lipids have been stable. No change in his regimmen was needed today. 9 . H TN (hypertension) - I10 N otes :His blood pressure today is stable. No change in his regimen was made. 1 0. E D (erectile dysfunction) of organic origin - N52.9 N otes :This problem was successfully resolved with medication.A Viagra prescription was refilled Plan: * Treatment: 2. B enign prostatic hyperplasia, unspecified whether lower urinary tract symptoms present Continue Naproxen Tablet, 500 MG, 1 tablet with food or milk, Orally, every 12 hrs prn pain; C ontinue Acetaminophen Tablet, 325 MG, 1 tablet as needed, Orally, every 4 hrs, Notes to Pharmacist: as needed; C ontinue Pantoprazole Sodium Tablet Delayed Release, 40 MG, Oral; C ontinue Armodafinil Tablet, 250 MG, Oral; S tart Sildenafil Citrate Tablet, 50 MG, 1 tablet, Orally, if beeded, 6 days, 6 Tablet, Refills 11. * Procedure Codes: * Preventive Medicine: Counseling: C are goal [...] tobacco use and urged to quit. 0 01/20/2025 * Follow Up: 2 Weeks (Reason: ov) * Images: * Sign off status: Completed true * Provider: Roseanna Mccabe MD Date: 0 01/20/2025 Generated for Laura aldana/Cayetano/Yordan on: 08/08/2024 08:45 AM EST History and Physical Notes * HPI (History of Present Illness) Category Sub-Category Detail Notes COVID-19 Screening Questions Have you had any new onset fever, chills, cough, congestion, sore throat, shortness of breath, muscle aches?: No Examination Category Sub-Category Detail Notes General Examination GENERAL APPEARANCE: pleasant , well nourished, well developed, in no acute distress, calm and relaxed: obese: : man HEAD: atraumatic, normocep halic EYES: eomi, perrla, anicte lui, conjugate EARS: normal NOSE: septum intact NECK/THYROID: no jugular venous di stention, no carotid bruit, thyroid normal HEART: no clicks, gallops, murmurs, or rubs, regular rhythm, S1, S2 normal, no s3, or vascular bruits LUNGS: clear to auscultatio n ABDOMEN: bowel sounds normal, no ascites, no organomegaly, no mass:: centripital obesity NEUROLOGIC: alert and oriented, cranial [...]
--- OUTSIDE RECORDS SUMMARY | 2025-01-31 11:45 | XMS_ITS ---
Author Organization Genaro Mccabe III, MD Address [address] [place] [address] [place] [address] Care Team Providers Care Water Quality Specialist Name Role Phone Dr. Genaro Mccabe III Primary Care Provider REASON FOR VISIT Follow up Social History Sex Assigned At : Social History Observation Description Sex Assigned At Male Encounters Encounter Location Date Provider Diagnosis Genaro Mccabe III, MD [address] [place] [address] [place] [address] 01/31/2025 Genaro Mccabe Plan Of Treatment Next Appt Details Provider Name:Genaro Mccabe , 07/06/2025 09:00:00 AM, [address] [place] [address] [place], [address], Provider Name:Genaro Mccabe , 10/31/2025 10:30:00 AM, [address] [place] [address] [place], [address], Progress Notes * Genaro MAYNARD EDOB:1960 (64 yo M)Acc No.[id number]:01/31/2025 Progress Notes Patient: Genaro CELAYA Sorin Provider: Roseanna Mccabe MD :1960 A ge:64 Y S ex:Male Date:01/31/2025 Address:[address] [facility] Subjective: * Chief Complaints: * 1 . Follow up. * Medical History: Objective: * Vitals: Assessment: Plan: * Treatment: * Images: * The named appointment provid er may or may not be the originator of this progress note, and it is not deemed complete until electronically signed by the appointment provider. Sign off status: Pending * Provider: Roseanna Mccabe MD Date: 0 01/31/2025 Generated for Laura aldana/Cayetano/Danieitting on: 08/08/2024 08:46 AM EST
--- OUTSIDE RECORDS SUMMARY | 2025-03-07 04:15 | XMS_ITS ---
Author Organization Genaro Mccabe III, MD Address [address] [place] [address] [place] [address] Care Team Providers Care Wheel Polisher Name Role Phone Dr. Genaro Mccabe III Primary Care Provider [phone] Allergies Allergen (clinical drug ingredient) Drug/Non Drug Allergy documented on EMR Reaction Allergy Type Onset Date Status No Known Drug Allergy Unknown Drug Allergy Active No Known Food Allergy Unknown Drug Allergy Active REASON FOR VISIT Result right groin pain, Erectile dysfunction, Sleep apnea, Arthritis left knee, Benign prostatic hypertrophy, Hypogonadism, Obesity, Bunion right foot Medications Medication SIG (Take, Route, Frequency, Duration) Notes Start Date End Date Status Pantoprazole Sodium 40 MG Oral Active Acetaminophen 325 MG 1 tablet as needed Orally every 4 hrs as needed Active Armodafinil 250 MG Oral A ctive Sildenafil Citrate 50 MG 1 tablet as nee ded Orally Once a day 01/22/2025 Active Naproxen 500 MG 1 tablet with food o r milk Orally every 12 hrs prn pain 06/29/2023 Active Social History Tobacco Use: Social History Observation Description Date Details (start date - stop date) Former Smoker NA - NA Sex Assigned At : Social History Observation Description Sex Assigned At Male Tobacco Control (Standard) Question Answer Notes Tobacco use: Former smoker How long has it been since you last smoked? 5-10 years Additional Findings: Tobacco non-user Ex-cigaret te smoker Vital Signs Temperature 98.4 degrees Fahrenheit 03/07/20 25 Blood pressure systolic 138 mm Hg 03/07/20 25 Blood pressure diastolic 83 mm Hg 025 Heart Rate 67 /min 03/07/2025 Height 74 in 03/07/2025 Weight 297 lbs 03/07/2025 BMI 38.13 kg/m2 03/07/2025 Encounters Encounter Location Date Provider Diagnosis Genaro Mccabe III, MD [address] [place] [address] [place] [address] 03/07/2025 Genaro Mccabe Benign prostatic hyperplasia, unspecified whether lower urinary tract symptoms present N40.0 ; Obesity (BMI 30-39.9) E66.9 ; Right groin pain R10.31 ; Former smoker Z87.891 ; Sleep apnea G47.30 ; Primary osteoarthritis of left knee M17.12 ; Cardiomyopathy I42.9 ; History of pulmonary embolism Z86.711 and Hallux valgus (acquired), right foot M20.11 Assessments Encounter Date Diagnosis (ICD Code) Assessment Notes Treat ment Notes Treatment Clinical Notes 03/07/2025 Benign prostatic hyperplasia, unspecified whether lower urinary tract symptoms present (ICD-10 - N40.0) He has been rising from sleep once or twice a night to urinate. He does not wish to take more medication. We discussed modifications in his lifestyle that would reduce nocturia. 03/07/2025 Obesity (BMI 30-39.9) (ICD-10 - E66.9) His body mass index is 39. We have discussed his diet and nutrition. We made a plan to lose weight at a rate of one half of a pound per week through a diet restricted in fat calories and sodium combined with regular physical activity. 03/07/2025 Right groin pain (ICD-10 - R10.31) The right groin pain has resolved 03/07/2025 Former smoker (ICD-10 - Z87.891) We discussed a plan to prevent relapse by controlling behavior during illness and periods of stress. 03/07/2025 Sleep apnea (ICD-10 - G47.30) He has been compliant with his pulmonary visits. His CPAP was adjusted recently and is now more comfortable. He is using it every night. He reports his daytime somnolence has improved. 03/07/2025 Primary osteoarthritis of left knee (ICD-10 - M17.12) The right knee pain has improved and left knee pain is worse. He is going to return to the orthopedic surgeon for further injections. I urged him to discuss all of the options. 03/07/2025 Cardiomyopathy (ICD-10 - I42.9) His recent echocardiogram is normal. The cardiomyopathy has resolved and this problem will be removed from the problem list. Because of his dyspnea is likely pulmonary.There was no sign of congestive heart failure or fluid overload on today's examination. 03/07/2025 History of pulmonary embolism (ICD-10 - Z86.711) He is no longer anticoagulated and has no pulmonary symptoms or chest pain. He was instructed to notify me immediately if any symptoms related to blood clots occur. 03/07/2025 Hallux valgus (acquired), right foot (ICD-10 - M20.11) He has an appointment with podiatry March 21, 2024. Plan Of Treatment Medication Medication Name Sig Start Date Stop Date Notes Pantoprazole Sodium 40 MG Oral Acetaminophen 325 MG 1 tablet as needed Orally every 4 hrs as needed Armodafinil 250 MG Oral Sildenafil Citrate 50 MG 1 tablet as nee ded Orally Once a day 01/22/2025 Naproxen 500 MG 1 tablet with food o r milk Orally every 12 hrs prn pain 06/29/2023 Next Appt Details Follow Up: 3 Months, Reason: OV Provider Name:Genaro Mccabe , 07/06/2025 09:00:00 AM, [address] [place] [address] [address], [place], [address], Provider Name:Genaro Mccabe , 10/31/2025 10:30:00 AM, [address] [place] [address] [address], [facility] [place], [address], Progress Notes * ALEYDAGenaro EDOB:1960 (64 yo M)Acc No.[id number]:03/07/2025 Progress Notes Patient: Genaro CELAYA Provider: Roseanna Mccabe MD :1960 A ge:64 Y S ex:Male Date:03/07/2025 Address:[address] [place], [place] [id number] Subjective: * Chief Complaints: * R esult right groin painErectile dysfunctionSleep apneaArthritis left kneeBenign prostatic hypertrophyHypogonadismObesityBunion right foot * HPI: C OVID-19 Screening: Gayle brownlee returns for management of numerous issues. He had surgery recently on his right foot for a bunion. It is improved but still hurts with walking. He has not yet used the sildenafil. He has a CPAP machine and uses it every night. He rises from sleep about once a night to urinate. Left knee bothers him sometimes but is not debilitating. He has had no chest pain or shortness of breath or bleeding. Questions H ave you had any new onset fever, chills, cough, congestion, sore throat, shortness of breath, muscle aches? N o * ROS: G eneral/Constitutional: pain R ight foot, the right groin pain has resolved, low back pain. C hills d enies. F atigue a [...] Muscle aches d enies. P ainful joints L eft knee.?Sciatica d enies. W eakness d enies. S [...] x-cigarette smoker H e is working a [employer] company and is engaged to be . He was born in [place]. Smoking: No. Physical Activity: Walks at work. * Medications: T akingNaproxen 500 MG Tablet 1 tablet with food or milk Orally every 12 hrs prn pain Acetaminophen 325 MG Tablet 1 tablet as needed Orally every 4 hrs , Notes to Pharmacist: as neededPantoprazole Sodium 40 MG Tablet Delayed Release Oral Armodafinil 250 MG Tablet Oral Sildenafil Citrate 50 MG Tablet 1 tablet as needed Orally Once a day Taking Naproxen 500 MG Tablet 1 tablet with food or milk Orally every 12 hrs prn pain Taking Acetaminophen 325 MG Tablet 1 tablet as needed Orally every 4 hrs , Notes to Pharmacist: as neededTaking Pantoprazole Sodium 40 MG Tablet Delayed Release Oral Taking Armodafinil 250 MG Tablet Oral Taking Sildenafil Citrate 50 MG Tablet 1 tablet as needed Orally Once a day DiscontinuedSildenafil Citrate 50 MG Tablet 1 tablet Orally if beeded , stop date 04/02/2025Medication List reviewed and reconciled with the patientDiscontinued Sildenafil Citrate 50 MG Tablet 1 tablet Orally if beeded , stop date 04/02/2025Medication List reviewed and reconciled with the patient * Allergies: N o Known Drug AllergyNo Known Food Allergyno[Allergies Verified] Objective: * Vitals: H t: 74, Wt: 297, BMI:38.13, BP: 138/83, HR: 67, Temp: 98.4, Wt-k.72. * Examination: G eneral Examination: GENERAL APPEARANCE: p leasant, well nourished, well developed, in no acute distress, calm and relaxed: obese: man. HEAD: a traumatic, normocephalic. EYES: e [...] sounds normal, no ascites, no organomegaly, no mass: centripital obesity. RECTAL EXAM: n ot examined. MUSCULOSKELETAL: e xtremities unremarkable, no clubbing, cyanosis or edema, Left knee has no effusion and is free of crepitus but hurts for range of motion.? PERIPHERAL PULSES: n ormal. NEUROLOGIC: a lert and oriented, cranial nerves 2-12 grossly intact, deep tendon reflexes 2+ symmetrical, motor strength normal upper and lower extremities, sensory exam intact. PSYCH: a lert, oriented. Assessment: * Assessment: 1. O besity (BMI [...] lifestyle that would reduce nocturia. 3 . R ight groin pain - R10.31 N otes :The right groin pain has resolved 4 . F ormer smoker - Z87.891 N otes :We discussed a plan to prevent relapse by controlling behavior during illness and periods of stress. 5 . S leep apnea - G47.30 N otes :He has been compliant with his pulmonary visits. His CPAP was adjusted recently and is now more comfortable. He is using it every night. He reports his daytime somnolence has improved. 6 . P rimary osteoarthritis of left knee - M17.12 N otes :The right knee pain has improved and left knee pain is worse. He is going to return to the orthopedic surgeon for further injections. I urged him to discuss all of the options. 7 . C ardiomyopathy - I42.9 N otes :His recent echocardiogram is normal. The cardiomyopathy has resolved and this problem will be removed from the problem list. Because of his dyspnea is likely pulmonary.There was no sign of congestive heart failure or fluid overload on today's examination. 8 . H istory of pulmonary embolism - Z86.711 N otes :He is no longer anticoagulated and has no pulmonary symptoms or chest pain. He was instructed to notify me immediately if any symptoms related to blood clots occur. 9 . H allux valgus (acquired), right foot - M20.11 N otes :He has an appointment with podiatry March 21, 2024. Plan: * Treatment: 2. R ight groin pain Continue Sildenafil Citrate Tablet, 50 MG, 1 tablet as needed, Orally, Once a day. * Procedure Codes: * Preventive Medicine: Counseling: [...] tobacco use and urged to quit. 0 03/07/2025 * Follow Up: 3 Months (Reason: OV) * Images: * Sign off status: Completed true * Provider: Roseanna Mccabe MD Date: 0 03/07/2025 Generated for Nellyi katya/Cayetano/Danieitting on: 1 08/08/2024 08:45 AM EST History and Physical Notes * HPI (History of Present Illness) Category Sub-Category Detail Notes COVID-19 Screening Questions Have you had any new onset fever, chills, cough, congestion, sore throat, shortness of breath, muscle aches?: No Examination Category Sub-Category Detail Notes General Examination GENERAL APPEARANCE: pleasant , well nourished, well developed, in no acute distress, calm and relaxed: obese: man HEAD: atraumatic, normocep halic EYES: eomi, perrla, anicte lui, conjugate EARS: normal NOSE: septum intact NECK/THYROID: no jugular venous di stention, no carotid bruit, thyroid normal HEART: no clicks, gallops, murmurs, or rubs, regular rhythm, S1, S2 normal, no s3, or vascular bruits LUNGS: clear to auscultatio n ABDOMEN: bowel sounds normal, no ascites, no organomegaly, no mass: centripital obesity NEUROLOGIC: alert and oriented, cranial nerves 2-12 grossly intact, deep tendon reflexes 2+ symmetrical, motor strength normal upper and lower extremities, sensory exam intact SKIN: no suspicious lesion s, anicteric PERIPHERAL PULSES: normal BREASTS: no masses palpable b ilaterally MUSCULOSKELETAL: extremities unremark able, no clubbing, cyanosis or edema, Left knee has no effusion and is free of crepitus but hurts for range of motion LYMPH NODES: no enlarged lymph no isacc,spleen normal RECTAL EXAM: not examined PSYCH: alert, oriented ORAL CAVITY: normal, unremarkable
--- OUTSIDE RECORDS SUMMARY | 2025-03-07 12:00 | XMS_ITS ---
Author Organization Genaro Mccabe III, MD Address [address] [place] [address] [place] [address] Care Team Providers Care Manager Center Name Role Phone Dr. Genaro Mccabe III Primary Care Provider REASON FOR VISIT Follow up Social History Sex Assigned At : Social History Observation Description Sex Assigned At Male Encounters Encounter Location Date Provider Diagnosis Genaro Mccabe III, MD [address] [place] [address] [address] [place] [address] 03/07/2025 Genaro Mccabe Plan Of Treatment Next Appt Details Provider Name:Genaro Mccabe , 07/06/2025 09:00:00 AM, [address] [place] [address] [place], [address], Provider Name:Genaro Mccabe , 10/31/2025 10:30:00 AM, [address] [place] [address] [place], [address], Progress Notes * Genaro MAYNARD EDOB:1960 (64 yo M)Acc No.[id number]:03/07/2025 Progress Notes Patient: Genaro CELAYA Sorin Provider: Roseanna Mccabe MD :1960 A ge:64 Y S ex:Male Date:03/07/2025 Address:[facility] Subjective: * Chief Complaints: * 1 [...] Mccabe MD Date: 0 03/07/2025 Generated for Laura aldana/Cayetano/Osminsmitting on: 08/08/2024 08:46 AM EST
--- OUTSIDE RECORDS SUMMARY | 2025-03-08 12:00 | XMS_ITS ---
Author Organization Genaro Mccabe III, MD Address [address] [place] [address] [place] [address] Care Team Providers Care Paper Mill Superintendent Name Role Phone Dr. Genaro Mccabe III Primary Care Provider REASON FOR VISIT Follow up Social History Sex Assigned At : Social History Observation Description Sex Assigned At Male Encounters Encounter Location Date Provider Diagnosis Genaro Mccabe III, MD [address] [place] [address] [place] [address] 03/08/2025 Genaro Mccabe Plan Of Treatment Next Appt Details Provider Name:Genaro Mccabe , 07/06/2025 09:00:00 AM, [address] [place] [address] [place], [address], Provider Name:Genaro Mccabe , 10/31/2025 10:30:00 AM, [address] [place] [address] [place], [address], Progress Notes * Genaro MAYNARD EDOB:1960 (64 yo M)Acc No.[id number]:03/08/2025 Progress Notes Patient: Genaro CELAYA Sorin Provider: Roseanna Mccabe MD :1960 A ge:64 Y S ex:Male Date:03/08/2025 Address:[id number] Subjective: * Chief Complaints: * 1 . Follow up. * Medical History: Objective: * Vitals: Assessment: Plan: * Treatment: * Images: * The named appointment provid er may or may not be the originator of this progress note, and it is not deemed complete until electronically signed by the appointment provider. Sign off status: Pending * Provider: Roseanna Mccabe MD Date: 0 03/08/2025 Generated for Laura aldana/Cayetano/Danieitting on: 08/08/2024 08:45 AM EST
--- OUTSIDE RECORDS SUMMARY | 2025-04-07 04:00 | XMS_ITS ---
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 Genaro Mccabe III Primary Care Provider [phone] Allergies Allergen (clinical drug ingredient) Drug/Non Drug Allergy documented on EMR Reaction Allergy Type Onset Date Status No Known Drug Allergy Unknown Drug Allergy Active No Known Food Allergy Unknown Drug Allergy Active REASON FOR VISIT Right shoulder pain, Sleep apnea, benign Prostatic hypertrophy, Arthritis, left knee, Cardiomyopathy, Low back pain, Hypogonadism, Hypertension, Obesity Medications Medication SIG (Take, Route, Frequency, Duration) Notes Start Date End Date Status Naproxen 500 MG 1 tablet with food o r milk Orally every 12 hrs prn pain 06/29/2023 Active Acetaminophen 325 MG 1 tablet as needed Orally every 4 hrs as needed Active Armodafinil 250 MG Oral A ctive Pantoprazole Sodium 40 MG Oral Active Sildenafil Citrate 50 MG 1 tablet [...] non-user Ex-cigaret te smoker Vital Signs Temperature 98.2 degrees Fahrenheit 04/07/20 25 Blood pressure systolic 139 mm Hg 04/07/20 25 Blood pressure diastolic 79 mm Hg 025 Heart Rate 55 /min 04/07/2025 Height 74 in 04/07/2025 Weight 294 lbs 04/07/2025 BMI 37.74 kg/m2 04/07/2025 Encounters Encounter Location Date Provider Diagnosis Genaro Mccabe III, MD [address] [place] [address] [place] [address] 04/07/2025 Genaro Mccabe Benign prostatic hyperplasia, unspecified whether lower urinary tract symptoms present N40.0 ; Obesity (BMI 30-39.9) E66.9 ; Hyperlipidemia, unspecified hyperlipidemia type E78.5 ; ED (erectile dysfunction) of organic origin N52.9 ; Former smoker Z87.891 ; Sleep apnea G47.30 ; Primary osteoarthritis of left knee M17.12 ; Cardiomyopathy I42.9 and Hypogonadism in male E29.1 Assessments Encounter Date Diagnosis (ICD Code) Assessment Notes Treat ment Notes Treatment Clinical Notes 04/07/2025 Benign prostatic hyperplasia, unspecified whether lower urinary tract symptoms present (ICD-10 - N40.0) He has been rising from sleep once or twice a night to urinate. He does not wish to take more medication. We discussed modifications in his lifestyle that would reduce nocturia. 04/07/2025 Obesity (BMI 30-39.9) (ICD-10 - E66.9) His body mass index is 37. He has lost 3 pounds. We made a plan to lose weight at a rate of one half of a pound per week until the body mass index is normal. 04/07/2025 Hyperlipidemia, unspecified hyperlipidemia type (ICD-10 - E78.5) 04/07/2025 ED (erectile dysfunction) of organic origin (ICD-10 - N52.9) This problem has been successfully addressed with medication. 04/07/2025 Former smoker (ICD-10 - Z87.891) We discussed a plan to prevent relapse by controlling behavior during illness and periods of stress. 04/07/2025 Sleep apnea (ICD-10 - G47.30) He has been compliant with his pulmonary visits. His CPAP was adjusted recently and is now more comfortable. He is using it every night. He reports his daytime somnolence has improved. 04/07/2025 Primary osteoarthritis of left knee (ICD-10 - M17.12) The right knee pain has improved and left knee pain is worse. He is going to return to the orthopedic surgeon for further injections. I urged him to discuss all of the options. 04/07/2025 Cardiomyopathy (ICD-10 - I42.9) His recent echocardiogram is normal. The cardiomyopathy has resolved and this problem will be removed from the problem list. Because of his dyspnea is likely pulmonary.There was no sign of congestive heart failure or fluid overload on today's examination. 04/07/2025 Hypogonadism in male (ICD-10 - E29.1) He is under the care of a urologist for this and has medication. Plan Of Treatment Medication Medication Name Sig Start Date Stop Date Notes Naproxen 500 MG 1 tablet with food o r milk Orally every 12 hrs prn pain 06/29/2023 Acetaminophen 325 MG 1 tablet as needed Orally every 4 hrs as needed Armodafinil 250 MG Oral Pantoprazole Sodium 40 MG Oral Sildenafil Citrate 50 MG 1 tablet as nee ded Orally Once a day 01/22/2025 Pending Test Test Name Order Date PROFILE, FASTING (COMPREHENSIVE METABOLI C) 04/07/2025 CBC w DIFF 04/07/2025 Lipid Panel 04/07/2025 Testosterone, Total 04/07/2025 Next Appt Details Follow Up: 3 Months, Reason: OV Provider Name:Genaro Mccabe , 07/06/2025 09:00:00 AM, [address] [place] [address] [address], [place], [address], Provider Name:Genaro Mccabe , 10/31/2025 10:30:00 AM, [address] [place] [address] [address], [place], [id number], Progress Notes * Genaro MAYNARD EDOB:1960 (64 yo M)Acc No.[id number]:04/07/2025 Progress Notes Patient: Genaro CELAYA Provider: Roseanna Mccabe MD :1960 A ge:64 Y S ex:Male Date:04/07/2025 Address:[address] [place] [address] [id number] Subjective: * Chief Complaints: * R ight shoulder painSleep apneabenign Prostatic hypertrophyArthritis, left kneeCardiomyopathyLow back painHypogonadismHypertensionObesity * HPI: C OVID-19 Screening: Gayle brownlee returns for medical management. His chief complaint is pain in his right shoulder.? He is under the care of [facility] orthopedic surgeons. He has had injections in his right shoulder and is scheduled for another in May. He has a CPAP machine which he uses every night. He has lost 3 pounds. Gastroenterology has ordered an ultrasound of his liver to investigate abnormal liver function tests. He had many questions about this, which I answered as well as a current and then refer him back to GI. Questions H ave you had any new onset fever, chills, cough, congestion, sore throat, shortness of breath, muscle aches? N o * ROS: G eneral/Constitutional: pain R ight shoulder and left knee. C hills d enies. F atigue [...] Muscle aches d enies. P ainful joints R ight shoulder, right foot, left knee. S ciatica d enies. W eakness d enies. S kin: Itching d enies. R selene d enies. S kin lesion(s)?denies. N eurologic: Difficulty speaking d enies. D izziness d enies.?Headache d enies. L ow back pain t hat is chronic. P sychiatric: Depressed mood w hich is mild. * Medical History: * Surgical History: B ilateral bunionectomy 05/27/2024 * Hospitalization/Major Diagno stic Procedure: N o [...] x-cigarette smoker H e is working a [employer] company and is engaged to be . He was born in [place]. Smoking: No. Physical Activity: Walks at work. [...] tablet as needed Orally Once a day Medication List reviewed and reconciled with the patientTaking Naproxen 500 MG Tablet 1 tablet with food or milk Orally every 12 hrs prn pain Taking Acetaminophen 325 MG Tablet 1 tablet as needed Orally every 4 hrs , Notes to Pharmacist: as neededTaking Pantoprazole Sodium 40 MG Tablet Delayed Release Oral Taking Armodafinil 250 MG Tablet Oral Taking Sildenafil Citrate 50 MG Tablet 1 tablet as needed Orally Once a day Medication List reviewed and reconciled with the patient * Allergies: N o Known Drug AllergyNo Known Food Allergyno[Allergies Verified] Objective: * Vitals: H t: 74, Wt: 294, BMI:37.74, BP: 139/79, HR: 55, Temp: 98.2, Wt-k.[id number]. * Examination: G eneral Examination: GENERAL APPEARANCE: p leasant, well nourished, well developed, in no acute distress, : obese: man. HEAD: a traumatic, normocephalic. EYES: [...] normal, no s3, or vascular bruits. LUNGS: : diminished breath sounds throughout: no wheezes, rales, rhonchi. BREASTS: no masses palpable bilaterally. ABDOMEN: b owel sounds normal, no ascites, no organomegaly, no mass: centripital obesity. RECTAL EXAM: n ot examined. MUSCULOSKELETAL: e xtremities unremarkable, no clubbing, cyanosis or edema, Diminished range of motion right shoulder, normal range of motion right knee, Crepitus left knee, bilateral bunionectomy scars. PERIPHERAL PULSES: n ormal. NEUROLOGIC: a lert and oriented, cranial nerves 2-12 grossly intact, deep tendon reflexes 2+ symmetrical, motor strength normal upper and lower extremities, sensory exam intact. PSYCH: a lert, oriented. Assessment: * Assessment: 1. O besity (BMI 30-39.9) - E66.9 (Primary) N otes :His body mass index is 37. He has lost 3 pounds. We made a plan to lose weight at a rate of one half of a pound per week until the body mass index is normal. 2 . B enign prostatic hyperplasia, unspecified whether lower urinary tract symptoms present - N40.0 N otes :He has been rising from sleep once or twice a night to urinate. He does not wish to take more medication. We discussed modifications in his lifestyle that would reduce nocturia. 3 . H yperlipidemia, unspecified hyperlipidemia type - E78.5 4 . E D (erectile dysfunction) of organic origin - N52.9 N otes :This problem has been successfully addressed with medication. 5 . F ormer smoker - Z87.891 N otes :We discussed a plan to prevent relapse by controlling behavior during illness and periods of stress. 6 . S leep apnea - G47.30 N otes :He has been compliant with his pulmonary visits. His CPAP was adjusted recently and is now more comfortable. He is using it every night. He reports his daytime somnolence has improved. 7 . P rimary osteoarthritis of left knee - M17.12 N otes :The right knee pain has improved and left knee pain is worse. He is going to return to the orthopedic surgeon for further injections. I urged him to discuss all of the options. 8 . C ardiomyopathy - I42.9 N otes :His recent echocardiogram is normal. The cardiomyopathy has resolved and this problem will be removed from the problem list. Because of his dyspnea is likely pulmonary.There was no sign of congestive heart failure or fluid overload on today's examination. 9 . H ypogonadism in male - E29.1 N otes :He is under the care of a urologist for this and has medication. Plan: * Treatment: 2. B enign prostatic [...] Oral; C ontinue Armodafinil Tablet, 250 MG, Oral. L AB: PROFILE, FASTING (COMPREHENSIVE METABOLIC) L AB: CBC w DIFF L AB: Lipid Panel L AB: Testosterone, Total 3. H yperlipidemia, unspecified hyperlipidemia type L AB: PROFILE, FASTING (COMPREHENSIVE METABOLIC) L AB: CBC w DIFF L AB: Lipid Panel L AB: Testosterone, Total 4. E D (erectile dysfunction) of organic origin L AB: PROFILE, FASTING (COMPREHENSIVE METABOLIC) L AB: CBC w DIFF L AB: Lipid Panel L AB: Testosterone, Total 5. O thers Continue Sildenafil Citrate Tablet, 50 MG, 1 [...] of tobacco use and urged to quit. 1 * Follow Up: 3 Months (Reason: OV) * Images: * Sign off status: Completed true * Provider: Roseanna Mccabe MD Date: Generated for Nellyi ng/Farisag/eTransmitting on: 08/08/2024 08:45 AM EST History and Physical Notes * HPI (History of Present Illness) Category Sub-Category Detail Notes COVID-19 Screening Questions Have you had any new onset fever, chills, cough, congestion, sore throat, shortness of breath, muscle aches?: No Examination Category Sub-Category Detail Notes General Examination GENERAL APPEARANCE: pleasant , well nourished, well developed, in no acute distress, : obese: man HEAD: atraumatic, normocep halic EYES: eomi, perrla, anicte lui, conjugate EARS: normal NOSE: septum intact NECK/THYROID: no jugular venous di stention, no carotid bruit, thyroid normal HEART: no clicks, gallops, murmurs, or rubs, regular rhythm, S1, S2 normal, no s3, or vascular bruits LUNGS: : diminished breath sounds throughout: no wheezes, rales, rhonchi ABDOMEN: bowel sounds normal, no ascites, no organomegaly, no mass: centripital obesity NEUROLOGIC: alert and oriented, cranial nerves 2-12 grossly intact, deep tendon reflexes 2+ symmetrical, motor strength normal upper and lower extremities, sensory exam intact SKIN: no suspicious lesion s, anicteric PERIPHERAL PULSES: normal BREASTS: no masses palpable b ilaterally MUSCULOSKELETAL: extremities unremark able, no clubbing, cyanosis or edema, Diminished range of motion right shoulder, normal range of motion right knee, Crepitus left knee, bilateral bunionectomy scars LYMPH NODES: no enlarged lymph no isacc,spleen normal RECTAL EXAM: not examined PSYCH: alert, oriented ORAL CAVITY: normal, unremarkable
--- OUTSIDE RECORDS SUMMARY | 2025-06-02 08:30 | XMS_ITS ---
Author Organization Genaro Mccabe III, MD Address [address] [place] [address] [address] [place] [address] Care Team Providers Care Joss House Keeper Name Role Phone Dr. Genaro Mccabe III Primary Care Provider Allergies Allergen (clinical drug ingredient) Drug/Non Drug Allergy documented on EMR Reaction Allergy Type Onset Date Status No Known Drug Allergy Unknown Drug Allergy Active No Known Food Allergy Unknown Drug Allergy Active REASON FOR VISIT Acute bacterial bronchitis, Sleep apnea, Benign prosthetic hypertrophy, Cardiomyopathy, Hypogonadism, Hypertension, Hyperlipidemia, Obesity Medications Medication SIG (Take, Route, Frequency, Duration) Notes Start Date End Date Status Sildenafil Citrate 50 MG 1 tablet as nee ded Orally Once a day 01/22/2025 Active Naproxen 500 MG 1 tablet with food o r milk Orally every 12 hrs prn pain 06/29/2023 Active Acetaminophen 325 MG 1 tablet as needed Orally every 4 hrs as needed Active Pantoprazole Sodium 40 MG Oral Active Armodafinil 250 MG Oral A ctive Social History Tobacco Use: Social History Observation [...] Problem Status W/U Status Risk Notes Problem [id number] Acute bronchitis due to other specified organisms (J20.8) Active confirmed He will use acetaminophen and fluids and rest, expectorants and cough suppressants containing dextromethorphan . He will call me if he worsens. He was given an antibiotic. Vital Signs Height 74 in 06/02/2025 Weight 294 lbs 06/02/2025 BMI 37.74 kg/m2 06/02/2025 Encounters Encounter Location Date Provider Diagnosis Genaro Mccabe III, MD [address] [place] [address] [place] [address] 06/02/2025 Genaro Mccabe Acute bronchitis due to other specified organisms J20.8 ; Benign prostatic hyperplasia, unspecified whether lower urinary tract symptoms present N40.0 ; Sleep apnea G47.30 ; Former smoker Z87.891 ; HTN (hypertension) I10 ; Cardiomyopathy I42.9 ; Primary osteoarthritis of left knee M17.12 ; Back pain, unspecified back location, unspecified back pain laterality, unspecified chronicity M54.9 ; History of pulmonary embolism Z86.711 and Obesity (BMI 30-39.9) E66.9 Assessments Encounter Date Diagnosis (ICD Code) Assessment Notes Treat ment Notes Treatment Clinical Notes 06/02/2025 Acute bronchitis due to other specified organisms (ICD-10 - J20.8) He will use acetaminophen and fluids and rest, expectorants and cough suppressants containing dextromethorphan. He will call me if he worsens. He was given an antibiotic. 06/02/2025 Benign prostatic hyperplasia, unspecified whether lower urinary tract symptoms present (ICD-10 - N40.0) He has been rising from sleep once or twice a night to urinate. He does not wish to take more medication. We discussed modifications in his lifestyle that would reduce nocturia. 06/02/2025 Sleep apnea (ICD-10 - G47.30) He has been compliant with his pulmonary visits. His CPAP was adjusted recently and is now more comfortable. He is using it every night. He reports his daytime somnolence has improved. 06/02/2025 Former smoker (ICD-10 - Z87.891) We discussed a plan to prevent relapse by controlling behavior during illness and periods of stress. 06/02/2025 HTN (hypertension) (ICD-10 - I10) His blood pressure today is stable. No change in his regimen was made. 06/02/2025 Cardiomyopathy (ICD-10 - I42.9) His recent echocardiogram is normal. The cardiomyopathy has resolved and this problem will be removed from the problem list. Because of his dyspnea is likely pulmonary.There was no sign of congestive heart failure or fluid overload on today's examination. 06/02/2025 Primary osteoarthritis of left knee (ICD-10 - M17.12) The right knee pain has improved and left knee pain is worse. He is going to return to the orthopedic surgeon for further injections. I urged him to discuss all of the options. 06/02/2025 Back pain, unspecified back location, unspecified back pain laterality, unspecified chronicity (ICD-10 - M54.9) The back pain is at baseline. It is mild and chronic. He is able to work and accomplish all of the activities of daily life. No change in his therapy was made. 06/02/2025 History of pulmonary embolism (ICD-10 - Z86.711) He is no longer anticoagulated and has no pulmonary symptoms or chest pain. He was instructed to notify me immediately if any symptoms related to blood clots occur. 06/02/2025 Obesity (BMI 30-39.9) (ICD-10 - E66.9) His body mass index is 37. He has lost 3 pounds. We made a plan to lose weight at a rate of one half of a pound per week until the body mass index is normal. Plan Of Treatment Medication Medication Name Sig Start Date Stop Date Notes Sildenafil Citrate 50 MG 1 tablet as nee ded Orally Once a day 01/22/2025 Naproxen 500 MG 1 tablet with food o r milk Orally every 12 hrs prn pain 06/29/2023 Acetaminophen 325 MG 1 tablet as needed Orally every 4 hrs as needed Pantoprazole Sodium 40 MG Oral Armodafinil 250 MG Oral Next Appt Details Follow Up: as scheduled, Deidre son: ov Provider Name:Genaro Mccabe , 07/06/2025 09:00:00 AM, [address] [place] [address] [place] [place], [place], [address], Provider Name:Genaro Mccabe , 10/31/2025 10:30:00 AM, [address] [place] [address] [place], [address], Progress Notes * Genaro MAYNARD EDOB:1960 (64 yo M)Acc No.[id number]:06/02/2025 Patient: Genaro CELAYA Provider: Roseanna Mccabe MD :1960 A ge:64 Y S ex:Male Date:06/02/2025 Address:[address] [place], [place] [id number] Subjective: * Chief Complaints: * A cute bacterial bronchitisSleep apneaBenign prosthetic hypertrophyCardiomyopathyHypogonadismHypertensionHyperlipidemiaObesity * HPI: * : This telehealth visit took place over 15 minutes with the patient at home and me in my office. He gave consent for billing. For the last 7 days he has had a low-grade fever and a productive cough of green phlegm. It began with a sore throat and chills and weakness. The productive cough and phlegm began 3 days ago. He has yet to feel better. He has been taking Tylenol and fluids. He was advised to use a cough suppressant that contains dextromethorphan and an expectorant. He was given an antibiotic and a follow-up visit. He also complains of pain in his right shoulder. Initial history will be addressed when he is examined in the near future after resolution of the infectious illness. Telehealth L ocation of provider rendering services: { ...} [address] [facility] [address] L ocation of patient: alysha ddress listed in demographics for today's visit P atient identification confirmed using: N ena, T elehealth method: T elephone only. Patient not visible to care provider. C onsent: P atient verbally consented to treatment, Patient verbally consented to billing insurance company, Patient informed of any privacy concerns related to method of visit T otal time spent with patient (mins) 1 5 * ROS: G eneral/Constitutional: pain R ight shoulder and both knees. C hills d enies. F atigue a dmits. F ever d enies. E NT: Decreased hearing d enies. R espiratory: Cough w orse at night. C ardiovascular: Chest pain with exertion d [...] enies.?Headache d enies. L ow back pain d enies. P sychiatric: Depressed mood d enies. * Medical History: * Surgical History: B [...] dditional Findings: Tobacco non-user E x-cigarette smoker Gayle brownlee is working a [employer] company and is engaged to be . He was born in [place]. Smoking: No. Physical Activity: Walks at work. [...] Vitals: H t: 74, Wt: 294, BMI:37.74, Ht-cm: 187.96, Wt-k.36. Assessment: * Assessment: 1. A cute bronchitis due to other specified organisms - J20.8 (Primary) N otes :He will use acetaminophen and fluids and rest, expectorants and cough suppressants containing dextromethorphan. He will call me if he worsens. He was given an antibiotic. 2 . S leep apnea - G47.30 N otes :He has been compliant with his pulmonary visits. His CPAP was adjusted recently and is now more comfortable. He is using it every night. He reports his daytime somnolence has improved. 3 . B enign prostatic hyperplasia, unspecified whether lower urinary tract symptoms present - N40.0 N otes :He has been rising from sleep once or twice a night to urinate. He does not wish to take more medication. We discussed modifications in his lifestyle that would reduce nocturia. 4 . F ormer smoker - Z87.891 N otes :We discussed a plan to prevent relapse by controlling behavior during illness and periods of stress. 5 . H TN (hypertension) - I10 N otes :His blood pressure today is stable. No change in his regimen was made. 6 . C ardiomyopathy - I42.9 N otes :His recent echocardiogram is normal. The cardiomyopathy has resolved and this problem will be removed from the problem list. Because of his dyspnea is likely pulmonary.There was no sign of congestive heart failure or fluid overload on today's examination. 7 . P rimary osteoarthritis of left knee - M17.12 N otes :The right knee pain has improved and left knee pain is worse. He is going to return to the orthopedic surgeon for further injections. I urged him to discuss all of the options. 8 . B ack pain, unspecified back location, unspecified back pain laterality, unspecified chronicity - M54.9 N otes :The back pain is at baseline. It is mild and chronic. He is able to work and accomplish all of the activities of daily life. No change in his therapy was made. 9 . H istory of pulmonary embolism - Z86.711 N otes :He is no longer anticoagulated and has no pulmonary symptoms or chest pain. He was instructed to notify me immediately if any symptoms related to blood clots occur. 1 0. O besity (BMI 30-39.9) - E66.9 N otes :His body mass index is 37. He has lost 3 pounds. We made a plan to lose weight at a rate of one half of a pound per week until the body mass index is normal. Plan: * Treatment: 2. O thers Continue Sildenafil Citrate Tablet, 50 MG, 1 tablet as needed, Orally, Once a day. * Procedure Codes: 9 8012 SYNCH AUDIO-ONLY EST SF 10 * Preventive Medicine: Counseling: C are goal follow-up plan: Counseling for abnormal BMI given Y es Above Normal BMI Follow-up D ietary management education, guidance, and counseling, Dietary needs education S moking/Tobacco Use Patient counseled on the dangers of tobacco use and urged to quit. 1 08/03/2024 * Follow Up: a s scheduled (Reason: ov) * Images: * Sign off status: Completed true * Provider: Roseanna Mccabe MD Date: 08/03/2024 Generated for Laura aldana/Cayetano/Danieitting on: 08/08/2024 08:45 AM EST History and Physical Notes * HPI (History of Present Illness) Category Sub-Category Detail Notes Telehealth Location of [facility] rendering services:: {...} [address] [place] [id number] Location of patient:: address listed in demographics for today's visit Patient identification confirmed using:: Name, Telehealth method:: Telephone only. Ana ent not visible to care provider. Consent:: Patient verbally c onsented to treatment, Patient verbally consented to billing insurance company, Patient informed of any privacy concerns related to method of visit Total time spent with patient (mins): 15
--- OUTSIDE RECORDS SUMMARY | 2025-06-06 12:00 | XMS_ITS ---
Author Organization Genaro Mccabe III, MD Address [address] [place] [address] [place] [address] Care Team Providers Care Case Managers Name Role Phone Dr. Genaro Mccabe III Primary Care Provider REASON FOR VISIT Follow up Social History Sex Assigned At : Social History Observation Description Sex Assigned At Male Encounters Encounter Location Date Provider Diagnosis Genaro Mccabe III, MD [address] [place] [address] [place] [address] 06/06/2025 Genaro Mccabe Plan Of Treatment Next Appt Details Provider Name:Genaro Mccabe , 07/06/2025 09:00:00 AM, [address] [place] [address] [place], [phone], Provider Name:Genaro Mccabe , 10/31/2025 10:30:00 AM, [address] [place] [address] [place], [address], Progress Notes * Genaro MAYNARD EDOB:1960 (64 yo M)Acc No.[id number]:06/06/2025 Progress Notes Patient: Genaro CELAYA Sorin Provider: Roseanna Mccabe MD :1960 A ge:64 Y S ex:Male Date:06/06/2025 Address:[address] [phone] Subjective: * Chief Complaints: * 1 . Follow up. * Medical History: Objective: * Vitals: Assessment: Plan: * Treatment: * Images: * The named appointment provid er may or may not be the originator of this progress note, and it is not deemed complete until electronically signed by the appointment provider. Sign off status: Pending * Provider: Roseanna Mccabe MD Date: 08/07/2024 Generated for Laura aldana/Cayetano/Danieitting on: 08/08/2024 08:45 AM EST
--- NOTE | ~2025-06-07 | US_ITS ---
EXAMINATION: US COMPLETE ABDOMEN WITH LIVER ELASTOGRAPHY CLINICAL INFORMATION: Abnormal blood chemistry COMPARISON: None available. TECHNIQUE: Real-time imaging of the abdominal viscera. Noninvasive ultrasound liver fibrosis assessment is performed using [employer]ast[employer] point quantification shear wave elastography (pSWE) with a C5-2 MHz transducer. Multiple elastography samples are obtained. FINDINGS: PANCREAS: The visualized pancreatic head and body are normal in appearance. The remainder of the pancreas is obscured from visualization by the overlying bowel gas. ABDOMINAL AORTA: No aortic aneurysm is seen. Distal aorta is obscured INFERIOR VENA CAVA: Visualized portions are normal. LIVER: The liver demonstrates normal contour. Increased parenchymal echogenicity.. No focal lesion or intrahepatic biliary duct dilatation. The right lobe measures 16.1 cm in length. The left lobe measures 12.1 cm in length. Portal flow is hepatopedal Shear wave liver elastography median stiffness is 1.15 m/s (reference: normal median stiffness is 1.3 m/s or less). IQR/median stiffness to assess sampling precision is 0.13 (reference: good quality data set is IQR/median stiffness of 0.15 or less). GALLBLADDER: The gallbladder is contracted without evidence of shadowing gallstones. No pericholecystic fluid is seen. COMMON BILE DUCT: Normal in caliber measuring 0.6 cm in diameter. RIGHT KIDNEY: No hydronephrosis. No renal calculi. Upper pole 2 cm cyst. The kidney measures 13 cm in maximum dimension. LEFT KIDNEY: No hydronephrosis. No renal calculi. Upper pole 1.3 cm cyst. The kidney measures 12.8 cm in maximum dimension. SPLEEN: Unremarkable. The spleen measures 11.2 cm in maximum dimension. FREE FLUID: None seen. US/US abdomen comp w elastography IMPRESSION: 1. There is generalized increase in hepatic echotexture, consistent with fatty infiltration or hepatocellular disease. Please correlate clinically. No focal hepatic mass or intrahepatic biliary duct dilatation is seen. 2. Liver elastography: Median stiffness 1.15 m/s *Liver Stiffness equal or less than 1.3 m/s: High probability of being normal. 3. Contracted gallbladder, limiting evaluation. 4. Bilateral renal cysts. REFERENCE: Society of Radiologists in Ultrasound Liver Stiffness Thresholds (2020): LIVER STIFFNESS THRESHOLDS: *Liver Stiffness equal or less than 1.3 m/s: High probability of being normal. *Liver Stiffness less than 1.7 m/s: In the absence of other known clinical signs, rules out compensated advanced chronic liver disease. *Liver Stiffness 1.7-2.1 m/s: Suggestive of compensated advanced chronic liver disease but need further test for confirmation. *Liver Stiffness over 2.1 m/s: Rules in compensated advanced chronic liver disease. *Liver Stiffness over 2.4 m/s: Suggestive of clinically significant portal hypertension. QUALITY OF DATA SET: *IQR/Median value equal or less than 0.15 implies a quality data set. *IQR/Median value over 0.15 implies a poor quality data set. SIGNIFICANT CHANGE FROM PRIOR EXAM: Significant change if liver stiffness measurement is 10% or greater from prior exam. OTHER CONSIDERATIONS: The stage of liver fibrosis may be overestimated in the setting of acute hepatitis, liver inflammation, elevated liver function tests, hepatic vascular congestion, obstructive cholestasis, non-fasting state, and diseases such as amyloidosis and lymphoma. In some patients with NAFLD, the liver stiffness thresholds for compensated advanced chronic liver disease may be lower. In causes other than viral hepatitis and NAFLD, liver stiffness thresholds are not well established. Electronically signed by: Chandu Vasquez MD 06/09/2025 09:11 AM [facility]
--- OUTSIDE RECORDS SUMMARY | 2025-06-07 08:46 | XMS_ITS | Clinical Summary ---
Author Organization [facility] Address [address] [place] [address] Phone Care Team Providers Care Rib Bender Name Role Phone Louise Mccabe MD Primary Care Provider [phone] Allergies No known active allergies Medications armodafiniL [...] 10/20/2019 Overview (03/28/2024): Home sleep study by [facility] Sleep medicine on 03/10/2019 Indications: Snoring, [...] cm of H2O with compliance data followed. Surgical History Surgery Date Site/Laterality Comments OTHER SURGICAL HISTORY Medical History Medical History Date Comments Gynecomastia DX:Gynecomastia Hypogonadism male DX:Hypogonadis m male Erectile dysfunction DX:Erectile dysfunction Chronic right shoulder pain DX:C hronic right shoulder pain Chronic back pain DX:Chronic carlene k pain Sleep apnea 03/10/2019 DX:Sleep apnea; COMMENT: Home sleep study([facility]) GERD (gastroesophageal reflux disease) Arthritis Joint [...] Years Used Date Smoking Tobacco: Former Cigarettes 0 Q uit: 2004 Passive Smoke Exposure: Past [...] Orientation Straight 05/27/2024 7: 37 AM EST Last Filed Vital Signs Vital Sign Reading [...] Done Comments Colorectal Cancer Screening: Colonoscopy 1960 Drug Screen 1960 Non-Opioid Controlled Substance Agreement 1960 Pneumococcal Vaccine: 50+ Years (2 of [...] this topic Medical Devices Implanted Type Area Radio Frequency Engineer Device Identifier Shelf Expiration Date Model / Serial / Lot Screw German Shrtthrd 3.0x18mm Mini-Mnstr Hdlss - Sna - [id number] Implanted:Qty: 2 on 05/27/2024 by Ashutosh Redding DPM at [facility] Internal and External Fixation Right: First Toe [employer] [id number] / NA / NA Screw German Shrtthrd 3.0x36mm Mini-Monster - Sna - [id number] Implanted:Qty: 1 on 05/27/2024 by Ashutosh Redding DPM at [facility] Internal and External Fixation Right: First Toe [employer] [id number] / NA / NA Insurance [facility] MEDICAID ADVANTAGE [address] [place] [address] [facility] Care Teams Rib Bender Relationship Specialty Start Date End Date Louise Mccabe MD [address] [address] PCP - General 09/18/20
--- OUTSIDE RECORDS SUMMARY | 2025-06-07 08:47 | XMS_ITS | Patient Health Record ---
Author Organization Genaro Mccabe III, MD Address [address] [place] [address] [place] [address] Care Team Providers Care Hot Dog Vendor Name Role Phone Dr. Genaro Mccabe III [...] ff Reviewed date:08/07/2024 09:04:48 AM Interpretation: Performing Lab:[facility], [address] [place] [phone] Notes/Report: White Blood Count 5.1 4.8-10.8 X10*3/uL [...] te Reviewed date:08/07/2024 09:04:49 AM Interpretation: Performing Lab:[address] [address] Notes/Report: Erythrocyte Sedimentation Rate 5 0-15 MM/HR Patients with polycythemia and many hemoglobin abnormalities may have depressed sed rates whereas patients with anemia may have elevated sed rates. Comprehensive Met. Panel Reviewed date:08/07/2024 09:04:49 AM Interpretation: Performing Lab:[address] [address] Notes/Report: Sodium 140 135-145 mmol/L Potassium 3.9 [...] Sensitivity Reviewed date:11/13/2024 08:18:32 PM Interpretation: Performing Lab:[address] [address] Notes/Report: CRP High Sensitivity 1.1 Reference Range [...] for Disease Control and Prevention and the [place] [employer]. Circulation 2003; 107(3): 499-511. THIS TEST WAS PERFORMED AT: [facility] [address] [place] [phone] JIM HOWARD MD Vitamin B12 and Folate Reviewed date:08/07/2024 09:04:49 AM Interpretation: Performing Lab:[address] [address] Notes/Report: Vitamin B12 558 200-900 pg/mL NORMAL 200-900 PG/ML INDETERMINATE 160-199 PG/ML DEFICIENT < 160 PG/ML Folate 9.3 > or = 4.0 ng/mL Reference Values: > or = 4.0 ng/mL < 4.0 ng/mL suggests folate deficiency Methotrexate, aminopterin and folinic acid (leucovorin) are chemotherapeutic agents whose molecular structures are similar to folate; therefore, the Coordinate Measuring Machine Programmer folate assay cannot be used for patients using these drugs. Vitamin B1 Reviewed date:11/13/2024 08:18:31 PM Interpretation: Performing Lab:[address] [address] Notes/Report: Vitamin B1 10 8-30 nmol/L Vitamin supplementation within 24 hours prior to blood draw may affect the accuracy of the results. This test was developed and its analytical performance characteristics have been determined by [facility] [place], [place]. It has not been cleared or approved by the U.S. Food and Drug Administration. This assay has been validated pursuant to the CLIA regulations and is used for clinical purposes. THIS TEST WAS PERFORMED AT: [facility] [address] ARUN RAHMAN MD,PHD Vitamin D 25-OH (D2 and D3) Reviewed date:11/13/2024 08:18:32 PM Interpretation: Performing Lab:[facility], [address] [place] [phone] Notes/Report: Vitamin D 25-OH, D2 <4 This test was developed and its analytical performance characteristics have been determined by [facility] [place] [place]. It has not been cleared or approved by the U.S. Food and Drug Administration. This assay has been validated pursuant to the CLIA regulations and is used for clinical purposes. THIS TEST WAS PERFORMED AT: [facility] [place] [id number] [place], [place] ARUN RAHMAN MD,PHD Vitamin D 25-OH, D3 20 This test was developed and its analytical performance characteristics have been determined by [facility] [place] [place]. It has not been cleared or [...] ng/mL. For additional information, please refer to http://education.MyGoodPoints/faq/QDA577 (This link is being provided for informational/ educational purposes only.) TSH reflex Free T4 Reviewed date:08/07/2024 09:04:49 AM Interpretation: Performing Lab:[address] [address] Notes/Report: TSH reflex Free T4 1.39 0.32-4.0 uIU/mL Syphilis Screen Reviewed date:08/07/2024 09:04:49 AM Interpretation: Performing Lab:[facility], [address] [place] [phone] Notes/Report: Syphilis Screen Nonreactive Nonreactive Hemoglobin A1c Reviewed date:08/07/2024 09:04:48 AM Interpretation: Performing Lab:[address] [address] Notes/Report: Hemoglobin A1c % 5.5 <6.0 % [...] average glucose, using the formula of the [id number]-Zkljtta Average Glucose study (ADAG), Diabetes Care, Vol.31,#8, Jan. 2007 HIV Ab/Ag Reviewed date:08/07/2024 09:04:49 AM Interpretation: Performing Lab:[address] [address] Notes/Report: HIV AB/AG Nonreactive Nonreactive HIV-1 p24 [...] limit of detection of this assay. The [employer]erspar HIV Ag/Ab Combo assay result and supplemental assay results should be interpreted in conjunction with the patient's clinical presentation, history and other laboratory results. If the results are inconsistent with clinical evidence, additional testing is suggested to confirm the result. Complete Blood Count Auto Di ff Reviewed date:01/14/2025 07:13:47 PM Interpretation: Performing Lab:[facility], [address] [place] [phone] Notes/Report: White Blood Count 6.7 4.8-10.8 X10*3/uL [...] NRBC Abs Auto 0.000 0.0-0.012 X10*3/uL Comprehensive [place]. Panel Fa st Reviewed date:01/14/2025 07:13:47 PM Interpretation: Performing Lab:[facility], [address] [place] [phone] Notes/Report: Sodium 139 135-145 mmol/L Potassium 3.9 [...] Panel Reviewed date:01/14/2025 07:13:47 PM Interpretation: Performing Lab:[facility], [address] [place] [phone] Notes/Report: Triglycerides 82 <150 mg/dL Desirable Triglyceride: [...] Antigen Reviewed date:01/14/2025 07:13:47 PM Interpretation: Performing Lab:[address] [address] Notes/Report: Prostate Specific Antigen < 0.10 <0.05-4.0 ng/mL PSA methodology: Coon FlagTapnity i Chemiluminescent Microparticle Immunoassay (CMIA) Testosterone, Total Reviewed date:01/14/2025 07:13:47 PM Interpretation: Performing Lab:[address] [address] Notes/Report: Testosterone, Total 919 628-2313 ng/dL Men with clinically significant hypogonadal symptoms and testosterone values repeatedly in the range of the 200-300 ng/dL or less, may benefit from testosterone treatment after adequate risk and benefits counseling. For additional information, please refer to http://education.MynewMD.[employer]/faq/ TotalTestosteroneLCMSMSFAQ1 65 (This link is being provided for informational/ educational purposes only.) This test was developed and its analytical performance characteristics have been determined by [facility] [place] [place]. It has not been cleared or approved by the U.S. Food and Drug Administration. This assay has been validated pursuant to the CLIA regulations and is used for clinical purposes. THIS TEST WAS PERFORMED AT: [facility] [address] ARUN RAHMAN MD,PHD Prostate Specific Antigen Reviewed date:03/06/2025 05:42:28 AM Interpretation: Performing Lab:[address] [address] Notes/Report: Prostate Specific Antigen 0.16 <0.05-4.0 ng/mL PSA methodology: Coon Alinity i Chemiluminescent Microparticle Immunoassay (CMIA) Vitamin D 25-OH (D2 and D3) Reviewed date:04/03/2025 05:15:06 AM Interpretation: Performing Lab:[facility], [address] [place] [address] Notes/Report: Vitamin D 25-OH, D2 <4 This test was developed and its analytical performance characteristics have been determined by [facility] [place] [place]. It has not been cleared or approved by the U.S. Food and Drug Administration. This assay has been validated pursuant to the CLIA regulations and is used for clinical purposes. THIS TEST WAS PERFORMED AT: [facility] ARUN RAHMAN MD,PHD Vitamin D 25-OH, D3 30 This test was developed and its analytical performance characteristics have been determined by [facility] [place] [place]. It has not been cleared or [...] ng/mL. For additional information, please refer to http://3Funnel.MyGoodPoints/faq/KQB427 (This link is being provided for informational/ educational purposes only.) Testosterone, Free/Total Reviewed date:04/03/2025 05:15:06 AM Interpretation: Performing Lab:[facility], [address] [place] [address] Notes/Report: Testosterone, Total 068 935-5588 ng/dL Men with clinically significant hypogonadal symptoms and testosterone values repeatedly in the range of the 200-300 ng/dL or less, may benefit from testosterone treatment after adequate risk and benefits counseling. For additional information, please refer to http://education.MynewMD.[employer]/faq/ TotalTestosteroneLCMSMSFAQ1 65 (This link is being provided for informational/ educational purposes only.) This test was developed and its analytical performance characteristics have been determined by [facility] [place] [place]. It has not been cleared or approved by the U.S. Food and Drug Administration. This assay has been validated pursuant to the CLIA regulations and is used for clinical purposes. Testosterone, Free 39.9 35.0-155.0 pg/mL This test was developed and its analytical performance characteristics have been determined by [facility] [place] [place]. It has not been cleared or approved by the U.S. Food and Drug Administration. This assay has been validated pursuant to the CLIA regulations and is used for clinical purposes. THIS TEST WAS PERFORMED AT: [facility] [address] [address] ARUN RAHMAN MD,PHD Reason For Referral Reason Evaluate and Treat Right Shoulder Pain Diagnosis 1 Right shoulder pain (M25.511) Referral Organization Genaro Mccabe III, MD Referring Provider First Name Genaro Referring Provider Last Name Estelle Referring Provider Speciality Internal M edicine Referred Provider [facility] Referred Provider Specialty Orthopedic S urgery General Notes DPatsy 11/02/2024 09:00:29 AM > Faxed referral with progress note, Patsy Evans 11/14/2024 04:24:01 PM > called patient questioning if he was able to schedule an appointment with [facility]. Message left on voicemail. Referral Priority Routine Referral Appointment Date 12/28/2024 [...] 03/18/2024 Administered COVID PFIZER Unknown 10/09/2020 Administered COVID-19 Moderna SPIKEVAX Unknown 03/10/2023 Administered COVID Pfizer Bivalent Unknown 04/16/2022 Administered Social History Tobacco Use: Social History [...] Problem Status W/U Status Risk Notes Problem 4720555 Former smoker (Z87.891) Active confirmed We discussed a plan to prevent relapse by controlling behavior during illness and periods of stress. Problem 084571154 Acute bronchitis due to other specified organisms (J20.8) Active confirmed He will use acetaminophen and fluids and rest, expectorants and cough suppressants containing dextromethorpha n. He will call me if he worsens. He was given an antibiotic. Problem Acquired hallux valgus (21540350) Hallux valgus (acquired), right foot (M20.11) Active confirmed He has an appointment with podiatry March 21, 2024. Problem Hypertension (60231025) HTN (hypertension) (I10) Active confirmed His blood pressure today is stable. No change in his regimen was made. Problem 597592552 Obesity (BMI 30-39.9) (E66.9) Active confirmed His body mass index is 37. He has lost 3 pounds. We made a plan to lose weight at a rate of one half of a pound per week until the body mass index is normal. Problem Cardiomyopathy (57817369) Cardiomyopathy (I42.9) Active confirmed His recent echocardiogram is normal. The cardiomyopathy has resolved and this problem will be removed from the problem list. Because of his dyspnea is likely pulmonary.There was no sign of congestive heart failure or fluid overload on today's examination. Problem Sleep apnea (56196868) Sleep apnea (G47.30) Active confirmed He has been compliant with his pulmonary visits. His CPAP was adjusted recently and is now more comfortable. He is using it every night. He reports his daytime somnolence has improved. Problem 267143026 History of pulmonary embolism (Z86.711) Active confirmed He is no longer anticoagulated and has no pulmonary symptoms or chest pain. He was instructed to notify me immediately if any symptoms related to blood clots occur. Problem 4288419 Gynecomastia (N62) Active confirmed He no longer has any breast tenderness. He checks frequently and has had negative findings. Problem 64526213 Hyperlipidemia, unspecified hyperlipidemia type (E78.5) Active confirmed His lipids have been stable. No change in his regimmen was needed today. Problem 03075296 Hypogonadism in male (E29.1) Active confirmed He is under the care of a urologist for this and has medication. Problem [id number] Right groin pain (R10.31) Active confirmed The right groi n pain has resolved Problem Benign prostatic hypertrophy without outflow obstruction (700953654) Benign prostatic hyperplasia, unspecified whether lower urinary tract symptoms present (N40.0) Active confirmed He has been rising from sleep once or twice a night to urinate. He does not wish to take more medication. We discussed modifications in his lifestyle that would reduce nocturia. Problem 488422903 Back pain, unspecified back location, unspecified back pain laterality, unspecified chronicity (M54.9) Active confirmed The back pain is at baseline. It is mild and chronic. He is able to work and accomplish all of the activities of daily life. No change in his therapy was made. 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 Problem [id number] Primary osteoarthritis of left knee (M17.12) Active confirmed The right knee pain has improved and left knee pain is worse. He is going to return to the orthopedic surgeon for further injections. I urged him to discuss all of the options. Problem 721305984 Bunion, right foot (M21.611) Active confirmed Her wound is healing well and the pain is receding. The leg but is using only a cane. He will follow-up with a duct maker in the near future. Vital Signs Heart Rate 55 /min 04/07/2025 Temperature 98.2 degrees Fahrenheit 04/07/2025 Blood pressure diastolic 79 mm Hg 04/07/2025 Height 74 in 06/02/2025 Blood pressure systolic 139 mm Hg 04/07/2025 Weight 294 lbs 06/02/2025 BMI 37.74 kg/m2 06/02/2025 Encounters Encounter Location Date Provider Diagnosis Genaro Mccabe III, MD [address] [place] [address] [place] [address] 08/04/2024 Genaro Mccabe Benign prostatic hyperplasia, unspecified whether lower urinary tract symptoms present N40.0 ; Sleep apnea G47.30 ; Former smoker Z87.891 ; Primary osteoarthritis of left knee M17.12 ; Cardiomyopathy I42.9 ; History of pulmonary embolism Z86.711 ; Hyperlipidemia, unspecified hyperlipidemia type E78.5 and Bunion, right foot M21.611 Genaro Mccabe III, MD [address] [place] [address] [place] [address] 10/28/2024 Genaro Mccabe Benign prostatic hyperplasia, unspecified whether lower urinary tract symptoms present N40.0 ; Obesity (BMI 30-39.9) E66.9 ; ED (erectile dysfunction) of organic origin N52.9 ; Primary osteoarthritis of left knee M17.12 ; Cardiomyopathy I42.9 ; Former smoker Z87.891 ; Sleep apnea G47.30 and History of pulmonary embolism Z86.711 Genaro Mccabe III, MD [address] [place] [address] [place] [address] 01/20/2025 Genaro Mccabe Benign prostatic hyperplasia, unspecified [...] organic origin N52.9 Genaro Mccabe III, MD [address] [place] [address] [place] [address] 03/07/2025 Genaro Mccabe Benign prostatic hyperplasia, unspecified whether lower urinary tract symptoms present N40.0 ; Obesity (BMI 30-39.9) E66.9 ; Right groin pain R10.31 ; Former smoker Z87.891 ; Sleep apnea G47.30 ; Primary osteoarthritis of left knee M17.12 ; Cardiomyopathy I42.9 ; History of pulmonary embolism Z86.711 and Hallux valgus (acquired), right foot M20.11 Genaro Mccabe III, MD [address] [place] [address] [place] [address] 04/07/2025 Genaro Mccabe Benign prostatic hyperplasia, unspecified whether lower urinary tract symptoms present N40.0 ; Obesity (BMI 30-39.9) E66.9 ; Hyperlipidemia, unspecified hyperlipidemia type E78.5 ; ED (erectile dysfunction) of organic origin N52.9 ; Former smoker Z87.891 ; Sleep apnea G47.30 ; Primary osteoarthritis of left knee M17.12 ; Cardiomyopathy I42.9 and Hypogonadism in male E29.1 Genaro Mccabe III, MD [address] [place] [address] [place] [address] 06/02/2025 Genaro Mccabe Acute bronchitis due to [...] embolism Z86.711 and Obesity (BMI 30-39.9) E66.9 Genaro Mccabe III, MD [address] [place] [address] [place] [address] 08/26/2024 Genaro Mccabe III, MD [address] [place] [address] [place] [address] 11/01/2024 Genaro Mccabe Benign prostatic hyperplasia, unspecified whether lower urinary tract symptoms present N40.0 Assessments Encounter Date Diagnosis (ICD Code) Assessment Notes Treat ment Notes Treatment Clinical Notes 08/04/2024 Sleep apnea (ICD-10 - G47.30) He [...] the body mass index is normal. 04/07/2025 Benign prostatic hyperplasia, unspecified whether lower urinary tract symptoms present (ICD-10 - N40.0) He has been rising from sleep once or twice a night to urinate. He does not wish to take more medication. We discussed modifications in his lifestyle that would reduce nocturia. 06/02/2025 Acute bronchitis due to other specified organisms (ICD-10 - J20.8) He will use acetaminophen and fluids and rest, expectorants and cough suppressants containing dextromethorphan. He will call me if he worsens. He was given an antibiotic. 11/01/2024 Benign prostatic hyperplasia, unspecified whether lower [...] R10.31) The right groin pain has resolved 04/07/2025 Hyperlipidemia, unspecified hyperlipidemia type (ICD-10 - E78.5) 06/02/2025 Sleep apnea (ICD-10 - G47.30) He has been compliant with his pulmonary visits. His CPAP was adjusted recently and is now more comfortable. He is using it every night. He reports his daytime somnolence has improved. 06/02/2025 Benign prostatic hyperplasia, unspecified whether lower urinary tract symptoms present (ICD-10 - N40.0) He has been rising from sleep once or twice a night to urinate. He does not wish to take more medication. We discussed modifications in his lifestyle that would reduce nocturia. 08/04/2024 Primary osteoarthritis of left knee (ICD-10 [...] during illness and periods of stress. 04/07/2025 ED (erectile dysfunction) of organic origin (ICD-10 - N52.9) This problem has been successfully addressed with medication. 06/02/2025 Former smoker (ICD-10 - Z87.891) We [...] reports his daytime somnolence has improved. 04/07/2025 Former smoker (ICD-10 - Z87.891) We discussed a plan to prevent relapse by controlling behavior during illness and periods of stress. 06/02/2025 HTN (hypertension) (ICD-10 - I10) His blood pressure today is stable. No change in his regimen was made. 08/04/2024 History of pulmonary embolism (ICD-10 - [...] to discuss all of the options. 04/07/2025 Sleep apnea (ICD-10 - G47.30) He has been compliant with his pulmonary visits. His CPAP was adjusted recently and is now more comfortable. He is using it every night. He reports his daytime somnolence has improved. 06/02/2025 Cardiomyopathy (ICD-10 - I42.9) His recent echocardiogram is normal. The cardiomyopathy has resolved and this problem will be removed from the problem list. Because of his dyspnea is likely pulmonary.There was no sign of congestive heart failure or fluid overload on today's examination. 08/04/2024 Hyperlipidemia, unspecified hyperlipidemia type (ICD-10 - [...] or fluid overload on today's examination. 04/07/2025 Primary osteoarthritis of left knee (ICD-10 - M17.12) The right knee pain has improved and left knee pain is worse. He is going to return to the orthopedic surgeon for further injections. I urged him to discuss all of the options. 06/02/2025 Primary osteoarthritis of left knee (ICD-10 - M17.12) The right knee pain has improved and left knee pain is worse. He is going to return to the orthopedic surgeon for further injections. I urged him to discuss all of the options. 08/04/2024 Bunion, right foot (ICD-10 - M21.611) Her wound is healing well and the pain is receding. The leg but is using only a cane. He will follow-up with a duct maker in the near future. 10/28/2024 History of [...] any symptoms related to blood clots occur. 04/07/2025 Cardiomyopathy (ICD-10 - I42.9) His recent echocardiogram is normal. The cardiomyopathy has resolved and this problem will be removed from the problem list. Because of his dyspnea is likely pulmonary.There was no sign of congestive heart failure or fluid overload on today's examination. 06/02/2025 Back pain, unspecified back location, unspecified back pain laterality, unspecified chronicity (ICD-10 - M54.9) The back pain is at baseline. It is mild and chronic. He is able to work and accomplish all of the activities of daily life. No change in his therapy was made. 01/20/2025 HTN (hypertension) (ICD-10 - I10) His blood pressure today is stable. No change in his regimen was made. 03/07/2025 Hallux valgus (acquired), right foot (ICD-10 - M20.11) He has an appointment with podiatry March 21, 2024. 04/07/2025 Hypogonadism in male (ICD-10 - E29.1) He is under the care of a urologist for this and has medication. 06/02/2025 History of pulmonary embolism (ICD-10 - Z86.711) He is no longer anticoagulated and has no pulmonary symptoms or chest pain. He was instructed to notify me immediately if any symptoms related to blood clots occur. 01/20/2025 ED (erectile dysfunction) of organic origin (ICD-10 - N52.9) This problem was successfully resolved with medication.A Viagra prescription was refilled 06/02/2025 Obesity (BMI 30-39.9) (ICD-10 - E66.9) His body mass index is 37. He has lost 3 pounds. We made a plan to lose weight at a rate of one half of a pound per week until the body mass index is normal. Plan Of Treatment Pending Test Test Name Order Date EKG 03/16/2012 PROFILE, FASTING (COMPREHENSIVE METABOLI C) 04/07/2025 CBC w DIFF 04/07/2025 Lipid Panel 04/07/2025 Testosterone, Total 04/07/2025 ECG 12 lead EKG 05/10/2024 Next Appt Details Provider Name:Genaro Mccabe , 07/06/2025 09:00:00 AM, [address] [facility] [address], [place], [address], Provider Name:Genaro Mccabe , 10/31/2025 10:30:00 AM, [address] [facility] [address], [place], [address], Insurance Providers Payer Name Payer Address Payer Phone Subscriber Number Group Number Insured Name Patient Relationship to Insured Coverage Start Date Coverage End Date [facility] [address] [facility] [address] [place] [address] [id number] Genaro Mcfadden Self - patient is the insured MED[place] [address] [place] [id number] HSN ONLY Genaro Mcfadden Self - patient is the insured Medical (General) History Medical History History ICD Code right shoulder pain laceration right bicep (childhood) hyperlipidemia chronic intermitten lower back pain sprain left ankle sleep apnea gynecomastia erectile dysfunction hypogonadism former smoker Pulmonary embolism August 2021 Surgical History Surgery Date(Month/Year) Bilateral bunionectomy 05/27/2024 Hospitalization History Reason Date(Month/Year) No history
== END 2025-06-07 08:43 | disposition home or self-care (01) ==
LOC: HO.US 08:42
PROVIDERS: PCP Internal Medicine Medical Oncology; Visit Provider Nurse Practitioner Family
DX: R79.89 Other specified abnormal findings of blood chemistry (principal)
CPT/HCPCS: 76700; 76981

== ENCOUNTER → 2025-06-07 08:45 | Outpatient (BNV) | payer OTHER, SELFPAY | PROVIDERS: PCP Internal Medicine Medical Oncology; Visit Provider Radiology Diagnostic Ultrasound | DX: K76.0 Fatty (change of) liver, not elsewhere classified (principal); R79.89 Other specified abnormal findings of blood chemistry | CPT/HCPCS: 76700 ==